=== PATIENT | female | born 1960 | race Caucasian/White ===

== ENCOUNTER → 2016-09-07 | Outpatient (CLI) | payer OTHER, MEDICAID ==
[~2016-09-07] MED LIST: /ADVA50050 IN; /CELE20CA OR; ALBU83IN NEB; ALEVE PO; BUME1TA PO; CETI10TA OR; DULERA INH; Dexilant PO; ECONAZOLE NITRATE TOP; FLEXERIL PO; FLUOROURACIL PV; MENEST PO; Metamucil PO; NASONEX; NEUR300C OR; OMEP20TA7 OR; PAXI40TA OR; PENI500T OR; POTA20PW PO; QVAR INH; SIMV40TA2 OR; SING10TA31 OR; VENTAER INH; VOLT1GEL2 TD
--- NOTE | 2016-09-08 05:45 | REP ---
Clinical: Pain with recent trauma (stepped on a desiree nail). Technique: AP, lateral, bilateral oblique views of the right foot. Findings: Age-related changes are appreciated. No acute fracture or dislocation. No subcutaneous emphysema or radiodense foreign body. Impression: Age-related changes without evidence for acute findings. Signed by Camacho Wilkinson MD 09/08/2016 05:37 A
== END ==
LOC: M ADAMS 13:17
PROVIDERS: ATTEND Physician Assistant
DX: M25.571 Pain in right ankle and joints of right foot (principal)

== ENCOUNTER → 2016-11-25 | Outpatient (REF) | payer OTHER, MEDICAID | LOC: M LAB REF 13:05 | PROVIDERS: ATTEND Internal Medicine Pulmonary Disease | DX: J45.50 Severe persistent asthma, uncomplicated (principal) ==

== ENCOUNTER 2016-12-02 10:32 | Emergency (ER) | payer MEDICAID, OTHER ==
[~2016-12-02] VITALS: Ht 172.7 cm; Wt 99.8 kg
[2016-12-02] MEDS ORDERED: SUMA100T2 PO (10:53)
[2016-12-02] MEDS ORDERED: LEVOTAB10 PO (10:53)
[2016-12-02] MEDS ORDERED: ROPI1TAB PO (10:53)
[2016-12-02] MEDS ORDERED: LASI40TA PO (10:53)
[2016-12-02] MEDS ORDERED: VENL37TA PO (10:53)
[2016-12-02] MEDS ORDERED: THEOPHYLLINE E400 MG PO (10:53)
[2016-12-02] MEDS ORDERED: OMEP40CA2 PO (10:53)
[2016-12-02] MEDS ORDERED: SPIR1AER IN (10:53)
[2016-12-02] MEDS ORDERED: DULE200A INH (12:18)
[2016-12-02 12:19] LABS: BASO % 0.3 % (0.0-1.0); EOS # 0.3 K/mm3 (0.0-0.50); LARGE UNSTAINED CELL # 0.2 K/mm3 (0.0-0.4); LYMPH # 1.4 K/mm3 (1.5-4.5); LYMPH % 19.2 % (24.0-44.0); MEAN CORPUSCULAR HEMOGLOBIN 30.3 pg (27.0-33.0); MEAN CORPUSCULAR HGB CONC 32.8 g/dl (32.0-36.5); MEAN CORPUSCULAR VOLUME 92.2 fl (80.0-96.0); MONO # 0.4 K/mm3 (0.0-0.8); MONO % 6.5 % (0.0-5.0); NEUTROPHILS # 4.2 K/mm3 (1.8-7.7); NEUTROPHILS % 65.9 % (36.0-66.0); PLATELET COUNT, AUTOMATED 290 k/mm3 (150-450); WHITE BLOOD COUNT 6.4 K/mm3 (4.0-10.0)
[2016-12-02] MEDS ORDERED: META48.54 PO (12:21)
[2016-12-02] MEDS ORDERED: ECON0.05 TOP (12:21)
[2016-12-02 12:24] LABS: ANION GAP 4 MEQ/L (8-16); BLOOD UREA NITROGEN 8 MG/DL (7-18); CALCIUM LEVEL 9.5 MG/DL (8.5-10.1); CARBON DIOXIDE LEVEL 30 MEQ/L (21-32); CHLORIDE LEVEL 107 MEQ/L (98-107); CREATININE FOR GFR 0.66 MG/DL (0.55-1.02); GLOMERULAR FILTRATION RATE > 60.0 (>51); GLUCOSE, FASTING 91 MG/DL (70-105); POTASSIUM SERUM 4.1 MEQ/L (3.5-5.1); SODIUM LEVEL 141 MEQ/L (136-145)
[2016-12-02] MEDS ORDERED: MECLIZINE 25 MG TABLET PO ONE (12:30)
[2016-12-02] MEDS ORDERED: ONDANSETRON 4MG/2ML VIAL (J2405) IV ONE (12:30)
[2016-12-02 12:31] LABS: THEOPHYLLINE LEVEL < 2.0 UG/ML (10.0-20.0)
--- NOTE | 2016-12-02 12:33 | REP ---
Chest one-view HISTORY: Chest pain Comparison: 11/18/2015 The lungs are clear. The heart is normal in size. The pulmonary vasculature is normal in appearance. Impression: No acute disease. Signed by Joe Hodgson MD 12/02/2016 12:24 P
--- NOTE | 2016-12-02 12:49 | REP ---
CT Head without contrast HISTORY: Dizziness COMPARISON: 08/29/2010 There is no intraparenchymal hemorrhage, acute infarct, mass or midline shift. The ventricular system is normal in appearance. There is no extra cerebral collection. There is no fracture. The visualized sinuses are clear. IMPRESSION: There is no intracranial lesion. Signed by Joe Hodgson MD 12/02/2016 12:40 P
[2016-12-02] MEDS ORDERED: ZOFR4TAB3 PO (15:36)
[2016-12-02] MEDS ORDERED: MECL-68 PO (15:36)
[2016-12-02 15:45] VITALS: BP 152/73
--- NOTE | 2016-12-03 09:14 | ECGEPIP ---
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
== END 2016-12-02 15:48 | disposition home or self-care (01) ==
LOC: M ED 13:31
DX: H83.02 Labyrinthitis, left ear (principal); J45.909 Unspecified asthma, uncomplicated; G43.909 Migraine, unspecified, not intractable, without status migrainosus; G47.33 Obstructive sleep apnea (adult) (pediatric); F32.9 Major depressive disorder, single episode, unspecified; K58.9 Irritable bowel syndrome, unspecified; Z91.040 Latex allergy status; Z79.899 Other long term (current) drug therapy; Z79.51 Long term (current) use of inhaled steroids
CPT/HCPCS: 70450; 71010; 80048; 80198; 82550; 82553; 84443; 85025; 93005; 93041; 94760; 96374; 99285; J2405

== ENCOUNTER → 2016-12-09 | Outpatient (REF) | payer OTHER, MEDICAID ==
[~2016-12-09] MED LIST changes: +DULE200A INH; +ECON0.05 TOP; +LASI40TA PO; +LEVOTAB10 PO; +MECL-68 PO; +META48.54 PO; +OMEP40CA2 PO; +ROPI1TAB PO; +SPIR1AER IN; +SUMA100T2 PO; +THEOPHYLLINE E400 MG PO; +VENL37TA PO; +ZOFR4TAB3 PO
== END ==
LOC: M SFHCPLAZ 10:31
PROVIDERS: ATTEND Family Medicine
DX: Z13.1 Encounter for screening for diabetes mellitus (principal); Z13.21 Encounter for screening for nutritional disorder

== ENCOUNTER → 2017-01-06 | Outpatient (CLI) | payer OTHER ==
--- NOTE | 2017-01-06 11:50 | REPMRS ---
Patient History The patient states she had a clinical breast exam in 05/24 Patient is postmenopausal. Family history of prostate cancer in father at age 50 or over and breast cancer in paternal aunt under age 50. Digital Woman Screen Mammo: January 06, 2017 - Exam #: [id number] Bilateral CC and MLO view(s) were taken. Technologist: Ritu Cramer, Technologist Prior study comparison: April 25, 2015, digital woman screen mammo performed at [facility]. March 08, 2014, digital woman screen mammo performed at [facility]. FINDINGS: The breast tissue is heterogeneously dense. This may lower the sensitivity of mammography. There has been no change in the appearance of the mammogram from the prior studies. There is a moderate amount of residual fibroglandular tissue which is fairly symmetric. There is no interval development of dominant mass, areas of architectural distortion, or clustered microcalcification typical of malignancy. ASSESSMENT: BI-RADS/ACR category 1 mammogram. Negative. Recommendation Routine screening mammogram in 1 year (for women over age 40). This mammogram was interpreted with the aid of an FDA-approved computer-aided dectection system. Electronically Signed By: Franklin Joe MD 01/06/17 [id number]
== END ==
LOC: M WHC 11:02
PROVIDERS: ATTEND Nurse Practitioner Adult Health
DX: Z12.31 Encounter for screening mammogram for malignant neoplasm of breast (principal)

== ENCOUNTER → 2017-01-14 | Outpatient (CLI) | payer OTHER ==
--- NOTE | 2017-01-14 14:45 | REP ---
Chest x-ray: Two views. History: Shortness of breath. Comparison study: November 18, 2015. Findings: The lungs are well inflated and free of infiltrate. The pleural angles are sharp. The heart size is normal. Pulmonary vasculature is not increased. No significant bony abnormality is seen. Impression: Negative chest x-ray. Signed by Helder Chavez MD 01/14/2017 02:36 P
== END ==
LOC: M ADAMS 11:28
PROVIDERS: ATTEND Physician Assistant
DX: J45.909 Unspecified asthma, uncomplicated (principal); R06.02 Shortness of breath

== ENCOUNTER → 2017-02-17 | Outpatient (CLI) | payer OTHER ==
[~2017-02-17] MED LIST changes: -ECON0.05 TOP; +ECON1CRE TOP; +THEO400T PO; -THEOPHYLLINE E400 MG PO
--- NOTE | 2017-02-18 02:15 | REP ---
Clinical: Pain. Technique: Neutral and frog lateral views of the left hip. Findings: Mild arthritic degenerative changes include joint space narrowing with increase sclerosis and subtle spurring along the acetabular roof. No periarticular calcifications. No acute fracture or dislocation. Impression: Mild age-related degenerative changes. Signed by Camacho Wilkinson MD 02/18/2017 02:06 A
== END ==
LOC: M RAD 11:25
PROVIDERS: ATTEND Family Medicine
DX: M16.12 Unilateral primary osteoarthritis, left hip (principal); M25.552 Pain in left hip

== ENCOUNTER → 2017-02-26 | Outpatient (REF) | payer OTHER, MEDICAID | LOC: M LAB REF 12:31 | PROVIDERS: ATTEND Internal Medicine Pulmonary Disease | DX: J45.50 Severe persistent asthma, uncomplicated (principal) ==

== ENCOUNTER → 2017-03-10 | Outpatient (REF) | payer OTHER | LOC: M LAB REF 13:40 | PROVIDERS: ATTEND Internal Medicine Pulmonary Disease | DX: J45.51 Severe persistent asthma with (acute) exacerbation (principal) ==

== ENCOUNTER → 2017-07-05 | Outpatient (CLI) | payer OTHER | LOC: M SMT 10:41 | PROVIDERS: ATTEND Physician Assistant | DX: J45.50 Severe persistent asthma, uncomplicated (principal) ==

== ENCOUNTER → 2017-09-03 | Outpatient (REF) | payer OTHER | LOC: M LAB REF 15:09 | DX: J45.41 Moderate persistent asthma with (acute) exacerbation (principal) ==

== ENCOUNTER 2017-10-15 09:04 | Emergency (ER) | payer OTHER ==
[2017-10-15] MEDS: predniSONE 20 MG TAB PO (09:57)
[2017-10-15] MEDS: IPRATROPIUM 0.5MG/ALBUTEROL 2.5MG INH SOL UD 3ML (DUONEB)(J7620) NEB ×3 (10:02→10:26)
== END 2017-10-15 13:23 | disposition home or self-care (01) ==
LOC: M ED 09:04
DX: J44.1 Chronic obstructive pulmonary disease with (acute) exacerbation (principal); J45.909 Unspecified asthma, uncomplicated; K58.9 Irritable bowel syndrome, unspecified; G47.33 Obstructive sleep apnea (adult) (pediatric); Z87.891 Personal history of nicotine dependence; Z91.040 Latex allergy status; Z79.899 Other long term (current) drug therapy; Z79.51 Long term (current) use of inhaled steroids
CPT/HCPCS: 71046

== ENCOUNTER → 2018-01-07 | Outpatient (CLI) | payer OTHER | LOC: M WHC 09:06 | DX: Z12.31 Encounter for screening mammogram for malignant neoplasm of breast (principal) | CPT/HCPCS: 77067 ==

== ENCOUNTER → 2018-03-13 | Outpatient (CLI) | payer OTHER | LOC: M ADAMS 08:20 | DX: M25.531 Pain in right wrist (principal) | CPT/HCPCS: 73110 ==

== ENCOUNTER → 2018-04-13 | Outpatient (CLI) | payer OTHER | LOC: M WHC 08:49 | DX: Z13.820 Encounter for screening for osteoporosis (principal); Z78.0 Asymptomatic menopausal state | CPT/HCPCS: 77080 ==

== ENCOUNTER 2018-05-02 12:43 | Day surgery (SDC) | payer OTHER ==
[~2018-05-02 12:43] MED LIST changes: -/ADVA50050 IN; -/CELE20CA OR; -ALBU83IN NEB; -ALEVE PO; -BUME1TA PO; -CETI10TA OR; -DULE200A INH; -DULERA INH; -Dexilant PO; -ECON1CRE TOP; -ECONAZOLE NITRATE TOP; -FLEXERIL PO; -FLUOROURACIL PV; -LASI40TA PO; -LEVOTAB10 PO; -MECL-68 PO; -MENEST PO; -META48.54 PO; -Metamucil PO; -NASONEX; -NEUR300C OR; +NS 1,000 ML IV; -OMEP20TA7 OR; -OMEP40CA2 PO; -PAXI40TA OR; -PENI500T OR; -POTA20PW PO; -QVAR INH; -ROPI1TAB PO; -SIMV40TA2 OR; -SING10TA31 OR; -SPIR1AER IN; -SUMA100T2 PO; -THEO400T PO; -VENL37TA PO; -VENTAER INH; -VOLT1GEL2 TD; -ZOFR4TAB3 PO
[2018-05-02] MEDS ORDERED: fentaNYL 100 MCG/2 ML INJECTION (J3010) As Ordered (12:59)
[2018-05-02] MEDS ORDERED: PROPOFOL 200 MG/20 ML VIAL As Ordered (12:59)
[2018-05-02] MEDS ORDERED: LIDOCAINE 2% INJ 100 MG/5 ML SDV (FOR ANES.) As Ordered (12:59)
== END 2018-05-02 15:38 | disposition home or self-care (01) ==
LOC: M OPP 12:43
DX: R19.4 Change in bowel habit (principal); D12.2 Benign neoplasm of ascending colon; D12.5 Benign neoplasm of sigmoid colon; K64.8 Other hemorrhoids; R12 Heartburn; I10 Essential (primary) hypertension; E78.5 Hyperlipidemia, unspecified; R60.0 Localized edema; K44.9 Diaphragmatic hernia without obstruction or gangrene; K59.00 Constipation, unspecified; K21.9 Gastro-esophageal reflux disease without esophagitis; D64.9 Anemia, unspecified; R06.02 Shortness of breath; M54.30 Sciatica, unspecified side; F32.9 Major depressive disorder, single episode, unspecified; G43.909 Migraine, unspecified, not intractable, without status migrainosus; J45.909 Unspecified asthma, uncomplicated; G47.30 Sleep apnea, unspecified; R06.83 Snoring; Z91.040 Latex allergy status; Z79.899 Other long term (current) drug therapy
CPT/HCPCS: 45385

== ENCOUNTER → 2018-05-17 | Outpatient (REF) | payer OTHER ==
[2018-05-17 16:19] LABS: GAMMA GLUTAMYLTRANSPEPTIDASE 61 U/L (5-55)
== END ==
LOC: M SFHCPLAZ 14:00
DX: R74.8 Abnormal levels of other serum enzymes (principal)

== ENCOUNTER → 2018-05-24 | Outpatient (REF) | payer OTHER ==
[2018-05-24 18:01] LABS: THEOPHYLLINE LEVEL 13.4 UG/ML (10.0-20.0)
== END ==
LOC: M LAB REF 17:09
DX: J45.50 Severe persistent asthma, uncomplicated (principal)
CPT/HCPCS: 80198

== ENCOUNTER → 2018-07-25 | Outpatient (CLI) | payer OTHER ==
[~2018-07-25] MED LIST changes: +/ADVA50050 IN; +/CELE20CA OR; +ALBU83IN NEB; +ALEVE PO; +ASMA1AER3; +ATOR40TA75 PO; +BREO1INH INH; +BUME1TA PO; +CETI10TA OR; +DULE200A INH; +DULERA INH; +Dexilant PO; +ECON1CRE TOP; +ECONAZOLE NITRATE TOP; +EFFE75CA2 PO; +FIBE625T PO; +FLEXERIL PO; +FLUO10CA8 PO; +FLUOROURACIL PV; +FLUTISP NARES; +GABA-1171 PO; +INCR1INH; +IPRA0.00 INH; +LACT10SO29 PO; +LASI40TA PO; +LEVOTAB10 PO; +MECL-68 PO; +MENEST PO; +META48.54 PO; +Metamucil PO; +NASONEX; +NEUR300C OR; -NS 1,000 ML IV; +OMEP20CA3 PO; +OMEP20TA7 OR; +OMEP40CA2 PO; +PAXI40TA OR; +PENI500T OR; +POTA20PW PO; +PRED10TA2 PO; +QVAR INH; +REQU1TAB16 PO; +ROPI1TAB PO; +SIMV40TA2 OR; +SING10TA31 OR; +SING10TA32 PO; +SPIR1AER IN; +SUMA100T2 PO; +THEO400T PO; +VENL37TA PO; +VENTAER INH; +VITA50005; +VOLT1GEL2 TD; +XOLA150S SC; +ZOFR4TAB14 PO
--- NOTE | 2018-07-27 08:17 | REP ---
Clinical: Elevated liver function tests. Technique: Real time estes scale ultrasound examination using curved array transducer. Findings: Liver demonstrates mild increased echotexture consistent with fatty infiltration. No focal hepatic lesion identified. The pancreas is incompletely evaluated due to interposed bowel gas. The gallbladder is normal and without gallstones, wall thickening, or pericholecystic fluid. No biliary ductal dilatation is appreciated and the common bile duct measures 2.7 mm diameter. The right kidney is normal in reniform shape without hydronephrosis and measures 10.3 x 5.8 x 5.1 cm. No ascites. Impression: Mild hepatic steatosis.
== END ==
LOC: M WHC 08:12
PROVIDERS: ATTEND Family Medicine
DX: K76.0 Fatty (change of) liver, not elsewhere classified (principal); R74.8 Abnormal levels of other serum enzymes

== ENCOUNTER → 2018-07-27 | Outpatient (CLI) | payer OTHER ==
--- NOTE | 2018-07-27 19:33 | REP ---
Clinical: Pain. Technique: AP, lateral, bilateral oblique views of the left foot. Findings: Subchondral sclerosis and joint space narrowing at the first tarsometatarsal joint is appreciated along with minimal increased sclerosis at the base of the first proximal phalanx and mild degenerative changes to the interphalangeal joints. No acute fracture or dislocation. Lateral view suggests pes planus. Impression: Mild degenerative changes. Electronically Signed by Camacho Wilkinson MD 07/27/2018 07:24 P
== END ==
LOC: M ADAMS 14:41
PROVIDERS: ATTEND Physician Assistant Medical
DX: M79.672 Pain in left foot (principal)

== ENCOUNTER → 2018-08-16 | Outpatient (REF) | payer OTHER ==
[~2018-08-16] MED LIST changes: -LASI40TA PO; +LASI40TA9 PO
== END ==
LOC: M SFHCPLAZ 16:41
PROVIDERS: ATTEND Family Medicine
DX: K76.0 Fatty (change of) liver, not elsewhere classified (principal)

== ENCOUNTER → 2018-08-22 | Outpatient (REF) | payer OTHER ==
[2018-08-24 08:35] LABS: HEPATITIS A IgG TOTAL Negative (Negative); HEPATITIS B CORE ANTIBODY IGG Negative (Negative)
[2018-08-24 11:04] LABS: HEPATITIS B SURFACE ANTIBODY NEGATIVE (POSITIVE); HEPATITIS B SURFACE ANTIGEN NEGATIVE (NEGATIVE); HEPATITIS C VIRUS ABY INDEX 0.1 INDEX (<0.8)
== END ==
LOC: M SFHCPLAZ 15:26
PROVIDERS: ATTEND Family Medicine
DX: K76.0 Fatty (change of) liver, not elsewhere classified (principal)

== ENCOUNTER → 2018-08-22 | Outpatient (CLI) | payer OTHER ==
--- NOTE | 2018-08-23 07:37 | REP ---
Clinical: Right knee pain. Technique: AP, lateral, bilateral oblique and sunrise views of the right knee. Findings: Mild arthritic changes include subchondral sclerosis to the tibial plateau and posterior patellar margin with medial compartment joint space narrowing as well as mild cortical irregularity and subtle spurring along the medial tibial plateau. No acute fracture or dislocation. No obvious effusion. Impression: Mild arthritic changes. Electronically Signed by Camacho Wilkinson MD 08/23/2018 07:28 A
== END ==
LOC: M ADAMS 14:31
PROVIDERS: ATTEND Family Medicine
DX: K76.0 Fatty (change of) liver, not elsewhere classified (principal); M25.561 Pain in right knee

== ENCOUNTER → 2018-09-19 | Outpatient (REF) | payer OTHER ==
[2018-09-19 20:14] LABS: PERCENT SATURATION 21.9 % (13.2-45.0)
[2018-09-22 00:09] LABS: ANTI-MITOCHONDRIAL ANTIBODY <20.0 Units (0.0-20.0); TRANSFERRIN 278 mg/dL (200-370)
== END ==
LOC: M LABDRWAD 19:04
PROVIDERS: ATTEND Student in an Organized Health Care Education/Training Program
DX: K76.0 Fatty (change of) liver, not elsewhere classified (principal)

== ENCOUNTER → 2018-11-03 | Outpatient (REF) | payer OTHER | LOC: M LABDRWAD 19:10 | PROVIDERS: ATTEND Physician Assistant | DX: J45.50 Severe persistent asthma, uncomplicated (principal) ==

== ENCOUNTER → 2018-11-03 | Outpatient (REF) | payer OTHER ==
[2018-11-04 09:31] LABS: PTH INTACT 97.4 PG/ML (18.5-88.0); TOTAL 25(OH) VITAMIN D 24.4 NG/ML (30.0-100.0)
[2018-11-05 16:40] LABS: ANTINUCLEAR ANTIBODIES DIRECT Negative (Negative)
== END ==
LOC: M SFHCPLAZ 15:01 → M SFHCADAM 15:02
PROVIDERS: ATTEND Family Medicine
DX: E78.89 Other lipoprotein metabolism disorders (principal)

== ENCOUNTER 2018-12-14 09:29 | Emergency (ER) | payer OTHER ==
[~2018-12-14] VITALS: Ht 160 cm; Wt 95.8 kg
[~2018-12-14 09:29] MED LIST changes: -/ADVA50050 IN; -/CELE20CA OR; +ADVA1AER2 IN; +CELE1CAP4 OR
[2018-12-14] MEDS ORDERED: ROPI1TAB PO (09:59)
[2018-12-14] MEDS ORDERED: methylPREDNISolone INJ 125 MG/2 ML VIAL (J2930) IV ONE (10:15)
[2018-12-14] MEDS ORDERED: ASPIRIN 81 MG CHEW TABLET PO ONE (10:15)
[2018-12-14 10:18] LABS: BASO # 0.1 10^3/uL (0.0-0.2); BASO % 0.6 % (0.0-1.0); EOS # 0.3 10^3/uL (0.0-0.50); EOS % 3.2 % (0.0-3.0); HEMATOCRIT 39.2 % (36.0-47.0); LYMPH # 1.3 10^3/uL (1.5-4.5); LYMPH % 13.3 % (24.0-44.0); MEAN CORPUSCULAR HEMOGLOBIN 30.2 pg (27.0-33.0); MEAN CORPUSCULAR HGB CONC 33.2 g/dl (32.0-36.5); MEAN CORPUSCULAR VOLUME 91.2 fl (80.0-96.0); MONO # 0.6 10^3/uL (0.0-0.8); MONO % 5.8 % (0.0-5.0); NEUTROPHILS # 7.6 10^3/uL (1.8-7.7); NEUTROPHILS % 76.8 % (36.0-66.0); PLATELET COUNT, AUTOMATED 282 10^3/uL (150-450); WHITE BLOOD COUNT 9.9 10^3/uL (4.0-10.0)
[2018-12-14 10:30] LABS: INR 0.92; PARTIAL THROMBOPLASTIN TIME 33.5 SECONDS (25.4-37.6); PROTHROMBIN TIME 12.5 SECONDS (12.1-14.4)
--- NOTE | 2018-12-14 10:30 | REP ---
Chest x-ray: Two views. History: Chest pain . Comparison study: October 15, 2017 . Findings: The lungs are well inflated and free of infiltrate. The pleural angles are sharp. The heart size is normal. Pulmonary vasculature is not increased. No significant bony abnormality is seen. EKG monitoring electrodes are seen. Impression: Negative chest x-ray. Electronically Signed by Helder Chavez MD 12/14/2018 10:22 A
[2018-12-14 10:33] LABS: D-DIMER QUANT 299.46 ng/ml (<500)
[2018-12-14] MEDS: IPRATROPIUM 0.5MG/ALBUTEROL 2.5MG INH SOL UD 3ML (DUONEB)(J7620) NEB PRN ×3 (10:40→12:03)
[2018-12-14 10:55] LABS: ALBUMIN 3.7 GM/DL (3.2-5.2); ALT/SGPT 17 U/L (12-78); BILIRUBIN,DIRECT < 0.1 MG/DL (0.0-0.2); BILIRUBIN,TOTAL 0.2 MG/DL (0.2-1.0); BLOOD UREA NITROGEN 8 MG/DL (7-18); CALCIUM LEVEL 8.9 MG/DL (8.5-10.1); CARBON DIOXIDE LEVEL 28 MEQ/L (21-32); CHLORIDE LEVEL 108 MEQ/L (98-107); CK-MB VALUE MASS < 1.0 NG/ML (<3.6); CPK CREATINE PHOSPHOKINASE 54 U/L (26-192); CREATININE FOR GFR 0.67 MG/DL (0.55-1.30); GLOMERULAR FILTRATION RATE > 60.0 (>51); GLUCOSE, FASTING 81 MG/DL (70-100); LIPASE 153 U/L (73-393); MB/CK RELATIVE INDEX 1.85 (< OR =4); POTASSIUM SERUM 3.3 MEQ/L (3.5-5.1); SODIUM LEVEL 142 MEQ/L (136-145); TOTAL PROTEIN 7.3 GM/DL (6.4-8.2); TROPONIN I < 0.02 NG/ML (< 0.10)
[2018-12-14] MEDS ORDERED: POTASSIUM CHLORIDE 10 MEQ SR TABLET PO ONE (11:00)
[2018-12-14 13:13] VITALS: O2SAT 97
[2018-12-14 14:21] LABS: CK-MB VALUE MASS < 1.0 NG/ML (<3.6); CPK CREATINE PHOSPHOKINASE 55 U/L (26-192); MB/CK RELATIVE INDEX 1.82 (< OR =4); TROPONIN I < 0.02 NG/ML (< 0.10)
[2018-12-14] MEDS ORDERED: PRED20TA PO (14:32)
[2018-12-14 14:56] VITALS: BP 126/78
--- NOTE | 2018-12-14 20:30 | ECGEPIP ---
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
--- NOTE | 2018-12-14 20:35 | ECGEPIP ---
Stationary ECG Study [facility] - ED Test Date: 2018-12-14 Pat Name: MARIA ESTHER KUHN Department: Room: - Gender: F Interpretive Program Coordinator: CARIN : 1960 Requested By: AMADO Trinidad Order Number: [id number] Reading MD: Shahrzad Murdock Measurements Intervals [place] Rate: 107 P: 51 DE: 166 QRS: -50 QRSD: 102 T: 31 QT: 352 QTc: 470 Interpretive Statements SINUS TACHYCARDIA PATTERN CONSISTENT WITH PULMONARY DISEASE INCOMPLETE RIGHT BUNDLE BRANCH BLOCK LEFT ANTERIOR FASCICULAR BLOCK MODERATE ST DEPRESSION Electronically Signed On 12-14-2018 20:35:31 EDT by Shahrzad Murdock
== END 2018-12-14 14:50 | disposition home or self-care (01) ==
LOC: M ED 09:29
DX: J45.901 Unspecified asthma with (acute) exacerbation (principal); J44.9 Chronic obstructive pulmonary disease, unspecified; E78.5 Hyperlipidemia, unspecified; F33.9 Major depressive disorder, recurrent, unspecified; G43.909 Migraine, unspecified, not intractable, without status migrainosus; G47.30 Sleep apnea, unspecified; K58.9 Irritable bowel syndrome, unspecified; R60.9 Edema, unspecified; Z79.899 Other long term (current) drug therapy; Z87.891 Personal history of nicotine dependence
CPT/HCPCS: 36415; 71046; 80048; 80076; 82550; 82553; 83690; 85025; 85379; 85610; 85730; 93005; 93041; 94640; 94760; 96374; 99285; J2930

== ENCOUNTER → 2018-12-19 | Outpatient (REF) | payer OTHER ==
[~2018-12-19] MED LIST changes: +PRED20TA PO
== END ==
LOC: M LAB REF 13:29
PROVIDERS: ATTEND Internal Medicine Pulmonary Disease
DX: J45.51 Severe persistent asthma with (acute) exacerbation (principal)

== ENCOUNTER → 2019-01-03 | Outpatient (CLI) | payer OTHER ==
--- NOTE | 2019-01-03 16:06 | REP ---
Clinical: Nontraumatic left shoulder pain. Technique: Internal rotation, external rotation, and Y view of the left shoulder. Findings: Generalized age-related changes are appreciated. Very subtle subchondral cystic changes to the humeral head cannot be excluded. No further overt arthritic findings identified. Acromioclavicular and glenohumeral joints are intact without acute fracture or dislocation. Subacromial space is normal. No periarticular calcifications or loose bodies identified. Impression: 1. Cannot exclude mild degenerative changes as noted above. Electronically Signed by Camacho Wilkinson MD 01/03/2019 03:58 P
== END ==
LOC: M ADAMS 15:02
PROVIDERS: ATTEND Physician Assistant Medical
DX: M25.512 Pain in left shoulder (principal)

== ENCOUNTER → 2019-02-08 | Outpatient (REF) | payer OTHER ==
[~2019-02-08] MED LIST changes: -OMEP20CA3 PO; +OMEP20CA4 PO
== END ==
LOC: M LABDRWAD 12:00
PROVIDERS: ATTEND Physician Assistant
DX: J45.50 Severe persistent asthma, uncomplicated (principal)

== ENCOUNTER → 2019-04-03 | Outpatient (CLI) | payer OTHER ==
[~2019-04-03] MED LIST changes: -ECON1CRE TOP; +ECON1CRE36 TOP
--- NOTE | 2019-04-03 12:38 | REPMRS ---
Patient History The patient states she had a clinical breast exam in 05/2018. Family history of breast cancer under age 50 in paternal aunt, prostate cancer at age 50 or over in father. Took estrogen for 2 years. 3D TOMOSYNTHESIS WAS PERFORMED. The Koki Lee lifetime risk for breast cancer is 9.0%. Digital Woman Screen Mammo: April 03, 2019 - Exam #: [id number] Bilateral CC and MLO view(s) were taken. Technologist: Ritu Cramer, Technologist Prior study comparison: January 07, 2018, digital woman screen mammo performed at [facility]. January 06, 2017, digital woman screen mammo performed at [facility]. FINDINGS: The breast tissue is heterogeneously dense. This may lower the sensitivity of mammography. There has been no change in the appearance of the mammogram from the prior studies. There is a moderate amount of residual fibroglandular tissue which is fairly symmetric. There is no interval development of dominant mass, areas of architectural distortion, or clustered microcalcification typical of malignancy. Assessment: BI-RADS/ACR category 1 mammogram. Negative Mammogram. Recommendation Routine screening mammogram in 1 year (for women over age 40). This mammogram was interpreted with the aid of an FDA-approved computer-aided dectection system. Electronically Signed By: Franklin Joe MD 04/03/19 [id number]
== END ==
LOC: M WHC 12:01
PROVIDERS: ATTEND Nurse Practitioner Adult Health
DX: Z12.31 Encounter for screening mammogram for malignant neoplasm of breast (principal); Z92.23 Personal history of estrogen therapy

== ENCOUNTER → 2019-04-28 | Outpatient (REF) | payer OTHER | LOC: M LAB REF 17:13 | PROVIDERS: ATTEND Physician Assistant | DX: J45.51 Severe persistent asthma with (acute) exacerbation (principal) ==

== ENCOUNTER 2019-07-14 15:33 | Emergency (ER) | payer OTHER ==
[~2019-07-14] VITALS: Ht 160 cm; Wt 95.1 kg
[~2019-07-14 15:33] MED LIST changes: +FLUO10CA15 PO; -FLUO10CA8 PO; +OMEP-172 PO; -OMEP20CA4 PO; -OMEP40CA2 PO; +OMEP40CA97 PO
[2019-07-14 16:23] LABS: VENOUS BASE EXCESS -2.4 (-2.0-2.0); VENOUS HCO3 22.8 MEQ/L (23.0-27.0); VENOUS O2 SATURATION 90.1 % (60.0-80.0); VENOUS PARTIAL PRESSURE CO2 40.6 mmHg (38.0-50.0); VENOUS PARTIAL PRESSURE O2 60.1 mmHg (30.0-50.0); VENOUS PH 7.367 UNITS (7.330-7.430); VENOUS STANDARD HCO3 22.3 MEQ/L
[2019-07-14 16:32] LABS: BASO % 0.7 % (0.0-1.0); EOS # 0.4 10^3/uL (0.0-0.5); EOS % 7.8 % (0.0-3.0); HEMATOCRIT 42.4 % (36.0-47.0); HEMOGLOBIN 13.5 g/dl (12.0-15.5); LYMPH # 1.6 10^3/uL (1.5-5.0); LYMPH % 27.9 % (24.0-44.0); MEAN CORPUSCULAR HEMOGLOBIN 29.7 pg (27.0-33.0); MEAN CORPUSCULAR HGB CONC 31.8 g/dl (32.0-36.5); MEAN CORPUSCULAR VOLUME 93.2 fl (80.0-96.0); MONO # 0.5 10^3/uL (0.0-0.8); MONO % 9.3 % (0.0-5.0); NEUTROPHILS # 3.1 10^3/uL (1.5-8.5); NEUTROPHILS % 54.1 % (36.0-66.0); PLATELET COUNT, AUTOMATED 293 10^3/uL (150-450); RED BLOOD COUNT 4.55 10^6/uL (4.00-5.40); WHITE BLOOD COUNT 5.7 10^3/uL (4.0-10.0)
[2019-07-14] MEDS ORDERED: FIBE62TA PO (16:36)
[2019-07-14] MEDS ORDERED: CVS125CA3 PO (16:36)
--- NOTE | 2019-07-14 16:39 | REP ---
Single view chest: 07/14/2019. Indication: Dyspnea. Comparison: 12/14/2018. Findings: The lungs are clear. There is no pleural effusion or pneumothorax. The cardiomediastinal silhouette is unremarkable. Impression: No acute cardiopulmonary process. Electronically Signed by Roman Herrera DO 07/14/2019 04:31 P
[2019-07-14 16:46] LABS: INR 1.02; PROTHROMBIN TIME 13.1 SECONDS (11.8-14.0)
[2019-07-14 16:57] LABS: ALBUMIN 3.9 GM/DL (3.2-5.2); ALT/SGPT 18 U/L (12-78); BILIRUBIN,DIRECT < 0.1 MG/DL (0.0-0.2); BILIRUBIN,TOTAL 0.4 MG/DL (0.2-1.0); BLOOD UREA NITROGEN 10 MG/DL (7-18); CALCIUM LEVEL 9.3 MG/DL (8.5-10.1); CARBON DIOXIDE LEVEL 24 MEQ/L (21-32); CHLORIDE LEVEL 107 MEQ/L (98-107); CK-MB VALUE MASS < 1.0 NG/ML (<3.6); CPK CREATINE PHOSPHOKINASE 70 U/L (26-192); CREATININE FOR GFR 0.73 MG/DL (0.55-1.30); GLOMERULAR FILTRATION RATE > 60.0 (>51); GLUCOSE, FASTING 83 MG/DL (70-100); MB/CK RELATIVE INDEX 1.43 (< OR =4); NT-PRO BNP 15 PG/ML (<125); POTASSIUM SERUM 3.9 MEQ/L (3.5-5.1); SODIUM LEVEL 141 MEQ/L (136-145); TOTAL PROTEIN 7.6 GM/DL (6.4-8.2); TROPONIN I < 0.02 NG/ML (< 0.10)
[2019-07-14] MEDS ORDERED: IPRATROPIUM 0.5MG/ALBUTEROL 2.5MG INH SOL UD 3ML (DUONEB)(J7620) NEB ONE (17:00)
[2019-07-14] MEDS ORDERED: ALBUTEROL SULFATE 2.5 MG/0.5 ML INH NEB SOLN INH ONE (17:00)
[2019-07-14] MEDS ORDERED: dexameTHASONE 20 MG/5 ML VIAL (J1100) IV ONE (17:30)
[2019-07-14] MEDS ORDERED: PRED10TA2 PO (18:24)
[2019-07-14 18:38] VITALS: BP 151/78
--- NOTE | 2019-07-14 20:08 | ECGEPIP ---
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
== END 2019-07-14 18:41 | disposition home or self-care (01) ==
LOC: M ED 15:33
DX: J45.901 Unspecified asthma with (acute) exacerbation (principal); J44.9 Chronic obstructive pulmonary disease, unspecified; E78.5 Hyperlipidemia, unspecified; G47.33 Obstructive sleep apnea (adult) (pediatric); Z79.899 Other long term (current) drug therapy; Z91.040 Latex allergy status; Z87.891 Personal history of nicotine dependence
CPT/HCPCS: 71045; 80047; 80048; 80076; 82550; 82553; 82803; 83605; 83735; 83880; 84443; 85025; 85610; 87040; 87077; 87186; 87486; 87581; 87633; 87798; 93005; 93041; 94640; 96374; 99285; J1100

== ENCOUNTER → 2019-08-17 | Outpatient (CLI) | payer OTHER ==
[~2019-08-17] MED LIST changes: +CVS125CA3 PO; +E-Z-GAS II EFFERVESCENT PACKET (SODIUM BICARB./CITRIC ACID/SIMETHICONE) As Ordered ONE; +E-Z-HD 98% w/w 340GM SUSP BTL As Ordered ONE; +E-Z-PAQUE 96% w/w SUSP 176GM BTL As Ordered ONE; +FIBE62TA PO
--- NOTE | 2019-08-17 18:36 | REP ---
Esophagram The procedure was performed under the direct supervision of Dr. Chavez. The images were reviewed with Dr. Chavez. A single view PA chest x-ray is submitted as a pilot instructor film. The superior mediastinal structures are midline. The heart size is within normal limits. The lungs are clear. Liquid barium and gas producing granules were given in the erect position as well as liquid barium in the prone oblique positions in order to perform a double contrast esophagram examination. The oral and pharyngeal stages of deglutition are unremarkable. 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 There are esophageal transport there are tertiary waves demonstrated. There is no esophagitis stricture mucosal ring or hiatal hernia. Gastroesophageal reflux is not demonstrated on this examination. Impression: 1. 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 2. Tertiary waves. 0.6 minutes of fluoro time was utilized for this procedure. Electronically Signed by TERRANCE Andersen 08/17/2019 05:42 P Electronically Signed by Helder Chavez MD 08/17/2019 06:25 P
== END ==
LOC: M RAD 08:15
PROVIDERS: ATTEND Student in an Organized Health Care Education/Training Program
DX: K44.9 Diaphragmatic hernia without obstruction or gangrene (principal)

== ENCOUNTER → 2019-08-23 | Outpatient (REF) | payer OTHER ==
[~2019-08-23] MED LIST changes: -E-Z-GAS II EFFERVESCENT PACKET (SODIUM BICARB./CITRIC ACID/SIMETHICONE) As Ordered ONE; -E-Z-HD 98% w/w 340GM SUSP BTL As Ordered ONE; -E-Z-PAQUE 96% w/w SUSP 176GM BTL As Ordered ONE; -ECON1CRE36 TOP; +ECON1CRE8 TOP; -MECL-68 PO; +MECL1TAB31 PO; -OMEP-172 PO; +OMEP1CAP73 PO
== END ==
LOC: M SFHCPLAZ 08:46
PROVIDERS: ATTEND Family Medicine
DX: Q39.4 Esophageal web (principal); Z13.220 Encounter for screening for lipoid disorders; Z13.1 Encounter for screening for diabetes mellitus; R63.5 Abnormal weight gain

== ENCOUNTER → 2019-08-30 | Outpatient (REF) | payer OTHER ==
[2019-08-30 13:53] LABS: HEMATOCRIT 42.2 % (36.0-47.0); HEMOGLOBIN 13.2 g/dl (12.0-15.5); MEAN CORPUSCULAR HEMOGLOBIN 29.5 pg (27.0-33.0); MEAN CORPUSCULAR HGB CONC 31.3 g/dl (32.0-36.5); MEAN CORPUSCULAR VOLUME 94.4 fl (80.0-96.0); PLATELET COUNT, AUTOMATED 316 10^3/uL (150-450); RED BLOOD COUNT 4.47 10^6/uL (4.00-5.40); WHITE BLOOD COUNT 5.9 10^3/uL (4.0-10.0)
[2019-08-30 14:34] LABS: ALBUMIN 3.8 GM/DL (3.2-5.2); ALT/SGPT 13 U/L (12-78); BILIRUBIN,TOTAL 0.1 MG/DL (0.2-1.0); BLOOD UREA NITROGEN 14 MG/DL (7-18); CALCIUM LEVEL 9.8 MG/DL (8.5-10.1); CARBON DIOXIDE LEVEL 25 MEQ/L (21-32); CHLORIDE LEVEL 110 MEQ/L (98-107); CHOLESTEROL LEVEL 241 MG/DL (<200); CHOLESTEROL RISK RATIO 4.918 (<5); CREATININE FOR GFR 0.88 MG/DL (0.55-1.30); FERRITIN 22 NG/ML (8-252); FOLATE 7.3 NG/ML; FREE T4 0.97 NG/DL (0.76-1.46); GLOMERULAR FILTRATION RATE > 60.0 (>51); GLUCOSE, FASTING 97 MG/DL (70-100); HDL CHOLESTEROL 49 MG/DL (>40); IRON (FE) 52 UG/DL (50-170); LDL CHOLESTEROL 150 MG/DL (<100); NON-HDL-C 192 MG/DL; PERCENT SATURATION 15.3 % (13.2-45.0); POTASSIUM SERUM 3.7 MEQ/L (3.5-5.1); SODIUM LEVEL 144 MEQ/L (136-145); TOTAL IRON BINDING CAPACITY 340 UG/DL (250-450); TOTAL PROTEIN 7.2 GM/DL (6.4-8.2); TRIGLYCERIDES LEVEL 208 MG/DL (<150); VITAMIN B12 LEVEL 629 PG/ML
[2019-08-30 15:17] LABS: HEMOGLOBIN A1c 5.9 %
== END ==
LOC: M SFHCPLAZ 08:24
PROVIDERS: ATTEND Family Medicine
DX: Q39.4 Esophageal web (principal); Z13.220 Encounter for screening for lipoid disorders; Z13.1 Encounter for screening for diabetes mellitus; R63.5 Abnormal weight gain

== ENCOUNTER 2019-09-02 09:55 | Emergency (ER) | payer OTHER ==
[~2019-09-02] VITALS: Ht 160 cm; Wt 96.6 kg
[~2019-09-02 09:55] MED LIST changes: -INCR1INH; +INCR1INH INH
[2019-09-02] MEDS ORDERED: ALBUTEROL SULFATE 2.5 MG/0.5 ML INH NEB SOLN INH ONE (10:15)
[2019-09-02] MEDS ORDERED: methylPREDNISolone INJ 125 MG/2 ML VIAL (J2930) IV ONE (10:15)
[2019-09-02] MEDS ORDERED: IPRATROPIUM 0.5MG/ALBUTEROL 2.5MG INH SOL UD 3ML (DUONEB)(J7620) NEB ONE (10:15)
--- NOTE | 2019-09-02 10:42 | REP ---
AP PORTABLE CHEST: 09/02/2019. COMPARISON: 07/14/2019, 07/11/2005. CLINICAL HISTORY: Dyspnea. FINDINGS: Lungs are well inflated and clear. The heart, mediastinal and hilar contours are normal. Aorta and airway intact. Bones show some degenerative changes in the spine and shoulders although mild. No free air under the diaphragm. IMPRESSION: 1. No acute cardiopulmonary change. Stable chest from 07/14/2019. Electronically Signed by Hernando Carrillo MD 09/02/2019 07:55 P
[2019-09-02 10:46] LABS: ABG BASE EXCESS 2.2 (-2.0-2.0); ABG HCO3 26.2 MEQ/L (22.0-26.0); ABG O2 SATURATION 96.4 % (95.0-99.0); ABG PARTIAL PRESSURE CO2 38.9 mmHg (35.0-45.0); ABG PARTIAL PRESSURE O2 82.6 mmHg (75.0-100.0); ABG STANDARD HCO3 26.4 MEQ/L (22.0-26.0); ABG TOTAL CO2 27.4 MEQ/L (22.0-29.0); ABG pH (ARTERIAL) 7.447 UNITS (7.350-7.450)
[2019-09-02 10:48] LABS: BASO # 0.1 10^3/uL (0.0-0.2); BASO % 1.2 % (0.0-1.0); EOS # 0.9 10^3/uL (0.0-0.5); EOS % 16.4 % (0.0-3.0); HEMATOCRIT 41.4 % (36.0-47.0); HEMOGLOBIN 13.3 g/dl (12.0-15.5); LYMPH % 19.7 % (24.0-44.0); MEAN CORPUSCULAR HEMOGLOBIN 29.4 pg (27.0-33.0); MEAN CORPUSCULAR HGB CONC 32.1 g/dl (32.0-36.5); MEAN CORPUSCULAR VOLUME 91.6 fl (80.0-96.0); MONO # 0.4 10^3/uL (0.0-0.8); MONO % 7.7 % (0.0-5.0); NEUTROPHILS # 2.8 10^3/uL (1.5-8.5); NEUTROPHILS % 54.6 % (36.0-66.0); PLATELET COUNT, AUTOMATED 274 10^3/uL (150-450); RED BLOOD COUNT 4.52 10^6/uL (4.00-5.40); WHITE BLOOD COUNT 5.2 10^3/uL (4.0-10.0)
[2019-09-02] MEDS ORDERED: MONT10TA2 PO (11:04)
[2019-09-02] MEDS ORDERED: ARNU1INH3 PO (11:04)
[2019-09-02] MEDS ORDERED: CONS10SO3 PO ×2 (11:04)
[2019-09-02] MEDS ORDERED: LEVOTAB10 PO (11:04)
[2019-09-02] MEDS ORDERED: FLUTISP NARES (11:04)
[2019-09-02] MEDS ORDERED: AIRD1INH PO (11:04)
[2019-09-02 11:14] LABS: INFLUENZA A AMPLIFICATION NEGATIVE (NEGATIVE); INFLUENZA B AMPLIFICATION NEGATIVE (NEGATIVE)
[2019-09-02 11:19] LABS: ALBUMIN 3.7 GM/DL (3.2-5.2); ALT/SGPT 12 U/L (12-78); BILIRUBIN,DIRECT < 0.1 MG/DL (0.0-0.2); BILIRUBIN,TOTAL 0.2 MG/DL (0.2-1.0); CK-MB VALUE MASS < 1.0 NG/ML (<3.6); CPK CREATINE PHOSPHOKINASE 63 U/L (26-192); MB/CK RELATIVE INDEX 1.59 (< OR =4); NT-PRO BNP 25 PG/ML (<125); THYROXINE (T4) 8.9 UG/DL (4.5-12.0); TOTAL PROTEIN 7.1 GM/DL (6.4-8.2); TROPONIN I < 0.02 NG/ML (< 0.10)
[2019-09-02] MEDS ORDERED: DOXY100C37 PO (11:41)
[2019-09-02] MEDS ORDERED: PRED10TA2 PO (11:41)
[2019-09-02] MEDS ORDERED: DOXYCYCLINE HYCLATE 100 MG TAB PO ONE (11:45)
[2019-09-02 11:46] VITALS: BP 153/78
--- NOTE | 2019-09-02 16:40 | ECGEPIP ---
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
== END 2019-09-02 12:00 | disposition home or self-care (01) ==
LOC: M ED 09:55
DX: J44.1 Chronic obstructive pulmonary disease with (acute) exacerbation (principal); J40 Bronchitis, not specified as acute or chronic; I10 Essential (primary) hypertension; K44.9 Diaphragmatic hernia without obstruction or gangrene; G47.30 Sleep apnea, unspecified; E78.9 Disorder of lipoprotein metabolism, unspecified; F32.9 Major depressive disorder, single episode, unspecified; Z87.891 Personal history of nicotine dependence; Z91.040 Latex allergy status; Z79.899 Other long term (current) drug therapy; Z79.51 Long term (current) use of inhaled steroids
CPT/HCPCS: 36600; 71045; 80047; 80076; 82550; 82553; 82803; 83605; 83880; 84436; 84443; 85025; 87040; 87502; 93005; 93041; 94640; 96374; 99285; J2930

== ENCOUNTER → 2019-09-15 | Outpatient (CLI) | payer OTHER ==
[~2019-09-15] MED LIST changes: +AIRD1INH PO; +ARNU1INH3 PO; +CONRAY-43 43% 50ML VIAL (Q9960) As Ordered ONE; +CONS10SO3 PO; +DOXY100C37 PO; +MONT10TA4 PO; +PROHANCE 279.3MG/ML 5ML VIAL (A9576) As Ordered ONE; -ROPI1TAB PO; +ROPI1TAB3 PO
--- NOTE | 2019-09-15 09:33 | REP ---
MR ARTHROGRAPHY LEFT SHOULDER: With pre- and post intra-articular gadolinium enhanced saline injected imaging: HISTORY: Impingement syndrome. Injury January 26, 2019. Rule out rotator cuff or labral tear. Comparison left shoulder radiographs are from January 03, 2019. TECHNIQUE: Injection procedure is performed and dictated separately. Pre- and post intra-articular gadolinium enhanced saline injected imaging is acquired. Imaging planes include axial, oblique coronal, oblique sagittal and ABER projection images. T1- and T2-weighted scans are included with and without fat saturation. MRI FINDINGS: Pre-injection imaging shows extensive subcortical cyst formation in the articular subcortical region of the humeral head with an area of flattening and severe overlying chondromalacia. There are also subcortical cyst posterolaterally in the humeral head. There is mild glenohumeral marginal osteophyte formation. There is glenoid chondromalacia as well. There is a small quantity of fluid and subcortical cyst formation at the posterior labral cartilage attachment consistent with degenerative change in the posterior labral cartilage. Superior labral cartilage appears intact. There is mild osteoarthritic hypertrophy at the AC joint with marrow edema. There is fairly advanced distal supraspinatus tendinosis/tendonitis change. There is some T2 hyperintensity at the distal tendon insertion but no focal full-thickness cuff tear is appreciated. There is some tendinosis in the subscapularis tendon. Infraspinatus tendon appears intact. Biceps tendon is in the bony bicipital groove and is unremarkable. Post-injection imaging shows good filling and enhancement. There is some contrast enhanced saline undermining the posterior labrum indicating posterior labral cartilage tear. There is no evidence of rotator cuff tear on post injection imaging. ABER images show no evidence of anterior labral tear. IMPRESSION: Glenohumeral osteoarthritis with subcortical cyst formation fairly extensively in the articular margin of the humeral head with area of flattening and severe chondromalacia. There is glenoid chondromalacia. There is evidence of a posterior glenoid labral cartilage tear nondisplaced. Advanced supraspinatus tendinosis and some subscapularis tendinosis changes. Mild AC joint osteoarthritic hypertrophy. Electronically Signed by Helder Chavez MD 09/15/2019 12:13 P
--- NOTE | 2019-09-15 12:25 | REP ---
Procedure: Left shoulder arthrogram The procedure was performed under the direct supervision of Dr. Chavez. History: Left shoulder pain The benefits and risks including but not limited to pain, infection, bleeding and anaphylaxis were explained to the patient and informed consent was obtained. Technique: The left glenohumeral joint space was localized using fluoroscopic guidance. The skin was prepped and draped in a sterile fashion. 1% lidocaine was used as a local anesthetic. Using fluoroscopic guidance a 22 gauge spinal needle was inserted and advanced into the joint. 0.5 ml of Conray 43 was injected to verify placement. 11 ml of a solution containing 20 ml of sterile saline and 0.15 ml of ProHance was injected into the joint. The needle was removed and the patient was taken to MRI for postprocedural imaging. The the patient tolerated the procedure well and there were no immediate complications. Less than 6 seconds of fluoro time was utilized for this procedure. Electronically Signed by TERRANCE Andersen 09/15/2019 12:06 P Electronically Signed by Helder Chavez MD 09/15/2019 12:16 P
== END ==
LOC: M RADPRO 06:33
PROVIDERS: ATTEND Physician Assistant
DX: M85.412 Solitary bone cyst, left shoulder (principal); M19.012 Primary osteoarthritis, left shoulder; M94.212 Chondromalacia, left shoulder
CPT/HCPCS: 23350; 73223; 77002; A9576; Q9960

== ENCOUNTER → 2019-10-20 | Outpatient (CLI) | payer OTHER ==
[~2019-10-20] MED LIST changes: -CONRAY-43 43% 50ML VIAL (Q9960) As Ordered ONE; -PROHANCE 279.3MG/ML 5ML VIAL (A9576) As Ordered ONE
--- NOTE | 2019-10-20 14:40 | REP ---
REASON: Persistent asthma. PRIORS: None. FINDINGS: The superior mediastinal structures are midline. The cardiac silhouette is unremarkable in size, shape, and position. The diaphragmatic surfaces of the lungs are regular, and the costophrenic angles are clear. The pulmonary mayberry are clear. The imaged osseous structures are intact. IMPRESSION: There is no acute cardiopulmonary disease. Electronically Signed by Pawan Merlos DO 10/20/2019 03:42 P
== END ==
LOC: M ADAMS 14:17
PROVIDERS: ATTEND Physician Assistant
DX: J45.51 Severe persistent asthma with (acute) exacerbation (principal)

== ENCOUNTER → 2019-10-25 | Outpatient (REF) | payer OTHER | LOC: M LAB REF 12:49 | PROVIDERS: ATTEND Internal Medicine Pulmonary Disease | DX: J45.50 Severe persistent asthma, uncomplicated (principal) ==

== ENCOUNTER → 2020-01-05 | Outpatient (CLI) | payer OTHER ==
--- NOTE | 2020-01-05 11:00 | REP ---
NUCLEAR GASTRIC EMPTYING SCAN: Following the oral administration of 1.3 millicuries technetium 99m sulfur colloid in two scrambled eggs and 6 ounces of water, multiple images of the upper abdomen are performed in the anterior and posterior projections for 90 minutes. Gastric activity is measured. At the end of 90 minutes, 19% of the ingested activity has emptied from the stomach. T1/2 is calculated to be 218 minutes. Normal t1/2 is 90 minutes. There is therefore delayed gastric emptying. IMPRESSION: Delayed gastric emptying as discussed above. Electronically Signed by Franklin Joe MD 01/05/2020 11:42 A
== END ==
LOC: M RAD 07:31
PROVIDERS: ATTEND Internal Medicine Gastroenterology
DX: K31.84 Gastroparesis (principal); K30 Functional dyspepsia
CPT/HCPCS: 78264; A9541

== ENCOUNTER 2020-03-08 08:07 | Day surgery (SDC) | payer OTHER ==
[~2020-03-08 08:07] MED LIST changes: -FLUO10CA15 PO; +FLUO10CA16 PO; -LACT10SO29 PO; +LACT20EL PO
[2020-03-08] MEDS ORDERED: LEVALBUTEROL 1.25 MG/0.5 ML CONCENTRATE NEB ONE (08:14)
[2020-03-08] MEDS ORDERED: LIDOCAINE 2% 100MG/5ML SDV (FOR ANES.) As Ordered ONE (08:16)
[2020-03-08] MEDS ORDERED: propofoL 200 MG/20 ML VIAL As Ordered ONE ×2 (08:16→09:21)
[2020-03-08] MEDS ORDERED: fentaNYL 100 MCG/2 ML INJECTION (J3010) As Ordered ONE (08:17)
--- NOTE | 2020-04-17 11:27 | ROOR ---
Patient Name: Martha Manzo Procedure Date: 03/08/2020 7:58 AM Date of : 1960 Age: 59 Room: [facility] Gender: Female Note Status: Finalized Procedure: Upper GI endoscopy Indications: Dysphagia, Heartburn, Abnormal cine-esophagram, Gastroparesis Providers: Carlos THORNTON MD Referring MD: DORINDA BOWIE [facility] Neto Requesting Provider: Medicines: Monitored Anesthesia Care Complications: No immediate complications. Procedure: Pre-Anesthesia Assessment: - The heart rate, respiratory rate, oxygen saturations, blood pressure, adequacy of pulmonary ventilation, and response to care were monitored throughout the procedure. The Endoscope was introduced through the mouth, and advanced to the second part of duodenum. The upper GI endoscopy was accomplished without difficulty. The patient tolerated the procedure well. Findings: A web was found in the proximal esophagus. The scope was withdrawn. Dilation was performed with a Morales dilator with mild resistance at 54 Fr. The dilation site was examined following endoscope reinsertion and showed complete resolution of luminal narrowing. A few small sessile fundic gland polyps were found in the gastric fundus and in the gastric body. The polyp was removed with a cold snare. Polyp resection was incomplete, and the resected tissue was partially retrieved. The examined duodenum was normal. 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 Dilated. - A few fundic gland polyps. Polyp resection was incomplete, and the resected tissue was partially retrieved. - Normal examined duodenum. Recommendation: - Gastroparesis diet: - Eat smaller, more frequent meals throughout the day. - Low fat diet. - Liquid/soft foods are tolerated better than solid foods. - Low fiber/well cooked vegetables are tolerated better than high fiber/fibrous foods/raw vegetables. - Avoid medications that inhibit gastric/intestinal motility such as narcotic medications. Carlos Thornton MD Carlos THORNTON MD 03/08/2020 9:27:29 AM Electronically signed by Carlos THORNTON MD Number of Addenda: 0 Note Initiated On: 03/08/2020 7:58 AM Estimated Blood Loss: Estimated blood loss: none.
== END 2020-03-08 10:00 | disposition home or self-care (01) ==
LOC: M OPP 08:07
PROVIDERS: ATTEND Internal Medicine Gastroenterology
DX: Q39.4 Esophageal web (principal); K31.7 Polyp of stomach and duodenum; K31.84 Gastroparesis; R93.3 Abnormal findings on diagnostic imaging of other parts of digestive tract; R12 Heartburn; K21.9 Gastro-esophageal reflux disease without esophagitis; R13.10 Dysphagia, unspecified; Z79.899 Other long term (current) drug therapy; Z91.040 Latex allergy status
CPT/HCPCS: 43251; 43450; 88305; J3010

== ENCOUNTER → 2020-04-02 | Outpatient (REF) | payer OTHER | LOC: M LABDRWAD 12:37 | PROVIDERS: ATTEND Internal Medicine Pulmonary Disease | DX: J45.50 Severe persistent asthma, uncomplicated (principal) ==

== ENCOUNTER → 2020-04-04 | Outpatient (CLI) | payer OTHER ==
--- NOTE | 2020-04-04 12:08 | REPMRS ---
Patient History The patient states she had a clinical breast exam in 2019. Family history of breast cancer under age 50 in paternal aunt, prostate cancer at age 50 or over in father. Took estrogen for 2 years. Digital Woman Screen Mammo: April 04, 2020 - Exam #: [id number] Bilateral CC and MLO view(s) were taken. Technologist: Christine Montilla, Technologist Prior study comparison: April 03, 2019, bilateral digital woman screen mammo performed at [facility]. January 07, 2018, digital woman screen mammo performed at [facility]. January 06, 2017, digital woman screen mammo performed at [facility]. FINDINGS: There are scattered fibroglandular densities. The Volpara volumetric breast density category is:B. There has been no change in the appearance of the mammogram from the prior studies. There is a mild amount of scattered fibroglandular density which is fairly symmetric. There is no interval development of dominant mass, architectural distortion, or grouped microcalcification suggestive of malignancy. 3-D tomosynthesis shows no additional findings. Assessment: BI-RADS/ACR category 1 mammogram. Negative Mammogram. Recommendation Routine screening mammogram of both breasts in 1 year (for women over age 40). This patient's Lifetime Breast Cancer Risk is estimated at 8.8 %. This mammogram was interpreted with the aid of an FDA-approved computer-aided dectection system. Electronically Signed By: Emil Chavez MD 04/04/20 [id number]
== END ==
LOC: M WHC 07:59
PROVIDERS: ATTEND Nurse Practitioner Adult Health
DX: Z12.31 Encounter for screening mammogram for malignant neoplasm of breast (principal)

== ENCOUNTER → 2020-05-20 | Outpatient (REF) | payer OTHER ==
[2020-05-20 12:47] LABS: HEMATOCRIT 42.3 % (36.0-47.0); HEMOGLOBIN 13.4 g/dl (12.0-15.5); MEAN CORPUSCULAR HGB CONC 31.7 g/dl (32.0-36.5); MEAN CORPUSCULAR VOLUME 91.6 fl (80.0-96.0); PLATELET COUNT, AUTOMATED 309 10^3/uL (150-450); RED BLOOD COUNT 4.62 10^6/uL (4.00-5.40); WHITE BLOOD COUNT 9.3 10^3/uL (4.0-10.0)
[2020-05-20 13:14] LABS: ALBUMIN 3.7 GM/DL (3.2-5.2); ALT/SGPT 15 U/L (12-78); BILIRUBIN,TOTAL 0.2 MG/DL (0.2-1.0); BLOOD UREA NITROGEN 10 MG/DL (7-18); CALCIUM LEVEL 9.4 MG/DL (8.5-10.1); CARBON DIOXIDE LEVEL 27 MEQ/L (21-32); CHLORIDE LEVEL 107 MEQ/L (98-107); CREATININE FOR GFR 0.74 MG/DL (0.55-1.30); GLOMERULAR FILTRATION RATE > 60.0 (>51); GLUCOSE, FASTING 69 MG/DL (70-100); POTASSIUM SERUM 3.3 MEQ/L (3.5-5.1); SODIUM LEVEL 142 MEQ/L (136-145); THYROID STIMULATING HORMONE 0.881 uIU/ML (0.358-3.740); TOTAL PROTEIN 7.4 GM/DL (6.4-8.2)
[2020-05-20 13:15] LABS: TOTAL 25(OH) VITAMIN D 27.6 NG/ML (30.0-100.0)
== END ==
LOC: M SFHCPLAZ 10:14 → M SFHCADAM 10:28
PROVIDERS: ATTEND Student in an Organized Health Care Education/Training Program
DX: R53.82 Chronic fatigue, unspecified (principal)

== ENCOUNTER → 2020-07-29 | Outpatient (CLI) | payer OTHER ==
[~2020-07-29] MED LIST changes: -MONT10TA4 PO; +MONT5TAB2 PO
== END ==
LOC: M LABSMTC 12:03
PROVIDERS: ATTEND Family Medicine
DX: Z20.828 Contact with and (suspected) exposure to other viral communicable diseases (principal)

== ENCOUNTER → 2020-11-06 | Outpatient (REF) | payer OTHER ==
[~2020-11-06] MED LIST changes: +MONT10TA10 PO; -MONT5TAB2 PO
== END ==
LOC: M LAB REF 16:54
PROVIDERS: ATTEND Internal Medicine Pulmonary Disease
DX: J45.50 Severe persistent asthma, uncomplicated (principal)

== ENCOUNTER → 2021-02-21 | Outpatient (REF) | payer OTHER ==
[~2021-02-21] MED LIST changes: -CVS125CA3 PO; -DOXY100C37 PO; +DOXY1CAP62 PO; +OMEP40CA4 PO; -OMEP40CA97 PO; +[UNRECOGNIZED DRUG - CODE] PO
== END ==
LOC: M LABDRWAD 11:42
PROVIDERS: ATTEND Internal Medicine Pulmonary Disease
DX: J45.50 Severe persistent asthma, uncomplicated (principal)

== ENCOUNTER → 2021-02-21 | Outpatient (REF) | payer OTHER ==
[2021-02-21 12:30] LABS: BLOOD UREA NITROGEN 9 MG/DL (7-18); CALCIUM LEVEL 9.4 MG/DL (8.5-10.1); CARBON DIOXIDE LEVEL 28 MEQ/L (21-32); CHLORIDE LEVEL 111 MEQ/L (98-107); CHOLESTEROL LEVEL 281 MG/DL (<200); CHOLESTEROL RISK RATIO 5.017 (<5); CREATININE FOR GFR 0.71 MG/DL (0.55-1.30); GLOMERULAR FILTRATION RATE > 60.0 (>51); GLUCOSE, FASTING 91 MG/DL (70-100); HDL CHOLESTEROL 56 MG/DL (>40); LDL CHOLESTEROL 196 MG/DL (<100); NON-HDL-C 225 MG/DL; POTASSIUM SERUM 3.4 MEQ/L (3.5-5.1); SODIUM LEVEL 147 MEQ/L (136-145); TRIGLYCERIDES LEVEL 144 MG/DL (<150)
[2021-02-21 13:07] LABS: HEMOGLOBIN A1c 5.5 %
[2021-02-21 13:18] LABS: HIV 1&2 SCREEN CENTAUR NEGATIVE (NEGATIVE)
== END ==
LOC: M SFHCPLAZ 08:28 → M SFHCADAM 08:29
DX: Z68.37 Body mass index [BMI] 37.0-37.9, adult (principal); E78.00 Pure hypercholesterolemia, unspecified; R60.0 Localized edema; Z00.00 Encounter for general adult medical examination without abnormal findings

== ENCOUNTER → 2021-02-27 | Outpatient (REF) | payer OTHER | LOC: M SFHCPLAZ 08:38 | PROVIDERS: ATTEND Family Medicine | DX: E87.0 Hyperosmolality and hypernatremia (principal) ==

== ENCOUNTER → 2021-02-27 | Outpatient (CLI) | payer OTHER ==
[2021-02-27 10:57] LABS: BLOOD UREA NITROGEN 9 MG/DL (7-18); CALCIUM LEVEL 9.7 MG/DL (8.5-10.1); CARBON DIOXIDE LEVEL 30 MEQ/L (21-32); CHLORIDE LEVEL 107 MEQ/L (98-107); CREATININE FOR GFR 0.67 MG/DL (0.55-1.30); GLOMERULAR FILTRATION RATE > 60.0 (>51); GLUCOSE, FASTING 92 MG/DL (70-100); POTASSIUM SERUM 3.4 MEQ/L (3.5-5.1); SODIUM LEVEL 144 MEQ/L (136-145)
== END ==
LOC: M PLALAB 09:18
PROVIDERS: ATTEND Student in an Organized Health Care Education/Training Program
DX: E87.0 Hyperosmolality and hypernatremia (principal)

== ENCOUNTER → 2021-03-04 | Outpatient (REF) | payer OTHER | LOC: M SFHCPLAZ 10:09 | PROVIDERS: ATTEND Family Medicine | DX: E87.6 Hypokalemia (principal) ==

== ENCOUNTER → 2021-03-04 | Outpatient (CLI) | payer OTHER | LOC: M PLALAB 10:14 | PROVIDERS: ATTEND Student in an Organized Health Care Education/Training Program | DX: E87.6 Hypokalemia (principal) ==

== ENCOUNTER 2021-03-26 07:19 | Emergency (ER) | payer OTHER ==
[~2021-03-26] VITALS: Ht 160 cm; Wt 93.5 kg
[2021-03-26] MEDS ORDERED: ASPI-226 (07:33)
[2021-03-26] MEDS ORDERED: ATOR80TA59 (07:33)
[2021-03-26] MEDS ORDERED: GABA-282 (07:33)
[2021-03-26] MEDS ORDERED: FURO20TA2 (07:33)
[2021-03-26] MEDS ORDERED: XOLA150I (07:33)
[2021-03-26 08:14] LABS: BASO % 0.6 % (0.0-1.0); EOS # 0.4 10^3/uL (0.0-0.5); EOS % 6.6 % (0.0-3.0); HEMOGLOBIN 13.5 g/dl (12.0-15.5); LYMPH # 1.2 10^3/uL (1.5-5.0); LYMPH % 17.3 % (24.0-44.0); MEAN CORPUSCULAR HEMOGLOBIN 29.7 pg (27.0-33.0); MEAN CORPUSCULAR HGB CONC 32.9 g/dl (32.0-36.5); MEAN CORPUSCULAR VOLUME 90.3 fl (80.0-96.0); MONO # 0.3 10^3/uL (0.0-0.8); MONO % 4.7 % (2.0-8.0); NEUTROPHILS # 4.7 10^3/uL (1.5-8.5); NEUTROPHILS % 70.3 % (36.0-66.0); PLATELET COUNT, AUTOMATED 300 10^3/uL (150-450); RED BLOOD COUNT 4.54 10^6/uL (4.00-5.40); WHITE BLOOD COUNT 6.6 10^3/uL (4.0-10.0)
--- NOTE | 2021-03-26 08:19 | REP ---
INDICATION: DYSPNEA/COUGH. COMPARISON: 05/20/2020. TECHNIQUE: Single portable AP view of the chest was performed. FINDINGS: There is no acute infiltrate or pulmonary edema. Lungs are clear. The heart is not significantly enlarged. The mediastinal silhouette is unremarkable. The visualized osseous structures are intact. IMPRESSION: No acute pulmonary disease. <Electronically signed by Franklin Joe > 03/26/21 [id number]
[2021-03-26 08:50] LABS: ALBUMIN 3.7 GM/DL (3.2-5.2); ALT/SGPT 19 U/L (12-78); BILIRUBIN,DIRECT < 0.1 MG/DL (0.0-0.2); BILIRUBIN,TOTAL 0.3 MG/DL (0.2-1.0); BLOOD UREA NITROGEN 6 MG/DL (7-18); CALCIUM LEVEL 9.3 MG/DL (8.5-10.1); CARBON DIOXIDE LEVEL 27 MEQ/L (21-32); CHLORIDE LEVEL 113 MEQ/L (98-107); CK-MB VALUE MASS 1.3 NG/ML (<3.6); CPK CREATINE PHOSPHOKINASE 134 U/L (26-192); GLOMERULAR FILTRATION RATE > 60.0 (>51); GLUCOSE, FASTING 93 MG/DL (70-100); LIPASE 107 U/L (73-393); MB/CK RELATIVE INDEX 0.97 (< OR =4); POTASSIUM SERUM 3.4 MEQ/L (3.5-5.1); SODIUM LEVEL 145 MEQ/L (136-145); TOTAL PROTEIN 6.8 GM/DL (6.4-8.2); TROPONIN I < 0.02 NG/ML (< 0.10)
--- NOTE | 2021-03-26 09:25 | REP ---
INDICATION: epigastric pain r/o cholelithiasis. COMPARISON: 07/25/2018. TECHNIQUE: Real-time sonographic evaluation of right upper quadrant performed. FINDINGS: The gallbladder demonstrates no evidence of intraluminal sludge or calculi, wall thickening or pericholecystic fluid. There is no intrahepatic or extrahepatic biliary dilatation, common bile duct measures 4 mm in maximum diameter. There is diffuse increased echotexture of the liver compatible with diffuse fibrofatty infiltration. No focal mass is seen. The pancreas is not optimally visualized due to overlying bowel gas, the visualized portions appear grossly unremarkable. The right kidney demonstrates no hydronephrosis, with a normal size of 10.1 cm in length. No free fluid is seen. IMPRESSION: Diffuse fibrofatty infiltration of the liver. No other significant findings. <Electronically signed by Franklin Joe > 03/26/21 [id number]
--- NOTE | 2021-03-26 10:11 | ECGEPIP ---
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
[2021-03-26] MEDS ORDERED: REGL5TAB2 PO (11:07)
[2021-03-26 11:19] VITALS: BP 154/97
== END 2021-03-26 11:57 | disposition home or self-care (01) ==
LOC: M ED 07:19
DX: K31.84 Gastroparesis (principal); J44.9 Chronic obstructive pulmonary disease, unspecified; K76.0 Fatty (change of) liver, not elsewhere classified; E78.5 Hyperlipidemia, unspecified; Z91.040 Latex allergy status

== ENCOUNTER → 2021-04-02 | Outpatient (REF) | payer OTHER ==
[~2021-04-02] MED LIST changes: +ASPI-226; +ATOR80TA59; +FURO20TA2; +GABA-282; +REGL5TAB2 PO; +XOLA150I
== END ==
LOC: M LABDRWAD 12:29
PROVIDERS: ATTEND Internal Medicine Pulmonary Disease
DX: J45.50 Severe persistent asthma, uncomplicated (principal)

== ENCOUNTER → 2021-04-22 | Outpatient (CLI) | payer OTHER ==
[~2021-04-22] MED LIST changes: +GLUCAGON INJ 1MG VIAL As Ordered ONE; +ISOVUE-370 76% 100ML VIAL As Ordered ONE; +NEULUMEX 0.1% SUSPENSION 450ML BOTTLE (FORMERLY VOLUMEN) As Ordered ONE
--- NOTE | 2021-04-28 07:09 | REP ---
INDICATION: HX BANUELOS SYNDROME COMPARISON: None. TECHNIQUE: Axial contrast-enhanced images from the lung bases to the pubic symphysis with images obtained in arterial and portal venous phases of enhancement. Low-dose oral contrast material was administered prior to imaging. Coronal and sagittal reformations were obtained. This CT examination was performed using the following dose reduction techniques: Automated exposure control, adjustment of mA and/or kv according to the patient's size, and use of iterative reconstruction technique. FINDINGS: The enteric system including gastroesophageal junction, stomach, small bowel and large bowel is normal in appearance. Normal terminal ileum and cecum are identified in the right lower quadrant. There are no areas of bowel obstruction, obvious stenosis/stricture or adjacent fat stranding. No free air or free fluid to suggest perforation. No significant diverticulosis. Liver, spleen, pancreas, gallbladder, bilateral adrenal glands and kidneys are essentially normal. Left kidney includes few subcentimeter hypodensities compatible with cysts. Pelvis demonstrates normal bladder and evidence for prior hysterectomy. No ascites. No free air. No adenopathy. Abdominal aorta and vasculature appears normal. Surrounding musculoskeletal structures are intact and without acute osseous abnormality. Lung bases are clear. IMPRESSION: 1. Normal appearance to the enteric system. 2. No acute abdominopelvic pathology appreciated. <Electronically signed by Camacho Wilkinson > 04/28/21 [id number]
== END ==
LOC: M RAD 08:30
PROVIDERS: ATTEND Physician Assistant Medical
DX: Z15.09 Genetic susceptibility to other malignant neoplasm (principal)

== ENCOUNTER → 2021-05-02 | Outpatient (CLI) | payer OTHER ==
[~2021-05-02] MED LIST changes: -GLUCAGON INJ 1MG VIAL As Ordered ONE; -ISOVUE-370 76% 100ML VIAL As Ordered ONE; -NEULUMEX 0.1% SUSPENSION 450ML BOTTLE (FORMERLY VOLUMEN) As Ordered ONE
--- NOTE | 2021-05-14 16:00 | REPMRS ---
Patient History The patient states she had a clinical breast exam in September 2020. Family history of breast cancer under age 50 in paternal aunt, prostate cancer at age 50 or over in father. Took estrogen for 2 years. Moderna vaccine 09/19/20 right arm. 10/17/20 right arm. 10 lb intentional weight loss. Patient states no breast complaints today. Patient has signed MRS History Sheet. Digital Woman Screen Mammo: May 02, 2021 - Exam #: [id number] Bilateral CC and MLO view(s) were taken. Technologist: RT Abbie Prior study comparison: April 04, 2020, bilateral digital woman screen mammo performed at [facility]. April 03, 2019, bilateral digital woman screen mammo performed at [facility]. FINDINGS: The breast tissue is heterogeneously dense. This may lower the sensitivity of mammography. Screening. Digital screening (2D) mammography was performed bilaterally in the CC and MLO projections. Additionally, breast tomosynthesis (3D mammography) was performed bilaterally in the CC and MLO projections. Todays exam was compared to the prior exam/exams. By history, the patient has no complaints of a palpable breast abnormality or other significant breast complaints. The Volpara volumetric breast density category is C, the breasts are heterogenously dense which may obscure small masses. The breasts are unchanged in size and shape. There are no ric-soft tissue densities or spiculated masses. There is no internal architectural distortion. There are no suspicious ric-calcific clusters. Skin thickening or nipple retraction is not present. IMPRESSION: BI-RADS Category 2- Benign Findings. There is no evidence of malignant alteration of the breasts. Followup examination recommended in one year. This mammogram was read with the assistance of [employer],an FDA approved computer aided detection system for mammography. The lifetime Tyrer-Cuzick score is 8.5% Negative x-ray reports should not delay surgical consultation if a dominant or clinically suspicious mass is present. Not all breast cancers can be identified by mammography. Therefore, we recommend that you continue to perform regular breast self-examination and physical examination and then promptly contact your physician of any concerns or changes. Due to the density of the breasts, MRI/whole breast screening ultrasound is warranted. Adenosis and dense breasts may obscure an underlying neoplasm. No significant changes when compared with prior studies. Assessment: BI-RADS/ACR category 2 mammogram. Benign Findings. Recommendation Routine screening mammogram of both breasts in 1 year. Electronically Signed By: Gagan Paz MD 05/14/21 1584
== END ==
LOC: M WHC 14:52
PROVIDERS: ATTEND Nurse Practitioner Adult Health
DX: Z12.31 Encounter for screening mammogram for malignant neoplasm of breast (principal)

== ENCOUNTER → 2021-06-23 | Outpatient (CLI) | payer OTHER ==
[~2021-06-23] MED LIST changes: -ATOR80TA59; +ATOR80TA59 PO; +DOXY-443 PO; -DOXY1CAP62 PO
== END ==
LOC: M LABSMTC 09:38
PROVIDERS: ATTEND Anesthesiology
DX: Z01.812 Encounter for preprocedural laboratory examination (principal); Z20.822 Contact with and (suspected) exposure to COVID-19

== ENCOUNTER 2021-06-27 08:11 | Day surgery (SDC) | payer OTHER ==
[~2021-06-27] VITALS: Ht 160 cm; Wt 90.6 kg
[~2021-06-27 08:11] MED LIST changes: +NS 1,000 ML IV ONE
--- OUTSIDE RECORDS SUMMARY | 2021-06-27 08:16 | CCD | Continuity of Care Document ---
Author Author Pulmonary Jose Saab Organization Unknown Address [address] [place] [address] Phone [phone] Care Team Providers [employer] Talent Name Role Phone Warren Nagy M.D. AUTM AUTM Unavailable Migue Boogie D.O. AUTM [phone] Problems Active Problems Provider Date Cough Ivan Mancilla D.O. Onset: 05/05/2016 Acute severe exacerbation of severe persistent asthma Ivan martinez D.O. Onset: 05/05/2016 Uncomplicated severe persistent asthma Adrián Hanks nset: 11/25/2016 Obstructive sleep apnea syndrome Ivan Mancilla D.O. Onset: 11/25/2016 Allergic rhinitis Jarrell Travis MD Onset: 12/04/2016 Chronic maxillary sinusitis Jarrell Travis MD Onset: 12/04 Melena Carlos Thornton MD Onset: 12/04/2016 Acute laryngitis Carlos Thornton MD Onset: 12/04/2016 Digestive symptom Carlos Thornton MD Onset: 12/04/2016 Diaphragmatic hernia Carlos Thornton MD Onset: 12/04/2016 Internal hemorrhoids without complication Carlos Thornton MD Onset: 12/04/2016 Heartburn Carlos Thornton MD Onset: 12/04/2016 Screening for malignant neoplasm of colon Carlos Thornton MD Onset: 12/04/2016 Deviated nasal septum Jarrell Travis MD Onset: 12/04/2016 Chronic rhinitis Jarrell Travis MD Onset: 12/04/2016 Gastroesophageal reflux disease Carlos Thornton MD Onset: 0 12/04/2016 Chronic laryngitis Carlos Thornton MD Onset: 12/04/2016 Constipation Carlos Thornton MD Onset: 12/04/2016 Sensory function status: taste and smell Jarrell Travis MD Onset: 12/04/2016 Chronic ethmoidal sinusitis Jarrell Travis MD Onset: 12/04 Chronic frontal sinusitis Jarrell Travis MD Onset: 017 Polyp of nasal sinus Jarrell Travis MD Onset: 12/04/2016 Exacerbation of severe persistent asthma Ivan Seadanielle, D.O. Onset: 03/10/2017 Chest pain Ivan Seadanielle, D.O. Onset: 06/07/2017 Extrinsic asthma with asthma attack Ivan Seadanielle, D.O. Onse t: 01/23/2015 Wheezing Ivan Sears, D.O. Onset: 03/14/2014 Body mass index 30+ - obesity Ivan Seadanielle, D.O. Onset: 12/2012 Edema Ivan Sears, D.O. Onset: 01/25/2013 Acute upper respiratory infection Ivan Seadanielle, D.O. Onset: 01/25/2013 Obesity Ivan Sears, D.O. Onset: 06/03/2012 Streptococcus vaccination Ivan Sears, D.O. Onset: 012 Oropharyngeal dysphagia Ivan Sears, D.O. Onset: 2 Sleep apnea Ivan Sears, D.O. Onset: 04/20/2012 Disturbance of consciousness Ivan Sears, D.O. Onset: 04/09 Difficulty breathing Ivan Sears, D.O. Onset: 04/20/2012 Asthma without status asthmaticus Ivan Seadanielle, D.O. Onset: 04/20/2012 Ex-smoker Ivan Seadanielle, D.O. Onset: 04/20/2012 Social History Type Date Description Comments Sex Unknown Tobacco Use Start: Unknown End: Unknown Quit ETOH Use Denies alcohol use Recreational Drug Use Denies Drug Use Tobacco Use Start: 08/09/75 End: 08/09/87 Patient is a forme r smoker hx: 1/2ppd x 4 yrs, quit 26 yrs ago Smoking Status Reviewed: 02/13/21 Patient is a former smoker hx : 1/2ppd x 4 yrs, quit 26 yrs ago Allergies and adverse reactions Active Allergies Criticality Reaction | Severity Comments Date Latex Unable to assess criticality 12/04/2016 Medications Active Medications SIG Qnty Indications Ordering Provide r Date Magnesium Citrate 1.745GM/30ML Esther ution take one 10 ounce bottle prior to procedure for additional bowel prep per instructions. 296ml Z15.09 Carlos Thornton MD 03/19/2021 Miralax 17GM/Scoop Powder use as instructed by doctor for bowel prep 510gm Z15.09 Carlos Thornton MD 03/19/[address] Take One Capsule By Mouth Daily 60caps Carlos Thornton MD 12/20/19 20 Xolair 75mg/0.5ML Soln Prefill Syr vicente inject 225mg subcutaneously every 2 weeks (one 150mg and one 75mg pfs) (given at md office) 1ml Amos HanksO. 03/21/2019 Xolair 150mg/ml Soln Prefill Syrin ge inject 225mg subcutaneously every 2 weeks (one 150mg and one 75mg pfs) (given at md office) 2units Amos HanksO. 03/21/2019 Theophylline ER 400mg Tablets ER 2 4HR Take One Tablet By Mouth Two Times A Day 60tabs Fabricio Hanks.O. 12/28/2018 Arnuity Ellipta 200mcg/Act Aerosol 1 puff every day 30units J45.50 Beata Mullen 11/01/2018 Incruse Ellipta 62.5mcg/Inh Aeroso l Inhale One puff By Mouth Every Day 30units Fabricio Hanks.O. Constulose 10GM/15ML Solution 15 ml daily prn Unknown Atorvastatin Calcium 80mg Tablets 1 by mouth every day Unknown Aspirin Ec Low Dose 81mg Tablets DR Daily Unknown Sumatriptan Succinate 100mg Tablet s as needed Unknown Simethicone Extra Strength 125mg C apsules as needed 90caps Unknown Airduo Respiclick 232/14 232-14mcg/Act Aerosol 1 puff twice a day Unknown 0 Gas Relief Extra Strength 125mg Ca psules as needed Unknown Gabapentin 300mg Capsules 1 tab by mouth at bedtime 60caps Unknown Fibercon 625mg Tablets 1 by mouth twice a day prn Unknown Requip 1mg Tablets every night at bedtime as needed Unknown Fluticasone Propionate 50mcg/Act Suspension 2 sprays to each nostril daily Unknown CPAP 8CM marras Unknown Effexor XR 150mg Caps ER 24HR 1 by mouth every day Unknown Levocetirizine Dihydrochloride 5mg Tablets 1 tab every night Unknown Ipratropium [place]/Albuterol Sulfate 0.5-2.5(3)mg/3ML Solution 1 vial via neb four times a day Unknown Furosemide 20mg Tablets 1 tab by mouth every day Unknown Singulair 10mg Tablets 1 by mouth every night at bedtime 30tabs Unknown Ventolin HFA 108(90Base) mcg/Act A erosol 2 puffs qid/prn 1units Unknown Epipen 2-Emmanuel 0.3mg/0 .3ML Solution Auto-Inject as directed 1units Ivan Mancilla D.O. Medications Administered in Office Medication SIG Qnty Indications Ordering Provider Date Covid-19 vaccine, Unspecified Inj ection Unknown 10/17/2020 Covid-19 vaccine, Unspecified Inj ection Unknown 10/17/2020 Immunizations CPT Code Status Date Vaccine Lot # [id number] Given 05/17/2019 Flublock, Quadrivalent 44129 Given 06/03/2016 Influenza Virus Split 3 Yrs And Above For Intramuscular Use 15767 Given 07/11/2015 Influenza Virus Split 3 Yrs And Above For Intramuscular Use 56475 Given 05/16/2014 Influenza Virus Split 3 Yrs And Above For Intramuscular Use 22715 Given 04/20/2012 Pneumococcal PPSV23 Q2036 Given Unknown Influenza Vaccine 3 Years Of Age Or Older (Flulaval) 26860 Given Unknown Pneumococcal PPSV23 Vital Signs Date Vital Result Comment 06/11/2021 3:07pm BP Systolic 122 mmHg BP Diastolic 84 mmHg Heart Rate 93 /min O2 % BldC Oximetry 97 % 05/26/2021 2:56pm BP Systolic 124 mmHg BP Diastolic 80 mmHg Heart Rate 106 /min O2 % BldC Oximetry 97 % Weight 201.00 lb Weight 91.174 kg Results Test Acquired Date Facility Test Result H/L Range Note Laboratory test finding 04/02/2021 [facility] [address] [place] [address] [phone] Theophylline Level 19.2 UG/ML Normal 10.0-20.0 Laboratory test finding 02/21/2021 [facility] [address] [place], [place] [id number] [phone] Theophylline Level < 2.0 UG/ML Low 10.0-20.0 FVL/B[place]ast 02/13/2021 [facility] PD[facility] SEE IMAGE FVC-Pred 3.21 L FVC-Pre 2.26 L FVC-%Pred-Pre 70 L FVC-LLN 2.54 L Fev1-Pred 2.49 L Fev1-Pre 1.44 L Fev1-%Pred-Pre 57 L Fev1-LLN 1.92 L Fev6-Pred 3.10 L Fev6-Pre 2.26 L Fev6-%Pred-Pre 72 L Fev6-LLN 2.44 L Iau2btz-Qhuq 78 % Iot9uds-Itw 64 % Leg3oti-%Pred-Pre 81 % Wva0xei-IPA 68 % Kll1fcn-Bwjn 97 % Myf0unt-Jel 100 % Twq0bsi-%Pred-Pre 103 % FEFMax-Pred 6.19 L/E/sec FEFMax-Pre 4.24 L/E/sec FEFMax-%Pred-Pre 68 L/E/sec FEFMax-LLN 4.53 L/E/sec Eee8913-Axnx 2.34 L/E/sec Nwg9596-Dzp 0.87 L/E/sec Xjz1572-%Pred-Pre 37 L/E/sec Wwt5930-HRN 1.13 L/E/sec ExpTime-Pre 6.33 sec Ttr2fgu8-Elzj 81 % Rqk7xau5-Msg 64 % Gqj3vbb0-%Pred-Pre 78 % Die0qsm8-RPX 72 % Procedures Date Code Description Status 03/19/2021 39474 Office/Outpatient New Moderate M DM 45-59 Minutes Completed 02/26/2021 96833 Injection Fee Completed 02/26/2021 51553 Injection Fee Completed 02/26/2021 81196 Injection Fee Completed 02/13/2021 57841 Office/Outpatient Established Mo d MDM 30-39 Min Completed 02/13/2021 05703 Injection Fee Completed 02/13/2021 87550 Injection Fee Completed 02/13/2021 42564 Injection Fee Completed 02/13/2021 97691 Spirometry Completed 01/29/2021 10542 Injection Fee Completed 01/29/2021 37366 Injection Fee Completed 01/15/2021 84741 Injection Fee Completed 01/15/2021 45447 Injection Fee Completed 12/25/2020 56197 Injection Fee Completed 12/25/2020 49545 Injection Fee Completed Medical Devices Description No Information Available Encounters Type Date Location Provider Dx Diagnosis Office Visit 03/19/2021 3:00p [facility] ctice Mya Buitrago ROHINI De Leon 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 02/13/2021 J45.50 Severe persistent asthma, uncomp licated Ivan Sears, D.O. 02/13/2021 G47.33 Obstructive sleep apnea (adult) (pediatric) Ivan Sears, D.O. 01/29/2021 J45.50 Severe persistent asthma, uncomp licated Ivan Sears, D.O. 01/15/2021 J45.50 Severe persistent asthma, uncomp licated Ivan Sears, D.O. 12/25/2020 J45.50 Severe persistent asthma, uncomp licated Ivan Sears, D.O. Plan of Treatment Future Appointment(s):* 06/25/2021 2:30 pm - [facility] at [facility] * 06/27/2021 9:15 am - Carlos Thornton MD at [facility] * 06/30/2021 3:30 pm - Ivan Mancilla D.O. at [facility] 03/19/2021 - Mya De Leon, 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 Reviewed risks and benefits of the procedures, as well as other options, with the patient. Prep for this procedure was discussed with patient, including risks and side effects associated with the prep. She will complete the Miralax 2.0 bowel prep. Patient verbalized understanding of all of the above and is in agreement to proceed. Patient will seek medical attention for any acute changes. Will monitor. * Follow up:* As scheduled for procedures. Will also need a 1 year recall. Functional Status Description No Information Available Mental Status Description No Information Available Referrals Refer to Reason for Referral Status Appt Date Carlos Thornton M.D. Z12.11-colo screening Scheduled 04/15 [facility], Gastroenterology [address], [address] [place] [id number] [phone] Ivan Mancilla D.O. CASA Scheduled 06/30/2021 [facility] [address] [place], [place] [address] [phone] Ivan Mancilla D.O. ASTHMA Scheduled 06/30/2021 [facility] [address] [place], [place] [address] [phone]"
--- OUTSIDE RECORDS SUMMARY | 2021-06-27 08:16 | CCD ---
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 Name Role Phone Tigist Guadarrama Unavailable PROBLEMS Type Condition ICD9-CM Code VZE44-BO Code Onset Dates Condition S tatus W/U Status Risk SNOMED Code Notes Problem Severe persistent asthma, uncomplicated J45.50 Active confirmed 153358775 Problem Insomnia secondary to restless leg syndrome G25.81 Active confirmed 27066618 Problem Benign neoplasm of skin of trunk, except scrotum D 23.5 Active confirmed 779740880 Problem Left foot pain M79.672 Active confirmed 4793 3007 Problem 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 5.81 Active confirmed 65555461 Problem Restless leg syndrome, controlled G25.81 Active confirmed 61638273 Problem Other chronic pain G89.29 Active confirmed 8 8271812 Problem Mixed hyperlipidemia E78.2 Active confirmed 869199227 Problem Depression F32.9 Active confirmed 53210423 Problem Seasonal allergies J30.2 Active confirmed 3 28162897 Problem Left knee pain M25.562 Active confirmed 3098 9003 Problem Allergic asthma, severe persistent, with acute exacerbatio n J45.51 Active confirmed 466348587 Problem Gastroesophageal reflux disease without esophagitis K21.9 Active confirmed 168138592 Problem Bilateral edema of lower extremity R60.0 Activ e confirmed 730348316 Problem Bronchitis J40 Active confirmed 78210442 Problem Bilateral carpal tunnel syndrome G56.01 Active conf irmed 93767931 Problem Midline low back pain with right-sided sciatica M5 4.41 Active confirmed 283448838 Problem Non morbid obesity, unspecified obesity type E66.9 Active confirmed 342283958 Problem Essential (primary) hypertension I10 Active conf irmed 29810743 Problem Osteoarthritis of left hip, unspecified osteoarthritis typ e M16.12 Active confirmed 507626946220309 Problem Vitamin D deficiency E55.9 Active confirmed 81651679 Problem Depression, unspecified depression type F32.9 Active confirmed 45115051 Problem COPD exacerbation J44.1 Active confirmed 19 1262079 Problem Gastroesophageal reflux disease, esophagitis pre sence not specified K21.9 Active confirmed 693422240 Problem Adjustment disorder with depressed mood F43.21 Active confirmed 77627365 Problem History of systemic steroid therapy Z92.241 Acti ve confirmed 934151802 Problem Hemiplegic migraine without status migrainosus, not intractable G43.409 Active confirmed 72410916 Problem BMI 40.0-44.9, adult Z68.41 Active confirmed 656292914 Problem Prediabetes R73.09 Active confirmed 54531554 2 Problem CASA (obstructive sleep apnea) G47.33 Active confirm ed 15696135 Problem Hepatic steatosis K76.0 Active confirmed 19 4038729 Problem Severe persistent asthma without complication J45. 50 Active confirmed 565479966 Problem BMI 37.0-37.9, adult Z68.37 Active confirmed 436440146 Problem Sciatica of right side M54.31 Active confirmed 67161899 Problem Severe persistent asthma with acute exacerbation J 45.51 Active confirmed 048728395 Problem Dyslipidemia E78.5 Active confirmed 9642037 07 Problem Esophageal web Q39.4 Active confirmed 99114 006 Problem Gastroparesis K31.84 Active confirmed 525860 006 Problem Chronic fatigue R53.82 Active confirmed 8422 9001 Problem Severe persistent asthma with exacerbation J45.51 Active confirmed 197434366 Problem Hypernatremia E87.0 Active confirmed 451733 008 Problem Hyperlipidemia, unspecified hyperlipidemia type E7 8.5 Active confirmed 28932731 Problem Hypokalemia E87.6 Active confirmed 12143146 Problem Constipation, unspecified constipation type K59.00 Active confirmed 03435890 Problem Acute right-sided low back pain with right-sided sciatica M54.41 Active confirmed 992642894 Problem Moderate episode of recurrent major depressive disorder F33.1 Active confirmed 944794010 Problem Migraine without aura and without status migrain osus, not intractable G43.009 Active confirmed 945836424 Problem Gastroesophageal reflux dise ase, unspecified whether esophagitis present K21.9 Active confirmed 970777292 Problem Hypercholesterolemia E78.00 Active confirmed 27835804 ALLERGIES Allergen (clinical drug ingredient) Drug/Non Drug Allergy do cumented on EMR Reaction Allergy Type Onset Date Status Latex Latex rash Drug Allergy Active ENCOUNTERS from 1961 to 2021-06-03 Encounter Location Date Provider Diagnosis [facility] Resident [address] [phone] [place] [address] Feb, Tigist Chiara Hyperlipidemia, unsp ecified hyperlipidemia type E78.5 ; Hypernatremia E87.0 and Hypokalemia E87.6 IMMUNIZATIONS Vaccine Route Administration Date Status COVID-19 dose #1 given elsewhere Unspecified Unknown Sep 19, 2020 Administered Influenza 18 yrs & older Flublok IM Intramuscular May 14, 2020 Administered Influenza 18 yrs & older Flublok IM Intramuscular May 19, 2019 Administered Influenza 18 yrs & older Flublok IM Intramuscular May 19, 2019 Administered Influenza 18 yrs & older Flublok IM Intramuscular May 17, 2018 Administered Depo-Medrol 80mg Methylprednisolone Acetate IM Intramuscular Sep 23, 2015 Administered COVID-19 dose #2 given elsewhere Unspecified Unknown Oct Administered Influenza 6mo & up Fluzone Unknown Sep 13, 2017 Admin istered Influenza 6mo & up Fluzone IM Intramuscular May 05, 2016 Admi nistered Influenza 6mo & up Fluzone Unknown Apr 27, 2014 Admin istered SOCIAL HISTORY Tobacco Use: Social History Observation Description Date Details (start date - stop date) Former Smoker Sex Assigned At : Social History Observation Description Sex Assigned At Unknown Education: Question Answer Notes Level of Education: Not finished High School Audit Question Answer Notes Total Score: 0 Interpretation: Alcohol Education Language: Question Answer Notes Languages spoken: Botswanan Yarsanism: Question Answer Notes Yarsanism 14 Religious Sexual Hx: Question Answer Notes Had sex in the last 12 months (vaginal, oral, or anal)? No Have you ever had an STD? No Drug and Alcohol Question Answer Notes Total Score: 0 Interpretation: No problems reported Alcohol Screening: Question Answer Notes Did you have a drink containing alcohol in the past year? No Points 0 Interpretation Negative BMI Care Goal Follow-Up Question Answer Notes Above Normal BMI Follow-Up Lifestyle education regarding t Tobacco Use: Question Answer Notes Are you a: former smoker How long has it been since you last smoked? > 10 years REASON FOR REFERRAL No Information VITAL SIGNS Weight 210.4 lbs Feb, Height 63 in Feb, BMI 37.27 kg/m2 Feb, Heart Rate 91 /min Feb, Respiratory Rate 18 /min Feb, Temperature 97.5 degrees Fahrenheit Feb, Oximetry 99 Feb, Blood pressure systolic 128 mm Hg Feb, Blood pressure diastolic 80 mm Hg Feb, MEDICATIONS Medication SIG (Take, Route, Frequency, Duration) Notes Start Da te End Date Status Ipratropium-Albuterol 0.5-2.5 (3) MG/3ML 3 ml Inhalati on Four times a day for 30 days Active Constulose 10 GM/15ML 15 ml Orally Once a day for 30 day(s) Mar, Not-Taking Aspirin Low Dose 81 MG TAKE ONE TABLET BY MOUTH EVERY DAY for 30 Active Fiber 625 MG 1 tablet Orally once a day as needed for 30 days Mar, Not-Taking Theophylline 400 MG as directed Orally BID for 30 days Active Venlafaxine HCl ER 150 MG TAKE ONE CAPSULE BY MOUTH EVERY Y WITH FOOD for 30 Active Incruse Ellipta 62.5 MCG/INH 1 puff Inhalation Once a day for 30 days Active Metoclopramide HCl 5 MG 1 tablet before meals Orally Twice a day for 30 day(s) Mar, Active Xolair 150 MG 1 dose Subcutaneous every other week Active Omeprazole 20 MG 1 capsule 30 minutes before morning meal Orally On a day Active rOPINIRole HCl 1 MG TAKE ONE TABLET BY MOUTH 1 TO 3 HR BEFORE BEDTIME Orally Once a day Active Nebulizer - 1 ICD: J45.50 every 4 hours as needed Active Levocetirizine Dihydrochloride 5 MG TAKE ONE TABLET BY MOUTH EVERY EVENING Oral for 30 days Active AirDuo RespiClick 55/14 55-14 MCG/ACT 1 puff Inhalation Tw e a day for 30 days Active EpiPen 2-Emmanuel 0.3 MG/0.3ML Injection Active Singulair 10 MG 1 tablet in the evening Orally Once a day for 30 days Active Theophylline ER 400 MG ONE BY MOUTH TWICE A DAY for 30 Not-Taking Arnuity Ellipta 200 MCG/ACT INHALE ONE PUFF BY MOUTH E DAY Inhalation Once a day for 30 days Active Atorvastatin Calcium 80 MG 1 tablet Orally Once a day for 30 day(s) Active predniSONE 20 MG 2 tablets Orally Once a day for 5 days Oct, Not-Taking Ventolin HFA 108 (90 Base) MCG/ACT 2 puffs as needed I nhalation Every 4 hours for 30 days Active Constulose 10 GM/15ML 15 ml Orally Once a day for 30 day(s) Active SUMAtriptan Succinate 100 mg 1 tablet as needed one ti me Orally on the onset of migraine daily for 30 day(s) Act lalita Furosemide 20 MG 1 tablet Orally Once a day for 30 day(s) Feb, Active FiberCon 625 MG TAKE ONE TABLET BY MOUTH Orally once daily Active Gabapentin 300 MG 1 tablet Orally before bedtime for 90 days Active Flonase Active CPAP Machine 8 as directed Active Nebulizer - cup and tubing ICD: J45.50 every 4 hours as need ed for 30 day(s) Aug, Active Nebulizer/Tubing/Mouthpiece - Dx ICD J45.50 orally every four ho urs as needed Jan, Active PROCEDURES No Information RESULTS Component Value Reference Range Basic Metabolic Profile (BMP) Reviewed date:02/27/2021 11:08:11 Interpretation: Performing Lab:Formerly [facility], [facility], [facility] [id number] , ,[place] [address] GLUCOSE, FASTING 92 70-100 BLOOD UREA NITROGEN 9 7-18 CREATININE FOR GFR 0.67 0.55-1.30 GLOMERULAR FILTRATION RATE > 60.0 >51 SODIUM LEVEL 144 136-145 POTASSIUM SERUM 3.4 3.5-5.1 CHLORIDE LEVEL 107 98-107 CARBON DIOXIDE LEVEL 30 21-32 CALCIUM LEVEL 9.7 8.5-10.1 REASON FOR VISIT Hypernatremia, Please print lab results from 02/21/21 MEDICAL (GENERAL) HISTORY Type Description Date Medical History asthma, severe persistent (maisha winkler/ Dr. Mancilla of pulmonology as outpt) Medical History COPD, stage 2, class B Medical History Hypercholesterolemia ASCVD 10- 4.8%, 202 0 Medical History Sleep Apnea, on CPAP with pressure setti ng of 8 Medical History Migraine without aura and wi thout status migrainosus, not intractable Medical History Recurrent major depressive disorder Medical History Irritable Bowel Syndrome, constipation p redominant type Medical History Peripheral Edema Medical History arthritis Medical History MSH6-related Carrizales syndrome, hereditary nonpolyposis colorectal cancer (HNPCC), confirmed via [facility] testing results obtained in winter Medical History Restless leg syndrome Medical History GERD Medical History Former smoker, quit greater than 10 year s ago as of 2020 Medical History Mild hepatic steatosis, via ultrasound al fregoso in 2019 Medical History Seasonal allergies, currentl y takes Xyzal, levocetirizine, and Singulair Surgical History x 3 1978,82,86 Surgical History Hysterectomy - DUB 2007 Surgical History Polypectomy from vocal cord 1985 Surgical History Polypectomy from nasal passages 2010 Surgical History Polypectomy from nasal passages with sin al meatus enlargement 2011 Surgical History R Knee - meniscal debridement/cyst remov al 2013 Surgical History C-scope. Polypectomy x5- repeat in 2020 (3 years) 04/2018 Hospitalization History GERD 2005 Goals Section No Information Health Concerns No Information MEDICAL EQUIPMENT No Information MENTAL STATUS No Information FUNCTIONAL STATUS No Information ASSESSMENTS Encounter Date Diagnosis Assessment Notes Treatment Notes Treatm ent Clinical Notes Feb, Hyperlipidemia, unspecified hyperlipidemia type (ICD-10 - E78.5) Life time ASCVD risk is 50%. Per ACC guideline, patient's LDL is greater than 190 thus should be on highest dose tolerated statin. Adverse effects of statin such as muscle cramps were discussed. Also recommended the patient to take daily asipirin 81 mg, patient agreed. Discussed with her that she has any GI bleeding, please contact the provider; also contract provider if she has any adverse reaction to the medications Feb, Hypernatremia (ICD-10 - E87.0) Hypernatremia likely due to diuretics use. Recheck BMP. Decrease Lasix 40 mg to 20 mg daily. Feb, Hypokalemia (ICD-10 - E87.6) Borderline hypokalemia. Likely due to Lasix use. Recheck BMP. Feb, Other All of the abov e findings, assessments, and plans were discussed with precepting attending 02/27/2021 morning during office hour PLAN OF TREATMENT Medication Medication Name Sig Start Date Stop Date Atorvastatin Calcium 80 MG 1 tablet Orally Once a day for 30 day (s) Levocetirizine Dihydrochloride 5 MG TAKE ONE TABLET BY MOUTH EVERY EVENING Oral for 30 days Furosemide 20 MG 1 tablet Orally Once a day for 30 day(s) Feb Singulair 10 MG 1 tablet in the evening Orally Once a day for 30 days Metoclopramide HCl 5 MG 1 tablet before meals Orally Twice a day for 30 day(s) Mar, Aspirin Low Dose 81 MG TAKE ONE TABLET BY MOUTH EVERY DAY for 30 rOPINIRole HCl 1 MG TAKE ONE TABLET BY MOUTH YASHIRA RY DAY 1 TO 3 HR BEFORE BEDTIME Orally Once a day Venlafaxine HCl ER 150 MG TAKE ONE CAPSULE BY MOUTH EVERY DA Y WITH FOOD for 30 Treatment Notes Assessment Notes Clinical Notes Hyperlipidemia, unspecified hyperlipidemia type Life time ASCVD risk is 50%. Per ACC guideline, patient's LDL is greater than 190 thus should be on highest dose tolerated statin. Adverse effects of statin such as muscle cramps were discussed. Also recommended the patient to take daily asipirin 81 mg, patient agreed. Discussed with her that she has any GI bleeding, please contact the provider; also contract provider if she has any adverse reaction to the medications Hypernatremia Hypernatremia likely due to diuretics use. Recheck BMP. Decrease Lasix 40 mg to 20 mg daily. Hypokalemia Borderline hypokalem ia. Likely due to Lasix use. Recheck BMP. Next Appt Details 1 Week Reason: Insurance Providers Payer Name Payer Address Payer Phone Insured Name Patient Relati onship to Insured Coverage Start Date Coverage End Date ON LICENSE OF [facility] [place] [address] [facility] [id number] MARIA ESTHER KUHN
--- OUTSIDE RECORDS SUMMARY | 2021-06-27 08:16 | CCD ---
Author Author [facility] Organization [facility] Address Unknown Phone Unavailable Care Team Providers Care Spacer Type Bar And Segment Name Role Phone Candice Machado Unavailable PROBLEMS Type Condition ICD9-CM Code VAJ15-SD Code Onset Dates Condition S tatus W/U Status Risk SNOMED Code Notes Problem Severe persistent asthma, uncomplicated J45.50 Active confirmed 367798956 Problem Insomnia secondary to restless leg syndrome G25.81 Active confirmed 20625979 Problem Benign neoplasm of skin of trunk, except scrotum D 23.5 Active confirmed 196624479 Problem Left foot pain M79.672 Active confirmed 4793 3007 Problem 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 5.81 Active confirmed 47060454 Problem Restless leg syndrome, controlled G25.81 Active confirmed 24442732 Problem Other chronic pain G89.29 Active confirmed 8 6908312 Problem Mixed hyperlipidemia E78.2 Active confirmed 822321271 Problem Depression F32.9 Active confirmed 38290031 Problem Seasonal allergies J30.2 Active confirmed 3 16924302 Problem Left knee pain M25.562 Active confirmed 3098 9003 Problem Allergic asthma, severe persistent, with acute exacerbatio n J45.51 Active confirmed 353853858 Problem Gastroesophageal reflux disease without esophagitis K21.9 Active confirmed 430649043 Problem Bilateral edema of lower extremity R60.0 Activ e confirmed 325304294 Problem Bronchitis J40 Active confirmed 41002747 Problem Bilateral carpal tunnel syndrome G56.01 Active conf irmed 81735560 Problem Midline low back pain with right-sided sciatica M5 4.41 Active confirmed 874809224 Problem Non morbid obesity, unspecified obesity type E66.9 Active confirmed 711085024 Problem Essential (primary) hypertension I10 Active conf irmed 42883828 Problem Osteoarthritis of left hip, unspecified osteoarthritis typ e M16.12 Active confirmed 232432553022044 Problem Vitamin D deficiency E55.9 Active confirmed 49914245 Problem Depression, unspecified depression type F32.9 Active confirmed 58436374 Problem COPD exacerbation J44.1 Active confirmed 19 5876530 Problem Gastroesophageal reflux disease, esophagitis pre sence not specified K21.9 Active confirmed 784149008 Problem Adjustment disorder with depressed mood F43.21 Active confirmed 65064349 Problem History of systemic steroid therapy Z92.241 Acti ve confirmed 273499718 Problem Hemiplegic migraine without status migrainosus, not intractable G43.409 Active confirmed 97624572 Problem BMI 40.0-44.9, adult Z68.41 Active confirmed 379573080 Problem Prediabetes R73.09 Active confirmed 76508367 2 Problem CASA (obstructive sleep apnea) G47.33 Active confirm ed 96660455 Problem Hepatic steatosis K76.0 Active confirmed 19 4264698 Problem Severe persistent asthma without complication J45. 50 Active confirmed 484705583 Problem BMI 37.0-37.9, adult Z68.37 Active confirmed 994253892 Problem Sciatica of right side M54.31 Active confirmed 51302762 Problem Severe persistent asthma with acute exacerbation J 45.51 Active confirmed 016877218 Problem Dyslipidemia E78.5 Active confirmed 8833136 07 Problem Esophageal web Q39.4 Active confirmed 35186 006 Problem Gastroparesis K31.84 Active confirmed 847851 006 Problem Chronic fatigue R53.82 Active confirmed 8422 9001 Problem Severe persistent asthma with exacerbation J45.51 Active confirmed 781077995 Problem Hypernatremia E87.0 Active confirmed 810670 008 Problem Hyperlipidemia, unspecified hyperlipidemia type E7 8.5 Active confirmed 91459465 Problem Hypokalemia E87.6 Active confirmed 21786605 Problem Constipation, unspecified constipation type K59.00 Active confirmed 00363968 Problem Acute right-sided low back pain with right-sided sciatica M54.41 Active confirmed 874937028 Problem Moderate episode of recurrent major depressive disorder F33.1 Active confirmed 451138916 Problem Migraine without aura and without status migrain osus, not intractable G43.009 Active confirmed 567234934 Problem Gastroesophageal reflux dise ase, unspecified whether esophagitis present K21.9 Active confirmed 574135055 Problem Hypercholesterolemia E78.00 Active confirmed 56524013 ALLERGIES Allergen (clinical drug ingredient) Drug/Non Drug Allergy do cumented on EMR Reaction Allergy Type Onset Date Status Latex (for allergy use only) rash Drug Allergy Active ENCOUNTERS from 1960 to 2021-05-05 Encounter Location Date Provider [place] [facility] [place] [address] [phone] [place] [address] Apr, Candice Machado Hypernatremia E87.0 IMMUNIZATIONS Vaccine Route Administration Date Status COVID-19 [...] Education Language: Question Answer Notes Languages spoken: Senegalese Anabaptist: Question Answer Notes Anabaptist 14 Amish Sexual Hx: Question Answer Notes Had sex [...] REASON FOR REFERRAL No Information VITAL SIGNS No information MEDICATIONS Medication SIG (Take, Route, Frequency, Duration) Notes Start Da te End Date Status Incruse Ellipta 62.5 MCG/INH 1 puff Inhalation Once a day for 30 days Active Metoclopramide HCl 5 MG 1 tablet before meals Orally Twice a day for 30 day(s) Mar, Active Ipratropium-Albuterol 0.5-2.5 (3) MG/3ML 3 ml Inhalati on Four times a day for 30 days Active Constulose 10 GM/15ML 15 ml Orally Once a day for 30 day(s) Mar, Not-Taking Omeprazole 20 MG 1 capsule 30 minutes before morning meal Orally On ce a day Active rOPINIRole HCl 1 MG TAKE ONE TABLET BY MOUTH YASHIRA DAY 1 TO 3 HR BEFORE BEDTIME Orally Once a day Active Theophylline 400 MG as directed Orally BID for 30 days Active Venlafaxine HCl ER 150 MG TAKE ONE CAPSULE BY MOUTH EVERY DA Y WITH FOOD for 30 Active Xolair 150 MG 1 dose Subcutaneous every other week Active predniSONE 20 MG 2 tablets Orally Once a day for 5 days Oct, Not-Taking Aspirin Low Dose 81 MG TAKE ONE TABLET BY MOUTH EVERY DAY for 30 Active Nebulizer - 1 ICD: J45.50 every 4 hours as needed Active Levocetirizine Dihydrochloride 5 MG TAKE ONE TABLET BY MOUTH EVERY EVENING Oral for 30 days Active AirDuo RespiClick 55/14 55-14 MCG/ACT 1 puff Inhalation Twic e a day for 30 days Active EpiPen 2-Emmanuel 0.3 MG/0.3ML Injection Active Singulair 10 MG 1 tablet in the evening Orally Once a day for 30 days Active Ventolin HFA 108 (90 Base) MCG/ACT 2 puffs as needed I nhalation Every 4 hours for 30 days Active Arnuity Ellipta 200 MCG/ACT INHALE ONE PUFF BY MOUTH E VERY DAY Inhalation Once a day for 30 days Active Atorvastatin Calcium 80 MG 1 tablet Orally Once a day for 30 day(s) Active Theophylline ER 400 MG ONE BY MOUTH TWICE A DAY for 30 Not-Taking Fiber 625 MG 1 tablet Orally once a day as needed for 30 days Mar, Not-Taking Constulose 10 GM/15ML 15 ml Orally Once [...] needed Jan, Active PROCEDURES No Information RESULTS No Results REASON FOR VISIT Furosemide MEDICAL (GENERAL) HISTORY Type Description Date Medical History asthma, severe persistent (maisha ramon w/ Dr. Mancilla of pulmonology as outpt) Medical [...] confirmed via [facility] testing results obtained in Winter 2019- Medical History Restless leg syndrome Medical History GERD Medical History Former smoker, quit greater than 10 year s ago as of 2020 Medical History Mild hepatic steatosis, via ultrasound s tudy in 2018 Medical History Seasonal allergies, currentl y takes Xyzal, levocetirizine, and Singulair Surgical History x 3 1979,82,86 Surgical History Hysterectomy - DUB 2006 Surgical History Polypectomy from vocal cord 1985 Surgical History Polypectomy from nasal passages 2010 Surgical History Polypectomy from nasal passages with sin al meatus enlargement 2012 Surgical History R Knee - meniscal debridement/cyst remov al 2014 Surgical History C-scope. Polypectomy x5- repeat in 2020 (3 years) 04/2018 Hospitalization History GERD 2005 Goals Section No Information Health Concerns No Information MEDICAL EQUIPMENT No Information MENTAL STATUS No Information FUNCTIONAL STATUS No Information ASSESSMENTS Encounter Date Diagnosis Assessment Notes Treatment Notes Treatm ent Clinical Notes Apr, Hypernatremia (ICD-10 - E87.0) PLAN OF TREATMENT Medication Medication Name Sig [...] Orally Once a day for 30 days Venlafaxine HCl ER 150 MG TAKE ONE CAPSULE BY MOUTH EVERY DA Y WITH FOOD for 30 Metoclopramide HCl 5 MG 1 tablet before meals Orally Twice a day for 30 day(s) Mar, Aspirin Low Dose 81 MG TAKE ONE TABLET BY MOUTH EVERY DAY for 30 rOPINIRole HCl 1 MG TAKE ONE TABLET BY MOUTH YASHIRA DAY 1 TO 3 HR BEFORE BEDTIME Orally Once a day Insurance Providers Payer Name Payer Address Payer Phone Insured Name Patient Relati onship to Insured Coverage Start Date Coverage End Date [facility] [address] [facility] [phone] [phone] MARIA ESTHER KUHN
--- OUTSIDE RECORDS SUMMARY | 2021-06-27 08:16 | CCD | Continuity of Care Document ---
Author Author Martha HAAS PA Organization Unknown Address [address] [place] [address], [address] [place] [address] Phone [phone] Care Team Providers Care Quill Reamer Name Role Phone Freddy Rouse AUTM [phone] Italo Rosales MD AUTM [phone] Vikram Haas I Pac AUTM [phone] Problems Active Problems Provider Date Closed trimalleolar fracture Jairo Mcintosh MD Onset: 04/2005 Social History Type Date Description Comments Sex Unknown ETOH Use Denies alcohol use Tobacco Use Start: Unknown End: Unknown Patient is a former smoker 1/2 pack a day Allergies and adverse reactions Active Allergies Criticality Reaction | Severity Comments Date Latex Unable to assess criticality 01/04/2019 Medications Active Medications SIG Qnty Indications Ordering Provide r Date Mobic 7.5mg Tablets 1 by mouth after meals twice a day 60tabs M19.012 Jabier Olivas MD 9 Ropinirole HCL 1mg Tablets Unknown Fluoxetine HCL 10mg Capsules Unknown Magnesium Citrate 1.745GM/30ML Esther ution Take One 10 Ounce Bottle 3 Days Before Procedure For Additional Prep as Directed Unknown Vitamin D (Ergocalciferol) 05304Ugsw Capsules Unknown Atorvastatin Calcium 40mg Tablets Take One Tablet By Mouth Every Day Unknown Epinephrine 0.3mg/0. 3ML Solution Auto-Inject Unknown Breo Ellipta 200-25mcg/Inh Aerosol Unknown Breo Ellipta 100-25mcg/Inh Aerosol Inhale One puff By Mouth Every Day Unknown Naproxen 500mg Tablets Unknown Amoxicillin/Clavulanate Potassium 875-125mg Tablets Unknown Constulose 10GM/15ML Solution Unknown Xolair 150mg Solution Rec Unknown Sumatriptan Succinate 100mg Tablets Unknown Montelukast Sodium 10mg Tablets Unknown Incruse Ellipta 62.5mcg/Inh Aerosol Unknown Prednisone 20mg Tablets Take Two Tablets By Mouth Every Day For 4 Days Unknown Albuterol Sulfate HFA 108(90Base) mcg/Act Aerosol Unknown Arnuity Ellipta 200mcg/Act Aerosol Unknown Fluticasone Propionate 50mcg/Act Suspension Unknown Gabapentin 300mg/6ML Solution Unknown Levocetirizine Dihydrochloride 5mg Tablets Unknown Omeprazole 20mg Capsules DR Unknown Furosemide 40mg Tablets Unknown Prednisone 10mg Tablets Unknown Levofloxacin 500mg Tablets Unknown Fiber-Lax 625mg Tablets Unknown Theophylline ER 400mg Tablets ER 24HR Unknown Immunizations Description No Information Available Vital Signs Date Vital Result Comment 08/12/2020 3:28pm Body Temperature 96.5 F 01/25/2020 3:24pm Body Temperature 96.8 F Height 64.5 inches 5'4.50" Weight 214.00 lb BMI (Body Mass Index) 36.2 kg/m2 Results Description No Information Available Procedures Date Code Description Status 03/18/2021 72757 Office/Outpatient Established Lo w MDM 20-29 Min Completed Medical Devices Description No Information Available Encounters Type Date Location Provider Dx Diagnosis Office Visit 03/18/2021 2:20p [place] [facility] Michael M24.112 Other articular cartilage disorders, left shoulder M19.012 Primary osteoarthritis, left shoulder G56.02 Carpal tunnel syndrome, left upper limb Assessments Date Code Description Provider 03/18/2021 M24.112 Other articular cartilage disord ers, left shoulder DECLAN Michael 03/18/2021 M19.012 Primary osteoarthritis, left lance ulder DECLAN Michael 03/18/2021 G56.02 Carpal tunnel syndrome, left upp er limb DECLAN Michael Plan of Treatment No Information Available Functional Status Description No Information Available Mental Status Description No Information Available Referrals Refer to Reason for Referral Status Appt Date Vikram Haas Pac M19.012 PRIMARY OSTEOARTHRIT IS, LEFT SHOULDER G56.02 CARPAL TUNNEL SYNDROME, LEFT UPPER LIMB Created [address] [facility] [address] [place] [address] [phone]
--- OUTSIDE RECORDS SUMMARY | 2021-06-27 08:16 | CCD ---
Author Author [facility] Organization [facility] Address Unknown Phone Unavailable Care Team Providers Care Microfilm Operator Name Role Phone Candice Machado Unavailable PROBLEMS Type Condition ICD9-CM Code [id number] Code Onset Dates Condition S tatus W/U Status Risk SNOMED Code Notes Problem Severe persistent asthma, uncomplicated J45.50 Active confirmed 951371721 Problem Insomnia secondary to restless leg syndrome G25.81 Active confirmed 27287714 Problem Benign neoplasm of skin of trunk, except scrotum D 23.5 Active confirmed 645518619 Problem Left foot pain M79.672 Active confirmed 4793 3007 Problem 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 5.81 Active confirmed 77817722 Problem Restless leg syndrome, controlled G25.81 Active confirmed 42965045 Problem Other chronic pain G89.29 Active confirmed 8 1362076 Problem Mixed hyperlipidemia E78.2 Active confirmed 317259427 Problem Depression F32.9 Active confirmed 88910758 Problem Seasonal allergies J30.2 Active confirmed 3 65352310 Problem Left knee pain M25.562 Active confirmed 3098 9003 Problem Allergic asthma, severe persistent, with acute exacerbatio n J45.51 Active confirmed 775718784 Problem Gastroesophageal reflux disease without esophagitis K21.9 Active confirmed 801699865 Problem Bilateral edema of lower extremity R60.0 Activ e confirmed 663335284 Problem Bronchitis J40 Active confirmed 16879842 Problem Bilateral carpal tunnel syndrome G56.01 Active conf irmed 72220065 Problem Midline low back pain with right-sided sciatica M5 4.41 Active confirmed 949309999 Problem Non morbid obesity, unspecified obesity type E66.9 Active confirmed 551144264 Problem Essential (primary) hypertension I10 Active conf irmed 31957948 Problem Osteoarthritis of left hip, unspecified osteoarthritis typ e M16.12 Active confirmed 679193246936333 Problem Vitamin D deficiency E55.9 Active confirmed 14412580 Problem Depression, unspecified depression type F32.9 Active confirmed 81491974 Problem COPD exacerbation J44.1 Active confirmed 19 6384376 Problem Gastroesophageal reflux disease, esophagitis pre sence not specified K21.9 Active confirmed 968413995 Problem Adjustment disorder with depressed mood F43.21 Active confirmed 46808621 Problem History of systemic steroid therapy Z92.241 Acti ve confirmed 574982147 Problem Hemiplegic migraine without status migrainosus, not intractable G43.409 Active confirmed 63410578 Problem BMI 40.0-44.9, adult Z68.41 Active confirmed 461142932 Problem Prediabetes R73.09 Active confirmed 27537107 2 Problem CASA (obstructive sleep apnea) G47.33 Active confirm ed 37377691 Problem Hepatic steatosis K76.0 Active confirmed 19 7086209 Problem Severe persistent asthma without complication J45. 50 Active confirmed 762715041 Problem BMI 37.0-37.9, adult Z68.37 Active confirmed 926953009 Problem Sciatica of right side M54.31 Active confirmed 36571208 Problem Severe persistent asthma with acute exacerbation J 45.51 Active confirmed 675793870 Problem Dyslipidemia E78.5 Active confirmed 3861814 07 Problem Esophageal web Q39.4 Active confirmed 09918 006 Problem Gastroparesis K31.84 Active confirmed 420922 006 Problem Chronic fatigue R53.82 Active confirmed 8422 9001 Problem Severe persistent asthma with exacerbation J45.51 Active confirmed 371813733 Problem Hypernatremia E87.0 Active confirmed 282663 008 Problem Hyperlipidemia, unspecified hyperlipidemia type E7 8.5 Active confirmed 78805093 Problem Hypokalemia E87.6 Active confirmed 51866621 Problem Constipation, unspecified constipation type K59.00 Active confirmed 75335052 Problem Acute right-sided low back pain with right-sided sciatica M54.41 Active confirmed 559534304 Problem Moderate episode of recurrent major depressive disorder F33.1 Active confirmed 420756305 Problem Migraine without aura and without status migrain osus, not intractable G43.009 Active confirmed 543956672 Problem Gastroesophageal reflux dise ase, unspecified whether esophagitis present K21.9 Active confirmed 685766058 Problem Hypercholesterolemia E78.00 Active confirmed 07701868 ALLERGIES Allergen (clinical drug ingredient) Drug/Non Drug Allergy do cumented on EMR Reaction Allergy Type Onset Date Status Latex Latex rash Drug Allergy Active ENCOUNTERS from 1960 to 2021-06-20 Encounter Location Date Provider Diagnosis [facility] GME Resident [phone] [place] [address] Jun, Candice Machado IMMUNIZATIONS Vaccine Route Administration Date Status COVID-19 dose #2 given elsewhere Unspecified Unknown Oct Administered COVID-19 dose #1 given elsewhere Unspecified Unknown Sep 19, 2020 Administered Influenza 18 yrs & older Flublok IM Intramuscular May 14, 2020 Administered Influenza 18 yrs & older Flublok IM Intramuscular May 19, 2019 Administered Influenza 18 yrs & older Flublok IM Intramuscular May 19, 2019 Administered Influenza 18 yrs & older Flublok IM Intramuscular May 17, 2018 Administered Influenza 6mo & up Fluzone Unknown [...] Education Language: Question Answer Notes Languages spoken: Mohawk Baptism: Question Answer Notes Baptism 14 [employer] Sexual Hx: Question Answer Notes Had sex [...] smoked? > 10 years REASON FOR REFERRAL from 1960 to 2021-06-20 Reason please eval Diagnosis 1 Left knee pain (M25.562) Referral Organization [facility] GME Resident Referring Provider First Name Candice Referring Provider Last Name Carter Referring Provider [facility]ty [facility] Referral Priority Routine VITAL SIGNS No information MEDICATIONS Medication SIG [...] DA Y WITH FOOD for 30 Active Incruse [...] Information RESULTS No Results REASON FOR VISIT ortho referral MEDICAL (GENERAL) HISTORY Type Description Date Medical [...] History Mild hepatic steatosis, via ultrasound s ildefonso in 2018 Medical History Seasonal allergies, currentl [...] No Information FUNCTIONAL STATUS No Information ASSESSMENTS No Information PLAN OF TREATMENT Medication Medication Name Sig [...] EVERY DA Y WITH FOOD for 30 Referrals Referral Date Details please eval, Orthopedics [facility] Next Appt Details Provider Name:Candice Machado, 2021-07-25 03: 00:00 PM, [address] [facility], , [place], [address], Insurance Providers Payer Name Payer Address Payer Phone Insured Name Patient Relati onship to Insured Coverage Start Date Coverage End Date [facility] [employer] [facility] [address] [facility] [address] [phone] MARIA ESTHER KUHN self
--- OUTSIDE RECORDS SUMMARY | 2021-06-27 08:16 | CCD ---
Author Author [facility] Organization [facility] Address Unknown Phone Unavailable Care Team Providers Care 1St [employer] On [employer] Press Name Role Phone Candice Machado Unavailable PROBLEMS ALLERGIES ENCOUNTERS from 1960 to 2021-06-25 IMMUNIZATIONS SOCIAL HISTORY REASON FOR REFERRAL No Information VITAL SIGNS MEDICATIONS PROCEDURES No Information RESULTS No Results REASON FOR VISIT MEDICAL (GENERAL) HISTORY Goals Section Health Concerns MEDICAL EQUIPMENT No Information MENTAL STATUS FUNCTIONAL STATUS ASSESSMENTS No Information PLAN OF TREATMENT Insurance Providers
--- OUTSIDE RECORDS SUMMARY | 2021-06-27 08:16 | CCD | Continuity of Care Document ---
Author Author Pulmonary Jose Saab Organization Unknown Address [address] [place] [address] Phone [phone] Care Team Providers Care Layer Up Name Role Phone Warren Nagy M.D. AUTM [phone] AUTM Unavailable Migue Boogie D.O. AUTM [phone] Problems Active Problems Provider Date Cough Ivan [...] Travis MD Onset: 12/04/2016 Chronic ethmoidal sinusitis Jrarell Travis MD Onset: 12/04 Chronic frontal sinusitis [...] Tablets 1 tab every night Unknown Ipratropium [place]/Albuterol Sulfate 0.5-2.5(3)mg/3ML Solution 1 vial via neb [...] CPT Code Status Date Vaccine Lot # 57040 Given 05/17/2019 Flublock, Quadrivalent 77549 Given 06/03/2016 Influenza Virus Split 3 Yrs And Above For Intramuscular Use 61619 Given 07/11/2015 Influenza Virus Split 3 Yrs And Above For Intramuscular Use 81801 Given 05/16/2014 Influenza Virus Split 3 Yrs And Above For Intramuscular Use 61500 Given 04/20/2012 Pneumococcal PPSV23 Q2036 Given Unknown Influenza Vaccine 3 Years Of Age Or Older (Flulaval) 45216 Given Unknown Pneumococcal PPSV23 Vital Signs Date Vital Result Comment 06/25/2021 2:49pm BP Systolic 118 mmHg BP Diastolic 78 mmHg Heart Rate 88 /min O2 % BldC Oximetry 96 % Height 63 inches 5'3" Weight 206.00 lb BMI (Body Mass Index) 36.5 kg/m2 [place] Body Weight 115 lb Weight 93.442 kg BSA (Body Surface Area) 1.96 m2 06/11/2021 3:07pm BP Systolic 122 mmHg BP Diastolic 84 mmHg Heart Rate 93 /min O2 % BldC Oximetry 97 % Results Test Acquired Date Facility Test Result H/L Range Note Laboratory test finding 04/02/2021 [facility] Main Lab [address] [place], [place] [address] [phone] Theophylline Level 19.2 UG/ML Normal 10.0-20.0 Laboratory test finding 02/21/2021 [facility] Main Lab [address] [place], [place] [address] [phone] Theophylline Level < 2.0 UG/ML Low 10.0-20.0 FVL/Julio César 02/13/2021 [employer] PDFReport SEE IMAGE FVC-Pred 3.21 L FVC-Pre 2.26 L FVC-%Pred-Pre 70 L FVC-LLN 2.54 L Fev1-Pred 2.49 L Fev1-Pre 1.44 L Fev1-%Pred-Pre 57 L Fev1-LLN 1.92 L Fev6-Pred 3.10 L Fev6-Pre 2.26 L Fev6-%Pred-Pre 72 L Fev6-LLN 2.44 L Ujs7vcn-Vjir 78 % Kby9jfv-Ldk 64 % Jig6nqw-%Pred-Pre 81 % Sxz5drq-SSM 68 % Blr2ghw-Iqzg 97 % Gke1ozo-Rpo 100 % Grj7avs-%Pred-Pre 103 % FEFMax-Pred 6.19 L/E/sec FEFMax-Pre 4.24 L/E/sec FEFMax-%Pred-Pre 68 L/E/sec FEFMax-LLN 4.53 L/E/sec Ckn4787-Hlzs 2.34 L/E/sec Cco3131-Qpr 0.87 L/E/sec Dop7857-%Pred-Pre 37 L/E/sec Vfy1316-PSR 1.13 L/E/sec ExpTime-Pre 6.33 sec Bcz0gcq6-Tkou 81 % Iqr8dhr7-Eqg 64 % Pfr5ate1-%Pred-Pre 78 % Qou5ror9-IHZ 72 % Procedures Date Code Description Status 03/19/2021 12684 Office/Outpatient New Moderate M DM 45-59 Minutes Completed 02/26/2021 12022 Injection Fee Completed 02/26/2021 14877 Injection Fee Completed 02/26/2021 29698 Injection Fee Completed 02/13/2021 70832 Office/Outpatient Established Mo d MDM 30-39 Min Completed 02/13/2021 12512 Injection Fee Completed 02/13/2021 07093 Injection Fee Completed 02/13/2021 56919 Injection Fee Completed 02/13/2021 45162 Spirometry Completed 01/29/2021 70939 Injection Fee Completed 01/29/2021 54379 Injection Fee Completed 01/15/2021 32590 Injection Fee Completed 01/15/2021 52548 Injection Fee Completed 12/25/2020 77910 Injection Fee Completed 12/25/2020 73574 Injection Fee Completed Medical Devices Description No Information Available Encounters Type Date Location Provider Dx Diagnosis Office Visit 03/19/2021 3:00p [facility] Gastroenterology Pra ctice Mya ROHINI Martínez 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 J45.50 Severe [...] Sears, D.O. Plan of Treatment Future Appointment(s):* 07/09/2021 2:45 pm - Pulmonary Biologics at [facility] Pulmonary/Thoracic * 06/27/2021 10:00 am - Carlos Thornton MD at [facility] Gastroenterology Practice * 06/30/2021 3:30 pm - Ivan Mancilla D.O. at [facility] Pulmonary/Thoracic 03/19/2021 - Myastanford De Leon, RPA-C* Z15.09 Genetic susceptibility to other malignant neoplasm [...] Carlos Thornton M.D. Z12.11-colo screening Scheduled 04/15 [facility], Gastroenterology [address], [address] [place] [address] [phone] Ivan Mancilla D.O. CASA Scheduled 06/30/2021 [facility]-Pulmonary [address] [place], [place] [address] [phone] Ivan Mancilla D.O. ASTHMA Scheduled 06/30/2021 [facility]-Pulmonary [address] [place], [place] [address] [phone]
--- OUTSIDE RECORDS SUMMARY | 2021-06-27 08:16 | CCD | Continuity of Care Document ---
Author Author Pulmonary Jose Saab Organization Unknown Address [address] [place] [address] Phone [phone] Care Team Providers Care Technician Biological Health Name Role Phone Warren Nagy M.D. AUTM AUTM Unavailable Migue Boogie D.O. AUTM [phone] Problems Active Problems Provider Date Cough Ivan Mancilla D.O. Onset: 05/05/2016 Acute severe exacerbation of severe persistent asthma Ivan martinez D.O. Onset: 05/05/2016 Uncomplicated severe persistent asthma Adrián Hanks nset: 11/25/2016 Obstructive sleep apnea syndrome Ivan Mancilla D.O. Onset: 11/25/2016 Allergic rhinitis Jarrell Travis MD Onset: 12/04/2016 Chronic maxillary sinusitis Jrarell Travis MD Onset: 12/04 Melena Carlos Thornton [...] Tablets 1 tab every night Unknown Ipratropium [place]/Albuterol Sulfate 0.5-2.5(3)mg/3ML Solution 1 vial via neb [...] CPT Code Status Date Vaccine Lot # 95844 Given 05/17/2019 Flublock, Quadrivalent 50424 Given 06/03/2016 Influenza Virus Split 3 Yrs And Above For Intramuscular Use 72862 Given 07/11/2015 Influenza Virus Split 3 Yrs And Above For Intramuscular Use 44427 Given 05/16/2014 Influenza Virus Split 3 Yrs And Above For Intramuscular Use 60307 Given 04/20/2012 Pneumococcal PPSV23 Q2036 Given Unknown Influenza Vaccine 3 Years Of Age Or Older (Flulaval) 25917 Given Unknown Pneumococcal PPSV23 Vital Signs Date Vital Result Comment 05/26/2021 2:56pm BP Systolic 124 mmHg BP Diastolic 80 mmHg Heart Rate 106 /min O2 % BldC Oximetry 97 % Weight 201.00 lb Weight 91.174 kg 04/17/2021 3:36pm BP Systolic 122 mmHg BP Diastolic 82 mmHg Heart Rate 81 /min O2 % BldC Oximetry 97 % Results Test Acquired Date Facility Test Result H/L Range Note Laboratory test finding 04/02/2021 [facility] Main Lab [address] [place] [address] [phone] Theophylline Level 19.2 UG/ML Normal 10.0-20.0 Laboratory test finding 02/21/2021 [facility] Main Lab [address] [place] [address] [phone] Theophylline Level < 2.0 UG/ML Low 10.0-20.0 FVL/Mcgraw 02/13/2021 [employer] PDFReport SEE IMAGE FVC-Pred 3.21 L FVC-Pre 2.26 L FVC-%Pred-Pre 70 L FVC-LLN 2.54 L Fev1-Pred 2.49 L Fev1-Pre 1.44 L Fev1-%Pred-Pre 57 L Fev1-LLN 1.92 L Fev6-Pred 3.10 L Fev6-Pre 2.26 L Fev6-%Pred-Pre 72 L Fev6-LLN 2.44 L Gnt1bzd-Xlyb 78 % Fne0ycw-Ube 64 % Abk7dyc-%Pred-Pre 81 % Ups3xaq-WDR 68 % Sgg5wgm-Lyou 97 % Llb2vmd-Ufw 100 % Qtx5rky-%Pred-Pre 103 % FEFMax-Pred 6.19 L/E/sec FEFMax-Pre 4.24 L/E/sec FEFMax-%Pred-Pre 68 L/E/sec FEFMax-LLN 4.53 L/E/sec Gjq1903-Edpu 2.34 L/E/sec Bqo6019-Crv 0.87 L/E/sec Jhb3954-%Pred-Pre 37 L/E/sec Iup2849-VDI 1.13 L/E/sec ExpTime-Pre 6.33 sec Ryl5icy5-Sczi 81 % Rcn6mel6-Zfa 64 % Mmw3nfd4-%Pred-Pre 78 % Dkf1rfh1-QMO 72 % Procedures Date Code Description Status 03/19/2021 92958 Office/Outpatient New Moderate M DM 45-59 Minutes Completed 02/26/2021 26384 Injection Fee Completed 02/26/2021 94402 Injection Fee Completed 02/26/2021 86872 Injection Fee Completed 02/13/2021 18803 Spirometry Completed 02/13/2021 60222 Injection Fee Completed 02/13/2021 49974 Injection Fee Completed 02/13/2021 19309 Injection Fee Completed 02/13/2021 96975 Office/Outpatient Established Mo d MDM 30-39 Min Completed 01/29/2021 48233 Injection Fee Completed 01/29/2021 29364 Injection Fee Completed 01/15/2021 72133 Injection Fee Completed 01/15/2021 23394 Injection Fee Completed 12/25/2020 30114 Injection Fee Completed 12/25/2020 23051 Injection Fee Completed 11/27/2020 44091 Injection Fee Completed 11/27/2020 14811 Injection Fee Completed Medical Devices Description No Information Available Encounters Type Date Location Provider Dx Diagnosis Office Visit 03/19/2021 3:00p [facility] ctice ROHINI Ruiz 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 J45.50 Severe [...] persistent asthma, uncomp licated Ivan Sears, D.O. 11/27/2020 J45.50 Severe persistent asthma, uncomp licated Ivan Sears, D.O. Plan of Treatment Future Appointment(s):* 06/09/2021 3:00 pm - [facility] * 06/27/2021 9:15 am - Carlos Thornton MD at [facility] * 06/30/2021 3:30 pm - Ivan Mancilla D.O. at [facility]Th[facility] 03/19/2021 - Mya Iftikhar De Leon, RPA-C* Z15.09 Genetic susceptibility to [...] Description No Information Available Referrals Refer to Dr Reason for Referral Status Appt Date Carlos Thornton M.D. Z12.11-colo screening Scheduled 04/15 [facility], Gastroenterology [address], [address] [place] [address] [phone] Ivan Mancilla D.O. CASA Scheduled 06/30/2021 [facility]-Pulmonary [address] [place], [place] [id number] [phone] Ivan Mancilla D.O. ASTHMA Scheduled 06/30/2021 [facility]-Pulmonary [address] [place], [place] [address] [phone]"
--- OUTSIDE RECORDS SUMMARY | 2021-06-27 08:16 | CCD | Continuity of Care Document ---
Author Author Pulmonary Jose Saab Organization Unknown Address [address] [place] [address] Phone [phone] Care Team Providers Care Dog Behaviorist Name Role Phone Warren Nagy M.D. AUTM [phone] AUTM Unavailable Migue Boogie D.O. AUTM [phone] Problems Active Problems Provider Date Cough Ivan [...] Tablets 1 tab every night Unknown Ipratropium Chauvin/Albuterol Sulfate 0.5-2.5(3)mg/3ML Solution 1 vial via neb [...] CPT Code Status Date Vaccine Lot # 42703 Given 05/17/2019 Flublock, Quadrivalent 56344 Given 06/03/2016 Influenza Virus Split 3 Yrs And Above For Intramuscular Use 04975 Given 07/11/2015 Influenza Virus Split 3 Yrs And Above For Intramuscular Use 45230 Given 05/16/2014 Influenza Virus Split 3 Yrs And Above For Intramuscular Use 58664 Given 04/20/2012 Pneumococcal PPSV23 Q2036 Given Unknown Influenza Vaccine 3 Years Of Age Or Older (Flulaval) 25379 Given Unknown Pneumococcal PPSV23 Vital Signs Date Vital Result Comment 06/25/2021 2:49pm BP Systolic 118 mmHg BP Diastolic 78 mmHg Heart Rate 88 /min O2 % BldC Oximetry 96 % Height 63 inches 5'3" Weight 206.00 lb BMI (Body Mass Index) 36.5 kg/m2 [place] Body Weight 115 lb Weight 93.442 kg BSA (Body Surface Area) 1.96 m2 06/11/2021 3:07pm BP Systolic 122 mmHg BP Diastolic 84 mmHg Heart Rate 93 /min O2 % BldC Oximetry 97 % Results Test Acquired Date Facility Test Result H/L Range Note Laboratory test finding 04/02/2021 [facility] [address] [place], [place] [id number] [phone] Theophylline Level 19.2 UG/ML Normal 10.0-20.0 Laboratory test finding 02/21/2021 [facility] [address] [place] [address], [place] [id number] [phone] Theophylline Level < 2.0 UG/ML Low 10.0-20.0 FVL/Julio César 02/13/2021 [employer] PDFReport SEE IMAGE FVC-Pred 3.21 L FVC-Pre 2.26 L FVC-%Pred-Pre 70 L FVC-LLN 2.54 L Fev1-Pred 2.49 L Fev1-Pre 1.44 L Fev1-%Pred-Pre 57 L Fev1-LLN 1.92 L Fev6-Pred 3.10 L Fev6-Pre 2.26 L Fev6-%Pred-Pre 72 L Fev6-LLN 2.44 L Tkp4qxw-Bwti 78 % Zxs6kga-Zms 64 % Wtt3cir-%Pred-Pre 81 % Iou2jeq-AMQ 68 % Kpo6tdo-Wjlv 97 % Mxm7uhx-Dau 100 % Ene5kaa-%Pred-Pre 103 % FEFMax-Pred 6.19 L/E/sec FEFMax-Pre 4.24 L/E/sec FEFMax-%Pred-Pre 68 L/E/sec FEFMax-LLN 4.53 L/E/sec Hgq7441-Qffs 2.34 L/E/sec Bto7698-Ztx 0.87 L/E/sec Tpq5619-%Pred-Pre 37 L/E/sec Mtc8950-HLT 1.13 L/E/sec ExpTime-Pre 6.33 sec Ghe2ber2-Rnwr 81 % Gxq2ani8-Htx 64 % Rhv7txg7-%Pred-Pre 78 % Dax5stk4-KTO 72 % Procedures Date Code Description Status 03/19/2021 90237 Office/Outpatient New Moderate M DM 45-59 Minutes Completed 02/26/2021 53475 Injection Fee Completed 02/26/2021 11258 Injection Fee Completed 02/26/2021 13071 Injection Fee Completed 02/13/2021 53176 Office/Outpatient Established Mo d MDM 30-39 Min Completed 02/13/2021 91459 Injection Fee Completed 02/13/2021 98001 Injection Fee Completed 02/13/2021 82267 Injection Fee Completed 02/13/2021 22065 Spirometry Completed 01/29/2021 91474 Injection Fee Completed 01/29/2021 04907 Injection Fee Completed 01/15/2021 63317 Injection Fee Completed 01/15/2021 91364 Injection Fee Completed 12/25/2020 80357 Injection Fee Completed 12/25/2020 38706 Injection Fee Completed Medical Devices Description No Information Available Encounters Type Date Location Provider Dx Diagnosis Office Visit 03/19/2021 3:00p [facility] Gastroenterology Pra ctice Mya ROHINI Martínez 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 [...] 07/09/2021 2:45 pm - [facility] at [facility] Pulmonary/Thoracic * 06/27/2021 10:00 am - Carlos Thornton MD at [facility] Gastroenterology Practice * 06/30/2021 3:30 pm - Ivan Mancilla D.O. at [facility] Pulmonary/Thoracic 03/19/2021 - [facility] [...] Carlos Thornton M.D. Z12.11-colo screening Scheduled 04/15 [facility], Gastroenterology [address], [address] [place] [id number] [phone] Ivan Mancilla D.O. CASA Scheduled 06/30/2021 [facility] [address] [place], [place] [id number] [phone] Ivan Mancilla D.O. ASTHMA Scheduled 06/30/2021 [facility] [address] [place], [place] [address] [phone]
--- OUTSIDE RECORDS SUMMARY | 2021-06-27 08:16 | CCD ---
Author Author [facility] Organization [facility] Address Unknown Phone Unavailable Care Team Providers Care Special Assets Officer Name Role Phone Candice Machado Unavailable PROBLEMS Type Condition ICD9-CM Code LUP76-TS Code Onset Dates Condition S tatus W/U Status Risk SNOMED Code Notes Problem Severe persistent asthma, uncomplicated J45.50 Active confirmed 263045190 Problem Insomnia secondary to restless leg syndrome G25.81 Active confirmed 85339258 Problem Benign neoplasm of skin of trunk, except scrotum D 23.5 Active confirmed 557691895 Problem Left foot pain M79.672 Active confirmed 4793 3007 Problem 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 5.81 Active confirmed 37601717 Problem Restless leg syndrome, controlled G25.81 Active confirmed 21631598 Problem Other chronic pain G89.29 Active confirmed 8 5559754 Problem Mixed hyperlipidemia E78.2 Active confirmed 485564571 Problem Depression F32.9 Active confirmed 60469138 Problem Seasonal allergies J30.2 Active confirmed 3 09140603 Problem Left knee pain M25.562 Active confirmed 3098 9003 Problem Allergic asthma, severe persistent, with acute exacerbatio n J45.51 Active confirmed 368113621 Problem Gastroesophageal reflux disease without esophagitis K21.9 Active confirmed 939853467 Problem Bilateral edema of lower extremity R60.0 Activ e confirmed 259945918 Problem Bronchitis J40 Active confirmed 68963766 Problem Bilateral carpal tunnel syndrome G56.01 Active conf irmed 84960658 Problem Midline low back pain with right-sided sciatica M5 4.41 Active confirmed 745132832 Problem Non morbid obesity, unspecified obesity type E66.9 Active confirmed 837340877 Problem Essential (primary) hypertension I10 Active conf irmed 78031086 Problem Osteoarthritis of left hip, unspecified osteoarthritis typ e M16.12 Active confirmed 624046962394813 Problem Vitamin D deficiency E55.9 Active confirmed 18655759 Problem Depression, unspecified depression type F32.9 Active confirmed 60647242 Problem COPD exacerbation J44.1 Active confirmed 19 8571106 Problem Gastroesophageal reflux disease, esophagitis pre sence not specified K21.9 Active confirmed 319043089 Problem Adjustment disorder with depressed mood F43.21 Active confirmed 00969308 Problem History of systemic steroid therapy Z92.241 Acti ve confirmed 633233218 Problem Hemiplegic migraine without status migrainosus, not intractable G43.409 Active confirmed 83483995 Problem BMI 40.0-44.9, adult Z68.41 Active confirmed 699157669 Problem Prediabetes R73.09 Active confirmed 25336345 2 Problem CASA (obstructive sleep apnea) G47.33 Active confirm ed 06170049 Problem Hepatic steatosis K76.0 Active confirmed 19 1337368 Problem Severe persistent asthma without complication J45. 50 Active confirmed 208105105 Problem BMI 37.0-37.9, adult Z68.37 Active confirmed 734864903 Problem Sciatica of right side M54.31 Active confirmed 71702717 Problem Severe persistent asthma with acute exacerbation J 45.51 Active confirmed 499788922 Problem Dyslipidemia E78.5 Active confirmed 1049016 07 Problem Esophageal web Q39.4 Active confirmed 58039 006 Problem Gastroparesis K31.84 Active confirmed 243518 006 Problem Chronic fatigue R53.82 Active confirmed 8422 9001 Problem Severe persistent asthma with exacerbation J45.51 Active confirmed 708365709 Problem Hypernatremia E87.0 Active confirmed 138482 008 Problem Hyperlipidemia, unspecified hyperlipidemia type E7 8.5 Active confirmed 80125574 Problem Hypokalemia E87.6 Active confirmed 14402122 Problem Constipation, unspecified constipation type K59.00 Active confirmed 84046521 Problem Acute right-sided low back pain with right-sided sciatica M54.41 Active confirmed 113719103 Problem Moderate episode of recurrent major depressive disorder F33.1 Active confirmed 011078943 Problem Migraine without aura and without status migrain osus, not intractable G43.009 Active confirmed 578185778 Problem Gastroesophageal reflux dise ase, unspecified whether esophagitis present K21.9 Active confirmed 071338013 Problem Hypercholesterolemia E78.00 Active confirmed 42295864 ALLERGIES Allergen (clinical drug ingredient) Drug/Non Drug Allergy do cumented on EMR Reaction Allergy Type Onset Date Status Latex (for allergy use only) rash Drug Allergy Active ENCOUNTERS from 1961 to 2021-05-14 Encounter Location Date Provider Diagnosis [facility] Resident [phone] [place] [address] 13 Apr, 2021 Candice Machado Gastroparesis K31.84 ; Hypokalemia due to excessive renal loss of potassium E87.6 and Left ear pain H92.02 IMMUNIZATIONS Vaccine Route Administration Date Status COVID-19 [...] Education Language: Question Answer Notes Languages spoken: Irish Faith: Question Answer Notes Faith 14 Adventism Sexual Hx: Question Answer Notes Had sex [...] FOR REFERRAL No Information VITAL SIGNS Weight 202.4 lbs Apr, Weight-kg 91.81 kg Apr, Height 63 in Apr, BMI 35.85 kg/m2 Apr, Heart Rate 97 /min Apr, Respiratory Rate 18 /min Apr, Temperature 97.5 degrees Fahrenheit Apr, Oximetry 98 Apr, Blood pressure systolic 130 mm Hg Apr, Blood pressure diastolic 86 mm Hg Apr, MEDICATIONS Medication SIG (Take, Route, Frequency, Duration) [...] Information RESULTS No Results REASON FOR VISIT follow up on hypokalemia MEDICAL (GENERAL) HISTORY Type Description Date Medical [...] 3 1978,82,86 Surgical History Hysterectomy - DUB 2006 Surgical History Polypectomy from vocal cord 1984 Surgical History Polypectomy from nasal passages 2010 [...] Treatment Notes Treatm ent Clinical Notes Apr, Gastroparesis (ICD-10 - K31.84) Currently taking metoclopramide and follows up with Dr. Thornton regarding her GI issues. She will continue to f/u with him regarding her gastroparesis. She is also following a gastroparesis diet, eating small meals etc. Apr, Hypokalemia due to excessive renal loss of potassium (ICD-10 - E87.6) Hypokalemia likely secondary to Lasix use. Patient's lasix dose was adjusted from 40mg to 20mg. Her repeat potassium at the 20mg dose on 03/04 showed 3.7 which was normal. Apr, Left ear pain (ICD-10 - H92.02) Patient is currently having left ear pain which could be due to her allergies. She is instructed on taking her flonase everyday instead of every other day. Patient will follow up to see if there is any improvement. If there is no improvement, she was instructed on calling the clinic. PLAN OF TREATMENT Medication Medication Name Sig [...] HR BEFORE BEDTIME Orally Once a day Treatment Notes Assessment Notes Clinical Notes Gastroparesis Currently taking met oclopramide and follows up with Dr. Thornton regarding her GI issues. She will continue to f/u with him regarding her gastroparesis. She is also following a gastroparesis diet, eating small meals etc. Hypokalemia due to excessive renal loss of potassium Hypokalemia likely secondary to Lasix use. Patient's lasix dose was adjusted from 40mg to 20mg. Her repeat potassium at the 20mg dose on 03/04 showed 3.7 which was normal. Left ear pain Patient is currently having left ear pain which could be due to her allergies. She is instructed on taking her flonase everyday instead of every other day. Patient will follow up to see if there is any improvement. If there is no improvement, she was instructed on calling the clinic. Next Appt Details 2 months f/u Reason: Insurance Providers Payer Name Payer Address Payer Phone Insured Name Patient Relati onship to Insured Coverage Start Date Coverage End Date [facility] [employer] [address] [facility] [phone] MARIA ESTHER KUHN self
--- OUTSIDE RECORDS SUMMARY | 2021-06-27 08:17 | CCD ---
Author Author [facility] Organization [facility] Address Unknown Phone Unavailable Care Team Providers Care Professor Of Mechanical Engineering Name Role Phone Candice Machado Unavailable PROBLEMS Type Condition ICD9-CM Code JHR01-OZ Code Onset Dates Condition S tatus W/U Status Risk SNOMED Code Notes Problem Severe persistent asthma, uncomplicated J45.50 Active confirmed 829434316 Problem Insomnia secondary to restless leg syndrome G25.81 Active confirmed 76234660 Problem Benign neoplasm of skin of trunk, except scrotum D 23.5 Active confirmed 743558120 Problem Left foot pain M79.672 Active confirmed 4793 3007 Problem 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 5.81 Active confirmed 72257565 Problem Restless leg syndrome, controlled G25.81 Active confirmed 69980462 Problem Other chronic pain G89.29 Active confirmed 8 6222542 Problem Mixed hyperlipidemia E78.2 Active confirmed 509456955 Problem Depression F32.9 Active confirmed 26677855 Problem Seasonal allergies J30.2 Active confirmed 3 38896376 Problem Left knee pain M25.562 Active confirmed 3098 9003 Problem Allergic asthma, severe persistent, with acute exacerbatio n J45.51 Active confirmed 169349082 Problem Gastroesophageal reflux disease without esophagitis K21.9 Active confirmed 457271530 Problem Bilateral edema of lower extremity R60.0 Activ e confirmed 568673884 Problem Bronchitis J40 Active confirmed 39638423 Problem Bilateral carpal tunnel syndrome G56.01 Active conf irmed 84501934 Problem Midline low back pain with right-sided sciatica M5 4.41 Active confirmed 677753637 Problem Non morbid obesity, unspecified obesity type E66.9 Active confirmed 411255551 Problem Essential (primary) hypertension I10 Active conf irmed 68166542 Problem Osteoarthritis of left hip, unspecified osteoarthritis typ e M16.12 Active confirmed 948576216420030 Problem Vitamin D deficiency E55.9 Active confirmed 26895403 Problem Depression, unspecified depression type F32.9 Active confirmed 45893386 Problem COPD exacerbation J44.1 Active confirmed 19 1872724 Problem Gastroesophageal reflux disease, esophagitis pre sence not specified K21.9 Active confirmed 212958313 Problem Adjustment disorder with depressed mood F43.21 Active confirmed 92606694 Problem History of systemic steroid therapy Z92.241 Acti ve confirmed 030990241 Problem Hemiplegic migraine without status migrainosus, not intractable G43.409 Active confirmed 37777661 Problem BMI 40.0-44.9, adult Z68.41 Active confirmed 044207668 Problem Prediabetes R73.09 Active confirmed 60050623 2 Problem CASA (obstructive sleep apnea) G47.33 Active confirm ed 58652484 Problem Hepatic steatosis K76.0 Active confirmed 19 4437416 Problem Severe persistent asthma without complication J45. 50 Active confirmed 425981376 Problem BMI 37.0-37.9, adult Z68.37 Active confirmed 277031594 Problem Sciatica of right side M54.31 Active confirmed 44448756 Problem Severe persistent asthma with acute exacerbation J 45.51 Active confirmed 573750337 Problem Dyslipidemia E78.5 Active confirmed 5219162 07 Problem Esophageal web Q39.4 Active confirmed 71013 006 Problem Gastroparesis K31.84 Active confirmed 171601 006 Problem Chronic fatigue R53.82 Active confirmed 8422 9001 Problem Severe persistent asthma with exacerbation J45.51 Active confirmed 288066046 Problem Hypernatremia E87.0 Active confirmed 737537 008 Problem Hyperlipidemia, unspecified hyperlipidemia type E7 8.5 Active confirmed 99076964 Problem Hypokalemia E87.6 Active confirmed 39771776 Problem Constipation, unspecified constipation type K59.00 Active confirmed 79597724 Problem Acute right-sided low back pain with right-sided sciatica M54.41 Active confirmed 351991620 Problem Moderate episode of recurrent major depressive disorder F33.1 Active confirmed 349052521 Problem Migraine without aura and without status migrain osus, not intractable G43.009 Active confirmed 880467935 Problem Gastroesophageal reflux dise ase, unspecified whether esophagitis present K21.9 Active confirmed 924370585 Problem Hypercholesterolemia E78.00 Active confirmed 94361519 ALLERGIES Allergen (clinical drug ingredient) Drug/Non Drug Allergy do cumented on EMR Reaction Allergy Type Onset Date Status Latex (for allergy use only) rash Drug Allergy Active ENCOUNTERS from 1960 to 2021-04-02 Encounter Location Date Provider Diagnosis [facility] [place] [address] [phone] [place] [address] Mar, Candice Machado IMMUNIZATIONS Vaccine Route Administration Date [...] Education Language: Question Answer Notes Languages spoken: Luxembourger Latter-Day: Question Answer Notes Latter-Day 14 Taoism Sexual Hx: Question Answer Notes Had sex [...] Notes Start Da te End Date Status Constulose 10 GM/15ML 15 ml Orally Once a day for 30 day(s) Mar, Active EpiPen 2-Emmanuel 0.3 MG/0.3ML Injection Active Theophylline 400 MG as directed Orally BID for 30 days Active Nebulizer - cup and tubing ICD: J45.50 every 4 hours as need ed for 30 day(s) Aug, Active Fiber 625 MG 1 tablet Orally once a day as needed for 30 days Mar, Active Furosemide 20 MG 1 tablet Orally Once a day for 30 day(s) Feb, Active rOPINIRole HCl 1 MG TAKE ONE TABLET BY MOUTH YASHIRA DAY 1 TO 3 HR BEFORE BEDTIME Orally Once a day Active Nebulizer/Tubing/Mouthpiece - Dx ICD J45.50 orally every four ho urs as needed Jan, Active AirDuo RespiClick 55/14 55-14 MCG/ACT 1 puff Inhalation Twic e a day for 30 days Active Constulose 10 GM/15ML 15 ml Orally Once a day for 30 day(s) Active CPAP Machine 8 as directed Active Levocetirizine Dihydrochloride 5 MG TAKE ONE TABLET BY MOUTH EVERY EVENING Oral for 30 days Active Ventolin HFA 108 (90 Base) MCG/ACT 2 puffs as needed I nhalation Every 4 hours for 30 days Active Effexor XR 150 MG 1 capsule with food Orally Once a day for 30 days Active Singulair 10 MG 1 tablet in the evening Orally Once a day for 30 days Active Incruse Ellipta 62.5 MCG/INH 1 puff Inhalation Once a day for 30 days Active SUMAtriptan Succinate 100 mg 1 tablet as needed one ti me Orally on the onset of migraine daily for 30 day(s) Act lalita Metoclopramide HCl 5 MG 1 tablet before meals Orally Twice a day for 30 day(s) Mar, Active FiberCon 625 MG TAKE ONE TABLET BY MOUTH TWICE A DAY NEEDED for 30 days Active SM Aspirin Adult Low Strength 81 MG TAKE ONE TABLET BY MOUTH YASHIRA DAY for 30 Active Xolair 150 MG 1 dose Subcutaneous every other week Active Ipratropium-Albuterol 0.5-2.5 (3) MG/3ML 3 ml Inhalati on Four times a day for 30 days Active Arnuity Ellipta 200 MCG/ACT INHALE ONE PUFF BY MOUTH E VERY DAY Inhalation Once a day for 30 days Active Omeprazole 20 MG 2 caps Orally Once a day for 30 days Active Gabapentin 300 MG 1 tablet Orally before bedtime for 90 days Active Theophylline ER 400 MG ONE BY MOUTH TWICE A DAY for 30 Not-Taking Nebulizer - 1 ICD: J45.50 every 4 hours as needed Active predniSONE 20 MG 2 tablets Orally Once a day for 5 days Oct, Not-Taking Atorvastatin Calcium 80 MG TAKE ONE TABLET BY MOUTH EVERY DAY for 30 Active PROCEDURES No Information RESULTS No Results REASON FOR VISIT Hospital visit MEDICAL (GENERAL) HISTORY Type Description Date Medical [...] 3 1979,82,86 Surgical History Hysterectomy - DUB 2007 Surgical [...] Medication Name Sig Start Date Stop Date Gabapentin 300 MG 1 tablet Orally before bedtime for 90 days Atorvastatin Calcium 80 MG TAKE ONE TABLET BY MOUTH EVERY DAY fo r 30 Ipratropium-Albuterol 0.5-2.5 (3) MG/3ML 3 ml Inhalati on Four times a day for 30 days Singulair 10 MG 1 tablet in the evening Orally Once a day for 30 days Incruse Ellipta 62.5 MCG/INH 1 puff Inhalation Once a day for 30 days Furosemide 20 MG 1 tablet Orally Once a day for 30 day(s) Feb FiberCon 625 MG TAKE ONE TABLET BY MOUTH TWICE A DAY NEEDED f or 30 days SM Aspirin Adult Low Strength 81 MG TAKE ONE TABLET BY MOUTH YASHIRA RY DAY for 30 Levocetirizine Dihydrochloride 5 MG TAKE ONE TABLET BY MOUTH EVERY EVENING Oral for 30 days AirDuo RespiClick 55/14 55-14 MCG/ACT 1 puff Inhalation Twic e a day for 30 days Omeprazole 20 MG 2 caps Orally Once a day for 30 days Metoclopramide HCl 5 MG 1 tablet before meals Orally Twice a day for 30 day(s) Mar, Ventolin HFA 108 (90 Base) MCG/ACT 2 puffs as needed I nhalation Every 4 hours for 30 days Effexor XR 150 MG 1 capsule with food Orally Once a day for 30 d ays Arnuity Ellipta 200 MCG/ACT INHALE ONE PUFF BY MOUTH E VERY DAY Inhalation Once a day for 30 days Constulose 10 GM/15ML 15 ml Orally Once a day for 30 day(s) 2020 Theophylline 400 MG as directed Orally BID for 30 days Fiber 625 MG 1 tablet Orally once a day as needed for 30 days Mar, rOPINIRole HCl 1 MG TAKE ONE TABLET BY MOUTH 1 TO 3 HR BEFORE BEDTIME Orally Once a day Next Appt Details Provider Name:Candice Machado, 2021-04-21 03: 30:00 PM, [address] , [place], [address], Insurance Providers Payer Name Payer Address Payer Phone Insured Name Patient Relati onship to Insured Coverage Start Date Coverage End Date [facility] [address] [facility] [phone] MARIA ESTHER KUHN
--- OUTSIDE RECORDS SUMMARY | 2021-06-27 08:17 | CCD ---
Author Author [facility] Organization [facility] Address Unknown Phone Unavailable Care Team Providers Care Wet Wash Assembler Name Role Phone Candice Machado Unavailable PROBLEMS Type Condition ICD9-CM Code UWJ63-LS Code Onset Dates Condition S tatus W/U Status Risk SNOMED Code Notes Problem Severe persistent asthma, uncomplicated J45.50 Active confirmed 445101073 Problem Insomnia secondary to restless leg syndrome G25.81 Active confirmed 06294833 Problem Benign neoplasm of skin of trunk, except scrotum D 23.5 Active confirmed 276179483 Problem Left foot pain M79.672 Active confirmed 4793 3007 Problem 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 5.81 Active confirmed 13620396 Problem Restless leg syndrome, controlled G25.81 Active confirmed 97663555 Problem Other chronic pain G89.29 Active confirmed 8 9025894 Problem Mixed hyperlipidemia E78.2 Active confirmed 363460983 Problem Depression F32.9 Active confirmed 95940013 Problem Seasonal allergies J30.2 Active confirmed 3 70961906 Problem Left knee pain M25.562 Active confirmed 3098 9003 Problem Allergic asthma, severe persistent, with acute exacerbatio n J45.51 Active confirmed 582549694 Problem Gastroesophageal reflux disease without esophagitis K21.9 Active confirmed 606150140 Problem Bilateral edema of lower extremity R60.0 Activ e confirmed 080546450 Problem Bronchitis J40 Active confirmed 52513910 Problem Bilateral carpal tunnel syndrome G56.01 Active conf irmed 40375729 Problem Midline low back pain with right-sided sciatica M5 4.41 Active confirmed 083184441 Problem Non morbid obesity, unspecified obesity type E66.9 Active confirmed 299824964 Problem Essential (primary) hypertension I10 Active conf irmed 69575879 Problem Osteoarthritis of left hip, unspecified osteoarthritis typ e M16.12 Active confirmed 901146318021019 Problem Vitamin D deficiency E55.9 Active confirmed 19937645 Problem Depression, unspecified depression type F32.9 Active confirmed 52079942 Problem COPD exacerbation J44.1 Active confirmed 19 9055949 Problem Gastroesophageal reflux disease, esophagitis pre sence not specified K21.9 Active confirmed 529707455 Problem Adjustment disorder with depressed mood F43.21 Active confirmed 97631370 Problem History of systemic steroid therapy Z92.241 Acti ve confirmed 919839917 Problem Hemiplegic migraine without status migrainosus, not intractable G43.409 Active confirmed 02248660 Problem BMI 40.0-44.9, adult Z68.41 Active confirmed 022305123 Problem Prediabetes R73.09 Active confirmed 74806206 2 Problem CASA (obstructive sleep apnea) G47.33 Active confirm ed 79994753 Problem Hepatic steatosis K76.0 Active confirmed 19 6541093 Problem Severe persistent asthma without complication J45. 50 Active confirmed 106573348 Problem BMI 37.0-37.9, adult Z68.37 Active confirmed 890864539 Problem Sciatica of right side M54.31 Active confirmed 62737836 Problem Severe persistent asthma with acute exacerbation J 45.51 Active confirmed 147843334 Problem Dyslipidemia E78.5 Active confirmed 5618578 07 Problem Esophageal web Q39.4 Active confirmed 96105 006 Problem Gastroparesis K31.84 Active confirmed 235234 006 Problem Chronic fatigue R53.82 Active confirmed 8422 9001 Problem Severe persistent asthma with exacerbation J45.51 Active confirmed 756639040 Problem Hypernatremia E87.0 Active confirmed 276773 008 Problem Hyperlipidemia, unspecified hyperlipidemia type E7 8.5 Active confirmed 27906419 Problem Hypokalemia E87.6 Active confirmed 70525634 Problem Constipation, unspecified constipation type K59.00 Active confirmed 99272207 Problem Acute right-sided low back pain with right-sided sciatica M54.41 Active confirmed 222960338 Problem Moderate episode of recurrent major depressive disorder F33.1 Active confirmed 082296450 Problem Migraine without aura and without status migrain osus, not intractable G43.009 Active confirmed 180422328 Problem Gastroesophageal reflux dise ase, unspecified whether esophagitis present K21.9 Active confirmed 431205718 Problem Hypercholesterolemia E78.00 Active confirmed 44972618 ALLERGIES Allergen (clinical drug ingredient) Drug/Non Drug Allergy do cumented on EMR Reaction Allergy Type Onset Date Status Latex (for allergy use only) rash Drug Allergy Active ENCOUNTERS from 1960 to 2021-04-29 Encounter Location Date Provider Diagnosis [facility] [place] [address] [facility] [phone] [place] [address] Apr, Candice Machado IMMUNIZATIONS Vaccine Route Administration Date Status Influenza 18 yrs & older Flublok IM Intramuscular May 19, 2019 Administered COVID-19 dose #2 given elsewhere Unspecified Unknown Oct Administered COVID-19 dose #1 given elsewhere Unspecified Unknown Sep 19, 2020 Administered Influenza 18 yrs & older Flublok IM Intramuscular May 19, 2019 Administered Influenza 18 yrs & older Flublok IM Intramuscular May 17, 2018 Administered Depo-Medrol 80mg Methylprednisolone Acetate IM Intramuscular Sep 23, 2015 Administered Influenza 18 yrs & older Flublok IM Intramuscular May 14, 2020 Administered Influenza 6mo & up Fluzone Unknown [...] Education Language: Question Answer Notes Languages spoken: Albanian Mosque: Question Answer Notes Mosque 14 Yazidi Sexual Hx: Question Answer Notes Had sex [...] J45.50 every 4 hours as needed Active Furosemide 20 MG 1 tablet Orally Once a day for 30 day(s) Feb, Active AirDuo RespiClick 55/14 55-14 MCG/ACT 1 puff Inhalation Twic e a day for 30 days Active EpiPen 2-Emmanuel 0.3 MG/0.3ML Injection Active Atorvastatin Calcium 80 MG 1 tablet Orally Once a day for 30 day(s) Active Ventolin HFA 108 (90 Base) MCG/ACT 2 puffs as needed I nhalation Every 4 hours for 30 days Active Arnuity Ellipta 200 MCG/ACT INHALE ONE PUFF BY MOUTH E VERY DAY Inhalation Once a day for 30 days Active Levocetirizine Dihydrochloride 5 MG TAKE ONE TABLET BY MOUTH EVERY EVENING Oral for 30 days Active Theophylline ER 400 [...] migraine daily for 30 day(s) Act lalita Singulair 10 MG 1 tablet in the evening Orally Once a day for 30 days Active FiberCon 625 MG TAKE ONE TABLET [...] Information RESULTS No Results REASON FOR VISIT refill MEDICAL (GENERAL) HISTORY Type Description Date Medical [...] MOUTH EVERY EVENING Oral for 30 days Metoclopramide HCl 5 MG 1 tablet before meals Orally Twice a day for 30 day(s) Mar, Singulair 10 MG 1 tablet in the evening Orally Once a day for 30 days rOPINIRole HCl 1 MG TAKE ONE TABLET BY MOUTH YASHIRA RY DAY 1 TO 3 HR BEFORE BEDTIME Orally Once a day Venlafaxine HCl ER 150 MG TAKE ONE CAPSULE BY MOUTH EVERY DA Y WITH FOOD for 30 Aspirin Low Dose 81 MG TAKE ONE TABLET BY MOUTH EVERY DAY for 30 Insurance Providers Payer Name Payer Address Payer Phone Insured Name Patient Relati onship to Insured Coverage Start Date Coverage End Date FORMERLY [facility] COMMUNITY PLAN [facility] [address] [facility] [address] MARIA ESTHER KUHN self
--- OUTSIDE RECORDS SUMMARY | 2021-06-27 08:17 | CCD ---
Author Author [facility] Organization [facility] Address Unknown Phone Unavailable Care Team Providers Care Barn Hand Name Role Phone Candice Machado Unavailable PROBLEMS Type Condition ICD9-CM Code GTO22-VV Code Onset Dates Condition S tatus W/U Status Risk SNOMED Code Notes Problem Severe persistent asthma, uncomplicated J45.50 Active confirmed 408468578 Problem Insomnia secondary to restless leg syndrome G25.81 Active confirmed 19907683 Problem Benign neoplasm of skin of trunk, except scrotum D 23.5 Active confirmed 354532577 Problem Left foot pain M79.672 Active confirmed 4793 3007 Problem 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 5.81 Active confirmed 03742677 Problem Restless leg syndrome, controlled G25.81 Active confirmed 70776734 Problem Other chronic pain G89.29 Active confirmed 8 2515936 Problem Mixed hyperlipidemia E78.2 Active confirmed 427437875 Problem Depression F32.9 Active confirmed 59839724 Problem Seasonal allergies J30.2 Active confirmed 3 90351435 Problem Left knee pain M25.562 Active confirmed 3098 9003 Problem Allergic asthma, severe persistent, with acute exacerbatio n J45.51 Active confirmed 126747977 Problem Gastroesophageal reflux disease without esophagitis K21.9 Active confirmed 560339032 Problem Bilateral edema of lower extremity R60.0 Activ e confirmed 455538220 Problem Bronchitis J40 Active confirmed 28530066 Problem Bilateral carpal tunnel syndrome G56.01 Active conf irmed 26337138 Problem Midline low back pain with right-sided sciatica M5 4.41 Active confirmed 451577570 Problem Non morbid obesity, unspecified obesity type E66.9 Active confirmed 572537802 Problem Essential (primary) hypertension I10 Active conf irmed 77507651 Problem Osteoarthritis of left hip, unspecified osteoarthritis typ e M16.12 Active confirmed 487479813415932 Problem Vitamin D deficiency E55.9 Active confirmed 50386428 Problem Depression, unspecified depression type F32.9 Active confirmed 07947343 Problem COPD exacerbation J44.1 Active confirmed 19 3790498 Problem Gastroesophageal reflux disease, esophagitis pre sence not specified K21.9 Active confirmed 215586082 Problem Adjustment disorder with depressed mood F43.21 Active confirmed 33389361 Problem History of systemic steroid therapy Z92.241 Acti ve confirmed 524344728 Problem Hemiplegic migraine without status migrainosus, not intractable G43.409 Active confirmed 97209929 Problem BMI 40.0-44.9, adult Z68.41 Active confirmed 818576961 Problem Prediabetes R73.09 Active confirmed 02109194 2 Problem CASA (obstructive sleep apnea) G47.33 Active confirm ed 04987287 Problem Hepatic steatosis K76.0 Active confirmed 19 7268933 Problem Severe persistent asthma without complication J45. 50 Active confirmed 241033803 Problem BMI 37.0-37.9, adult Z68.37 Active confirmed 050314593 Problem Sciatica of right side M54.31 Active confirmed 03437732 Problem Severe persistent asthma with acute exacerbation J 45.51 Active confirmed 601181103 Problem Dyslipidemia E78.5 Active confirmed 2558494 07 Problem Esophageal web Q39.4 Active confirmed 72775 006 Problem Gastroparesis K31.84 Active confirmed 726427 006 Problem Chronic fatigue R53.82 Active confirmed 8422 9001 Problem Severe persistent asthma with exacerbation J45.51 Active confirmed 831145584 Problem Hypernatremia E87.0 Active confirmed 590279 008 Problem Hyperlipidemia, unspecified hyperlipidemia type E7 8.5 Active confirmed 06281815 Problem Hypokalemia E87.6 Active confirmed 16097468 Problem Constipation, unspecified constipation type K59.00 Active confirmed 60866605 Problem Acute right-sided low back pain with right-sided sciatica M54.41 Active confirmed 882741592 Problem Moderate episode of recurrent major depressive disorder F33.1 Active confirmed 395182090 Problem Migraine without aura and without status migrain osus, not intractable G43.009 Active confirmed 848489151 Problem Gastroesophageal reflux dise ase, unspecified whether esophagitis present K21.9 Active confirmed 629027738 Problem Hypercholesterolemia E78.00 Active confirmed 01076449 ALLERGIES Allergen (clinical drug ingredient) Drug/Non Drug Allergy do cumented on EMR Reaction Allergy Type Onset Date Status Latex (for allergy use only) rash Drug Allergy Active ENCOUNTERS from 1960 to 2021-03-31 Encounter Location Date Provider Diagnosis [facility] Resident [address] [facility] [phone] [place] [address] Mar, Candice Machado IMMUNIZATIONS Vaccine Route Administration [...] Education Language: Question Answer Notes Languages spoken: Guamanian Pentecostal: Question Answer Notes Pentecostal 14 Spiritism Sexual Hx: Question Answer Notes Had sex [...] Notes Start Da te End Date Status Xolair 150 MG 1 dose Subcutaneous every other week Active AirDuo RespiClick 55/14 55-14 MCG/ACT 1 puff Inhalation Twic e a day for 30 days Active SUMAtriptan Succinate 100 mg 1 tablet as needed one ti me Orally on the onset of migraine daily for 30 day(s) Act lalita FiberCon 625 MG TAKE ONE TABLET BY MOUTH TWICE A DAY NEEDED for 30 days Active EpiPen 2-Emmanuel 0.3 MG/0.3ML Injection Active Levocetirizine Dihydrochloride 5 MG TAKE ONE TABLET BY MOUTH EVERY EVENING Oral for 30 days Active Nebulizer - cup and tubing ICD: J45.50 every 4 hours as need ed for 30 day(s) Aug, Active Arnuity Ellipta 200 MCG/ACT INHALE ONE PUFF BY MOUTH E VERY DAY Inhalation Once a day for 30 days Active Nebulizer/Tubing/Mouthpiece - Dx ICD J45.50 orally every four ho urs as needed Jan, Active Theophylline 400 MG as directed Orally BID for 30 days Active Incruse Ellipta 62.5 MCG/INH 1 puff Inhalation Once a day for 30 days Active Singulair 10 MG 1 tablet in the evening Orally Once a day for 30 days Active Constulose 10 GM/15ML 15 ml Orally Once a day for 30 day(s) Active CPAP Machine 8 as directed Active Omeprazole 20 MG 2 caps Orally Once a day for 30 days Active rOPINIRole HCl 1 MG TAKE ONE TABLET BY MOUTH 1 TO 3 HR BEFORE BEDTIME Orally Once a day Active Furosemide 20 MG 1 tablet Orally Once a day for 30 day(s) Feb, Active Effexor XR 150 MG 1 capsule with food Orally Once a day for 30 days Active Ipratropium-Albuterol 0.5-2.5 (3) MG/3ML 3 ml Inhalati on Four times a day for 30 days Active SM Aspirin Adult Low Strength 81 MG TAKE ONE TABLET BY MOUTH YASHIRA DAY for 30 Active Ventolin HFA 108 (90 Base) MCG/ACT 2 puffs as needed I nhalation Every 4 hours for 30 days Active Gabapentin 300 MG [...] Information RESULTS No Results REASON FOR VISIT New Refill Request MEDICAL (GENERAL) HISTORY Type Description Date Medical History asthma, severe persistent (f yneny w/ Dr. Mancilla of pulmonology as outpt) [...] hereditary nonpolyposis colorectal cancer (HNPCC), confirmed via [employer] testing results obtained in Winter 2019- Medical [...] Orally Once a day for 30 days SM Aspirin Adult Low Strength 81 MG TAKE ONE TABLET BY MOUTH YASHIRA DAY for 30 rOPINIRole HCl 1 MG TAKE ONE TABLET BY MOUTH DAY 1 TO 3 HR BEFORE BEDTIME Orally Once a day Levocetirizine Dihydrochloride 5 MG TAKE ONE TABLET BY MOUTH EVERY EVENING Oral for 30 days Ventolin HFA 108 (90 Base) MCG/ACT 2 puffs as needed I nhalation Every 4 hours for 30 days Omeprazole 20 MG 2 caps Orally Once a day for 30 days Theophylline 400 MG as directed Orally BID for 30 days Incruse Ellipta 62.5 MCG/INH 1 puff Inhalation Once a day for 30 days Furosemide 20 MG 1 tablet Orally Once a day for 30 day(s) Feb FiberCon 625 MG TAKE ONE TABLET BY MOUTH TWICE A DAY NEEDED f or 30 days Effexor XR 150 MG 1 capsule with food Orally Once a day for 30 d ays Arnuity Ellipta 200 MCG/ACT INHALE ONE PUFF BY MOUTH E VERY DAY Inhalation Once a day for 30 days AirDuo RespiClick 55/14 55-14 MCG/ACT 1 puff Inhalation Twic e a day for 30 days Next Appt Details Provider Name:Candice Machado, 2021-04-21 03: 30:00 PM, [address] [facility], , [place], [address], Insurance Providers Payer Name Payer Address Payer Phone Insured Name Patient Relati onship to Insured Coverage Start Date Coverage End Date [facility] [address] [facility] [address] MARIA ESTHER KUHN
--- OUTSIDE RECORDS SUMMARY | 2021-06-27 08:17 | CCD | Continuity of Care Document ---
Author Author [facility] [place] [address] Phone [phone] Care Team Providers Care Records Custodian Name Role Phone Warren Nagy M.D. AUTM [phone] AUTM Unavailable Migue Boogie D.O. AUTM [phone] Problems Active Problems Provider Date Cough Ivan Ding D.O. Onset: 05/05/2016 Acute severe exacerbation of severe persistent asthma Ivan martinez D.O. Onset: 05/05/2016 Uncomplicated severe persistent asthma Adrián Hanks nset: 11/25/2016 Obstructive sleep apnea syndrome Ivan Ding D.O. Onset: 11/25/2016 Allergic rhinitis Jarrell Travis [...] Body mass index 30+ - obesity Ivan Sears, D.O. Onset: 12/2012 Edema Ivan Sears, D.O. Onset: 01/25/2013 Acute upper respiratory infection Ivan Seadanielle, D.O. Onset: 01/25/2013 Obesity Ivan Seadanielle, D.O. Onset: 06/03/2012 Streptococcus vaccination Ivan Sears, [...] x 4 yrs, quit 26 yrs ago Allergies, Adverse Reactions, Alerts Active Allergies Criticality Reaction | Severity Comments [...] 20 Xolair 75mg/0.5ML Soln Prefill Syr vicente Inject 225MG Subcutaneously Every 2 Weeks (One 150MG And One 75MG PFS) (Given AT MD Office) 1units Amos HanksOSierra 03/21/2019 Xolair 150mg/ml Soln Prefill Syrin ge Inject 225MG Subcutaneously Every 2 Weeks (One 150MG And One 75MG PFS) (Given AT MD Office) 2units Ivan Ding D.O. 03/21/2019 Theophylline ER 400mg Tablets ER 2 4HR Take One Tablet By Mouth Two Times A Day 60tabs Amos HanksOSierra 12/28/2018 Arnuity Ellipta 200mcg/Act Aerosol 1 puff every day 30units J45.50 DECLAN Mullen 11/01/2018 Incruse Ellipta 62.5mcg/Inh Aeroso l Inhale One puff By Mouth Every Day 30units Amos HanksO. Constulose 10GM/15ML Solution 15 ml daily prn [...] Tablets 1 tab every night Unknown Ipratropium Adair/Albuterol Sulfate 0.5-2.5(3)mg/3ML Solution 1 vial via neb four times a day Unknown Furosemide 20mg Tablets 1 tab by mouth every day Unknown Singulair 10mg Tablets 1 by mouth every night at bedtime 30tabs Unknown Ventolin HFA 108(90Base) mcg/Act A erosol 2 puffs qid/prn 1units Unknown Epipen 2-Emmanuel 0.3mg/0 .3ML Solution Auto-Inject as directed 1units Ivan Ding D.O. Medications Administered in Office Medication SIG Qnty Indications Ordering Provider Date Covid-19 vaccine, Unspecified Inj ection Unknown 10/17/2020 Covid-19 vaccine, Unspecified Inj ection Unknown 10/17/2020 Immunizations CPT Code Status Date Vaccine Lot # [id number] Given 05/17/2019 Afluria, Quadrivalent, 0.5ml , [facility]# [id number] 70129 Given 06/03/2016 Influenza Virus Split 3 Yrs And Above For Intramuscular Use 85913 Given 07/11/2015 Influenza Virus Split 3 Yrs And Above For Intramuscular Use 60309 Given 05/16/2014 Influenza Virus Split 3 Yrs And Above For Intramuscular Use 42033 Given 04/20/2012 Pneumococcal PPSV23 Q2036 Given Unknown Influenza Vaccine 3 Years Of Age Or Older (Flulaval) 52457 Given Unknown Pneumococcal PPSV23 Vital Signs Date Vital Result Comment 04/03/2021 10:02am BP Systolic 132 mmHg BP Diastolic 78 mmHg Heart Rate 83 /min O2 % BldC Oximetry 97 % 03/19/2021 3:05pm BP Systolic 128 mmHg BP Diastolic 86 mmHg Height 63 inches 5'3" Weight 211.00 lb BMI (Body Mass Index) 37.4 kg/m2 [place] Body Weight 115 lb Weight 95.710 kg BSA (Body Surface Area) 1.98 m2 Results Test Acquired Date Facility Test Result H/L Range Note Laboratory test finding 04/02/2021 [facility] Main Lab [address] [place] [address] [phone] Theophylline Level 19.2 UG/ML Normal 10.0-20.0 Laboratory test finding 02/21/2021 [facility] Main Lab [address] [place] [address] [phone] Theophylline Level < 2.0 UG/ML Low 10.0-20.0 FVL/Julio César 02/13/2021 [employer] PDFReport SEE IMAGE FVC-Pred 3.21 L FVC-Pre 2.26 L FVC-%Pred-Pre 70 L FVC-LLN 2.54 L Fev1-Pred 2.49 L Fev1-Pre 1.44 L Fev1-%Pred-Pre 57 L Fev1-LLN 1.92 L Fev6-Pred 3.10 L Fev6-Pre 2.26 L Fev6-%Pred-Pre 72 L Fev6-LLN 2.44 L Ahy4gbk-Xqhs 78 % Rpx8xpi-Buo 64 % Rif8qpz-%Pred-Pre 81 % Lto8rwh-FJH 68 % Det1tkw-Tmoc 97 % Bgw8vyl-Foz 100 % Nlg3opm-%Pred-Pre 103 % FEFMax-Pred 6.19 L/E/sec FEFMax-Pre 4.24 L/E/sec FEFMax-%Pred-Pre 68 L/E/sec FEFMax-LLN 4.53 L/E/sec Apt0920-Mugi 2.34 L/E/sec Fuw9983-Idw 0.87 L/E/sec Iqq9119-%Pred-Pre 37 L/E/sec Xta9877-TQK 1.13 L/E/sec ExpTime-Pre 6.33 sec Ato9ypu6-Xtig 81 % Eyw6gnp6-Npa 64 % Pwv9axv8-%Pred-Pre 78 % Qxp8eba4-WPA 72 % Laboratory test finding 11/06/2020 [facility] Main Lab [address] [place] [address] [phone] Theophylline Level 16.4 UG/ML Normal 10.0-20.0 FVL/Julio César 11/06/2020 [employer] PDFReport SEE IMAGE FVC-Pred 3.21 L FVC-Pre 2.39 L FVC-%Pred-Pre 74 L FVC-LLN 2.54 L Fev1-Pred 2.49 L Fev1-Pre 1.49 L Fev1-%Pred-Pre 60 L Fev1-LLN 1.92 L Fev6-Pred 3.10 L Fev6-Pre 2.39 L Fev6-%Pred-Pre 76 L Fev6-LLN 2.44 L Yie2egn-Rjsz 78 % Itr2cro-Yvp 63 % Hkt7sqj-%Pred-Pre 79 % Rjg1zkz-ZJO 68 % Gla9dwo-Pvuv 97 % Whb9zny-Grj 100 % Vjk1dux-%Pred-Pre 103 % FEFMax-Pred 6.19 L/E/sec FEFMax-Pre 4.47 L/E/sec FEFMax-%Pred-Pre 72 L/E/sec FEFMax-LLN 4.53 L/E/sec Cul8379-Syiw 2.34 L/E/sec Zgo4239-Elu 0.87 L/E/sec Jpl7188-%Pred-Pre 37 L/E/sec Czj5438-XDS 1.13 L/E/sec ExpTime-Pre 5.86 sec Ddx1agd3-Tztq 81 % Ldm7lsl1-Mbx 63 % Jpj0fpk0-%Pred-Pre 77 % Bpp6qan6-FAT 72 % Procedures Date Code Description Status 02/26/2021 58457 Injection Fee Completed 02/26/2021 65512 Injection Fee Completed 02/26/2021 78839 Injection Fee Completed 02/13/2021 29889 Office/Outpatient Established Mo d MDM 30-39 Min Completed 02/13/2021 50950 Injection Fee Completed 02/13/2021 56457 Injection Fee Completed 02/13/2021 60609 Injection Fee Completed 02/13/2021 92467 Spirometry Completed 01/29/2021 48593 Injection Fee Completed 01/29/2021 93183 Injection Fee Completed 01/15/2021 38942 Injection Fee Completed 01/15/2021 23038 Injection Fee Completed 12/25/2020 65440 Injection Fee Completed 12/25/2020 94288 Injection Fee Completed 11/27/2020 31271 Injection Fee Completed 11/27/2020 76723 Injection Fee Completed 11/06/2020 62499 Office/Outpatient Established Mo d MDM 30-39 Min Completed 11/06/2020 20356 Injection Fee Completed 11/06/2020 35312 Injection Fee Completed 11/06/2020 65370 Spirometry Completed 10/23/2020 25300 Injection Fee Completed 10/23/2020 51816 Injection Fee Completed Medical Devices Description No Information Available Encounters Type Date Location Provider Dx Diagnosis Office Visit 02/13/2021 3:00p [facility] Ivan Se ars, D.O. J45.50 Severe persistent asthma, uncomplicated G47.33 Obstructive sleep apnea (kvng lt) (pediatric) Office Visit 11/06/2020 3:00p [facility] Ivan Se ars, D.O. 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 11/20/2020 J45.50 Severe persistent asthma, uncomp licated Ivan Sears, D.O. 11/20/2020 G47.33 Obstructive sleep apnea (adult) (pediatric) Ivan Sears, D.O. 11/06/2020 J45.50 Severe persistent asthma, uncomp licated Ivan Sears, D.O. 11/06/2020 G47.33 Obstructive sleep apnea (adult) (pediatric) Ivan Felizrs, D.O. 10/23/2020 J45.50 Severe persistent asthma, uncomp licated Ivan Ding, D.O. Plan of Treatment Future Appointment(s):* 06/27/2021 2:00 am - Carlos Thornton MD at [facility] * 06/30/2021 3:30 pm - Ivan Ding D.O. 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 Patient verbalized understanding of all of [...] Carlos Thornton M.D. Z12.11-colo screening Scheduled 04/15 [facility] Gastroenterology [address], [address] [place] [address] [phone] Ivan Ding D.O. CASA Scheduled 06/30/2021 [facility] [address] [place], [place] [address] [phone] Ivan Ding D.O. ASTHMA Scheduled 06/30/2021 [facility] [address] [place], [place] [address] [phone] Ivan Ding D.O. ASTHMA/SLEEP Scheduled 02/13/2021 [facility] [address] [place], [place] [address] [phone]
--- OUTSIDE RECORDS SUMMARY | 2021-06-27 08:17 | CCD ---
Author Author [facility] Organization 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 5.81 Active confirmed 26316031 Problem Restless leg syndrome, controlled G25.81 Active confirmed 73069447 Problem Other chronic pain G89.29 Active confirmed 8 9063071 Problem Mixed hyperlipidemia E78.2 Active confirmed 128607716 Problem Depression F32.9 Active confirmed 61022402 Problem Seasonal allergies J30.2 Active confirmed 3 65142641 Problem Left knee pain M25.562 Active confirmed 3098 9003 Problem Allergic asthma, severe persistent, with acute exacerbatio n J45.51 Active confirmed 661258445 Problem Gastroesophageal reflux disease without esophagitis K21.9 Active confirmed 470264387 Problem Bilateral edema of lower extremity R60.0 Activ e confirmed 809885091 Problem Bronchitis J40 Active confirmed 27338195 Problem Bilateral carpal tunnel syndrome G56.01 Active conf irmed 99954524 Problem Midline low back pain with right-sided sciatica M5 4.41 Active confirmed 685321426 Problem Non morbid obesity, unspecified obesity type E66.9 Active confirmed 097055246 Problem Essential (primary) hypertension I10 Active conf irmed 26168078 Problem Osteoarthritis of left hip, unspecified osteoarthritis typ e M16.12 Active confirmed 427835630221732 Problem Vitamin D deficiency E55.9 Active confirmed 40595857 Problem Depression, unspecified depression type F32.9 Active confirmed 61347653 Problem COPD exacerbation J44.1 Active confirmed 19 5745515 Problem Gastroesophageal reflux disease, esophagitis pre sence not specified K21.9 Active confirmed 181893348 Problem Adjustment disorder with depressed mood F43.21 Active confirmed 09128707 Problem History of systemic steroid therapy Z92.241 Acti ve confirmed 711985260 Problem Hemiplegic migraine without status migrainosus, not intractable G43.409 Active confirmed 05472776 Problem BMI 40.0-44.9, adult Z68.41 Active confirmed 922136408 Problem Prediabetes R73.09 Active confirmed 66587420 2 Problem CASA (obstructive sleep apnea) G47.33 Active confirm ed 43416322 Problem Hepatic steatosis K76.0 Active confirmed 19 4806980 Problem Severe persistent asthma without complication J45. 50 Active confirmed 095282613 Problem BMI 37.0-37.9, adult Z68.37 Active confirmed 003931226 Problem Sciatica of right side M54.31 Active confirmed 80249943 Problem Severe persistent asthma with acute exacerbation J 45.51 Active confirmed 891372443 Problem Dyslipidemia E78.5 Active confirmed 5843094 07 Problem Esophageal web Q39.4 Active confirmed 37039 006 Problem Gastroparesis K31.84 Active confirmed 343950 006 Problem Chronic fatigue R53.82 Active confirmed 8422 9001 Problem Severe persistent asthma with exacerbation J45.51 Active confirmed 652420636 Problem Hypernatremia E87.0 Active confirmed 554836 008 Problem Hyperlipidemia, unspecified hyperlipidemia type E7 8.5 Active confirmed 80760525 Problem Hypokalemia E87.6 Active confirmed 27814885 Problem Constipation, unspecified constipation type K59.00 Active confirmed 17619612 Problem Acute right-sided low back pain with right-sided sciatica M54.41 Active confirmed 113395980 Problem Moderate episode of recurrent major depressive disorder F33.1 Active confirmed 741169046 Problem Migraine without aura and without status migrain osus, not intractable G43.009 Active confirmed 504739384 Problem Gastroesophageal reflux dise ase, unspecified whether esophagitis present K21.9 Active confirmed 946136944 Problem Hypercholesterolemia E78.00 Active confirmed 82538817 ALLERGIES Allergen (clinical drug ingredient) Drug/Non Drug Allergy do cumented on EMR Reaction Allergy Type Onset Date Status Latex (for allergy use only) rash Drug Allergy Active ENCOUNTERS from 1960 to 2021-04-02 Encounter Location Date Provider Diagnosis [facility] [address] [facility] [phone] [place] [address] Mar, Candice Machado IMMUNIZATIONS Vaccine Route Administration [...] Education Language: Question Answer Notes Languages spoken: Romanian Holiness: Question Answer Notes Holiness 14 Latter-Day Sexual Hx: Question Answer Notes Had sex [...] Information RESULTS No Results REASON FOR VISIT refill-completely out MEDICAL (GENERAL) HISTORY Type Description Date Medical [...] a day Next Appt Details Provider Name:Candice Carter, 2021-04-21 03: 30:00 PM, [address] [facility], , [place], [address], Insurance Providers Payer Name Payer Address Payer Phone Insured Name Patient Relati onship to Insured Coverage Start Date Coverage End Date [facility] COMM[facility] PLAN [facility] [address] [facility] [place] [address] MARIA ESTHER KUHN
--- OUTSIDE RECORDS SUMMARY | 2021-06-27 08:17 | CCD | Continuity of Care Document ---
Author Author Martha HAAS PA Organization Unknown Address [address] [place] [address], [facility] [address] [place] [address] Phone [phone] Care Team Providers Care Mail Service Coordinator Name Role Phone Freddy Rouse AUTM [phone] Italo Rosales MD AUTM [phone] Problems Active Problems Provider Date Closed trimalleolar fracture Jairo Mcintosh MD Onset: 04/2005 Social History Type Date Description Comments Sex Unknown ETOH Use Denies alcohol use Tobacco Use Start: Unknown End: Unknown Patient is a former smoker 1/2 pack a day Allergies, Adverse Reactions, Alerts Active Allergies Criticality [...] Prep as Directed Unknown Vitamin D (Ergocalciferol) 64269Ndfk Capsules Unknown Atorvastatin Calcium 40mg Tablets Take [...] Available Procedures Date Code Description Status 03/18/2021 39018 Office/Outpatient Established Lo w MDM 20-29 Min Completed 11/29/2020 36190 Office/Outpatient Established Lo w MDM 20-29 Min Completed Medical Devices Description No Information Available Encounters Type Date Location Provider Dx Diagnosis Office Visit 03/18/2021 2:20p DECLAN Brody M24.112 Other articular cartilage disorders, left shoulder M19.012 Primary osteoarthritis, left shoulder G56.02 Carpal tunnel syndrome, left upper limb Office Visit 11/29/2020 11:20a DECLAN Brody M24.112 Other articular cartilage disorders, left shoulder M19.012 Primary osteoarthritis, left shoulder G56.02 Carpal tunnel syndrome, left upper limb Assessments Date Code Description Provider 03/18/2021 M24.112 Other articular cartilage disord ers, left shoulder DECLAN Michael 03/18/2021 M19.012 Primary osteoarthritis, left lance DECLAN Lopez 03/18/2021 G56.02 Carpal tunnel syndrome, left upp er limb DECLAN Michael 11/29/2020 M24.112 Other articular cartilage disord ers, left shoulder DECLAN Michael 11/29/2020 M19.012 Primary osteoarthritis, left lance DECLAN Lopez 11/29/2020 G56.02 Carpal tunnel syndrome, left upp er limb DECLAN Michael Plan of Treatment No Information Available Functional Status Description No Information Available Mental Status Description No Information Available Referrals Refer to Dr Reason for Referral Status Appt Date Vikram Haas Pac O/V FOR M25.562 Created [facility] [address] [place] [address] [phone]
--- OUTSIDE RECORDS SUMMARY | 2021-06-27 08:17 | CCD ---
Author Author [facility] Organization [facility] Address Unknown Phone Unavailable Care Team Providers Care Pig Machine Supervisor Name Role Phone Candice Machado Unavailable PROBLEMS Type Condition ICD9-CM Code STL33-JE Code Onset Dates Condition S tatus W/U Status Risk SNOMED Code Notes Problem Severe persistent asthma, uncomplicated J45.50 Active confirmed 718320633 Problem Insomnia secondary to restless leg syndrome G25.81 Active confirmed 40096340 Problem Benign neoplasm of skin of trunk, except scrotum D 23.5 Active confirmed 299450481 Problem Left foot pain M79.672 Active confirmed 4793 3007 Problem 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 5.81 Active confirmed 13337046 Problem Restless leg syndrome, controlled G25.81 Active confirmed 93248782 Problem Other chronic pain G89.29 Active confirmed 8 9632446 Problem Mixed hyperlipidemia E78.2 Active confirmed 332577068 Problem Depression F32.9 Active confirmed 64111375 Problem Seasonal allergies J30.2 Active confirmed 3 67748617 Problem Left knee pain M25.562 Active confirmed 3098 9003 Problem Allergic asthma, severe persistent, with acute exacerbatio n J45.51 Active confirmed 337603983 Problem Gastroesophageal reflux disease without esophagitis K21.9 Active confirmed 139076720 Problem Bilateral edema of lower extremity R60.0 Activ e confirmed 570520010 Problem Bronchitis J40 Active confirmed 61789830 Problem Bilateral carpal tunnel syndrome G56.01 Active conf irmed 71226986 Problem Midline low back pain with right-sided sciatica M5 4.41 Active confirmed 976920454 Problem Non morbid obesity, unspecified obesity type E66.9 Active confirmed 169523672 Problem Essential (primary) hypertension I10 Active conf irmed 34243270 Problem Osteoarthritis of left hip, unspecified osteoarthritis typ e M16.12 Active confirmed 690437142844186 Problem Vitamin D deficiency E55.9 Active confirmed 24882578 Problem Depression, unspecified depression type F32.9 Active confirmed 94724767 Problem COPD exacerbation J44.1 Active confirmed 19 7098922 Problem Gastroesophageal reflux disease, esophagitis pre sence not specified K21.9 Active confirmed 635864195 Problem Adjustment disorder with depressed mood F43.21 Active confirmed 16659234 Problem History of systemic steroid therapy Z92.241 Acti ve confirmed 428138949 Problem Hemiplegic migraine without status migrainosus, not intractable G43.409 Active confirmed 98496310 Problem BMI 40.0-44.9, adult Z68.41 Active confirmed 367534927 Problem Prediabetes R73.09 Active confirmed 09253837 2 Problem CASA (obstructive sleep apnea) G47.33 Active confirm ed 34650226 Problem Hepatic steatosis K76.0 Active confirmed 19 1979090 Problem Severe persistent asthma without complication J45. 50 Active confirmed 662618695 Problem BMI 37.0-37.9, adult Z68.37 Active confirmed 770562886 Problem Sciatica of right side M54.31 Active confirmed 15494331 Problem Severe persistent asthma with acute exacerbation J 45.51 Active confirmed 950688578 Problem Dyslipidemia E78.5 Active confirmed 5551578 07 Problem Esophageal web Q39.4 Active confirmed 80740 006 Problem Gastroparesis K31.84 Active confirmed 988603 006 Problem Chronic fatigue R53.82 Active confirmed 8422 9001 Problem Severe persistent asthma with exacerbation J45.51 Active confirmed 452072442 Problem Hypernatremia E87.0 Active confirmed 078714 008 Problem Hyperlipidemia, unspecified hyperlipidemia type E7 8.5 Active confirmed 47031458 Problem Hypokalemia E87.6 Active confirmed 81967321 Problem Constipation, unspecified constipation type K59.00 Active confirmed 43356846 Problem Acute right-sided low back pain with right-sided sciatica M54.41 Active confirmed 091230417 Problem Moderate episode of recurrent major depressive disorder F33.1 Active confirmed 589797980 Problem Migraine without aura and without status migrain osus, not intractable G43.009 Active confirmed 550498714 Problem Gastroesophageal reflux dise ase, unspecified whether esophagitis present K21.9 Active confirmed 914613715 Problem Hypercholesterolemia E78.00 Active confirmed 75569610 ALLERGIES Allergen (clinical drug ingredient) Drug/Non Drug Allergy do cumented on EMR Reaction Allergy Type Onset Date Status Latex (for allergy use only) rash Drug Allergy Active ENCOUNTERS from 1960 to 2021-03-31 Encounter Location Date Provider Diagnosis [facility] Resident [address] [facility] [phone] [place] [address] Mar, Candice Machado IMMUNIZATIONS Vaccine Route Administration [...] Education Language: Question Answer Notes Languages spoken: Belarusian Mormonism: Question Answer Notes Mormonism 14 Taoist Sexual Hx: Question Answer Notes Had sex [...] Date Medical History asthma, severe persistent (f yenny w/ Dr. Mancilla of pulmonology as outpt) [...] hereditary nonpolyposis colorectal cancer (HNPCC), confirmed via Fromography testing results obtained in Winter 2019- Medical [...] Machado, 2021-04-21 03: 30:00 PM, [address] [facility], , [place], [address], Insurance Providers Payer Name Payer Address Payer Phone Insured Name Patient Relati onship to Insured Coverage Start Date Coverage End Date [facility] [address] [facility] [address] MARIA ESTHER KUHN
--- OUTSIDE RECORDS SUMMARY | 2021-06-27 08:17 | CCD | Continuity of Care Document ---
Author Author Pulmonary Jose Saab Organization Unknown Address [address] [place] [address] Phone [phone] Care Team Providers Care Mixer Diamond Powder Name Role Phone Warren Nagy M.D. AUTM AUTM Unavailable Migue Boogie D.O. AUTM [phone] Problems Active Problems Provider Date Cough Ivan [...] 03/14/2014 Body mass index 30+ - obesity Ivna Sears, D.O. Onset: 12/2012 Edema Ivan Sears, [...] PFS) (Given AT MD Office) 2units Ivan Mancilla D.O. 03/21/2019 Theophylline ER 400mg Tablets ER [...] Tablets 1 tab every night Unknown Ipratropium [place]/Albuterol Sulfate 0.5-2.5(3)mg/3ML Solution 1 vial via neb [...] CPT Code Status Date Vaccine Lot # 17515 Given 05/17/2019 Afluria, Quadrivalent, 0.5ml , [facility]# [id number] 79101 Given 06/03/2016 Influenza Virus Split 3 Yrs And Above For Intramuscular Use 57932 Given 07/11/2015 Influenza Virus Split 3 Yrs And Above For Intramuscular Use 77997 Given 05/16/2014 Influenza Virus Split 3 Yrs And Above For Intramuscular Use 53679 Given 04/20/2012 Pneumococcal PPSV23 Q2036 Given Unknown Influenza Vaccine 3 Years Of Age Or Older (Flulaval) 23568 Given Unknown Pneumococcal PPSV23 Vital Signs Date Vital Result Comment 04/03/2021 10:02am BP Systolic 132 mmHg BP Diastolic 78 mmHg Heart Rate 83 /min O2 % BldC Oximetry 97 % 03/19/2021 3:05pm BP Systolic 128 mmHg BP Diastolic 86 mmHg Height 63 inches 5'3" Weight 211.00 lb BMI (Body Mass Index) 37.4 kg/m2 [place] Body Weight 115 lb Weight 95.710 kg BSA (Body Surface Area) 1.98 m2 Results Test Acquired Date Facility Test Result H/L Range Note Laboratory test finding 04/02/2021 [facility] Lab [address] [place] [address] [phone] Theophylline Level 19.2 UG/ML Normal 10.0-20.0 Laboratory test finding 02/21/2021 [facility] [address] [place] [address] [phone] Theophylline Level < 2.0 UG/ML Low 10.0-20.0 FVL/[place] 02/13/2021 [employer] [facility] SEE IMAGE FVC-Pred 3.21 L FVC-Pre 2.26 L FVC-%Pred-Pre 70 L FVC-LLN 2.54 L Fev1-Pred 2.49 L Fev1-Pre 1.44 L Fev1-%Pred-Pre 57 L Fev1-LLN 1.92 L Fev6-Pred 3.10 L Fev6-Pre 2.26 L Fev6-%Pred-Pre 72 L Fev6-LLN 2.44 L Axa3yqz-Ylbt 78 % Qjl9azi-Yhe 64 % Akx5fmr-%Pred-Pre 81 % Kpc6deo-KMV 68 % Lrr2omz-Jvdo 97 % Sub4lhi-Fwg 100 % Vim2jlb-%Pred-Pre 103 % FEFMax-Pred 6.19 L/E/sec FEFMax-Pre 4.24 L/E/sec FEFMax-%Pred-Pre 68 L/E/sec FEFMax-LLN 4.53 L/E/sec Vtf6624-Ofwh 2.34 L/E/sec Lrd8352-Lhg 0.87 L/E/sec Ygy3329-%Pred-Pre 37 L/E/sec Sxg1505-ZGT 1.13 L/E/sec ExpTime-Pre 6.33 sec Qnb3llg1-Zuog 81 % Vqf1isk3-Alw 64 % Bhi3pnq7-%Pred-Pre 78 % Idz9zso5-BFD 72 % Laboratory test finding 11/06/2020 [facility] Lab [address] [place] [address] [phone] Theophylline Level 16.4 UG/ML Normal 10.0-20.0 FVL/Julio César 11/06/2020 [employer] PD[facility]eport SEE IMAGE FVC-Pred 3.21 L FVC-Pre 2.39 L FVC-%Pred-Pre 74 L FVC-LLN 2.54 L Fev1-Pred 2.49 L Fev1-Pre 1.49 L Fev1-%Pred-Pre 60 L Fev1-LLN 1.92 L Fev6-Pred 3.10 L Fev6-Pre 2.39 L Fev6-%Pred-Pre 76 L Fev6-LLN 2.44 L Fpu0lag-Ygep 78 % Wkg3ozf-Qdf 63 % Nlq5ent-%Pred-Pre 79 % Pwb9nwf-MYJ 68 % Dhb3uwo-Geix 97 % Gzn4bcw-Zet 100 % Nya2kxn-%Pred-Pre 103 % FEFMax-Pred 6.19 L/E/sec FEFMax-Pre 4.47 L/E/sec FEFMax-%Pred-Pre 72 L/E/sec FEFMax-LLN 4.53 L/E/sec Ytf5984-Cdvp 2.34 L/E/sec Yei5005-Loc 0.87 L/E/sec Esp6253-%Pred-Pre 37 L/E/sec Frv1435-OVI 1.13 L/E/sec ExpTime-Pre 5.86 sec Xno3oos7-Zadx 81 % Lgd8ohv6-Lwp 63 % Fag2iph2-%Pred-Pre 77 % Rhq1fzy3-SKQ 72 % Procedures Date Code Description Status 02/26/2021 38353 Injection Fee Completed 02/26/2021 53545 Injection Fee Completed 02/26/2021 14821 Injection Fee Completed 02/13/2021 66115 Office/Outpatient Established Mo d MDM 30-39 Min Completed 02/13/2021 47810 Injection Fee Completed 02/13/2021 61257 Injection Fee Completed 02/13/2021 47732 Injection Fee Completed 02/13/2021 15399 Spirometry Completed 01/29/2021 43157 Injection Fee Completed 01/29/2021 39421 Injection Fee Completed 01/15/2021 45986 Injection Fee Completed 01/15/2021 93233 Injection Fee Completed 12/25/2020 28306 Injection Fee Completed 12/25/2020 83279 Injection Fee Completed 11/27/2020 10241 Injection Fee Completed 11/27/2020 36428 Injection Fee Completed 11/06/2020 02678 Office/Outpatient Established Mo d MDM 30-39 Min Completed 11/06/2020 77800 Injection Fee Completed 11/06/2020 89701 Injection Fee Completed 11/06/2020 29181 Spirometry Completed 10/23/2020 30378 Injection Fee Completed 10/23/2020 55207 Injection Fee Completed Medical Devices Description No Information Available Encounters Type Date Location Provider Dx Diagnosis Office Visit 02/13/2021 3:00p [facility] Ivan Se ars, D.O. J45.50 Severe persistent asthma, uncomplicated G47.33 Obstructive sleep apnea (kvng lt) (pediatric) Office Visit 11/06/2020 3:00p [facility] Ivan Se ars, D.O. J45.50 Severe [...] sleep apnea (adult) (pediatric) Ivan Felizrs, D.O. 11/06/2020 J45.50 Severe persistent asthma, uncomp licated Ivan Sears, D.O. 11/06/2020 G47.33 Obstructive sleep apnea (adult) (pediatric) Ivan Felizrs, D.O. 10/23/2020 J45.50 Severe persistent asthma, uncomp licated Ivan Mancilla, D.O. Plan of Treatment Future Appointment(s):* 04/17/2021 2:30 pm - [facility] * 06/27/2021 2:00 am - Carlos Thornton MD at [facility] * 06/30/2021 3:30 pm - Fabricio Hanks.O. at [facility] 03/19/2021 - Mya De Leon RPA-C* Z15.09 Genetic susceptibility to other malignant [...] Carlos Thornton M.D. Z12.11-colo screening Scheduled 04/15 [facility], Gastroenterology [address], [address] [place] [address] [phone] Ivan Mancilla D.O. CASA Scheduled 06/30/2021 [facility] [address] [place], [place] [address] [phone] Ivan Mancilla D.O. ASTHMA Scheduled 06/30/2021 [facility] [address] [place] [address] [phone] Ivan Mancilla D.O. ASTHMA/SLEEP Scheduled 02/13/2021 [facility] [address] [place], [place] [address] [phone]
--- OUTSIDE RECORDS SUMMARY | 2021-06-27 08:17 | CCD ---
Author Author [facility] Organization [facility] Address Unknown Phone Unavailable Care Team Providers Care Heating Repair Technician Name Role Phone Gagan Springer Unavailable PROBLEMS Type Condition ICD9-CM Code [id number] Code Onset Dates Condition S tatus W/U Status Risk SNOMED Code Notes Problem Severe persistent asthma, uncomplicated J45.50 Active confirmed 283372160 Problem Insomnia secondary to restless leg syndrome G25.81 Active confirmed 23360004 Problem Benign neoplasm of skin of trunk, except scrotum D 23.5 Active confirmed 002010091 Problem Left foot pain M79.672 Active confirmed 4793 3007 Problem 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 5.81 Active confirmed 38902192 Problem Restless leg syndrome, controlled G25.81 Active confirmed 59631858 Problem Other chronic pain G89.29 Active confirmed 8 7627663 Problem Mixed hyperlipidemia E78.2 Active confirmed 259893888 Problem Depression F32.9 Active confirmed 78077872 Problem Seasonal allergies J30.2 Active confirmed 3 60149019 Problem Left knee pain M25.562 Active confirmed 3098 9003 Problem Allergic asthma, severe persistent, with acute exacerbatio n J45.51 Active confirmed 009165045 Problem Gastroesophageal reflux disease without esophagitis K21.9 Active confirmed 559185819 Problem Bilateral edema of lower extremity R60.0 Activ e confirmed 405488491 Problem Bronchitis J40 Active confirmed 92059669 Problem Bilateral carpal tunnel syndrome G56.01 Active conf irmed 08002322 Problem Midline low back pain with right-sided sciatica M5 4.41 Active confirmed 471269800 Problem Non morbid obesity, unspecified obesity type E66.9 Active confirmed 806331004 Problem Essential (primary) hypertension I10 Active conf irmed 69324453 Problem Osteoarthritis of left hip, unspecified osteoarthritis typ e M16.12 Active confirmed 232360844245857 Problem Vitamin D deficiency E55.9 Active confirmed 84354188 Problem Depression, unspecified depression type F32.9 Active confirmed 70967315 Problem COPD exacerbation J44.1 Active confirmed 19 8115473 Problem Gastroesophageal reflux disease, esophagitis pre sence not specified K21.9 Active confirmed 975532611 Problem Adjustment disorder with depressed mood F43.21 Active confirmed 99810734 Problem History of systemic steroid therapy Z92.241 Acti ve confirmed 886400016 Problem Hemiplegic migraine without status migrainosus, not intractable G43.409 Active confirmed 55847072 Problem BMI 40.0-44.9, adult Z68.41 Active confirmed 110473833 Problem Prediabetes R73.09 Active confirmed 29996135 2 Problem CASA (obstructive sleep apnea) G47.33 Active confirm ed 22563084 Problem Hepatic steatosis K76.0 Active confirmed 19 5654983 Problem Severe persistent asthma without complication J45. 50 Active confirmed 777638185 Problem BMI 37.0-37.9, adult Z68.37 Active confirmed 795040806 Problem Sciatica of right side M54.31 Active confirmed 51318410 Problem Severe persistent asthma with acute exacerbation J 45.51 Active confirmed 182335165 Problem Dyslipidemia E78.5 Active confirmed 8173699 07 Problem Esophageal web Q39.4 Active confirmed 76630 006 Problem Gastroparesis K31.84 Active confirmed 244523 006 Problem Chronic fatigue R53.82 Active confirmed 8422 9001 Problem Severe persistent asthma with exacerbation J45.51 Active confirmed 093699607 Problem Hypernatremia E87.0 Active confirmed 268572 008 Problem Hyperlipidemia, unspecified hyperlipidemia type E7 8.5 Active confirmed 33870024 Problem Hypokalemia E87.6 Active confirmed 22826842 Problem Constipation, unspecified constipation type K59.00 Active confirmed 62095918 Problem Acute right-sided low back pain with right-sided sciatica M54.41 Active confirmed 543325370 Problem Moderate episode of recurrent major depressive disorder F33.1 Active confirmed 777403100 Problem Migraine without aura and without status migrain osus, not intractable G43.009 Active confirmed 607892969 Problem Gastroesophageal reflux dise ase, unspecified whether esophagitis present K21.9 Active confirmed 388751345 Problem Hypercholesterolemia E78.00 Active confirmed 09172866 ALLERGIES Allergen (clinical drug ingredient) Drug/Non Drug Allergy do cumented on EMR Reaction Allergy Type Onset Date Status Latex (for allergy use only) rash Drug Allergy Active ENCOUNTERS from 1960 to 2021-03-28 Encounter Location Date Provider Diagnosis [facility] [place] [phone] [place] [address] Feb, Gagan Springer Severe persistent as thma, uncomplicated J45.50 ; Migraine without aura and without status migrainosus, not intractable G43.009 ; BMI 37.0-37.9, adult Z68.37 ; Preventative health care Z00.00 ; 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 ; Hypercholesterolemia E78.00 ; Gastroesophageal reflux disease, unspecified whether esophagitis present K21.9 ; Leg edema R60.0 ; Elevated pulse rate R00.0 ; Screen for colon cancer Z12.11 ; Hepatic steatosis K76.0 and Medicare annual wellness visit, subsequent Z00.00 IMMUNIZATIONS Vaccine Route Administration Date Status COVID-19 [...] Education Language: Question Answer Notes Languages spoken: Georgian Sabianist: Question Answer Notes Sabianist 14 Orthodoxy Sexual Hx: Question Answer Notes Had sex [...] years REASON FOR REFERRAL from 1960 to 2021-03-28 Reason 60yo female w/ h/o Carrizales syn drome and prior tubular adenoma polyps being referred for screening colonoscopy. Diagnosis 1 Screen for colon cancer (Z12 .11) Referral Organization [facility] Resident Referring Provider First Name Gagan Referring Provider Last Name Racheal Referring Provider Specialty Internal Medicine Referred Provider Carlos Thornton Referred Provider Specialty Gastroenterology Referral Priority Routine Referral Appointment Date 2021-03-20 General Notes Gagan Springer 02/15/2021 9 :12:16 PM > Ms April. Hope you are doing well.Thank you so much for your help in processing and sending off this referral to gastroenterology for patient to get screening colonoscopy scheduled. Please let me know if there are any issues. Thanks in all the best.Gagan Springer 02/15/2021 9:12:28 PM > *Thanks and all the best.April Riojas 02/17/2021 9:04:58 AM > Faxed.April Riojas 02/27/2021 8:15:17 AM > FaxMillicent Hyde 03/04/2021 11:29:42 AM > [facility] referral to Dr. 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 VITAL SIGNS Weight 210 lbs Feb, Height 63 in Feb, BMI 37.20 kg/m2 Feb, Heart Rate 102 (repeat 76 bpm) /min Feb, Respiratory Rate 18 /min Feb, Temperature 98.3 degrees Fahrenheit Feb, Oximetry 97 Feb, Blood pressure systolic 118 mm Hg Feb, Blood pressure diastolic 78 mm Hg Feb, MEDICATIONS Medication SIG (Take, Route, Frequency, Duration) Notes Start Da te End Date Status SM Aspirin Adult Low Strength 81 MG TAKE ONE TABLET BY MOUTH YASHIRA DAY for 30 Active Effexor XR 150 MG 1 capsule with food Orally Once a day for 30 days Active Constulose 10 GM/15ML 15 ml Orally Once a day for 30 day(s) Active CPAP Machine 8 as directed Active Xolair 150 MG 1 dose Subcutaneous every other week Active Levocetirizine Dihydrochloride 5 MG TAKE ONE TABLET BY MOUTH EVERY EVENING Oral for 30 days Active SUMAtriptan Succinate 100 mg 1 tablet as needed one ti me Orally on the onset of migraine daily for 30 day(s) Act lalita AirDuo RespiClick 55/14 55-14 MCG/ACT 1 puff Inhalation Twic e a day for 30 days Active Nebulizer - cup and tubing ICD: J45.50 every 4 hours as need ed for 30 day(s) Aug, Active Ventolin HFA 108 (90 Base) MCG/ACT 2 puffs as needed I nhalation Every 4 hours for 30 days Active Omeprazole 20 MG 2 caps Orally Once a day for 30 days Active Singulair 10 MG 1 tablet in the evening Orally Once a day for 30 days Active Theophylline 400 MG as directed Orally BID for 30 days Active Nebulizer/Tubing/Mouthpiece - Dx ICD J45.50 orally every four ho urs as needed Jan, Active Arnuity Ellipta 200 MCG/ACT INHALE ONE PUFF BY MOUTH E VERY DAY Inhalation Once a day for 30 days Active Incruse Ellipta 62.5 MCG/INH 1 puff Inhalation Once a day for 30 days Active EpiPen 2-Emmanuel 0.3 MG/0.3ML Injection Active Furosemide 20 MG 1 tablet Orally Once a day for 30 day(s) Feb, Active FiberCon 625 MG TAKE ONE TABLET BY MOUTH TWICE A DAY NEEDED for 30 days Active rOPINIRole HCl 1 MG TAKE ONE TABLET BY MOUTH YASHIRA RY DAY 1 TO 3 HR BEFORE BEDTIME Orally Once a day Active Ipratropium-Albuterol 0.5-2.5 (3) MG/3ML 3 ml Inhalati on Four times a day for 30 days Active Gabapentin [...] Information RESULTS No Results REASON FOR VISIT awe MEDICAL (GENERAL) HISTORY Type Description Date Medical [...] hepatic steatosis, via ultrasound s tudy in 2019 Medical History Seasonal allergies, currentl [...] Treatment Notes Treatm ent Clinical Notes Feb, Severe persistent asthma, uncomplicated (ICD-10 - J45.50) Follows with pulmonology every 3 months as outpatient and is on an extensive amount of medications as detailed in HPI. Not currently on oral steroids, but per review of E-prescription logs, taken 5-day doses of oral prednisone in May 2020 and October 2020. Received yearly influenza vaccination for this past season. Has previously received Pneumovax 23 vaccination. Again, for further details, please refer to HPI. Feb, Migraine without aura and wi thout status migrainosus, not intractable (ICD-10 - G43.009) Currently well controlled. Is on abortive treatment from PCP in the form of sumatriptan. Feb, BMI 37.0-37.9, adult (ICD-10 - Z68.37) Patient has actually decreased BMI from 40s now to 37. Due to moderate obesity on BMI calculation today, and the fact patient has not had a check for diabetes screen via A1c since August 2019, hemoglobin A1c ordered today. Feb, Preventative health care (ICD-10 - Z00.00) -Hepatitis C antibody index was unremarkable in August 2018 -HIV screen ordered today and patient gives consent for this to be obtained -Please see Carrizales syndrome assessment section for further details on colorectal cancer screening/colonoscopy status -Please see HPI for most recent EGD from 03/08/2020 -Patient's last screening mammogram was on April 04, 2020 and was read as negative mammogram with BI-RADS/ACR category 1 result. Patient reports she will schedule a mammogram beginning in April 2021 once it is been a year since the last screen. -Patient is a former smoker, but only has a 2.5-year pack year history (1 pack a day for 5 years) and she quit 33 years ago; therefore does not meet requirements for low-dose lung CT screening. -Patient is status post total hysterectomy; last well woman examination was in October 2020 -Patient had a DEXA scan for bone mineral density on 04/13/2018. This was done when patient was 57 years old. Results ruled out any osteopenia/osteoporosis (left hip T score was 0.7, right hip T score was 0.5 and both the densities of the left and right hip had increased from prior study in 2016). FRAX score showed risk of hip fracture in the next 10 years to be only 0.3%. -Patient has taken oral steroids for 5-day intervals in October 2020 in May 2020 over the past year. She is a former smoker but this is a very limited history and many years ago. She is currently on a PPI and has been so for what appears to be some time and this puts her at more risk for decreased density. She is status post total hysterectomy and is postmenopausal. -As patient is between 50 to 69 years old DEXA scan is only warranted for risk factors of serious bone loss. At this point, she has received 5-day doses of oral steroid at 2 times in the past year. I am not quite sure beyond that how extensive her steroid administration history has been. I gather that since she has been having screens dating back to at least 55 years old, that there is a risk. I will leave this up to her new oncoming PCP to assess further if a repeat DEXA is warranted. -In addition, I would advise her new PCP to re-check her Vit D and PTH levels since they were previously elevated. Feb, MSH6-related Carrizales syndrome (HNPCC5) (ICD-10 - Z 15.09) Patient was diagnosed via [facility] testing done in the winter 2019-2021 per documentation from August [address] Rosa (patient's prior PCP). Her most recent colonoscopy per review of records was performed on 05/02/[address] Thornton. At that time 2, 4-5 mm polyps in the ascending colon removed with a cold snare. 3/8 mm polyps in the sigmoid colon removed with a cold snare. She had small internal hemorrhoids. Review of pathology from that last colonoscopy showed that the sigmoid colon polyps were fragments of tubular adenoma in the ascending colon polyps were fragments of tubular adenoma and sessile serrated adenoma. The fact that greater than 2 tubular adenoma polyps removed, would warrant repeat screening in 3 years. Plus, with a known Carrizales syndrome, this further warrants referral for colonoscopy as it has been nearly 3 years. Per documentation from August [address] Rosa patient was apparently in the process of scheduling the colonoscopy. On speaking with her today she reports having no discussion about scheduling. A referral for colonoscopy will be sent. Is also relates a Carrizales syndrome, risk of endometrial cancer was reviewed but thankfully patient is status post total hysterectomy. Also apparently via documentation with Dr. Rosa in August 2020, patient was made aware that her children have a 50-50 percent risk of having the same mutation and that they should discuss genetic counseling with her primary care physicians. Feb, Hypercholesterolemia (ICD-10 - E78.00) Per review of records, patient has a previously documented history of dyslipidemia but is on no current statin medication. Her last lipid panel was 18 months ago on 08/30/2019: Triglycerides 208, total cholesterol 241, LDL 150 - -ASCVD calculated to be 3% based off of those results. Repeat lipid panel ordered today. Feb, Gastroesophageal reflux dise ase, unspecified whether esophagitis present (ICD-10 - K21.9) Patiently is currently on 20 mg daily of omeprazole. EGD results are discussed in HPI. It is warranted that patient's PCP discussed with her possibly weaning down on her PPI and potentially transitioning to famotidine due to the associated deleterious chronic kidney and bone mineral density effects of PPIs. Feb, Leg edema (ICD-10 - R60.0) Patiently currently takes 40 mg daily furosemide. She had 1-2+ pitting edema bilateral lower extremities on exam today, left greater than right. She has not had metabolic panel ordered per records since May 2020, hence BMP ordered today. Feb, Elevated pulse rate (ICD-10 - R00.0) Patient's initial pulse was 102 upon presentation. On recheck it was 76. At no point did patient report any current or recent palpitations, shortness of breath, chest pain. Feb, Screen for colon cancer (ICD-10 - Z12.11) Please see Carrizales syndrome assessment section for further details as well as HPI. Outgoing referral to Dr. Carlos Thornton of gastroenterology for screening colonoscopy as Dr. Thornton performed patient's most recent colonoscopy in April 2018. Feb, Hepatic steatosis (ICD-10 - K76.0) Per prior documentation, patient has history of mild to moderate hepatic steatosis via ultrasound in August 2018. This will be something patient's PCP will need to follow-up on and monitor. Feb, Medicare annual wellness visit, subsequent (ICD- 10 - Z00.00) This is patient's annual wellness examination. As stated in HPI, thorough review today of patient's current medications as well as her past medical history, past surgical history, family history, and social history. We discussed screening schedule, need for any referrals, and assessed for cognitive impairments (of which there were none appreciated on exam today). [email or web address] some [facility] for outpatient primary care. Most recently she was a patient of Dr. Rosa and will be switching to Dr. Machado. PLAN OF TREATMENT Medication Medication Name Sig Start Date Stop Date Gabapentin 300 MG 1 tablet Orally before bedtime for 90 days Atorvastatin Calcium 80 MG TAKE ONE TABLET BY MOUTH EVERY DAY fo r 30 FiberCon 625 MG TAKE ONE TABLET BY MOUTH TWICE A DAY NEEDED f or 30 days Singulair 10 MG 1 tablet in the evening Orally Once a day for 30 days Theophylline 400 MG as directed Orally BID for 30 days Incruse Ellipta 62.5 MCG/INH 1 puff Inhalation Once a day for 30 days Levocetirizine Dihydrochloride 5 MG TAKE ONE TABLET BY MOUTH EVERY EVENING Oral for 30 days Ipratropium-Albuterol 0.5-2.5 (3) MG/3ML 3 ml Inhalati on Four times a day for 30 days Arnuity Ellipta 200 MCG/ACT INHALE ONE PUFF BY MOUTH E VERY DAY Inhalation Once a day for 30 days Ventolin HFA 108 (90 Base) MCG/ACT 2 puffs as needed I nhalation Every 4 hours for 30 days Omeprazole 20 MG 2 caps Orally Once a day for 30 days rOPINIRole HCl 1 MG TAKE ONE TABLET BY MOUTH YASHIRA RY DAY 1 TO 3 HR BEFORE BEDTIME Orally Once a day Furosemide 20 MG 1 tablet Orally Once a day for 30 day(s) Feb SM Aspirin Adult Low Strength 81 MG TAKE ONE TABLET BY MOUTH YASHIRA RY DAY for 30 AirDuo RespiClick 55/14 55-14 MCG/ACT 1 puff Inhalation Twic e a day for 30 days Effexor XR 150 MG 1 capsule with food Orally Once a day for 30 d ays Treatment Notes Assessment Notes Clinical Notes Severe persistent asthma, uncomplicated Follows with pulmonology every 3 months as outpatient and is on an extensive amount of medications as detailed in HPI. Not currently on oral steroids, but per review of E-prescription logs, taken 5-day doses of oral prednisone in May 2020 and October 2020. Received yearly influenza vaccination for this past season. Has previously received Pneumovax 23 vaccination. Again, for further details, please refer to HPI. Migraine without aura and without status migrainosus, not in tractable Currently well controlled. Is on abortive treatment from PCP in the form of sumatriptan. BMI 37.0-37.9, adult Patient has actuall y decreased BMI from 40s now to 37. Due to moderate obesity on BMI calculation today, and the fact patient has not had a check for diabetes screen via A1c since August 2019, hemoglobin A1c ordered today. Preventative health care -Hepatitis C an tibody index was unremarkable in August 2018-HIV screen ordered today and patient gives consent for this to be obtained-Please see Carrizales syndrome assessment section for further details on colorectal cancer screening/colonoscopy status-Please see HPI for most recent EGD from 03/08/2020-Patient's last screening mammogram was on April 04, 2020 and was read as negative mammogram with BI-RADS/ACR category 1 result. Patient reports she will schedule a mammogram beginning in April 2021 once it is been a year since the last screen.-Patient is a former smoker, but only has a 2.5-year pack year history (1 pack a day for 5 years) and she quit 33 years ago; therefore does not meet requirements for low-dose lung CT screening.-Patient is status post total hysterectomy; last well woman examination was in October 2020- Patient had a DEXA scan for bone mineral density on 04/13/2018. This was done when patient was 57 years old. Results ruled out any osteopenia/osteoporosis (left hip T score was 0.7, right hip T score was 0.5 and both the densities of the left and right hip had increased from prior study in 2016). FRAX score showed risk of hip fracture in the next 10 years to be only 0.3%.-Patient has taken oral steroids for 5-day intervals in October 2020 in May 2020 over the past year. She is a former smoker but this is a very limited history and many years ago. She is currently on a PPI and has been so for what appears to be some time and this puts her at more risk for decreased density. She is status post total hysterectomy and is postmenopausal.-As patient is between 50 to 70 y ears old DEXA scan is only warranted for risk factors of serious bone loss. At this point, she has received 5-day doses of oral steroid at 2 times in the past year. I am not quite sure beyond that how extensive her steroid administration history has been. I gather that since she has been having screens dating back to at least 55 years old, that there is a risk. I will leave this up to her new oncoming PCP to assess further if a repeat DEXA is warranted.-In addition, I would advise her new PCP to re-check her Vit D and PTH levels since they were previously elevated. MSH6-related Carrizales syndrome (HNPCC5) Armida falcon was diagnosed via [facility] testing done in the winter 2019-2021 per documentation from August [address] Rosa (patient's prior PCP). Her most recent colonoscopy per review of elvis rds was performed on 05/02/[address] Thornton. At that time 2, 4-5 mm polyps in the ascending colon removed with a cold snare. 3/8 mm polyps in the sigmoid colon removed with a cold snare. She had small internal hemorrhoids. Review of pathology from that last colonoscopy showed that the sigmoid colon polyps were fragments of tubular adenoma in the ascending colon polyps were fragments of tubular adenoma and sessile serrated adenoma. The fact that greater than 2 tubular adenoma polyps removed, would warrant repeat screening in 3 years. Plus, with a known Carrizales syndrome, this further warrants referral for colonoscopy as it has been nearly 3 years. Per documentation from August [address] Rosa patient was apparently in the process of scheduling the colonoscopy. On speaking with her today she reports having no discussion about scheduling. A referral for colonoscopy will be sent.Is also relates a Carrizales syndrome, risk of endometrial cancer was reviewed but thankfully patient is stat us post total hysterectomy.Also apparently via documentation with Dr. Rosa in August 2020, patient was made aware that her children have a 50-50 percent risk of having the same mutation and that they should discuss genetic counseling with her primary care physicians. Hypercholesterolemia Per review of recor ds, patient has a previously documented history of dyslipidemia but is on no current statin medication. Her last lipid panel was 18 months ago on 08/30/2019: Triglycerides 208, total cholesterol 241, LDL 150 - -ASCVD calculated to be 3% based off of those results.Repeat lipid panel ordered today. Gastroesophageal reflux disease, unspecified whether esophag itis present Patiently is currently on 20 mg daily of omeprazole. EGD results are discussed in HPI. It is warranted that patient's PCP discussed with her possibly weaning down on her PPI and potentially transitioning to famotidine due to the associated deleterious chronic kidney and bone mineral density effects of PPIs. Leg edema Patiently currently takes 40 mg daily furosemide. She had 1-2+ pitting edema bilateral lower extremities on exam today, left greater than right. She has not had metabolic panel ordered per records since May 2020, hence BMP ordered today. Elevated pulse rate Patient's initial pu lse was 102 upon presentation. On recheck it was 76. At no point did patient report any current or recent palpitations, shortness of breath, chest pain. Screen for colon cancer Please see Carrizales syndrome assessment section for further details as well as HPI.Outgoing referral to Dr. Carlos Thornton of gastroenterology for screening colonoscopy as Dr. Thornton performed patient's m ost recent colonoscopy in April 2018. Medicare annual wellness visit, subsequent This is patient's annual wellness examination. As stated in HPI, thorough review today of patient's current medications as well as her past medical history, past surgical history, family history, and social history. We discussed screening schedule, need for any referrals, and assessed for cognitive impairments (of which there were none appreciated on exam today).Patient has followed with [facility] for some time for outpatient primary care. Most recently she was a patient of Dr. Rosa and will be switching to Dr. Machado. Hepatic steatosis Per prior documentat ion, patient has history of mild to moderate hepatic steatosis via ultrasound in August 2018. This will be something patient's PCP will need to follow-up on and monitor. 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 Machado Reason:general f /u and go over AWE labs Provider Name:Candice Machado, 2021-04-21 03: 30:00 PM, [address] , , [place], [address], Follow Up:2-[address] Machadogeneral f/u and go over AWE labs Insurance Providers Payer Name Payer Address Payer Phone Insured Name Patient Relati onship to Insured Coverage Start Date Coverage End Date [facility] PL[facility] [address] [facility] [address] MARIA ESTHER KUHN self
--- OUTSIDE RECORDS SUMMARY | 2021-06-27 08:17 | CCD | Continuity of Care Document ---
Author Author Martha LOZA [facility] Organization Unknown Address [address], [address] [place] [address] Phone [phone] Care Team Providers Care Backfiller Name Role Phone Warren Nagy M.D. AUTM AUTM Unavailable Migue Boogie D.O. AUTM [phone] Problems Active Problems Provider Date Cough Ivan Mancilla D.O. Onset: 05/05/2016 Acute severe exacerbation of severe persistent asthma Ivan martinez D.O. Onset: 05/05/2016 Uncomplicated severe persistent asthma Ivan Mancilla D.O. O nset: 11/25/2016 Obstructive sleep apnea syndrome Ivan [...] Ivan Seadanielle, D.O. Onset: 03/10/2017 Chest pain Ivanjustyna Mancilla, D.O. Onset: 06/07/2017 Extrinsic asthma with asthma attack Ivanjustyna Mancilla, D.O. Onse t: 01/23/2015 Wheezing Ivan Seadanielle, D.O. Onset: 03/14/2014 Body mass index 30+ - obesity Ivan Seadanielle, D.O. Onset: 12/2012 Edema Ivan Seadanielle, D.O. Onset: 01/25/2013 Acute upper respiratory infection Ivan Mancilla, D.O. Onset: 01/25/2013 Obesity Ivan Sears, D.O. Onset: 06/03/2012 Streptococcus vaccination Ivan Sears, D.O. Onset: 012 Oropharyngeal dysphagia Ivan Sears, D.O. Onset: 2 Sleep apnea Ivan Sears, D.O. Onset: 04/20/2012 Disturbance of consciousness Ivan Sears, D.O. Onset: 04/09 Difficulty breathing Ivan Sears, D.O. Onset: 04/20/2012 Asthma without status asthmaticus Ivanjustyna Mancilla, D.O. Onset: 04/20/2012 Ex-smoker Ivan Seadanielle, D.O. [...] Mouth Two Times A Day 60tabs Amos HanksO. 12/28/2018 Arnuity Ellipta 200mcg/Act Aerosol 1 puff [...] Tablets 1 tab every night Unknown Ipratropium Ringling/Albuterol Sulfate 0.5-2.5(3)mg/3ML Solution 1 vial via neb [...] CPT Code Status Date Vaccine Lot # 69563 Given 05/17/2019 Afluria, Quadrivalent, 0.5ml , [facility]# 75483-987-21 31081 Given 06/03/2016 Influenza Virus Split 3 Yrs And Above For Intramuscular Use 55503 Given 07/11/2015 Influenza Virus Split 3 Yrs And Above For Intramuscular Use 15711 Given 05/16/2014 Influenza Virus Split 3 Yrs And Above For Intramuscular Use 78719 Given 04/20/2012 Pneumococcal PPSV23 Q2036 Given Unknown Influenza Vaccine 3 Years Of Age Or Older (Flulaval) 70615 Given Unknown Pneumococcal PPSV23 Vital Signs Date Vital Result Comment 04/03/2021 10:02am BP Systolic 132 mmHg BP Diastolic 78 mmHg Heart Rate 83 /min O2 % BldC Oximetry 97 % 03/19/2021 3:05pm BP Systolic 128 mmHg BP Diastolic 86 mmHg Height 63 inches 5'3" Weight 211.00 lb BMI (Body Mass Index) 37.4 kg/m2 [place] Body Weight 115 lb Weight 95.710 kg BSA (Body Surface Area) 1.98 m2 Results Test Acquired Date Facility Test Result H/L Range Note Laboratory test finding 04/02/2021 [facility] [address] [place] [address] [phone] Theophylline Level 19.2 UG/ML Normal 10.0-20.0 Laboratory test finding 02/21/2021 [facility] [address] [place], [place] [id number] [phone] Theophylline Level < 2.0 UG/ML Low 10.0-20.0 FVL/Union 02/13/2021 [facility] PDFReport SEE IMAGE FVC-Pred 3.21 L FVC-Pre 2.26 L FVC-%Pred-Pre 70 L FVC-LLN 2.54 L Fev1-Pred 2.49 L Fev1-Pre 1.44 L Fev1-%Pred-Pre 57 L Fev1-LLN 1.92 L Fev6-Pred 3.10 L Fev6-Pre 2.26 L Fev6-%Pred-Pre 72 L Fev6-LLN 2.44 L Qig0mew-Glfa 78 % Lpr6poo-Rzh 64 % Abp6jhm-%Pred-Pre 81 % Mqv9fmk-UAF 68 % Edn3pat-Kuie 97 % Ydf0tdo-Cbp 100 % Oze6chq-%Pred-Pre 103 % FEFMax-Pred 6.19 L/E/sec FEFMax-Pre 4.24 L/E/sec FEFMax-%Pred-Pre 68 L/E/sec FEFMax-LLN 4.53 L/E/sec Lep2904-Hnxq 2.34 L/E/sec Ias5009-Tml 0.87 L/E/sec Sig0187-%Pred-Pre 37 L/E/sec Mql7476-TQN 1.13 L/E/sec ExpTime-Pre 6.33 sec Xva3tst9-Asww 81 % Xoh4rrs0-Mtt 64 % Vip0ufs1-%Pred-Pre 78 % Mov0ipz3-IZI 72 % Laboratory test finding 11/06/2020 [facility] [address] [place] [address] [phone] Theophylline Level 16.4 UG/ML Normal 10.0-20.0 FVL/Julio César 11/06/2020 [employer] PDFReport SEE IMAGE FVC-Pred 3.21 L FVC-Pre 2.39 L FVC-%Pred-Pre 74 L FVC-LLN 2.54 L Fev1-Pred 2.49 L Fev1-Pre 1.49 L Fev1-%Pred-Pre 60 L Fev1-LLN 1.92 L Fev6-Pred 3.10 L Fev6-Pre 2.39 L Fev6-%Pred-Pre 76 L Fev6-LLN 2.44 L Aet2zzv-Zitp 78 % Qet1qoe-Yer 63 % Mxh6zmd-%Pred-Pre 79 % Aoc0gwp-JKL 68 % Uzh0bnm-Nxaw 97 % Nki3axn-Ket 100 % Jak3yec-%Pred-Pre 103 % FEFMax-Pred 6.19 L/E/sec FEFMax-Pre 4.47 L/E/sec FEFMax-%Pred-Pre 72 L/E/sec FEFMax-LLN 4.53 L/E/sec Tff3785-Iwir 2.34 L/E/sec Uzy5801-Qvk 0.87 L/E/sec Luq3545-%Pred-Pre 37 L/E/sec Foq7963-BYM 1.13 L/E/sec ExpTime-Pre 5.86 sec Koc4deq4-Loyf 81 % Wdn9ufa6-Hxy 63 % Gfl9wch6-%Pred-Pre 77 % Ugp9ima7-LUE 72 % Procedures Date Code Description Status 03/19/2021 07741 Office/Outpatient New Moderate M DM 45-59 Minutes Completed 02/26/2021 34212 Injection Fee Completed 02/26/2021 79465 Injection Fee Completed 02/26/2021 06247 Injection Fee Completed 02/13/2021 94552 Office/Outpatient Established Mo d MDM 30-39 Min Completed 02/13/2021 62287 Injection Fee Completed 02/13/2021 32854 Injection Fee Completed 02/13/2021 00351 Injection Fee Completed 02/13/2021 64082 Spirometry Completed 01/29/2021 65136 Injection Fee Completed 01/29/2021 70496 Injection Fee Completed 01/15/2021 07747 Injection Fee Completed 01/15/2021 06104 Injection Fee Completed 12/25/2020 08611 Injection Fee Completed 12/25/2020 33754 Injection Fee Completed 11/27/2020 28808 Injection Fee Completed 11/27/2020 09103 Injection Fee Completed 11/06/2020 44135 Office/Outpatient Established Mo d MDM 30-39 Min Completed 11/06/2020 79387 Injection Fee Completed 11/06/2020 56132 Injection Fee Completed 11/06/2020 56465 Spirometry Completed 10/23/2020 42112 Injection Fee Completed 10/23/2020 74431 Injection Fee Completed Medical Devices Description No Information Available Encounters Type Date Location Provider Dx Diagnosis Office Visit 03/19/2021 3:00p [facility] ROHINI Ruiz Z15.09 Genetic susceptibility to ot her malignant neoplasm Office Visit 02/13/2021 3:00p [facility] Ivan Se ars, D.O. J45.50 Severe persistent asthma, uncomplicated G47.33 Obstructive sleep apnea (kvng lt) (pediatric) Office Visit 11/06/2020 3:00p [facility] Ivan Se ars, D.O. 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 10/23/2020 J45.50 Severe persistent asthma, uncomp licated Ivan Sears, D.O. Plan of Treatment Future Appointment(s):* 06/27/2021 2:00 am - Carlos Thornton MD at [facility] * 06/30/2021 3:30 pm - Ivan Mancilla D.O. at [facility] 03/19/2021 - Mya Loza RPA-Janie* Z15.09 Genetic susceptibility to other malignant neoplasm [...] Carlos Thornton M.D. Z12.11-colo screening Scheduled 04/15 [facility] Gastroenterology [address] [facility] [address], [address] [place] [address] [phone] Ivan Mancilla D.O. CASA [facility] [address] [place], [place] [id number] [phone] Ivan Mancilla D.O. ASTHMA Scheduled [facility]20[facility] [address] [place], [place] [address] [phone] Ivan Mancilla D.O. ASTHMA/SLEEP Scheduled 02/13/2021 [facility] [address] [facility] [address] [place], [place] [address] [phone]
--- OUTSIDE RECORDS SUMMARY | 2021-06-27 08:17 | CCD ---
Author Author [facility] Organization [facility] Address Unknown Phone Unavailable Care Team Providers Care Scoring Machine Operator Name Role Phone Candice Machado Unavailable PROBLEMS Type Condition ICD9-CM Code DAK37-YB Code Onset Dates Condition S tatus W/U Status Risk SNOMED Code Notes Problem Severe persistent asthma, uncomplicated J45.50 Active confirmed 931495060 Problem Insomnia secondary to restless leg syndrome G25.81 Active confirmed 17453379 Problem Benign neoplasm of skin of trunk, except scrotum D 23.5 Active confirmed 822984702 Problem Left foot pain M79.672 Active confirmed 4793 3007 Problem 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 5.81 Active confirmed 87328826 Problem Restless leg syndrome, controlled G25.81 Active confirmed 92047542 Problem Other chronic pain G89.29 Active confirmed 8 4894521 Problem Mixed hyperlipidemia E78.2 Active confirmed 789565126 Problem Depression F32.9 Active confirmed 75318909 Problem Seasonal allergies J30.2 Active confirmed 3 68229242 Problem Left knee pain M25.562 Active confirmed 3098 9003 Problem Allergic asthma, severe persistent, with acute exacerbatio n J45.51 Active confirmed 415676893 Problem Gastroesophageal reflux disease without esophagitis K21.9 Active confirmed 749819606 Problem Bilateral edema of lower extremity R60.0 Activ e confirmed 283178726 Problem Bronchitis J40 Active confirmed 59013678 Problem Bilateral carpal tunnel syndrome G56.01 Active conf irmed 97189857 Problem Midline low back pain with right-sided sciatica M5 4.41 Active confirmed 402107985 Problem Non morbid obesity, unspecified obesity type E66.9 Active confirmed 820816069 Problem Essential (primary) hypertension I10 Active conf irmed 60442690 Problem Osteoarthritis of left hip, unspecified osteoarthritis typ e M16.12 Active confirmed 745996277933055 Problem Vitamin D deficiency E55.9 Active confirmed 03682525 Problem Depression, unspecified depression type F32.9 Active confirmed 02671157 Problem COPD exacerbation J44.1 Active confirmed 19 8884257 Problem Gastroesophageal reflux disease, esophagitis pre sence not specified K21.9 Active confirmed 738686044 Problem Adjustment disorder with depressed mood F43.21 Active confirmed 58792412 Problem History of systemic steroid therapy Z92.241 Acti ve confirmed 540521679 Problem Hemiplegic migraine without status migrainosus, not intractable G43.409 Active confirmed 15278551 Problem BMI 40.0-44.9, adult Z68.41 Active confirmed 386744035 Problem Prediabetes R73.09 Active confirmed 93875169 2 Problem CASA (obstructive sleep apnea) G47.33 Active confirm ed 46947148 Problem Hepatic steatosis K76.0 Active confirmed 19 3950685 Problem Severe persistent asthma without complication J45. 50 Active confirmed 704080024 Problem BMI 37.0-37.9, adult Z68.37 Active confirmed 858483143 Problem Sciatica of right side M54.31 Active confirmed 51839171 Problem Severe persistent asthma with acute exacerbation J 45.51 Active confirmed 380773068 Problem Dyslipidemia E78.5 Active confirmed 3026903 07 Problem Esophageal web Q39.4 Active confirmed 33560 006 Problem Gastroparesis K31.84 Active confirmed 404056 006 Problem Chronic fatigue R53.82 Active confirmed 8422 9001 Problem Severe persistent asthma with exacerbation J45.51 Active confirmed 742407438 Problem Hypernatremia E87.0 Active confirmed 741018 008 Problem Hyperlipidemia, unspecified hyperlipidemia type E7 8.5 Active confirmed 20119854 Problem Hypokalemia E87.6 Active confirmed 41526234 Problem Constipation, unspecified constipation type K59.00 Active confirmed 45089487 Problem Acute right-sided low back pain with right-sided sciatica M54.41 Active confirmed 391482366 Problem Moderate episode of recurrent major depressive disorder F33.1 Active confirmed 024070550 Problem Migraine without aura and without status migrain osus, not intractable G43.009 Active confirmed 478979804 Problem Gastroesophageal reflux dise ase, unspecified whether esophagitis present K21.9 Active confirmed 304109796 Problem Hypercholesterolemia E78.00 Active confirmed 18823533 ALLERGIES Allergen (clinical drug ingredient) Drug/Non Drug Allergy do cumented on EMR Reaction Allergy Type Onset Date Status Latex (for allergy use only) rash Drug Allergy Active ENCOUNTERS from 1961 to 2021-03-31 Encounter Location Date Provider Diagnosis [facility] [address] [phone] [place] [address] Mar, Candice Machado IMMUNIZATIONS Vaccine Route Administration [...] Education Language: Question Answer Notes Languages spoken: South Korean Bahai: Question Answer Notes Bahai 14 Zoroastrianism Sexual Hx: Question Answer Notes Had sex [...] hereditary nonpolyposis colorectal cancer (HNPCC), confirmed via [facility] testing results obtained in Winter 2019- Medical [...] Name:Candice Machado, 2021-04-21 03: 30:00 PM, [address], , [place], [address], Insurance Providers Payer Name Payer Address Payer Phone Insured Name Patient Relati onship to Insured Coverage Start Date Coverage End Date [facility] [employer] PLAN [facility] [address] [facility] [phone] MARIA ESTHER KUHN
--- OUTSIDE RECORDS SUMMARY | 2021-06-27 08:19 | CCD ---
Author Author [facility] Organization [facility] Address Unknown Phone Unavailable Care Team Providers [employer] Director Name Role Phone Charlebois, A Mya RPA C Unavailable Unavailable Charlebois, A Mya RPA C Unavailable Unavailable Charlebois, A Mya RPA C Unavailable Unavailable Charlebois, A Mya RPA C Unavailable Unavailable Charlebois, A Mya RPA C Unavailable Unavailable Charlebois, A Mya RPA C Unavailable Unavailable Charlebois, A Mya RPA C Unavailable Unavailable Charlebois, A Mya RPA C Unavailable Unavailable Charlebois, A Mya RPA C Unavailable Unavailable Charlebois, A Mya RPA C Unavailable Unavailable Charlebois, A Mya RPA C Unavailable Unavailable Charlebois, A Mya RPA C Unavailable Unavailable Charlebois, A Mya RPA C Unavailable Unavailable Charlebois, A Mya RPA C Unavailable Unavailable Charlebois, A Mya RPA C Unavailable Unavailable Charlebois, A Mya RPA C Unavailable Unavailable Charlebois, A Mya RPA C Unavailable Unavailable Charlebois, A Mya RPA C Unavailable Unavailable Charlebois, A Mya RPA C Unavailable Unavailable Charlebois, A Mya RPA C Unavailable Unavailable Charlebois, A Mya RPA C Unavailable Unavailable Charlebois, A Yma RPA C Unavailable Unavailable Charlebois, A Mya RPA C Unavailable Unavailable Charlebois, A Mya RPA C Unavailable Unavailable Charlebois, A Mya RPA C Unavailable Unavailable Charlebois, A Mya RPA C Unavailable Unavailable Charlebois, A Mya RPA C Unavailable Unavailable Charlebois, A Mya RPA C Unavailable Unavailable Charlebois, A Mya RPA C Unavailable Unavailable Charlebois, A Mya RPA C Unavailable Unavailable Charlebois, A Mya RPA C Unavailable Unavailable Charlebois, A Mya RPA C Unavailable Unavailable Charlebois, A Mya RPA C Unavailable Unavailable LETTIERE, A IZABELA PA Unavailable Unavailable LETTIERE, A IZABELA PA Unavailable Unavailable LETTIERE, A IZABELA PA Unavailable Unavailable LETTIERE, A IZABELA PA Unavailable Unavailable LETTIERE, A IZABELA PA Unavailable Unavailable LETTIERE, A IZABELA PA Unavailable Unavailable LETTIERE, A IZABELA PA Unavailable Unavailable LETTIERE, A IZABELA PA Unavailable Unavailable LETTIERE, A IZABELA PA Unavailable Unavailable LETTIERE, A IZABELA PA Unavailable Unavailable LETTIERE, A IZABELA PA Unavailable Unavailable LETTIERE, A IZABELA PA Unavailable Unavailable LETTIERE, A IZABELA PA Unavailable Unavailable LETTIERE, A IZABELA PA Unavailable Unavailable LETTIERE, A IZABELA PA Unavailable Unavailable LETTIERE, A IZABELA PA Unavailable Unavailable LETTIERE, A IZABELA PA Unavailable Unavailable LETTIERE, A IZABELA PA Unavailable Unavailable LETTIERE, A IZABELA PA Unavailable Unavailable LETTIERE, A IZABELA PA Unavailable Unavailable LETTIERE, A IZABELA PA Unavailable Unavailable LETTIERE, A IZABELA PA Unavailable Unavailable LETTIERE, A IZABELA PA Unavailable Unavailable LETTIERE, A IZABELA PA Unavailable Unavailable LETTIERE, A IZABELA PA Unavailable Unavailable LETTIERE, A IZABELA PA Unavailable Unavailable LETTIERE, A IZABELA PA Unavailable Unavailable LETTIERE, A IZABELA PA Unavailable Unavailable LETTIERE, A IZABELA PA Unavailable Unavailable LETTIERE, A IZABELA PA Unavailable Unavailable LETTIERE, A IZABELA PA Unavailable Unavailable DRAZEK, I LIZZY PA Unavailable Unavailable DRAZEK, I LIZZY PA Unavailable Unavailable DRAZEK, I LIZZY PA Unavailable Unavailable DRAZEK, I LIZZY PA Unavailable Unavailable DRAZEK, I LIZZY PA Unavailable Unavailable DRAZEK, I LIZZY PA Unavailable Unavailable DRAZEK, I LIZZY PA Unavailable Unavailable DRAZEK, I LIZZY PA Unavailable Unavailable DRAZEK, I LIZZY PA Unavailable Unavailable DRAZEK, I LIZZY PA Unavailable Unavailable DRAZEK, I LIZZY PA Unavailable Unavailable DRAZEK, I LIZZY PA Unavailable Unavailable DRAZEK, I LIZZY PA Unavailable Unavailable DRAZEK, I LIZZY PA Unavailable Unavailable DRAZEK, I LIZZY PA Unavailable Unavailable DRAZEK, I LIZZY PA Unavailable Unavailable DRAZEK, I LIZZY PA Unavailable Unavailable DRAZEK, I LIZZY PA Unavailable Unavailable DRAZEK, I LIZZY PA Unavailable Unavailable DRAZEK, I LIZZY PA Unavailable Unavailable DRAZEK, I LIZZY PA Unavailable Unavailable DRAZEK, I LIZZY PA Unavailable Unavailable DRAZEK, I LIZZY PA Unavailable Unavailable DRAZEK, I LIZZY PA Unavailable Unavailable DRAZEK, I LIZZY PA Unavailable Unavailable DRAZEK, I LIZZY PA Unavailable Unavailable DRAZEK, I LIZZY PA Unavailable Unavailable DRAZEK, I LIZZY PA Unavailable Unavailable DRAZEK, I LIZZY PA Unavailable Unavailable DRAZEK, I LIZZY PA Unavailable Unavailable SEARS, A FANY DO Unavailable Unavailable SEARS, A FANY DO Unavailable Unavailable SEARS, A FANY DO Unavailable Unavailable SEARS, A FANY DO Unavailable Unavailable SEARS, A FANY DO Unavailable Unavailable SEARS, A FANY DO Unavailable Unavailable SEARS, A FANY DO Unavailable Unavailable SEARS, A FANY DO Unavailable Unavailable SEARS, A FANY DO Unavailable Unavailable SEARS, A FAYN DO Unavailable Unavailable SEARS, A FANY DO Unavailable Unavailable SEARS, A FANY DO Unavailable Unavailable SEARS, A FANY DO Unavailable Unavailable SEARS, A FANY DO Unavailable Unavailable SEARS, A FANY DO Unavailable Unavailable SEARS, A FANY DO Unavailable Unavailable SEARS, A FANY DO Unavailable Unavailable SEARS, A FANY DO Unavailable Unavailable SEARS, A FANY DO Unavailable Unavailable SEARS, A FANY DO Unavailable Unavailable SEARS, A FANY DO Unavailable Unavailable SEARS, A FANY DO Unavailable Unavailable SEARS, A FANY DO Unavailable Unavailable SEARS, A FANY DO Unavailable Unavailable SEARS, A FANY DO Unavailable Unavailable SEARS, A FANY DO Unavailable Unavailable SEARS, A FANY DO Unavailable Unavailable SEARS, A FANY DO Unavailable Unavailable SEARS, A FANY DO Unavailable Unavailable SEARS, A FANY DO Unavailable Unavailable SEARS, A FANY DO Unavailable Unavailable SEARS, A FANY DO Unavailable Unavailable SEARS, A FANY DO Unavailable Unavailable SEARS, A FANY DO Unavailable Unavailable SEARS, A FANY DO Unavailable Unavailable SEARS, A FANY DO Unavailable Unavailable SEARS, A FANY DO Unavailable Unavailable SEARS, A FANY DO Unavailable Unavailable SEARS, A FANY DO Unavailable Unavailable SEARS, A FANY DO Unavailable Unavailable SEARS, A FANY DO Unavailable Unavailable SEARS, A FANY DO Unavailable Unavailable SEARS, A FANY DO Unavailable Unavailable SEARS, A FANY DO Unavailable Unavailable SEARS, A FANY DO Unavailable Unavailable SEARS, A FANY DO Unavailable Unavailable SEARS, A FANY DO Unavailable Unavailable SEARS, A FANY DO Unavailable Unavailable BERGMAN, ODILON JENNIFER MANUFACTURING MILLWRIGHT Unavailable Unavailable BERGMAN, ODILON JENNIFER MANUFACTURING MILLWRIGHT Unavailable Unavailable BERGMAN, ODILON JENNIFER MANUFACTURING MILLWRIGHT Unavailable Unavailable BERGMAN, ODILON JENNIFER MANUFACTURING MILLWRIGHT Unavailable Unavailable BERGMAN, ODILON JENNIFER MANUFACTURING MILLWRIGHT Unavailable Unavailable BERGMAN, ODILON JENNIFER MANUFACTURING MILLWRIGHT Unavailable Unavailable BERGMAN, ODILON JENNIFER MANUFACTURING MILLWRIGHT Unavailable Unavailable BERGMAN, ODILON JENNIFER MANUFACTURING MILLWRIGHT Unavailable Unavailable BERGMAN, ODILON JENNIFER MANUFACTURING MILLWRIGHT Unavailable Unavailable BERGMAN, ODILON JENNIFER MANUFACTURING MILLWRIGHT Unavailable Unavailable BERGMAN, ODILON JENNIFER MANUFACTURING MILLWRIGHT Unavailable Unavailable BERGMAN, ODILON JENNIFER MANUFACTURING MILLWRIGHT Unavailable Unavailable BERGMAN, ODILON JENNIFER MANUFACTURING MILLWRIGHT Unavailable Unavailable BERGMAN, ODILON JENNIFER MANUFACTURING MILLWRIGHT Unavailable Unavailable BERGMAN, ODILON JENNIFER MANUFACTURING MILLWRIGHT Unavailable Unavailable BERGMAN, ODILON JENNIFER MANUFACTURING MILLWRIGHT Unavailable Unavailable BERGMAN, ODILON JENNIFER MANUFACTURING MILLWRIGHT Unavailable Unavailable BERGMAN, ODILON JENNIFER MANUFACTURING MILLWRIGHT Unavailable Unavailable BERGMAN, ODILON JENNIFER MANUFACTURING MILLWRIGHT Unavailable Unavailable BERGMAN, ODILON JENNIFER MANUFACTURING MILLWRIGHT Unavailable Unavailable BERGMAN, ODILON JENNIFER MANUFACTURING MILLWRIGHT Unavailable Unavailable BERGMAN, ODILON JENNIFER MANUFACTURING MILLWRIGHT Unavailable Unavailable BERGMAN, ODILON JENNIFER MANUFACTURING MILLWRIGHT Unavailable Unavailable YING I LIZZY PA Unavailable Unavailable Mo HE LIZZY PA Unavailable Unavailable DRAZEK I LIZZY PA Unavailable Unavailable DRAZEK, I LIZZY PA Unavailable Unavailable DRAZEK, I LIZZY PA Unavailable Unavailable DRAZEK, I LIZZY PA Unavailable Unavailable DRAZEK, I LIZZY PA Unavailable Unavailable DRAZEK, I LIZZY PA Unavailable Unavailable DRAZEK, I LIZZY PA Unavailable Unavailable DRAZEK, I LIZZY PA Unavailable Unavailable DRAZEK, I LIZZY PA Unavailable Unavailable DRAZEK, I LIZZY PA Unavailable Unavailable DRAZEK, I LIZZY PA Unavailable Unavailable DRAZEK, I LIZZY PA Unavailable Unavailable DRAZEK, I LIZZY PA Unavailable Unavailable DRAZEK, I LIZZY PA Unavailable Unavailable DRAZEK, I LIZZY PA Unavailable Unavailable DRAZEK, I LIZZY PA Unavailable Unavailable DRAZEK, I LIZZY PA Unavailable Unavailable DRAZEK, I LIZZY PA Unavailable Unavailable DRAZEK, I LIZZY PA Unavailable Unavailable DRAZEK, I LIZZY PA Unavailable Unavailable DRAZEK, I LIZZY PA Unavailable Unavailable DRAZEK, I LIZZY PA Unavailable Unavailable DRAZEK, I LIZZY PA Unavailable Unavailable DRAZEK, I LIZZY PA Unavailable Unavailable DRAZEK, I LIZZY PA Unavailable Unavailable DRAZEK, I LIZZY PA Unavailable Unavailable DRAZEK, I LIZZY PA Unavailable Unavailable DRAZEK, I LIZZY PA Unavailable Unavailable RING, K ROLAND PA Unavailable Unavailable RING, K ROLAND PA Unavailable Unavailable RING, K ROLAND PA Unavailable Unavailable RING, K ROLAND PA Unavailable Unavailable RING, K ROLAND PA Unavailable Unavailable RING, K ROLAND PA Unavailable Unavailable RING, K ROLAND PA Unavailable Unavailable RING, K ROLAND PA Unavailable Unavailable RING, K ROLAND PA Unavailable Unavailable RING, K ROLAND PA Unavailable Unavailable RING, K ROLAND PA Unavailable Unavailable RING, K ROLAND PA Unavailable Unavailable RING, K ROLAND PA Unavailable Unavailable RING, K ROLAND PA Unavailable Unavailable RING, K ROLAND PA Unavailable Unavailable RING, K ROLAND PA Unavailable Unavailable RING, K ROLAND PA Unavailable Unavailable RING, K ROLAND PA Unavailable Unavailable RING, K ROLAND PA Unavailable Unavailable RING, K ROLAND PA Unavailable Unavailable RING, K ROLAND PA Unavailable Unavailable Merry, Nicole MANUFACTURING MILLWRIGHT. Unavailable Unavailable Merry, Nicole MANUFACTURING MILLWRIGHT. Unavailable Unavailable Merry, Nicole MANUFACTURING MILLWRIGHT. Unavailable Unavailable Merry, Nicole MANUFACTURING MILLWRIGHT. Unavailable Unavailable Merry, Nicole MANUFACTURING MILLWRIGHT. Unavailable Unavailable Merry, Nicole MANUFACTURING MILLWRIGHT. Unavailable Unavailable Merry, Nicole MANUFACTURING MILLWRIGHT. Unavailable Unavailable Merry, Nicole MANUFACTURING MILLWRIGHT. Unavailable Unavailable Merry, Nicole MANUFACTURING MILLWRIGHT. Unavailable Unavailable Merry, Nicole MANUFACTURING MILLWRIGHT. Unavailable Unavailable Merry, Nicole MANUFACTURING MILLWRIGHT. Unavailable Unavailable Merry, Nicole MANUFACTURING MILLWRIGHT. Unavailable Unavailable Merry, Nicole MANUFACTURING MILLWRIGHT. Unavailable Unavailable Merry, Nicole MANUFACTURING MILLWRIGHT. Unavailable Unavailable Merry, Nicole MANUFACTURING MILLWRIGHT. Unavailable Unavailable Merry, Nicole MANUFACTURING MILLWRIGHT. Unavailable Unavailable Merry, Nicole MANUFACTURING MILLWRIGHT. Unavailable Unavailable Merry, Nicole MANUFACTURING MILLWRIGHT. Unavailable Unavailable Merry, Nicole MANUFACTURING MILLWRIGHT. Unavailable Unavailable Re-disclosure Warning The records that you are about to access may contain information from federally-assisted alcohol or drug abuse programs. If such information is present, then the following federally mandated warning applies: This information has been disclosed to you from records protected by federal confidentiality rules (42 CFR part 2). The federal rules prohibit you from making any further disclosure of this information unless further disclosure is expressly permitted by the written consent of the person to whom it pertains or as otherwise permitted by 42 CFR part 2. A general authorization for the release of medical or other information is NOT sufficient for this purpose. The Federal rules restrict any use of the information to criminally investigate or prosecute any alcohol or drug abuse patient.The records that you are about to access may contain highly sensitive health information, the redisclosure of which is protected by Article 27-F of the [facility] Public Health law. If you continue you may have access to information: Regarding HIV / AIDS; Provided by facilities licensed or operated by the [facility] Office of Mental Health; or Provided by the [facility] Office for People With Developmental Disabilities. If such information is present, then the following [facility] mandated warning applies: This information has been disclosed to you from confidential records which are protected by state law. State law prohibits you from making any further disclosure of this information without the specific written consent of the person to whom it pertains, or as otherwise permitted by law. Any unauthorized further disclosure in violation of state law may result in a fine or chcf sentence or both. A general authorization for the release of medical or other information is NOT sufficient authorization for further disc losure. Allergies and Adverse Reactions Type Description Substance Reaction Status Data Source(s ) No Known Drug Allergies No Known Drug Allergies [facility] No Known Food Allergies No Known Food Allergies [facility] Propensity to adverse reactions LATEX LATEX RASH [facility] Family History Family Member Name Family Member Gender Family Member Status Date o f Status Description Data Source(s) Unknown Male Problem MEDENT ([facility]) Encounters Encounter Providers Location Date Indications Data Source(s ) [place] [address] [facility] [address] 06/23/2021 12:00:00 AM EST eCW1 ([facility]) [place] [address] [facility] [address] 06/17/2021 12:00:00 AM EST eCW1 ([facility]) [place] [address] [facility] [address] 05/02/2021 12:00:00 AM EDT eCW1 ([facility]) [place] [address] [facility] [address] 04/28/2021 12:00:00 AM EDT eCW1 ([facility]) Out[place] [address] [facility] [address] 04/21/2021 12:00:00 AM EDT eCW1 ([facility]) [place] [address] [facility] [place] [address] 03/31/2021 12:00:00 AM EDT eCW1 ([facility]) [place] [address] [facility] [place] [address] 03/31/2021 12:00:00 AM EDT eCW1 ([facility]) [place] [address] [facility] [address] 03/28/2021 12:00:00 AM EDT eCW1 ([facility]) [place] [address] [facility] [place] [address] 03/28/2021 12:00:00 AM EDT eCW1 ([facility]) [place] [address] [facility] [place] [address] 03/28/2021 12:00:00 AM EDT eCW1 ([facility]) [place] [address] [facility] [address] 03/23/2021 12:00:00 AM EDT [facility] [place] [address] [facility] [address] 03/23/2021 12:00:00 AM EDT [facility] Outpatient Attender: Mya Travis/Cinthia/Iftikhar cortez/Hillary 03/19/2021 03:00:00 PM EDT MEDENT ([facility]ard, ) OFFICE OUTPATIENT VISIT 15 MINUTES Attender: LIZZY MANRIQUEZ Phys ical Therapy 03/18/2021 02:20:00 PM EDT MED[facility] ([facility]) [place] [address] [facility] [address] 03/04/2021 12:00:00 AM EDT [facility]CW1 [facility] [place] [address] [facility] [address] 03/04/2021 12:00:00 AM EDT [facility]1 [facility] [place] [address] [facility] [address] 03/03/2021 12:00:00 AM EDT eCW1 ([facility]) [place] [address] [facility] [address] 02/27/2021 12:00:00 AM EDT [facility]CW1 [facility] [place] [address] [facility] [address] 02/21/2021 12:00:00 AM EDT eCW1 ([facility]) [place] [address] [facility] [address] 02/18/2021 12:00:00 AM EDT [facility]CW1 [facility] [place] [address] [facility] [address] 02/18/2021 12:00:00 AM EDT [facility]CW1 [facility] [place] [address] [facility] [address] 02/18/2021 12:00:00 AM EDT [facility]CW1 [facility]) [place] [address] [facility] [place] [address] 02/18/2021 12:00:00 AM EDT [facility]) Outpatient Attender: FANY Del Castillo/Cinthia/Luis/Reindl 02/13/2021 03:00:00 PM EDT MED[facility] ([facility]) [place] [address] [facility] [address] 02/06/2021 12:00:00 AM EDT [facility]) Outpatient Attender: IZABELA mota 12/20/2020 09:05:00 AM EDT [facility] ([facility]) [place] [address] [facility] [address] 12/20/2020 12:00:00 AM EDT [facility]CW1 [facility] Unknown [address] [facility] [place] [address] 12/19/2020 12:00:00 AM EDT eCW1 ([facility]) Unknown [address] [facility] [place] [address] 12/03/2020 12:00:00 AM EDT [facility]CW1 ([facility]) [place] [address] [facility] [address] 12/03/2020 12:00:00 AM EDT [facility]CW1 ([facility] [place] [address] [facility] [address] 12/03/2020 12:00:00 AM EDT [facility]CW1 [facility]) OFFICE OUTPATIENT VISIT 15 MINUTES Attender: LIZZY MANRIQUEZ Phys ical Therapy 11/29/2020 11:20:00 AM EDT [facility] ([facility]) [place] [address] [facility] [address] 11/25/2020 12:00:00 AM EDT eCW1 ([facility]) [place] [address] [facility] [address] 11/21/2020 12:00:00 AM EDT eCW1 [facility]) Outpatient Attender: JENNIFER BERGMAN NPConsultant: Nicole Ghotra MANUFACTURING MILLWRIGHT. 11/11/2020 09:05:00 AM EDT - 11/11/2020 09:05:00 AM EDT [facility] Outpatient Attender: FANY Del Castillo/Cinthia/Luis/Reindl 11/06/2020 03:00:00 PM EDT MED[facility] ([facility]) [place] [address] [facility] [address] 10/31/2020 12:00:00 AM EDT [facility]CW1 [facility] [place] [address] [facility] [address] 10/31/2020 12:00:00 AM EDT eCW1 ([facility]) [place] [address] [facility] [address] 10/28/2020 12:00:00 AM EDT eCW1 ([facility] [place] [address] [facility] [address] 09/14/2020 12:00:00 AM EST [facility]CW1 ([facility] [place] [address] [facility] [address] 09/14/2020 12:00:00 AM EST [facility]CW1 [facility] [place] [address] [facility] [address] 09/14/2020 12:00:00 AM EST [facility]CW1 [facility] Outpatient Attender: LIZZY HE PAConsultant: Nicole Ghotra MANUFACTURING MILLWRIGHT. 09/05/2020 11:50:00 AM EST - 09/05/2020 12:50:00 PM EST [facility] Patient discharged. [place] [address] [facility] [address] 08/28/2020 12:00:00 AM EST [facility]CW1 [facility] Outpatient [address] [facility] [place] [address] 08/28/2020 12:00:00 AM EST [facility]) OFFICE OUTPATIENT VISIT 15 MINUTES Attender: LIZZY MANRIQUEZ Phys ical Therapy 08/12/2020 02:30:00 PM EST MED[facility] ([facility]) Unknown [address] [facility] [address] 08/08/2020 12:00:00 AM EST [facility]) Unknown [address] [facility] [place] [address] 07/27/2020 12:00:00 AM EST [facility]1 [facility]) Outpatient Attender: FANY Del Castillo/Cinthia/Luis/Hillary 07/17/2020 08:00:00 AM EST [facility] ([facility] Outpatient [address] [facility] [place] [address] 06/10/2020 12:00:00 AM EST [facility]) Outpatient [address] [facility] [place] [address] 06/03/2020 12:00:00 AM EDT eCW1 [facility] Outpatient Attender: ROLAND Reyes 05/19/2020 08:00:00 AM EDT MED[facility] ([facility]) Unknown [address] [facility] [address] 05/14/2020 12:00:00 AM EDT [facility]CW1 [facility] Unknown [address] [facility] [place] [address] 05/14/2020 12:00:00 AM EDT [facility]CW1 [facility] Unknown [address] [facility] [place] [address] 05/14/2020 12:00:00 AM EDT [facility]CW1 [facility] [place] [address] [facility] [address] 05/14/2020 12:00:00 AM EDT eCW1 ([facility]) [place] [address] [facility] [address] 05/14/2020 12:00:00 AM EDT eCW1 ([facility]) Unknown [address] [facility] [address] 04/30/2020 12:00:00 AM EDT eCW1 ([facility]) Immunizations Vaccine Date Status Description Data Source(s) COVID-19 dose #2 given elsewhere Unspecified 10/17/2020 02:1 4:00 PM EST completed eCW1 ([facility]) COVID-19 dose #2 given elsewhere Unspecified 10/17/2020 02:1 4:00 PM EST completed eCW1 ([facility]) COVID-19 dose #2 given elsewhere Unspecified 10/17/2020 02:1 4:00 PM EST completed eCW1 ([facility]) COVID-19 dose #2 given elsewhere Unspecified 10/17/2020 02:1 4:00 PM EST completed eCW1 ([facility]) COVID-19 dose #2 given elsewhere Unspecified 10/17/2020 02:1 4:00 PM EST completed eCW1 ([facility]) COVID-19 dose #2 given elsewhere Unspecified 10/17/2020 02:1 4:00 PM EST completed eCW1 ([facility]) COVID-19 dose #2 given elsewhere Unspecified 10/17/2020 02:1 4:00 PM EST completed eCW1 ([facility]) COVID-19 dose #2 given elsewhere Unspecified 10/17/2020 02:1 4:00 PM EST completed eCW1 ([facility]) COVID-19 dose #2 given elsewhere Unspecified 10/17/2020 02:1 4:00 PM EST completed eCW1 ([facility]) COVID-19 dose #2 given elsewhere Unspecified 10/17/2020 02:1 4:00 PM EST completed eCW1 ([facility]) COVID-19 dose #2 given elsewhere Unspecified 10/17/2020 02:1 4:00 PM EST completed eCW1 ([facility]) COVID-19 dose #2 given elsewhere Unspecified 10/17/2020 02:1 4:00 PM EST completed eCW1 ([facility]) COVID-19 dose #2 given elsewhere Unspecified 10/17/2020 02:1 4:00 PM EST completed eCW1 ([facility]) COVID-19 dose #2 given elsewhere Unspecified 10/17/2020 02:1 4:00 PM EST completed eCW1 ([facility]) COVID-19 dose #2 given elsewhere Unspecified 10/17/2020 02:1 4:00 PM EST completed eCW1 ([facility]) COVID-19 dose #2 given elsewhere Unspecified 10/17/2020 02:1 4:00 PM EST completed eCW1 ([facility]) COVID-19 dose #2 given elsewhere Unspecified 10/17/2020 02:1 4:00 PM EST completed eCW1 ([facility]) COVID-19 dose #2 given elsewhere Unspecified 10/17/2020 02:1 4:00 PM EST completed eCW1 ([facility]) COVID-19 dose #2 given elsewhere Unspecified 10/17/2020 02:1 4:00 PM EST completed eCW1 ([facility]) COVID-19 dose #2 given elsewhere Unspecified 10/17/2020 02:1 4:00 PM EST completed eCW1 ([facility]) COVID-19 dose #2 given elsewhere Unspecified 10/17/2020 02:1 4:00 PM EST completed eCW1 ([facility]) COVID-19 dose #2 given elsewhere Unspecified 10/17/2020 02:1 4:00 PM EST completed eCW1 ([facility]) COVID-19 dose #2 given elsewhere Unspecified 10/17/2020 02:1 4:00 PM EST completed eCW1 ([facility]) COVID-19 dose #2 given elsewhere Unspecified 10/17/2020 02:1 4:00 PM EST completed eCW1 ([facility]) COVID-19 dose #2 given elsewhere Unspecified 10/17/2020 02:1 4:00 PM EST completed eCW1 ([facility]) COVID-19 dose #2 given elsewhere Unspecified 10/17/2020 02:1 4:00 PM EST completed eCW1 ([facility]) COVID-19 dose #2 given elsewhere Unspecified 10/17/2020 02:1 4:00 PM EST completed eCW1 ([facility]) COVID-19 dose #2 given elsewhere Unspecified 10/17/2020 02:1 4:00 PM EST completed eCW1 ([facility]) COVID-19 dose #2 given elsewhere Unspecified 10/17/2020 02:1 4:00 PM EST completed eCW1 ([facility]) COVID-19 dose #2 given elsewhere Unspecified 10/17/2020 02:1 4:00 PM EST completed eCW1 ([facility]) COVID-19 dose #2 given elsewhere Unspecified 10/17/2020 02:1 4:00 PM EST completed eCW1 ([facility]) COVID-19 dose #2 given elsewhere Unspecified 10/17/2020 02:1 4:00 PM EST completed eCW1 ([facility]) COVID-19 VACCINE Moderna 10/17/2020 12:00:00 AM EST completed [employer] Vaccine Series Complete: YESThis Data wa s Submitted to [facility] Via [employer]. COVID-19 dose #1 given elsewhere Unspecified 09/19/2020 02:1 3:00 PM EST completed eCW1 ([facility]) COVID-19 dose #1 given elsewhere Unspecified 09/19/2020 02:1 3:00 PM EST completed eCW1 ([facility]) COVID-19 dose #1 given elsewhere Unspecified 09/19/2020 02:1 3:00 PM EST completed eCW1 ([facility]) COVID-19 dose #1 given elsewhere Unspecified 09/19/2020 02:1 3:00 PM EST completed eCW1 ([facility]) COVID-19 dose #1 given elsewhere Unspecified 09/19/2020 02:1 3:00 PM EST completed eCW1 ([facility]) COVID-19 dose #1 given elsewhere Unspecified 09/19/2020 02:1 3:00 PM EST completed eCW1 ([facility]) COVID-19 dose #1 given elsewhere Unspecified 09/19/2020 02:1 3:00 PM EST completed eCW1 ([facility]) COVID-19 dose #1 given elsewhere Unspecified 09/19/2020 02:1 3:00 PM EST completed eCW1 ([facility]) COVID-19 dose #1 given elsewhere Unspecified 09/19/2020 02:1 3:00 PM EST completed eCW1 ([facility]) COVID-19 dose #1 given elsewhere Unspecified 09/19/2020 02:1 3:00 PM EST completed eCW1 ([facility]) COVID-19 dose #1 given elsewhere Unspecified 09/19/2020 02:1 3:00 PM EST completed eCW1 ([facility]) COVID-19 dose #1 given elsewhere Unspecified 09/19/2020 02:1 3:00 PM EST completed eCW1 ([facility]) COVID-19 dose #1 given elsewhere Unspecified 09/19/2020 02:1 3:00 PM EST completed eCW1 ([facility]) COVID-19 dose #1 given elsewhere Unspecified 09/19/2020 02:1 3:00 PM EST completed eCW1 ([facility]) COVID-19 dose #1 given elsewhere Unspecified 09/19/2020 02:1 3:00 PM EST completed eCW1 ([facility]) COVID-19 dose #1 given elsewhere Unspecified 09/19/2020 02:1 3:00 PM EST completed eCW1 ([facility]) COVID-19 dose #1 given elsewhere Unspecified 09/19/2020 02:1 3:00 PM EST completed eCW1 ([facility]) COVID-19 dose #1 given elsewhere Unspecified 09/19/2020 02:1 3:00 PM EST completed eCW1 ([facility]) COVID-19 dose #1 given elsewhere Unspecified 09/19/2020 02:1 3:00 PM EST completed eCW1 ([facility]) COVID-19 dose #1 given elsewhere Unspecified 09/19/2020 02:1 3:00 PM EST completed eCW1 ([facility]) COVID-19 dose #1 given elsewhere Unspecified 09/19/2020 02:1 3:00 PM EST completed eCW1 ([facility]) COVID-19 dose #1 given elsewhere Unspecified 09/19/2020 02:1 3:00 PM EST completed eCW1 ([facility]) COVID-19 dose #1 given elsewhere Unspecified 09/19/2020 02:1 3:00 PM EST completed eCW1 ([facility]) COVID-19 dose #1 given elsewhere Unspecified 09/19/2020 02:1 3:00 PM EST completed eCW1 ([facility]) COVID-19 dose #1 given elsewhere Unspecified 09/19/2020 02:1 3:00 PM EST completed eCW1 ([facility]) COVID-19 dose #1 given elsewhere Unspecified 09/19/2020 02:1 3:00 PM EST completed eCW1 ([facility]) COVID-19 dose #1 given elsewhere Unspecified 09/19/2020 02:1 3:00 PM EST completed eCW1 ([facility]) COVID-19 dose #1 given elsewhere Unspecified 09/19/2020 02:1 3:00 PM EST completed eCW1 ([facility]) COVID-19 dose #1 given elsewhere Unspecified 09/19/2020 02:1 3:00 PM EST completed eCW1 ([facility]) COVID-19 dose #1 given elsewhere Unspecified 09/19/2020 02:1 3:00 PM EST completed eCW1 ([facility]) COVID-19 dose #1 given elsewhere Unspecified 09/19/2020 02:1 3:00 PM EST completed eCW1 ([facility]) COVID-19 dose #1 given elsewhere Unspecified 09/19/2020 02:1 3:00 PM EST completed eCW1 ([facility]) COVID-19 VACCINE Moderna 09/19/2020 12:00:00 AM EST completed [employer] Vaccine Series Complete: NOThis Data was Submitted to [facility] Via [employer]. influenza, recombinant, quadrIvalent,injectable, prese rvative free 05/14/2020 08:50:00 AM EDT completed eCW1 ([facility]) influenza, recombinant, quadrIvalent,injectable, prese rvative free 05/14/2020 08:50:00 AM EDT completed eCW1 ([facility]) influenza, recombinant, quadrIvalent,injectable, prese rvative free 05/14/2020 08:50:00 AM EDT completed eCW1 ([facility]) influenza, recombinant, quadrIvalent,injectable, prese rvative free 05/14/2020 08:50:00 AM EDT completed eCW1 ([facility]) influenza, recombinant, quadrIvalent,injectable, prese rvative free 05/14/2020 08:50:00 AM EDT completed eCW1 ([facility]) influenza, recombinant, quadrIvalent,injectable, prese rvative free 05/14/2020 08:50:00 AM EDT completed eCW1 ([facility]) influenza, recombinant, quadrIvalent,injectable, prese rvative free 05/14/2020 08:50:00 AM EDT completed eCW1 ([facility]) influenza, recombinant, quadrIvalent,injectable, prese rvative free 05/14/2020 08:50:00 AM EDT completed eCW1 ([facility]) influenza, recombinant, quadrIvalent,injectable, prese rvative free 05/14/2020 08:50:00 AM EDT completed eCW1 ([facility]) influenza, recombinant, quadrIvalent,injectable, prese rvative free 05/14/2020 08:50:00 AM EDT completed eCW1 ([facility]) influenza, recombinant, quadrIvalent,injectable, prese rvative free 05/14/2020 08:50:00 AM EDT completed eCW1 ([facility]) influenza, recombinant, quadrIvalent,injectable, prese rvative free 05/14/2020 08:50:00 AM EDT completed eCW1 ([facility]) influenza, recombinant, quadrIvalent,injectable, prese rvative free 05/14/2020 08:50:00 AM EDT completed eCW1 ([facility]) influenza, recombinant, quadrIvalent,injectable, prese rvative free 05/14/2020 08:50:00 AM EDT completed eCW1 ([facility]) influenza, recombinant, quadrIvalent,injectable, prese rvative free 05/14/2020 08:50:00 AM EDT completed eCW1 ([facility]) influenza, recombinant, quadrIvalent,injectable, prese rvative free 05/14/2020 08:50:00 AM EDT completed eCW1 ([facility]) influenza, recombinant, quadrIvalent,injectable, prese rvative free 05/14/2020 08:50:00 AM EDT completed eCW1 ([facility]) influenza, recombinant, quadrIvalent,injectable, prese rvative free 05/14/2020 08:50:00 AM EDT completed eCW1 ([facility]) influenza, recombinant, quadrIvalent,injectable, prese rvative free 05/14/2020 08:50:00 AM EDT completed eCW1 ([facility]) influenza, recombinant, quadrIvalent,injectable, prese rvative free 05/14/2020 08:50:00 AM EDT completed eCW1 ([facility]) influenza, recombinant, quadrIvalent,injectable, prese rvative free 05/14/2020 08:50:00 AM EDT completed eCW1 ([facility]) influenza, recombinant, quadrIvalent,injectable, prese rvative free 05/14/2020 08:50:00 AM EDT completed eCW1 ([facility]) influenza, recombinant, quadrIvalent,injectable, prese rvative free 05/14/2020 08:50:00 AM EDT completed eCW1 ([facility]) influenza, recombinant, quadrIvalent,injectable, prese rvative free 05/14/2020 08:50:00 AM EDT completed eCW1 ([facility]) influenza, recombinant, quadrIvalent,injectable, prese rvative free 05/14/2020 08:50:00 AM EDT completed eCW1 ([facility]) influenza, recombinant, quadrIvalent,injectable, prese rvative free 05/14/2020 08:50:00 AM EDT completed eCW1 ([facility]) influenza, recombinant, quadrIvalent,injectable, prese rvative free 05/14/2020 08:50:00 AM EDT completed eCW1 ([facility]) influenza, recombinant, quadrIvalent,injectable, prese rvative free 05/14/2020 08:50:00 AM EDT completed eCW1 ([facility]) influenza, recombinant, quadrIvalent,injectable, prese rvative free 05/14/2020 08:50:00 AM EDT completed eCW1 ([facility]) influenza, recombinant, quadrIvalent,injectable, prese rvative free 05/14/2020 08:50:00 AM EDT completed eCW1 ([facility]) influenza, recombinant, quadrIvalent,injectable, prese rvative free 05/14/2020 08:50:00 AM EDT completed eCW1 ([facility]) influenza, recombinant, quadrIvalent,injectable, prese rvative free 05/14/2020 08:50:00 AM EDT completed eCW1 ([facility]) influenza, recombinant, quadrIvalent,injectable, prese rvative free 05/14/2020 08:50:00 AM EDT completed eCW1 ([facility]) influenza, recombinant, quadrIvalent,injectable, prese rvative free 05/14/2020 08:50:00 AM EDT completed eCW1 ([facility]) influenza, recombinant, quadrIvalent,injectable, prese rvative free 05/14/2020 08:50:00 AM EDT completed eCW1 ([facility]) influenza, recombinant, quadrIvalent,injectable, prese rvative free 05/14/2020 08:50:00 AM EDT completed eCW1 ([facility]) influenza, recombinant, quadrIvalent,injectable, prese rvative free 05/14/2020 08:50:00 AM EDT completed eCW1 ([facility]) influenza, recombinant, quadrIvalent,injectable, prese rvative free 05/14/2020 08:50:00 AM EDT completed eCW1 ([facility]) influenza, recombinant, quadrIvalent,injectable, prese rvative free 05/14/2020 08:50:00 AM EDT completed eCW1 ([facility]) influenza, recombinant, quadrIvalent,injectable, prese rvative free 05/14/2020 08:50:00 AM EDT completed eCW1 ([facility]) influenza, recombinant, quadrIvalent,injectable, prese rvative free 05/14/2020 08:50:00 AM EDT completed eCW1 ([facility]) influenza, recombinant, quadrIvalent,injectable, prese rvative free 05/14/2020 08:50:00 AM EDT completed eCW1 ([facility]) influenza, recombinant, quadrIvalent,injectable, prese rvative free 05/14/2020 08:50:00 AM EDT completed eCW1 ([facility]) influenza, recombinant, quadrIvalent,injectable, prese rvative free 05/14/2020 08:50:00 AM EDT completed eCW1 ([facility]) influenza, recombinant, quadrIvalent,injectable, prese rvative free 05/14/2020 08:50:00 AM EDT completed eCW1 ([facility]) influenza, recombinant, quadrIvalent,injectable, prese rvative free 05/14/2020 08:50:00 AM EDT completed eCW1 ([facility]) Medications Medication Brand Name Start Date Product Form Dose Route Admi nistrative Instructions Pharmacy Instructions Status Indications Reaction Description Data Source(s) 5 mg 06/04/2021 12:00:00 AM EDT tablet 30 TAKE ONE TABLET BY MOUTH TWICE A DAY BEFORE MEALS TAKE ONE TABLET BY MOUTH TWICE A DAY BEFORE MEALS SOLD : 06/12/2021 [facility] 81 mg 05/29/2021 12:00:00 AM EDT tablet,delayed release (DR/EC) 30 TAKE ONE TABLET BY MOUTH ONCE DAILY TAKE ONE TABLET BY MOUTH ONCE DAILY SOLD: 06/02/2021 [facility] 400 mg 05/29/2021 12:00:00 AM EDT tablet extended release 24 hr 60 TAKE ONE TABLET BY MOUTH TWO TIMES A DAY TAKE ONE TABLET BY MOUTH TWO TIMES A DAY SOLD: 06/02/2021 [facility] 20 mg 05/06/2021 12:00:00 AM EDT tablet 30 TAKE ONE TABLET BY MOUTH EVERY DAY TAKE ONE TABLET BY MOUTH EVERY DAY SOLD: 06/02/2021 [facility] 20 mg 05/06/2021 12:00:00 AM EDT tablet 30 TAKE ONE TABLET BY MOUTH EVERY DAY TAKE ONE TABLET BY MOUTH EVERY DAY SOLD: 05/14/2021 [facility] 1 mg 04/30/2021 12:00:00 AM EDT tablet 30 TAKE ONE TABLET BY MOUTH EVERY DAY FOR 1 TO 3 HOURS BEFORE BEDTIME TAKE ONE TABLET BY MOUTH EVERY DAY FOR 1 TO 3 HOURS BEFORE BEDTIME SOLD: 05/01/2021 [facility] 5 mg 04/30/2021 12:00:00 AM EDT tablet 30 TAKE ONE TABLET BY MOUTH EVERY EVENING TAKE ONE TABLET BY MOUTH EVERY EVENING SOLD: 06/02/2021 [facility] 5 mg 04/30/2021 12:00:00 AM EDT tablet 30 TAKE ONE TABLET BY MOUTH EVERY EVENING TAKE ONE TABLET BY MOUTH EVERY EVENING SOLD: 05/01/2021 [facility] 1 mg 04/30/2021 12:00:00 AM EDT tablet 30 TAKE ONE TABLET BY MOUTH EVERY DAY FOR 1 TO 3 HOURS BEFORE BEDTIME TAKE ONE TABLET BY MOUTH EVERY DAY FOR 1 TO 3 HOURS BEFORE BEDTIME SOLD: 06/02/2021 [facility] 150 mg 04/28/2021 12:00:00 AM EDT capsule,extended releas e 24hr 30 TAKE ONE CAPSULE BY MOUTH EVERY DAY WITH FOOD TAKE ONE CAPSULE BY MOUTH EVERY DAY WITH FOOD SOLD: 06/02/2021 [facility] 150 mg 04/28/2021 12:00:00 AM EDT capsule,extended releas e 24hr 30 TAKE ONE CAPSULE BY MOUTH EVERY DAY WITH FOOD TAKE ONE CAPSULE BY MOUTH EVERY DAY WITH FOOD SOLD: 05/01/2021 [facility] montelukast 10 MG Oral Tablet MONTELUKAST SODIUM 04/25/2021 12:0 0:00 AM EDT tablet 30 TAKE ONE TABLET BY MOUTH EVERY E VENING TAKE ONE TABLET BY MOUTH EVERY EVENING SOLD: 05/01/2021 [facility] montelukast 10 MG Oral Tablet MONTELUKAST SODIUM 04/25/2021 12:0 0:00 AM EDT tablet 30 TAKE ONE TABLET BY MOUTH EVERY E VENING TAKE ONE TABLET BY MOUTH EVERY EVENING SOLD: 06/02/2021 [facility] 81 mg 04/23/2021 12:00:00 AM EDT tablet,delayed release (DR/EC) 30 TAKE ONE TABLET BY MOUTH EVERY DAY TAKE ONE TABLET BY MOUTH EVERY DAY SOLD: 05/01/2021 [facility] 80 mg 04/23/2021 12:00:00 AM EDT tablet 30 TAKE ONE TABLET BY MOUTH EVERY DAY TAKE ONE TABLET BY MOUTH EVERY DAY SOLD: 06/02/2021 [facility] 80 mg 04/23/2021 12:00:00 AM EDT tablet 30 TAKE ONE TABLET BY MOUTH EVERY DAY TAKE ONE TABLET BY MOUTH EVERY DAY SOLD: 05/01/2021 [facility] 5 mg 04/21/2021 12:00:00 AM EDT tablet 30 TAKE ONE TABLET BY MOUTH TWICE A DAY BEFORE MEAL TAKE ONE TABLET BY MOUTH TWICE A DAY BEFORE MEAL SOLD: 05/01/2021 [facility] 625 mg 04/02/2021 12:00:00 AM EDT tablet 60 TAKE ONE TABLET BY MOUTH TWICE A DAY NEEDED TAKE ONE TABLET BY MOUTH TWICE A DAY NEEDED SOLD: 06/02/2021 [facility] Metoclopramide 5 MG Oral Tablet Metoclopramide HCl 5 MG [facility] clopramide HCl 5 MG 04/02/2021 12:00:00 AM EDT 1.0 {tablet_before_meals} active Metoclopramide HCl 5 MG eCW1 ([facility]) 200 mcg/actuation 04/02/2021 12:00:00 AM EDT blister with de vice 60 INHALE ONE PUFF BY MOUTH EVERY DAY INHALE ONE PUFF BY MOUTH EVERY DAY SOLD: 04/03/2021 [facility] Lactulose 667 MG/ML Oral Solution [Constulose] Constul ose 10 GM/15ML Constulose 10 GM/15ML 04/02/2021 12:00:00 AM EDT 15.0 {ml} acti ve Constulose 10 GM/15ML eCW1 ([facility]) calcium polycarbophil 625 MG Oral Tablet [Fiber Tab] Fiber 6 25 MG Fiber 625 MG 04/02/2021 12:00:00 AM EDT 1.0 {tablet} suspended Fiber 625 MG eCW1 ([facility]) calcium polycarbophil 625 MG Oral Tablet [Fiber Tab] Fiber 6 25 MG Fiber 625 MG 04/02/2021 12:00:00 AM EDT 1.0 {tablet} suspended Fiber 625 MG eCW1 ([facility]) calcium polycarbophil 625 MG Oral Tablet [Fiber Tab] Fiber 6 25 MG Fiber 625 MG 04/02/2021 12:00:00 AM EDT 1.0 {tablet} suspended Fiber 625 MG eCW1 ([facility]) calcium polycarbophil 625 MG Oral Tablet [Fiber Tab] Fiber 6 25 MG Fiber 625 MG 04/02/2021 12:00:00 AM EDT 1.0 {tablet} active Fiber 625 MG eCW1 ([facility]) 625 mg 04/02/2021 12:00:00 AM EDT tablet 60 TAKE ONE TABLET BY MOUTH TWICE A DAY NEEDED TAKE ONE TABLET BY MOUTH TWICE A DAY NEEDED SOLD: 04/03/2021 [facility] Metoclopramide 5 MG Oral Tablet Metoclopramide HCl 5 MG [facility] clopramide HCl 5 MG 04/02/2021 12:00:00 AM EDT 1.0 {tablet_before_meals} active Metoclopramide HCl 5 MG eCW1 ([facility]) 625 mg 04/02/2021 12:00:00 AM EDT tablet 60 TAKE ONE TABLET BY MOUTH TWICE A DAY NEEDED TAKE ONE TABLET BY MOUTH TWICE A DAY NEEDED SOLD: 05/14/2021 [facility] calcium polycarbophil 625 MG Oral Tablet [Fiber Tab] Fiber 6 25 MG Fiber 625 MG 04/02/2021 12:00:00 AM EDT 1.0 {tablet} suspended Fiber 625 MG eCW1 ([facility]) Metoclopramide 5 MG Oral Tablet Metoclopramide HCl 5 MG [facility] clopramide HCl 5 MG 04/02/2021 12:00:00 AM EDT 1.0 {tablet_before_meals} active Metoclopramide HCl 5 MG eCW1 ([facility]) Lactulose 667 MG/ML Oral Solution [Constulose] Constul ose 10 GM/15ML Constulose 10 GM/15ML 04/02/2021 12:00:00 AM EDT 15.0 {ml} susp ended Constulose 10 GM/15ML eCW1 ([facility]) Metoclopramide 5 MG Oral Tablet Metoclopramide HCl 5 MG [facility] clopramide HCl 5 MG 04/02/2021 12:00:00 AM EDT 1.0 {tablet_before_meals} active eCW1 ([facility]) calcium polycarbophil 625 MG Oral Tablet [Fiber Tab] Fiber 6 25 MG Fiber 625 MG 04/02/2021 12:00:00 AM EDT 1.0 {tablet} suspended eCW1 ([facility]) 10 gram/15 mL 04/02/2021 12:00:00 AM EDT solution 450 TAKE 15MLS BY MOUTH ONCE DAILY TAKE 15MLS BY MOUTH ONCE DAILY SOLD: 04/03/2021 [facility] Metoclopramide 5 MG Oral Tablet Metoclopramide HCl 5 MG [facility] clopramide HCl 5 MG 04/02/2021 12:00:00 AM EDT 1.0 {tablet_before_meals} active Metoclopramide HCl 5 MG eCW1 ([facility]) calcium polycarbophil 625 MG Oral Tablet [Fiber Tab] Fiber 6 25 MG Fiber 625 MG 04/02/2021 12:00:00 AM EDT 1.0 {tablet} active Fiber 625 MG eCW1 ([facility]) Metoclopramide 5 MG Oral Tablet Metoclopramide HCl 5 MG [facility] clopramide HCl 5 MG 04/02/2021 12:00:00 AM EDT 1.0 {tablet_before_meals} active Metoclopramide HCl 5 MG eCW1 ([facility]) Lactulose 667 MG/ML Oral Solution [Constulose] Constul ose 10 GM/15ML Constulose 10 GM/15ML 04/02/2021 12:00:00 AM EDT 15.0 {ml} susp ended Constulose 10 GM/15ML eCW1 ([facility]) Metoclopramide 5 MG Oral Tablet Metoclopramide HCl 5 MG [facility] clopramide HCl 5 MG 04/02/2021 12:00:00 AM EDT 1.0 {tablet_before_meals} active Metoclopramide HCl 5 MG eCW1 ([facility]) calcium polycarbophil 625 MG Oral Tablet [Fiber Tab] Fiber 6 25 MG Fiber 625 MG 04/02/2021 12:00:00 AM EDT 1.0 {tablet} suspended Fiber 625 MG eCW1 ([facility]) Lactulose 667 MG/ML Oral Solution [Constulose] Constul ose 10 GM/15ML Constulose 10 GM/15ML 04/02/2021 12:00:00 AM EDT 15.0 {ml} suspende d eCW1 ([facility]) Metoclopramide 5 MG Oral Tablet Metoclopramide HCl 5 MG [facility] clopramide HCl 5 MG 04/02/2021 12:00:00 AM EDT 1.0 {tablet_before_meals} active Metoclopramide HCl 5 MG eCW1 ([facility]) Lactulose 667 MG/ML Oral Solution [Constulose] Constul ose 10 GM/15ML Constulose 10 GM/15ML 04/02/2021 12:00:00 AM EDT 15.0 {ml} susp ended Constulose 10 GM/15ML eCW1 ([facility]) Lactulose 667 MG/ML Oral Solution [Constulose] Constul ose 10 GM/15ML Constulose 10 GM/15ML 04/02/2021 12:00:00 AM EDT 15.0 {ml} acti ve Constulose 10 GM/15ML eCW1 ([facility]) Lactulose 667 MG/ML Oral Solution [Constulose] Constul ose 10 GM/15ML Constulose 10 GM/15ML 04/02/2021 12:00:00 AM EDT 15.0 {ml} susp ended Constulose 10 GM/15ML eCW1 ([facility]) 5 mg 04/02/2021 12:00:00 AM EDT tablet 30 TAKE ONE TABLET BY MOUTH TWICE A DAY BEFORE MEALS TAKE ONE TABLET BY MOUTH TWICE A DAY BEFORE MEALS SOLD : 04/03/2021 [facility] Lactulose 667 MG/ML Oral Solution [Constulose] Constul ose 10 GM/15ML Constulose 10 GM/15ML 04/02/2021 12:00:00 AM EDT 15.0 {ml} susp ended Constulose 10 GM/15ML eCW1 ([facility]) 150 mg 04/02/2021 12:00:00 AM EDT capsule,extended releas e 24hr 30 TAKE ONE CAPSULE BY MOUTH EVERY DAY WITH FOOD TAKE ONE CAPSULE BY MOUTH EVERY DAY WITH FOOD SOLD: 04/03/2021 [facility] 5 mg 03/27/2021 12:00:00 AM EDT tablet 20 TAKE 1 TABLET BY MOUTH BEFORE MEALS AND AT BEDTIME TAKE 1 TABLET BY MOUTH BEFORE MEALS AND AT BEDTIME MEET [facility] 80 mg 03/25/2021 12:00:00 AM EDT tablet 30 TAKE ONE TABLET BY MOUTH EVERY DAY TAKE ONE TABLET BY MOUTH EVERY DAY SOLD: 03/28/2021 [facility] 81 mg 03/25/2021 12:00:00 AM EDT tablet,delayed release (DR/EC) 30 TAKE ONE TABLET BY MOUTH EVERY DAY TAKE ONE TABLET BY MOUTH EVERY DAY SOLD: 03/28/2021 [facility] 17 gram/dose 03/20/2021 12:00:00 AM EDT powder 510 USE DIRECTED BY DOCTOR FOR BOWEL PREP USE DIRECTED BY DOCTOR FOR BOWEL PREP SOLD: 03/26/2021 [facility] MAGNESIUM CITRATE 03/20/2021 12:00:00 AM EDT solution 296 DRINK 1 OUNCE BOTTLE PRIOR TO PROCEDURE FOR ADDITIONAL BOWEL PREP PER INSTRUCTIONS DRINK 1 OUNCE BOTTLE PRIOR TO PROCEDURE FOR ADDITIONAL BOWEL PREP PER INSTRUCTIONS SOLD: 03/26/2021 [facility] magnesium citrate 58.2 MG/ML Oral Solution Magnesium Citrate 03/19/2021 12:00:00 AM EDT active MEDENT ([facility], ) POLYETHYLENE GLYCOL 3350 142 MG/ML Oral Solution [Miralax] M iralax 03/19/2021 12:00:00 AM EDT active M EDENT ([facility], ) 80 mg 02/28/2021 12:00:00 AM EDT tablet 30 TAKE ONE TABLET BY MOUTH EVERY DAY TAKE ONE TABLET BY MOUTH EVERY DAY SOLD: 03/02/2021 [facility] 81 mg 02/28/2021 12:00:00 AM EDT tablet,delayed release (DR/EC) 30 TAKE ONE TABLET BY MOUTH EVERY DAY TAKE ONE TABLET BY MOUTH EVERY DAY SOLD: 03/02/2021 [facility] 20 mg 02/28/2021 12:00:00 AM EDT tablet 30 TAKE ONE TABLET BY MOUTH EVERY DAY TAKE ONE TABLET BY MOUTH EVERY DAY SOLD: 03/02/2021 [facility] 20 mg 02/28/2021 12:00:00 AM EDT tablet 30 TAKE ONE TABLET BY MOUTH EVERY DAY TAKE ONE TABLET BY MOUTH EVERY DAY SOLD: 03/28/2021 [facility] atorvastatin 80 MG Oral Tablet Atorvastatin Calcium 80 MG Atorvastatin Calcium 80 MG 02/27/2021 12:00:00 AM EDT 1.0 {tablet} activ e Atorvastatin Calcium 80 MG eCW1 ([facility]) Furosemide 20 MG Oral Tablet Furosemide 20 MG 02/27/2021 12:00:00 A M EDT 1.0 {tablet} active Furosemide 20 MG eCW1 ( [facility]) Furosemide 20 MG Oral Tablet Furosemide 20 MG 02/27/2021 12:00:00 A M EDT 1.0 {tablet} active Furosemide 20 MG eCW1 ( [facility]) Furosemide 20 MG Oral Tablet Furosemide 20 MG 02/27/2021 12:00:00 A M EDT 1.0 {tablet} active Furosemide 20 MG eCW1 ( [facility]) Furosemide 20 MG Oral Tablet Furosemide 20 MG 02/27/2021 12:00:00 A M EDT 1.0 {tablet} active Furosemide 20 MG eCW1 ( [facility]) Furosemide 20 MG Oral Tablet Furosemide 20 MG 02/27/2021 12:00:00 A M EDT 1.0 {tablet} active Furosemide 20 MG eCW1 ( [facility]) Furosemide 20 MG Oral Tablet Furosemide 20 MG 02/27/2021 12:00:00 A M EDT 1.0 {tablet} active Furosemide 20 MG eCW1 ( [facility]) Furosemide 20 MG Oral Tablet Furosemide 20 MG 02/27/2021 12:00:00 A M EDT 1.0 {tablet} active Furosemide 20 MG eCW1 ( [facility]) Furosemide 20 MG Oral Tablet Furosemide 20 MG 02/27/2021 12:00:00 A M EDT 1.0 {tablet} active Furosemide 20 MG eCW1 ( [facility]) Furosemide 20 MG Oral Tablet Furosemide 20 MG 02/27/2021 12:00:00 A M EDT 1.0 {tablet} active Furosemide 20 MG eCW1 ( [facility]) Furosemide 20 MG Oral Tablet Furosemide 20 MG 02/27/2021 12:00:00 A M EDT 1.0 {tablet} active Furosemide 20 MG eCW1 ( [facility]) Furosemide 20 MG Oral Tablet Furosemide 20 MG 02/27/2021 12:00:00 A M EDT 1.0 {tablet} active eCW1 ([facility]) Furosemide 20 MG Oral Tablet Furosemide 20 MG 02/27/2021 12:00:00 A M EDT 1.0 {tablet} active Furosemide 20 MG eCW1 ( [facility]) Furosemide 20 MG Oral Tablet Furosemide 20 MG 02/27/2021 12:00:00 A M EDT 1.0 {tablet} active Furosemide 20 MG eCW1 ( [facility]) Furosemide 20 MG Oral Tablet Furosemide 20 MG 02/27/2021 12:00:00 A M EDT 1.0 {tablet} active Furosemide 20 MG eCW1 ( [facility]) Furosemide 20 MG Oral Tablet Furosemide 20 MG 02/27/2021 12:00:00 A M EDT 1.0 {tablet} active Furosemide 20 MG eCW1 ( [facility]) Furosemide 20 MG Oral Tablet Furosemide 20 MG 02/27/2021 12:00:00 A M EDT 1.0 {tablet} active Furosemide 20 MG eCW1 ( [facility]) atorvastatin 80 MG Oral Tablet Atorvastatin Calcium 80 MG Atorvastatin Calcium 80 MG 02/27/2021 12:00:00 AM EDT 1.0 {tablet} activ e Atorvastatin Calcium 80 MG eCW1 ([facility]) Aspirin 81 MG Delayed Release Oral Tablet Aspirin 81 MG 02/27/2021 12:00:00 AM EDT 1.0 {tablet} active Aspirin 81 MG eCW1 ([facility]) Aspirin 81 MG Delayed Release Oral Tablet Aspirin 81 MG 02/27/2021 12:00:00 AM EDT 1.0 {tablet} active Aspirin 81 MG eCW1 ([facility]) Furosemide 20 MG Oral Tablet Furosemide 20 MG 02/27/2021 12:00:00 A M EDT 1.0 {tablet} active Furosemide 20 MG eCW1 ( [facility]) Aspirin 81 MG Delayed Release Oral Tablet Aspirin 81 MG 02/27/2021 12:00:00 AM EDT 1.0 {tablet} active Aspirin 81 MG eCW1 ([facility]) atorvastatin 80 MG Oral Tablet Atorvastatin Calcium 80 MG Atorvastatin Calcium 80 MG 02/27/2021 12:00:00 AM EDT 1.0 {tablet} activ e Atorvastatin Calcium 80 MG eCW1 ([facility]) 60 ACTUAT Fluticasone propionate 0.055 M G/ACTUAT / Salmeterol xinafoate 0.014 MG/ACTUAT Dry Powder Inhaler 55-14 mcg/actuation FLUTICASONE PROPION/SALMETEROL 02/22/2021 12:00:00 AM EDT aerosol powdr breath activated 1 INHALE ONE PUFF BY MOUTH TWICE A DAY INHALE ONE PUFF BY MOUTH TWICE A DAY SOLD: 03/02/2021 [facility] 60 ACTUAT Fluticasone propionate 0.055 M G/ACTUAT / Salmeterol xinafoate 0.014 MG/ACTUAT Dry Powder Inhaler 55-14 mcg/actuation FLUTICASONE PROPION/SALMETEROL 02/22/2021 12:00:00 AM EDT aerosol powdr breath activated 1 INHALE ONE PUFF BY MOUTH TWICE A DAY INHALE ONE PUFF BY MOUTH TWICE A DAY SOLD: 04/01/2021 [facility] 10 gram/15 mL 02/18/2021 12:00:00 AM EDT solution 473 TAKE 15 MLS BY MOUTH ONCE A DAY TAKE 15 MLS BY MOUTH ONCE A DAY SOLD: 02/21/2021 [facility] 150 mg 02/17/2021 12:00:00 AM EDT capsule,extended releas e 24hr 30 TAKE ONE CAPSULE BY MOUTH EVERY DAY WITH FOOD TAKE ONE CAPSULE BY MOUTH EVERY DAY WITH FOOD SOLD: 02/21/2021 [facility] 400 mg 02/15/2021 12:00:00 AM EDT tablet extended release 24 hr 60 TAKE ONE TABLET BY MOUTH TWO TIMES A DAY TAKE ONE TABLET BY MOUTH TWO TIMES A DAY SOLD: 05/01/2021 [facility] 400 mg 02/15/2021 12:00:00 AM EDT tablet extended release 24 hr 60 TAKE ONE TABLET BY MOUTH TWO TIMES A DAY TAKE ONE TABLET BY MOUTH TWO TIMES A DAY SOLD: 02/21/2021 [facility] 400 mg 02/15/2021 12:00:00 AM EDT tablet extended release 24 hr 60 TAKE ONE TABLET BY MOUTH TWO TIMES A DAY TAKE ONE TABLET BY MOUTH TWO TIMES A DAY SOLD: 03/28/2021 [facility] 20 mg 01/15/2021 12:00:00 AM EDT capsule,delayed release (DR/EC) 60 TAKE ONE CAPSULE BY MOUTH TWICE A DAY TAKE ONE CAPSULE BY MOUTH TWICE A DAY SOLD: 01/20/2021 [facility] 625 mg 01/15/2021 12:00:00 AM EDT tablet 60 TAKE ONE TABLET BY MOUTH TWICE A DAY NEEDED TAKE ONE TABLET BY MOUTH TWICE A DAY NEEDED SOLD: 021 [facility] 200 mcg/actuation 01/15/2021 12:00:00 AM EDT blister with de vice 30 INHALE ONE PUFF BY MOUTH EVERY DAY INHALE ONE PUFF BY MOUTH EVERY DAY SOLD: 01/20/2021 [facility] 625 mg 01/15/2021 12:00:00 AM EDT tablet 60 TAKE ONE TABLET BY MOUTH TWICE A DAY NEEDED TAKE ONE TABLET BY MOUTH TWICE A DAY NEEDED SOLD: [facility] 200 mcg/actuation 01/15/2021 12:00:00 AM EDT blister with de vice 30 INHALE ONE PUFF BY MOUTH EVERY DAY INHALE ONE PUFF BY MOUTH EVERY DAY SOLD: 02/21/2021 [facility] 20 mg 01/15/2021 12:00:00 AM EDT capsule,delayed release (DR/EC) 60 TAKE ONE CAPSULE BY MOUTH TWICE A DAY TAKE ONE CAPSULE BY MOUTH TWICE A DAY SOLD: 05/01/2021 [facility] 20 mg 01/15/2021 12:00:00 AM EDT capsule,delayed release (DR/EC) 60 TAKE ONE CAPSULE BY MOUTH TWICE A DAY TAKE ONE CAPSULE BY MOUTH TWICE A DAY SOLD: 03/28/2021 [facility] 20 mg 01/15/2021 12:00:00 AM EDT capsule,delayed release (DR/EC) 60 TAKE ONE CAPSULE BY MOUTH TWICE A DAY TAKE ONE CAPSULE BY MOUTH TWICE A DAY SOLD: 06/02/2021 [facility] 20 mg 01/15/2021 12:00:00 AM EDT capsule,delayed release (DR/EC) 60 TAKE ONE CAPSULE BY MOUTH TWICE A DAY TAKE ONE CAPSULE BY MOUTH TWICE A DAY SOLD: 02/21/2021 [facility] 40 mg 01/13/2021 12:00:00 AM EDT tablet 30 TAKE ONE TABLET BY MOUTH EVERY DAY TAKE ONE TABLET BY MOUTH EVERY DAY SOLD: 01/20/2021 [facility] 40 mg 01/13/2021 12:00:00 AM EDT tablet 30 TAKE ONE TABLET BY MOUTH EVERY DAY TAKE ONE TABLET BY MOUTH EVERY DAY SOLD: 02/21/2021 [facility] 300 mg 01/12/2021 12:00:00 AM EDT capsule 30 TAKE ONE CAPSULE BY MOUTH AT BEDTIME TAKE ONE CAPSULE BY MOUTH AT BEDTIME SOLD: 01/20/2021 [facility] 300 mg 01/12/2021 12:00:00 AM EDT capsule 30 TAKE ONE CAPSULE BY MOUTH AT BEDTIME TAKE ONE CAPSULE BY MOUTH AT BEDTIME SOLD: 06/02/2021 [facility] 300 mg 01/12/2021 12:00:00 AM EDT capsule 30 TAKE ONE CAPSULE BY MOUTH AT BEDTIME TAKE ONE CAPSULE BY MOUTH AT BEDTIME SOLD: 02/21/2021 [facility] 300 mg 01/12/2021 12:00:00 AM EDT capsule 30 TAKE ONE CAPSULE BY MOUTH AT BEDTIME TAKE ONE CAPSULE BY MOUTH AT BEDTIME SOLD: 05/01/2021 [facility] 300 mg 01/12/2021 12:00:00 AM EDT capsule 30 TAKE ONE CAPSULE BY MOUTH AT BEDTIME TAKE ONE CAPSULE BY MOUTH AT BEDTIME SOLD: 03/28/2021 [facility] 150 mg 01/12/2021 12:00:00 AM EDT capsule,extended releas e 24hr 30 TAKE ONE CAPSULE BY MOUTH EVERY DAY WITH FOOD TAKE ONE CAPSULE BY MOUTH EVERY DAY WITH FOOD SOLD: 01/20/2021 [facility] Ondansetron 4 MG Disintegrating Oral Tablet ONDANSETRON 12/20/2020 12:00:00 AM EDT tablet,disintegrating 14 PLACE ONE TABLET BY MOUTH EVERY 8 HOURS NEEDED FOR NAUSEA PLACE ONE TABLET BY MOUTH EVERY 8 HOURS NEEDED FOR NAUSEA SOLD: 12/20/2020 [facility] Ondansetron 4 MG Disintegrating Oral Tablet Ondansetron 12/20/2020 12:00:00 AM EDT active MEDENT ([facility]) 300 mg 12/19/2020 12:00:00 AM EDT capsule 30 TAKE ONE CAPSULE BY MOUTH EVERY DAY AT BEDTIME TAKE ONE CAPSULE BY MOUTH EVERY DAY AT BEDTIME SOLD: [facility] 150 mg 12/17/2020 12:00:00 AM EDT capsule,extended releas e 24hr 30 TAKE ONE CAPSULE BY MOUTH EVERY DAY WITH FOOD TAKE ONE CAPSULE BY MOUTH EVERY DAY WITH FOOD SOLD: 12/20/2020 [facility] 5 mg 12/12/2020 12:00:00 AM EDT tablet 30 TAKE ONE TABLET BY MOUTH EVERY EVENING TAKE ONE TABLET BY MOUTH EVERY EVENING SOLD: 03/28/2021 [facility] 5 mg 12/12/2020 12:00:00 AM EDT tablet 30 TAKE ONE TABLET BY MOUTH EVERY EVENING TAKE ONE TABLET BY MOUTH EVERY EVENING SOLD: 02/21/2021 [facility] 5 mg 12/12/2020 12:00:00 AM EDT tablet 30 TAKE ONE TABLET BY MOUTH EVERY EVENING TAKE ONE TABLET BY MOUTH EVERY EVENING SOLD: 01/20/2021 [facility] 5 mg 12/12/2020 12:00:00 AM EDT tablet 30 TAKE ONE TABLET BY MOUTH EVERY EVENING TAKE ONE TABLET BY MOUTH EVERY EVENING SOLD: 12/18/2020 [facility] 150 mg 11/11/2020 12:00:00 AM EDT capsule,extended releas e 24hr 30 TAKE ONE CAPSULE BY MOUTH EVERY DAY WITH FOOD TAKE ONE CAPSULE BY MOUTH EVERY DAY WITH FOOD SOLD: 11/15/2020 [facility] montelukast 10 MG Oral Tablet MONTELUKAST SODIUM 11/08/2020 12:0 0:00 AM EDT tablet 30 TAKE ONE TABLET BY MOUTH EVERY E VENING TAKE ONE TABLET BY MOUTH EVERY EVENING SOLD: 12/18/2020 [facility] montelukast 10 MG Oral Tablet MONTELUKAST SODIUM 11/08/2020 12:0 0:00 AM EDT tablet 30 TAKE ONE TABLET BY MOUTH EVERY E VENING TAKE ONE TABLET BY MOUTH EVERY EVENING SOLD: 11/15/2020 [facility] 400 mg 11/08/2020 12:00:00 AM EDT tablet extended release 24 hr 60 TAKE ONE TABLET BY MOUTH TWO TIMES A DAY TAKE ONE TABLET BY MOUTH TWO TIMES A DAY SOLD: 01/20/2021 [facility] montelukast 10 MG Oral Tablet MONTELUKAST SODIUM 11/08/2020 12:0 0:00 AM EDT tablet 30 TAKE ONE TABLET BY MOUTH EVERY E VENING TAKE ONE TABLET BY MOUTH EVERY EVENING SOLD: 03/28/2021 [facility] montelukast 10 MG Oral Tablet MONTELUKAST SODIUM 11/08/2020 12:0 0:00 AM EDT tablet 30 TAKE ONE TABLET BY MOUTH EVERY E VENING TAKE ONE TABLET BY MOUTH EVERY EVENING SOLD: 02/21/2021 [facility] 400 mg 11/08/2020 12:00:00 AM EDT tablet extended release 24 hr 60 TAKE ONE TABLET BY MOUTH TWO TIMES A DAY TAKE ONE TABLET BY MOUTH TWO TIMES A DAY SOLD: 12/18/2020 [facility] 400 mg 11/08/2020 12:00:00 AM EDT tablet extended release 24 hr 60 TAKE ONE TABLET BY MOUTH TWO TIMES A DAY TAKE ONE TABLET BY MOUTH TWO TIMES A DAY SOLD: 11/15/2020 [facility] montelukast 10 MG Oral Tablet MONTELUKAST SODIUM 11/08/2020 12:0 0:00 AM EDT tablet 30 TAKE ONE TABLET BY MOUTH EVERY E VENING TAKE ONE TABLET BY MOUTH EVERY EVENING SOLD: 01/20/2021 [facility] Prednisone 20 MG Oral Tablet PredniSONE 20 MG PredniSONE 20 MG 10/31/2020 12:00:00 AM EDT 2.0 {tablets} active P redniSONE 20 MG eCW1 ([facility]) Prednisone 20 MG Oral Tablet predniSONE 20 MG predniSONE 20 MG 10/31/2020 12:00:00 AM EDT 2.0 {tablets} suspended predniSONE 20 MG eCW1 ([facility]) Prednisone 20 MG Oral Tablet PredniSONE 20 MG PredniSONE 20 MG 10/31/2020 12:00:00 AM EDT 2.0 {tablets} active P redniSONE 20 MG eCW1 ([facility]) Prednisone 20 MG Oral Tablet PredniSONE 20 MG PredniSONE 20 MG 10/31/2020 12:00:00 AM EDT 2.0 {tablets} active P redniSONE 20 MG eCW1 ([facility]) Prednisone 20 MG Oral Tablet predniSONE 20 MG predniSONE 20 MG 10/31/2020 12:00:00 AM EDT 2.0 {tablets} suspended predniSONE 20 MG eCW1 ([facility]) Prednisone 20 MG Oral Tablet predniSONE 20 MG predniSONE 20 MG 10/31/2020 12:00:00 AM EDT 2.0 {tablets} suspended predniSONE 20 MG eCW1 ([facility]) Prednisone 20 MG Oral Tablet predniSONE 20 MG predniSONE 20 MG 10/31/2020 12:00:00 AM EDT 2.0 {tablets} suspended predniSONE 20 MG eCW1 ([facility]) Prednisone 20 MG Oral Tablet predniSONE 20 MG predniSONE 20 MG 10/31/2020 12:00:00 AM EDT 2.0 {tablets} suspended predniSONE 20 MG eCW1 ([facility]) Prednisone 20 MG Oral Tablet PredniSONE 20 MG PredniSONE 20 MG 10/31/2020 12:00:00 AM EDT 2.0 {tablets} active P redniSONE 20 MG eCW1 ([facility]) Prednisone 20 MG Oral Tablet predniSONE 20 MG predniSONE 20 MG 10/31/2020 12:00:00 AM EDT 2.0 {tablets} suspended predniSONE 20 MG eCW1 ([facility]) Prednisone 20 MG Oral Tablet PredniSONE 20 MG PredniSONE 20 MG 10/31/2020 12:00:00 AM EDT 2.0 {tablets} active P redniSONE 20 MG eCW1 ([facility]) Prednisone 20 MG Oral Tablet PredniSONE 20 MG PredniSONE 20 MG 10/31/2020 12:00:00 AM EDT 2.0 {tablets} active P redniSONE 20 MG eCW1 ([facility]) Prednisone 20 MG Oral Tablet predniSONE 20 MG predniSONE 20 MG 10/31/2020 12:00:00 AM EDT 2.0 {tablets} suspended predniSONE 20 MG eCW1 ([facility]) Prednisone 20 MG Oral Tablet predniSONE 20 MG predniSONE 20 MG 10/31/2020 12:00:00 AM EDT 2.0 {tablets} suspended predniSONE 20 MG eCW1 ([facility]) Prednisone 20 MG Oral Tablet predniSONE 20 MG predniSONE 20 MG 10/31/2020 12:00:00 AM EDT 2.0 {tablets} suspended predniSONE 20 MG eCW1 ([facility]) Prednisone 20 MG Oral Tablet predniSONE 20 MG predniSONE 20 MG 10/31/2020 12:00:00 AM EDT 2.0 {tablets} suspended eCW1 ([facility]) Prednisone 20 MG Oral Tablet PredniSONE 20 MG PredniSONE 20 MG 10/31/2020 12:00:00 AM EDT 2.0 {tablets} active P redniSONE 20 MG eCW1 ([facility]) Prednisone 20 MG Oral Tablet predniSONE 20 MG predniSONE 20 MG 10/31/2020 12:00:00 AM EDT 2.0 {tablets} suspended predniSONE 20 MG eCW1 ([facility]) Prednisone 20 MG Oral Tablet PredniSONE 20 MG PredniSONE 20 MG 10/31/2020 12:00:00 AM EDT 2.0 {tablets} active P redniSONE 20 MG eCW1 ([facility]) Prednisone 20 MG Oral Tablet predniSONE 20 MG predniSONE 20 MG 10/31/2020 12:00:00 AM EDT 2.0 {tablets} suspended predniSONE 20 MG eCW1 ([facility]) Prednisone 20 MG Oral Tablet predniSONE 20 MG predniSONE 20 MG 10/31/2020 12:00:00 AM EDT 2.0 {tablets} suspended predniSONE 20 MG eCW1 ([facility]) Prednisone 20 MG Oral Tablet PredniSONE 20 MG PredniSONE 20 MG 10/31/2020 12:00:00 AM EDT 2.0 {tablets} active P redniSONE 20 MG eCW1 ([facility]) Prednisone 20 MG Oral Tablet predniSONE 20 MG predniSONE 20 MG 10/31/2020 12:00:00 AM EDT 2.0 {tablets} suspended predniSONE 20 MG eCW1 ([facility]) Prednisone 20 MG Oral Tablet predniSONE 20 MG predniSONE 20 MG 10/31/2020 12:00:00 AM EDT 2.0 {tablets} suspended predniSONE 20 MG eCW1 ([facility]) 20 mg 10/31/2020 12:00:00 AM EDT tablet 10 TAKE TWO TABLETS BY MOUTH EVERY DAY FOR 5 DAYS TAKE TWO TABLETS BY MOUTH EVERY DAY FOR 5 DAYS SOLD: 021 [facility] Prednisone 20 MG Oral Tablet PredniSONE 20 MG PredniSONE 20 MG 10/31/2020 12:00:00 AM EDT 2.0 {tablets} active P redniSONE 20 MG eCW1 ([facility]) Prednisone 20 MG Oral Tablet predniSONE 20 MG predniSONE 20 MG 10/31/2020 12:00:00 AM EDT 2.0 {tablets} suspended predniSONE 20 MG eCW1 ([facility]) Prednisone 20 MG Oral Tablet predniSONE 20 MG predniSONE 20 MG 10/31/2020 12:00:00 AM EDT 2.0 {tablets} suspended predniSONE 20 MG eCW1 ([facility]) Prednisone 20 MG Oral Tablet predniSONE 20 MG predniSONE 20 MG 10/31/2020 12:00:00 AM EDT 2.0 {tablets} suspended predniSONE 20 MG eCW1 ([facility]) Prednisone 20 MG Oral Tablet predniSONE 20 MG predniSONE 20 MG 10/31/2020 12:00:00 AM EDT 2.0 {tablets} suspended predniSONE 20 MG eCW1 ([facility]) Prednisone 20 MG Oral Tablet predniSONE 20 MG predniSONE 20 MG 10/31/2020 12:00:00 AM EDT 2.0 {tablets} suspended predniSONE 20 MG eCW1 ([facility]) Prednisone 20 MG Oral Tablet predniSONE 20 MG predniSONE 20 MG 10/31/2020 12:00:00 AM EDT 2.0 {tablets} suspended predniSONE 20 MG eCW1 ([facility]) Prednisone 20 MG Oral Tablet predniSONE 20 MG predniSONE 20 MG 10/31/2020 12:00:00 AM EDT 2.0 {tablets} suspended predniSONE 20 MG eCW1 ([facility]) Covid-19 vaccine, Unspecified 10/17/2020 12:00:00 AM EST completed MEDENT ([facility]) Medication administered onsite Covid-19 vaccine, Unspecified 10/17/2020 12:00:00 AM EST completed MEDENT ([facility] ) Medication administered onsite 625 mg 10/08/2020 12:00:00 AM EST tablet 60 TAKE ONE TABLET BY MOUTH TWICE A DAY NEEDED TAKE ONE TABLET BY MOUTH TWICE A DAY NEEDED SOLD: [facility] 200 mcg/actuation 10/08/2020 12:00:00 AM EST blister with de vice 30 INHALE ONE PUFF BY MOUTH EVERY DAY INHALE ONE PUFF BY MOUTH EVERY DAY SOLD: 10/14/2020 [facility] 40 mg 10/08/2020 12:00:00 AM EST tablet 30 TAKE ONE TABLET BY MOUTH EVERY DAY TAKE ONE TABLET BY MOUTH EVERY DAY SOLD: 11/15/2020 [facility] 40 mg 10/08/2020 12:00:00 AM EST tablet 30 TAKE ONE TABLET BY MOUTH EVERY DAY TAKE ONE TABLET BY MOUTH EVERY DAY SOLD: 12/18/2020 [facility] 200 mcg/actuation 10/08/2020 12:00:00 AM EST blister with de vice 30 INHALE ONE PUFF BY MOUTH EVERY DAY INHALE ONE PUFF BY MOUTH EVERY DAY SOLD: 12/18/2020 [facility] 200 mcg/actuation 10/08/2020 12:00:00 AM EST blister with de vice 30 INHALE ONE PUFF BY MOUTH EVERY DAY INHALE ONE PUFF BY MOUTH EVERY DAY SOLD: 11/15/2020 [facility] 40 mg 10/08/2020 12:00:00 AM EST tablet 30 TAKE ONE TABLET BY MOUTH EVERY DAY TAKE ONE TABLET BY MOUTH EVERY DAY SOLD: 10/14/2020 [facility] 625 mg 10/08/2020 12:00:00 AM EST tablet 60 TAKE ONE TABLET BY MOUTH TWICE A DAY NEEDED TAKE ONE TABLET BY MOUTH TWICE A DAY NEEDED SOLD: [facility] 625 mg 10/08/2020 12:00:00 AM EST tablet 60 TAKE ONE TABLET BY MOUTH TWICE A DAY NEEDED TAKE ONE TABLET BY MOUTH TWICE A DAY NEEDED SOLD: [facility] 150 mg 09/20/2020 12:00:00 AM EST capsule,extended releas e 24hr 30 TAKE ONE CAPSULE BY MOUTH EVERY DAY WITH FOOD TAKE ONE CAPSULE BY MOUTH EVERY DAY WITH FOOD SOLD: 10/14/2020 [facility] 150 mg 09/20/2020 12:00:00 AM EST capsule,extended releas e 24hr 24 TAKE ONE CAPSULE BY MOUTH EVERY DAY WITH FOOD TAKE ONE CAPSULE BY MOUTH EVERY DAY WITH FOOD SOLD: 09/20/2020 [facility] 100 mg 09/17/2020 12:00:00 AM EST tablet 9 TAKE ONE TABLET BY MOUTH ONCE NEEDED AT MIGRAINE ONSET TAKE ONE TABLET BY MOUTH ONCE NEEDED AT MIGRAINE ONSET SOLD: 03/28/2021 [facility] 100 mg 09/17/2020 12:00:00 AM EST tablet 9 TAKE ONE TABLET BY MOUTH ONCE NEEDED AT MIGRAINE ONSET TAKE ONE TABLET BY MOUTH ONCE NEEDED AT MIGRAINE ONSET SOLD: 09/20/2020 [facility] 10 gram/15 mL 08/30/2020 12:00:00 AM EST solution 450 TAKE 15 ML BY MOUTH ONCE DAILY TAKE 15 ML BY MOUTH ONCE DAILY SOLD: 09/06/2020 [facility] 400 mg 08/09/2020 12:00:00 AM EST tablet extended release 24 hr 60 ONE BY MOUTH TWICE A DAY ONE BY MOUTH TWICE A DAY SOLD: 09/13/2020 [facility] 400 mg 08/09/2020 12:00:00 AM EST tablet extended release 24 hr 60 ONE BY MOUTH TWICE A DAY ONE BY MOUTH TWICE A DAY SOLD: 10/14/2020 [facility] 400 mg 08/09/2020 12:00:00 AM EST tablet extended release 24 hr 60 ONE BY MOUTH TWICE A DAY ONE BY MOUTH TWICE A DAY SOLD: 08/13/2020 [facility] 150 mg 08/06/2020 12:00:00 AM EST capsule,extended releas e 24hr 30 TAKE ONE CAPSULE BY MOUTH EVERY DAY WITH FOOD TAKE ONE CAPSULE BY MOUTH EVERY DAY WITH FOOD SOLD: 08/13/2020 [facility] 1 mg 07/09/2020 12:00:00 AM EST tablet 30 TAKE ONE TABLET BY MOUTH EVERY DAY 1 TO 3 HOURS BEFORE BEDTIME TAKE ONE TABLET BY MOUTH EVERY DAY 1 TO 3 HOURS BEFORE BEDTIME SOLD: 08/13/2020 [facility] 150 mg 07/09/2020 12:00:00 AM EST capsule,extended releas e 24hr 30 TAKE ONE CAPSULE BY MOUTH EVERY DAY WITH FOOD TAKE ONE CAPSULE BY MOUTH EVERY DAY WITH FOOD SOLD: 07/12/2020 [facility] 1 mg 07/09/2020 12:00:00 AM EST tablet 30 TAKE ONE TABLET BY MOUTH EVERY DAY 1 TO 3 HOURS BEFORE BEDTIME TAKE ONE TABLET BY MOUTH EVERY DAY 1 TO 3 HOURS BEFORE BEDTIME SOLD: 12/18/2020 [facility] 1 mg 07/09/2020 12:00:00 AM EST tablet 30 TAKE ONE TABLET BY MOUTH EVERY DAY 1 TO 3 HOURS BEFORE BEDTIME TAKE ONE TABLET BY MOUTH EVERY DAY 1 TO 3 HOURS BEFORE BEDTIME SOLD: 07/12/2020 [facility] 1 mg 07/09/2020 12:00:00 AM EST tablet 30 TAKE ONE TABLET BY MOUTH EVERY DAY 1 TO 3 HOURS BEFORE BEDTIME TAKE ONE TABLET BY MOUTH EVERY DAY 1 TO 3 HOURS BEFORE BEDTIME SOLD: 11/15/2020 [facility] 20 mg 07/09/2020 12:00:00 AM EST capsule,delayed release (DR/EC) 60 TAKE ONE CAPSULE BY MOUTH TWICE A DAY TAKE ONE CAPSULE BY MOUTH TWICE A DAY SOLD: 10/14/2020 [facility] 62.5 mcg/actuation 07/09/2020 12:00:00 AM EST blister with d evice 30 INHALE 1 PUFF BY MOUTH ONCE DAILY INHALE 1 PUFF BY MOUTH ONCE DAILY SOLD: 07/12/2020 [facility] 20 mg 07/09/2020 12:00:00 AM EST capsule,delayed release (DR/EC) 60 TAKE ONE CAPSULE BY MOUTH TWICE A DAY TAKE ONE CAPSULE BY MOUTH TWICE A DAY SOLD: 07/12/2020 [facility] 1 mg 07/09/2020 12:00:00 AM EST tablet 30 TAKE ONE TABLET BY MOUTH EVERY DAY 1 TO 3 HOURS BEFORE BEDTIME TAKE ONE TABLET BY MOUTH EVERY DAY 1 TO 3 HOURS BEFORE BEDTIME SOLD: 03/28/2021 [facility] 1 mg 07/09/2020 12:00:00 AM EST tablet 30 TAKE ONE TABLET BY MOUTH EVERY DAY 1 TO 3 HOURS BEFORE BEDTIME TAKE ONE TABLET BY MOUTH EVERY DAY 1 TO 3 HOURS BEFORE BEDTIME SOLD: 02/21/2021 [facility] 20 mg 07/09/2020 12:00:00 AM EST capsule,delayed release (DR/EC) 60 TAKE ONE CAPSULE BY MOUTH TWICE A DAY TAKE ONE CAPSULE BY MOUTH TWICE A DAY SOLD: 11/15/2020 [facility] 20 mg 07/09/2020 12:00:00 AM EST capsule,delayed release (DR/EC) 60 TAKE ONE CAPSULE BY MOUTH TWICE A DAY TAKE ONE CAPSULE BY MOUTH TWICE A DAY SOLD: 12/18/2020 [facility] 1 mg 07/09/2020 12:00:00 AM EST tablet 30 TAKE ONE TABLET BY MOUTH EVERY DAY 1 TO 3 HOURS BEFORE BEDTIME TAKE ONE TABLET BY MOUTH EVERY DAY 1 TO 3 HOURS BEFORE BEDTIME SOLD: 01/20/2021 [facility] 20 mg 07/09/2020 12:00:00 AM EST capsule,delayed release (DR/EC) 60 TAKE ONE CAPSULE BY MOUTH TWICE A DAY TAKE ONE CAPSULE BY MOUTH TWICE A DAY SOLD: 08/13/2020 [facility] 62.5 mcg/actuation 07/09/2020 12:00:00 AM EST blister with d evice 30 INHALE 1 PUFF BY MOUTH ONCE DAILY INHALE 1 PUFF BY MOUTH ONCE DAILY SOLD: 08/13/2020 [facility] 1 mg 07/09/2020 12:00:00 AM EST tablet 30 TAKE ONE TABLET BY MOUTH EVERY DAY 1 TO 3 HOURS BEFORE BEDTIME TAKE ONE TABLET BY MOUTH EVERY DAY 1 TO 3 HOURS BEFORE BEDTIME SOLD: 09/13/2020 [facility] 20 mg 07/09/2020 12:00:00 AM EST capsule,delayed release (DR/EC) 60 TAKE ONE CAPSULE BY MOUTH TWICE A DAY TAKE ONE CAPSULE BY MOUTH TWICE A DAY SOLD: 09/13/2020 [facility] 1 mg 07/09/2020 12:00:00 AM EST tablet 30 TAKE ONE TABLET BY MOUTH EVERY DAY 1 TO 3 HOURS BEFORE BEDTIME TAKE ONE TABLET BY MOUTH EVERY DAY 1 TO 3 HOURS BEFORE BEDTIME SOLD: 10/14/2020 [facility] 625 mg 06/10/2020 12:00:00 AM EST tablet 60 TAKE ONE TABLET BY MOUTH TWICE A DAY NEEDED TAKE ONE TABLET BY MOUTH TWICE A DAY NEEDED SOLD: 020 [facility] montelukast 10 MG Oral Tablet MONTELUKAST SODIUM 06/10/2020 12:0 0:00 AM EST tablet 30 TAKE ONE TABLET BY MOUTH EVERY E VENING TAKE ONE TABLET BY MOUTH EVERY EVENING SOLD: 08/13/2020 [facility] 625 mg 06/10/2020 12:00:00 AM EST tablet 60 TAKE ONE TABLET BY MOUTH TWICE A DAY NEEDED TAKE ONE TABLET BY MOUTH TWICE A DAY NEEDED SOLD: [facility] 40 mg 06/10/2020 12:00:00 AM EST tablet 30 TAKE ONE TABLET BY MOUTH EVERY DAY TAKE ONE TABLET BY MOUTH EVERY DAY SOLD: 09/13/2020 [facility] montelukast 10 MG Oral Tablet MONTELUKAST SODIUM 06/10/2020 12:0 0:00 AM EST tablet 30 TAKE ONE TABLET BY MOUTH EVERY E VENING TAKE ONE TABLET BY MOUTH EVERY EVENING SOLD: 07/12/2020 [facility] 200 mcg/actuation 06/10/2020 12:00:00 AM EST blister with de vice 30 INHALE 1 PUFF BY MOUTH ONCE DAILY INHALE 1 PUFF BY MOUTH ONCE DAILY SOLD: 07/12/2020 [facility] montelukast 10 MG Oral Tablet MONTELUKAST SODIUM 06/10/2020 12:0 0:00 AM EST tablet 30 TAKE ONE TABLET BY MOUTH EVERY E VENING TAKE ONE TABLET BY MOUTH EVERY EVENING SOLD: 09/13/2020 [facility] 200 mcg/actuation 06/10/2020 12:00:00 AM EST blister with de vice 30 INHALE 1 PUFF BY MOUTH ONCE DAILY INHALE 1 PUFF BY MOUTH ONCE DAILY SOLD: 08/13/2020 [facility] 40 mg 06/10/2020 12:00:00 AM EST tablet 30 TAKE ONE TABLET BY MOUTH EVERY DAY TAKE ONE TABLET BY MOUTH EVERY DAY SOLD: 07/12/2020 [facility] 200 mcg/actuation 06/10/2020 12:00:00 AM EST blister with de vice 30 INHALE 1 PUFF BY MOUTH ONCE DAILY INHALE 1 PUFF BY MOUTH ONCE DAILY SOLD: 09/13/2020 [facility] montelukast 10 MG Oral Tablet MONTELUKAST SODIUM 06/10/2020 12:0 0:00 AM EST tablet 30 TAKE ONE TABLET BY MOUTH EVERY E VENING TAKE ONE TABLET BY MOUTH EVERY EVENING SOLD: 10/14/2020 [facility] 625 mg 06/10/2020 12:00:00 AM EST tablet 60 TAKE ONE TABLET BY MOUTH TWICE A DAY NEEDED TAKE ONE TABLET BY MOUTH TWICE A DAY NEEDED SOLD: [facility] 40 mg 06/10/2020 12:00:00 AM EST tablet 30 TAKE ONE TABLET BY MOUTH EVERY DAY TAKE ONE TABLET BY MOUTH EVERY DAY SOLD: 08/13/2020 [facility] 90 mcg/actuation 06/03/2020 12:00:00 AM EDT HFA aerosol inha ler 18 INHALE 2 PUFFS BY MOUTH EVERY 4 HOURS NEEDED INHALE 2 PUFFS BY MOUTH EVERY 4 HOURS NEEDED SOLD: 06/03/2020 [facility] 90 mcg/actuation 06/03/2020 12:00:00 AM EDT HFA aerosol inha ler 18 INHALE 2 PUFFS BY MOUTH EVERY 4 HOURS NEEDED INHALE 2 PUFFS BY MOUTH EVERY 4 HOURS NEEDED SOLD: 07/12/2020 [facility] Prednisone 20 MG Oral Tablet PredniSONE 20 MG PredniSONE 20 MG 06/03/2020 12:00:00 AM EDT 3.0 {tablet} active Pr edniSONE 20 MG eCW1 ([facility]) 150 mg 06/03/2020 12:00:00 AM EDT capsule,extended releas e 24hr 11 TAKE ONE CAPSULE BY MOUTH EVERY DAY WITH FOOD TAKE ONE CAPSULE BY MOUTH EVERY DAY WITH FOOD SOLD: 06/03/2020 [facility] 20 mg 06/03/2020 12:00:00 AM EDT tablet 15 TAKE THREE TABLETS BY MOUTH EVERY DAY FOR 5 DAYS TAKE THREE TABLETS BY MOUTH EVERY DAY FOR 5 DAYS SOLD: 06/03/2020 [facility] Prednisone 20 MG Oral Tablet PredniSONE 20 MG PredniSONE 20 MG 06/03/2020 12:00:00 AM EDT 3.0 {tablet} active Pr edniSONE 20 MG eCW1 ([facility]) 150 mg 06/03/2020 12:00:00 AM EDT capsule,extended releas e 24hr 30 TAKE ONE CAPSULE BY MOUTH EVERY DAY WITH FOOD TAKE ONE CAPSULE BY MOUTH EVERY DAY WITH FOOD SOLD: 06/13/2020 [facility] 90 mcg/actuation 06/03/2020 12:00:00 AM EDT HFA aerosol inha ler 18 INHALE 2 PUFFS BY MOUTH EVERY 4 HOURS NEEDED INHALE 2 PUFFS BY MOUTH EVERY 4 HOURS NEEDED SOLD: 03/28/2021 [facility] Prednisone 20 MG Oral Tablet PredniSONE 20 MG PredniSONE 20 MG 06/03/2020 12:00:00 AM EDT 3.0 {tablet} active Pr edniSONE 20 MG eCW1 ([facility]) Prednisone 20 MG Oral Tablet PredniSONE 20 MG PredniSONE 20 MG 06/03/2020 12:00:00 AM EDT 3.0 {tablet} active Pr edniSONE 20 MG eCW1 ([facility]) Doxycycline Monohydrate 100 MG Oral Tablet Doxycycline Monoh ydrate 05/19/2020 12:00:00 AM EDT ORAL active M EDENT ([facility]) Prednisone 20 MG Oral Tablet Prednisone 05/19/2020 12:00:00 AM EDT ORAL active MEDENT ([facility], [facility]) Methylprednisolone Sodium Succinate To 125 MG 05/19/2020 1 2:00:00 AM EDT completed MEDENT ([facility], [facility]) Medication administered onsite 20 mg 05/19/2020 12:00:00 AM EDT tablet 10 TAKE ONE TABLET BY MOUTH TWO TIMES A DAY FOR 5 DAYS * START 05/20/20* TAKE ONE TABLET BY MOUTH TWO TIMES A DAY FOR 5 DAYS * START 05/20/20* SOLD: 05/20/2020 [facility] 100 mg 05/19/2020 12:00:00 AM EDT capsule 20 TAKE ONE CAPSULE BY MOUTH TWICE A DAY FOR 10 DAYS TAKE ONE CAPSULE BY MOUTH TWICE A DAY FOR 10 DAYS SOLD : 05/20/2020 [facility] 90 mcg/actuation 05/15/2020 12:00:00 AM EDT HFA aerosol inha ler 18 INHALE TWO PUFFS BY MOUTH EVERY 4 HOURS NEEDED INHALE TWO PUFFS BY MOUTH EVERY 4 HOURS NEEDED SOLD: 05/16/2020 [facility] 75 mg 05/15/2020 12:00:00 AM EDT capsule,extended releas e 24hr 30 TAKE ONE CAPSULE BY MOUTH EVERY DAY WITH FOOD TAKE ONE CAPSULE BY MOUTH EVERY DAY WITH FOOD SOLD: 05/16/2020 [facility] 55-14 mcg/actuation 04/29/2020 12:00:00 AM EDT aerosol powdr breath activated 1 INHALE ONE PUFF BY MOUTH TWICE A DAY INHALE ONE PUFF BY MOUTH TWICE A DAY SOLD: 05/08/2020 [facility] 60 ACTUAT Fluticasone propionate 0.055 M G/ACTUAT / Salmeterol xinafoate 0.014 MG/ACTUAT Dry Powder Inhaler 55-14 mcg/actuation FLUTICASONE PROPION/SALMETEROL 04/29/2020 12:00:00 AM EDT aerosol powdr breath activated 1 INHALE ONE PUFF BY MOUTH TWICE A DAY INHALE ONE PUFF BY MOUTH TWICE A DAY SOLD: 01/20/2021 [facility] 55-14 mcg/actuation 04/29/2020 12:00:00 AM EDT aerosol powdr breath activated 1 INHALE ONE PUFF BY MOUTH TWICE A DAY INHALE ONE PUFF BY MOUTH TWICE A DAY SOLD: 11/15/2020 [facility] 62.5 mcg/actuation 04/19/2020 12:00:00 AM EDT blister with d evice 30 INHALE ONE PUFF BY MOUTH EVERY DAY INHALE ONE PUFF BY MOUTH EVERY DAY SOLD: 05/16/2020 [facility] 5 mg 03/15/2020 12:00:00 AM EDT tablet 30 TAKE ONE TABLET BY MOUTH EVERY DAY TAKE ONE TABLET BY MOUTH EVERY DAY SOLD: 09/13/2020 [facility] 5 mg 03/15/2020 12:00:00 AM EDT tablet 30 TAKE ONE TABLET BY MOUTH EVERY DAY TAKE ONE TABLET BY MOUTH EVERY DAY SOLD: 11/15/2020 [facility] 5 mg 03/15/2020 12:00:00 AM EDT tablet 30 TAKE ONE TABLET BY MOUTH EVERY DAY TAKE ONE TABLET BY MOUTH EVERY DAY SOLD: 07/12/2020 [facility] 5 mg 03/15/2020 12:00:00 AM EDT tablet 30 TAKE ONE TABLET BY MOUTH EVERY DAY TAKE ONE TABLET BY MOUTH EVERY DAY SOLD: 05/16/2020 [facility] 5 mg 03/15/2020 12:00:00 AM EDT tablet 30 TAKE ONE TABLET BY MOUTH EVERY DAY TAKE ONE TABLET BY MOUTH EVERY DAY SOLD: 08/13/2020 [facility] 5 mg 03/15/2020 12:00:00 AM EDT tablet 30 TAKE ONE TABLET BY MOUTH EVERY DAY TAKE ONE TABLET BY MOUTH EVERY DAY SOLD: 10/14/2020 [facility] 400 mg 03/13/2020 12:00:00 AM EDT tablet extended release 24 hr 60 TAKE ONE TABLET BY MOUTH TWICE A DAY TAKE ONE TABLET BY MOUTH TWICE A DAY SOLD: 07/12/2020 [facility] 400 mg 03/13/2020 12:00:00 AM EDT tablet extended release 24 hr 60 TAKE ONE TABLET BY MOUTH TWICE A DAY TAKE ONE TABLET BY MOUTH TWICE A DAY SOLD: 05/16/2020 [facility] 125 mg 02/13/2020 12:00:00 AM EDT capsule 120 TAKE ONE CAPSULE BY MOUTH FOUR TIMES A DAY, AFTER MEALS AND AT BEDTIME NEEDED TAKE ONE CAPSULE BY MOUTH FOUR TIMES A DAY, AFTER MEALS AND AT BEDTIME NEEDED SOLD: 05/16/2020 [facility] 200 mcg/actuation 02/09/2020 12:00:00 AM EDT blister with de vice 30 INHALE ONE PUFF BY MOUTH EVERY DAY INHALE ONE PUFF BY MOUTH EVERY DAY SOLD: 05/16/2020 [facility] 40 mg 02/09/2020 12:00:00 AM EDT tablet 30 TAKE ONE TABLET BY MOUTH EVERY DAY TAKE ONE TABLET BY MOUTH EVERY DAY SOLD: 05/16/2020 [facility] 625 mg 02/09/2020 12:00:00 AM EDT tablet 60 TAKE ONE TABLET BY MOUTH TWICE A DAY NEEDED TAKE ONE TABLET BY MOUTH TWICE A DAY NEEDED SOLD: 020 [facility] 20 mg 12/25/2019 12:00:00 AM EDT capsule,delayed release (DR/EC) 60 TAKE ONE CAPSULE BY MOUTH TWICE A DAY TAKE ONE CAPSULE BY MOUTH TWICE A DAY SOLD: 05/16/2020 [facility] 300 mg 12/22/2019 12:00:00 AM EDT capsule 30 TAKE ONE TABLET BY MOUTH BEFORE BEDTIME TAKE ONE TABLET BY MOUTH BEFORE BEDTIME SOLD: 05/16/2020 [facility] 300 mg 12/22/2019 12:00:00 AM EDT capsule 30 TAKE ONE TABLET BY MOUTH BEFORE BEDTIME TAKE ONE TABLET BY MOUTH BEFORE BEDTIME SOLD: 11/15/2020 [facility] 300 mg 12/22/2019 12:00:00 AM EDT capsule 30 TAKE ONE TABLET BY MOUTH BEFORE BEDTIME TAKE ONE TABLET BY MOUTH BEFORE BEDTIME SOLD: 07/12/2020 [facility] 300 mg 12/22/2019 12:00:00 AM EDT capsule 30 TAKE ONE TABLET BY MOUTH BEFORE BEDTIME TAKE ONE TABLET BY MOUTH BEFORE BEDTIME SOLD: 10/14/2020 [facility] 300 mg 12/22/2019 12:00:00 AM EDT capsule 30 TAKE ONE TABLET BY MOUTH BEFORE BEDTIME TAKE ONE TABLET BY MOUTH BEFORE BEDTIME SOLD: 08/13/2020 [facility] 300 mg 12/22/2019 12:00:00 AM EDT capsule 30 TAKE ONE TABLET BY MOUTH BEFORE BEDTIME TAKE ONE TABLET BY MOUTH BEFORE BEDTIME SOLD: 09/13/2020 [facility] 1 mg 07/05/2019 12:00:00 AM EST tablet 30 TAKE ONE TABLET BY MOUTH EVERY DAY 1 TO 3 HR BEFORE BEDTIME TAKE ONE TABLET BY MOUTH EVERY DAY 1 TO 3 HR BEFORE BEDTIME SOLD: 05/16/2020 [facility] montelukast 10 MG Oral Tablet MONTELUKAST SODIUM 05/20/2019 12:0 0:00 AM EDT tablet 30 TAKE ONE TABLET BY MOUTH EVERY E VENING TAKE ONE TABLET BY MOUTH EVERY EVENING SOLD: 05/16/2020 [facility] Insurance Providers Payer name Policy type / Coverage type Policy ID Covered green party ID Covered green party's relationship to nair Policy Nair Plan Information [employer] [place] 306/806 [id number] SP [id number] [place] 306/806 [id number] SP [id number] [facility] Part B [id number] Self [id number] [facility] Part B [id number] Self [id number] [facility] BCBS [facility] Part B [id number] Self [id number] [employer] ([place]) Workers Compensation [id number] Self [id number] [employer] ([place]) Workers Compensation [id number] Self [id number] EXCE[employer] C [id number] Self [id number] EXCELLUS H [id number] Self [id number] [employer] Med[employer] Part B [id number] Self [id number] [employer] Medigap Part B [id number] Self [id number] [employer] Med[employer]ap Part B [id number] Self [id number] [facility] Hmo Commercial [id number] Self [id number] [facility] [id number] Self 1 [id number] [employer] Community [employer] Medicaid 2465 Self [facility] COMMUNTY PLAN [id number] [facility] Communty Plan Medicaid [id number] Self [id number] [employer] Community Plan Medicaid [id number] Self [id number] [employer] COMMUNITY PLAN [id number] 18 [id number] MEDICAID [id number] SP [id number] UN[employer] COMMUNITY PLAN [facility] [id number] SP [id number] [facility] Comm Plan Medicaid F [id number] SELF [id number] [facility] Comm Plan Medicaid F [id number] SELF [id number] [facility] Community Plan Commercial [id number] Self [id number] [facility] Community Plan Commercial [id number] Self [id number] ANSI-Medicaid [id number] ANSI-Medicaid [id number] ANSI-Commercial [id number] ANSI-Medicaid [id number] ANSI-Medicaid [id number] ANSI-Commercial [id number] ANSI-Medicaid [id number] ANSI-Medicaid [id number] ANSI-Commercial [id number] ANSI-Medicaid [id number] ANSI-Medicaid [id number] ANSI-Commercial [id number] ANSI-Medicaid [id number] [facility] ([facility]) [id number] Self [id number] ANSI-Medicaid [id number] ANSI-Medicaid [id number] ANSI-Commercial [id number] [facility] ([facility]) [id number] Self [id number] ANSI-Commercial [id number] ANSI-Medicaid [id number] ANSI-Medicaid [id number] ANSI-Medicaid [id number] ANSI-Medicaid [id number] ANSI-Commercial [id number] ANSI-Commercial [id number] ANSI-Medicaid [id number] ANSI-Medicaid [id number] ANSI-Medicaid [id number] ANSI-Medicaid [id number] ANSI-Commercial [id number] ANSI-Medicaid [id number] ANSI-Commercial [id number]-[id number] ANSI-Medicaid [id number] ANSI-Medicaid [id number] ANSI-Commercial [id number] ANSI-Medicaid [id number] [facility] Maintenance [facility] (O) [id number] Self [id number] ANSI-Medicaid [id number] ANSI-Medicaid [id number] ANSI-Commercial [id number]-[id number] ANSI-Commercial [id number] [facility]-Medicaid [id number] [facility]-Medicaid [id number] ANSI-Commercial [id number] [facility]-Medicaid [id number] ANSI-Medicaid [id number] ANSI-Medicaid [id number] ANS-Medicaid [id number] ANSI-Commercial [id number] [facility] [id number] ANSI-Commercial [id number] [id number] ANSI-Medicaid [id number] ANSI-Medicaid [id number] ANSI-Medicaid [id number] ANSI-Commercial [id number]-[id number] ANSI-Commercial [id number]-oy6o-[id number]-[id number] ANSI-Medicaid [id number] ANSI-Medicaid [id number] ANSI-Commercial [id number] ANSI-Medicaid [id number] ANSI-Medicaid [id number] ANSI-Medicaid [id number] ANSI-Medicaid [id number] ANSI-Commercial [id number]-[id number]-[id number] ANSI-Medicaid [id number] ANSI-Commercial [id number]-[id number] ANSI-Medicaid [id number] ANSI-Medicaid [id number] ANSI-Commercial [id number] ANSI-Medicaid [id number] ANSI-Medicaid [id number] [facility] [id number] ANSI-Commercial [id number] [facility]-Medicaid [id number] ANSI-Commercial [id number] [facility]-Medicaid [id number] [facility] [id number] [facility] [id number] ANSI-Commercial [id number]-[id number]-[id number]-[id number] ANSI-Commercial 217iyk5z-2ahi-[id number] [id number]-5ehq-[id number] [facility]-Medicaid [id number] ANSI-Medicaid [id number] ANSI-Medicaid [id number] ANSI-Commercial [id number]-5x22-[id number]-6w96-[id number] ANSI-Medicaid [id number] ANSI-Medicaid [id number] ANSI-Commercial [id number]-[id number]-[id number] ANSI-Medicaid [id number] [facility] Medigap Part B [id number] ..1.06988 3.3.227.99.8646.6629.0 Self [id number] Medicaid ID Medigap Part B [id number] ..[id number] .6629.0 Self [id number] [facility] Health Maintenance Organization (HMO) [id number] .1.100856.3.227.99.8646.6629.0 Self [id number] [facility] Health Maintenance Organization (HMO) [id number] 2.16.840.1.073313.3.227.99.1767.93093.0 Self [id number] [facility] Health Maintenance Organization (HMO) [id number] 2.16.840.1.769193.3.227.99.1767.73079.0 Self [id number] Medicaid 2.16.840.1.778738.3.441 [id number] Medicaid 2.16.840.1.067287.3.441 BCBS 2.16.840.1.809187.3.441 [id number] Blue [employer]/Bl ue Shield 2.16.840.1.685515.3.441 BCBS 2.16.840.1.724589.3.441 [id number] Blue [employer] Shield 2.16.840.1.328032.3.441 BCBS 2.16.840.1.257895.3.441 [id number] Blue Cross/Bl ue Shield 2.16.840.1.544663.3.441 [facility] 2.16.840.1.863419.3.441 [id number] Preferred Provider Organization (PPO) 2.16.840.1.705236.3.441 Medicaid [place] Medigap Part B [id number] 2.16.840.1.913163.3.227.99.8646 .6629.0 Self [id number] MEDICAID [id number] SP [id number] [facility] Health Maintenance Organization (HMO) [id number] 2.16.840.1.645929.3.227.99.1767.30074.0 Self [id number] Medicaid [place] Medigap Part B [id number] 2.16.840.1.382272.3.227.99.8646 .6629.0 Self [id number] [facility] Health Maintenance Organization (HMO) [id number] 2.16.840.1.579340.3.227.99.1767.37018.0 Self [id number] [facility] O [id number] S [id number] [facility] Health Maintenance Organization (HMO) 2.16.840.1.077530.3.227.99.1767.74287.0 Self [employer]CELL[employer] BCBS B [id number] S VYA BCBS/[employer] Commercial [id number] Self BLUE CROSS BLUE SHIELD-CLINIC [id number] 18 [id number] BCBS [place] PPO 302/307 [id number] SP [id number] PMA MANAGEMENT [facility] UNAVAILABLE SP UNAVAILABLE PMA MANAGEMENT [facility] [id number] SP [id number] OTHER WORKERS COMPENSATION [id number] SP [id number] [facility] PLUS [id number] [id number] SELF PAY UNAVAILABLE UNAVAILA BLE [employer] [facility] INSURANCE [id number] SP [id number] ONE CALL MEDICAL P [id number] S [id number] BCBS OF [place] 306/8 P [id number] S [id number] UN COMMUNITY PLAN MCDO [id number] SP [id number] BLUE CROSS BLUE SHIELD-CLINIC [id number] 18 [id number] [facility] COMMUN[facility] [id number] SP [id number] [facility] COMMUNITY PLAN XIX [id number] 18 [id number] [facility]) O [id number] S [id number] ANSI-Medicaid [id number] ANSI-Medicaid [id number] ANSI-Commercial [id number]-[id number]-3bca-[id number] ANSI-Medicaid [id number] ANSI-Medicaid [id number] ANSI-Commercial [id number]-[id number] ANSI-Medicaid [id number] ANSI-Medicaid [id number] ANSI-Commercial 228l45it-57fg-655c-jbx6-[id number] 668j21oz-94pk-712c-zco7-[id number] [facility] Health Maintenance Organization ([facility]) [id number] Self [id number] ANSI-Medicaid [id number] ANSI-Commercial [id number]-914j-eu65-[id number] cg8x10c2-488l-044n-ij28-[id number] ANSI-Medicaid [id number] ANSI-Medicaid [id number] [facility] [id number] ANSI-Commercial g2npb7j8-9808-3r06-416o-[id number] [id number]-[id number] ANSI-Medicaid [id number] ANSI-Commercial [id number]-bu31-[id number]-lk82-[id number] [facility]-Medicaid [id number] [facility] [id number] ANSI-Commercial [id number]-[id number] [id number]-[id number] Problems, Conditions, and Diagnoses Code Display Name Description Problem Type Effective Dates Data Source(s) W19914 Encounter for gynecological examination (general) (routine) without abnormal findings Encounter for gynecological examination (general) (routine) without abnormal findings Diagnosis 11/11/2020 09:05:00 AM EDT [facility] 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, 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, left shoulder Diagnosis 09/05/2020 11:50:00 AM ES T [facility] E87.6 [id number] Hypokalemia Problem 02/27/2021 12:00:00 AM E DT eCW1 ([facility]) E87.0 [id number] Hypernatremia Problem 02/27/2021 12:00:00 AM EDT eCW1 ([facility]) E78.00 [id number] Hypercholesterolemia Problem 02/06/2021 12:0 0:00 AM EDT eCW1 ([facility]) K21.9 [id number] Gastroesophageal ref lux disease, unspecified whether esophagitis present Problem 02/06/2021 12:00:00 AM EDT eCW1 ([facility]) G43.009 527507003 Migraine without aur a and without status migrainosus, not intractable Problem 08/28/2020 12:00:00 AM EST eCW1 ([facility]) F33.1 [id number] 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 Problem 06/03/2020 12:00:00 AM EDT eCW1 ([facility]) J45.51 [id number] Severe persistent asthma with exacerbatio n Problem 05/14/2020 12:00:00 AM EDT eCW1 ([facility]) R53.82 30246090 Chronic fatigue Problem 05/14/2020 12:00:00 AM EDT eCW1 ([facility]) Surgeries/Procedures Procedure Description Date Indications Data Source(s) OFFICE OUTPATIENT NEW 45 MINUTES 03/19/2021 12:00:00 A M EDT MEDENT ([facility], ) OFFICE OUTPATIENT VISIT 15 MINUTES 03/18/2021 12:00:00 AM EDT MEDENT ([facility]) Injection Fee 02/26/2021 12:00:00 AM EDT MED[facility] ([facility], ) Injection Fee 02/26/2021 12:00:00 AM EDT MEDENT ([facility], ) Injection Fee 02/26/2021 12:00:00 AM EDT MEDENT ([facility], ) Spirometry 02/13/2021 12:00:00 AM EDT M EDENT ([facility], ) Injection Fee 02/13/2021 12:00:00 AM EDT MED[facility] ([facility], ) Injection Fee 02/13/2021 12:00:00 AM EDT MED[facility] ([facility], ) Injection Fee 02/13/2021 12:00:00 AM EDT MEDENT ([facility], ) OFFICE OUTPATIENT VISIT 25 MINUTES 02/13/2021 12:00:00 AM EDT MEDENT ([facility], ) Injection Fee 01/29/2021 12:00:00 AM EDT MEDENT ([facility], ) Injection Fee 01/29/2021 12:00:00 AM EDT MEDENT ([facility], ) Injection Fee 01/15/2021 12:00:00 AM EDT MEDENT ([facility], ) Injection Fee 01/15/2021 12:00:00 AM EDT MEDENT ([facility], ) Injection Fee 12/25/2020 12:00:00 AM EDT MED[facility] ([facility], ) Injection Fee 12/25/2020 12:00:00 AM EDT MEDENT ([facility], ) OFFICE OUTPATIENT VISIT 15 MINUTES 11/29/2020 12:00:00 AM EDT MEDENT ([facility]) Injection Fee 11/27/2020 12:00:00 AM EDT MEDENT ([facility], ) Injection Fee 11/27/2020 12:00:00 AM EDT MEDENT ([facility], ) Spirometry 11/06/2020 12:00:00 AM EDT M EDENT ([facility], ) Injection Fee 11/06/2020 12:00:00 AM EDT MEDENT ([facility], ) Injection Fee 11/06/2020 12:00:00 AM EDT MEDENT ([facility], ) OFFICE OUTPATIENT VISIT 25 MINUTES 11/06/2020 12:00:00 AM EDT MEDENT ([facility], ) Injection Fee 10/23/2020 12:00:00 AM EDT MEDENT ([facility], ) Injection Fee 10/23/2020 12:00:00 AM EDT MEDENT ([facility]) Injection Fee 10/02/2020 12:00:00 AM EST MEDENT ([facility], ) Injection Fee 10/02/2020 12:00:00 AM EST MEDENT ([facility]) Injection Fee 09/18/2020 12:00:00 AM EST MEDENT ([facility]) Injection Fee 09/18/2020 12:00:00 AM EST MED[facility] ([facility]) Injection Fee 08/21/2020 12:00:00 AM EST MEDENT ([facility]) Injection Fee 08/21/2020 12:00:00 AM EST MED[facility] ([facility]) Injection Fee 07/18/2020 12:00:00 AM EST MEDENT ([facility]) Injection Fee 07/18/2020 12:00:00 AM EST MED[facility] ([facility]) Spirometry 07/17/2020 12:00:00 AM EST M EDENT ([facility]) Injection Fee 06/12/2020 12:00:00 AM EST MED[facility] ([facility]) Injection Fee 06/12/2020 12:00:00 AM EST MED[facility] ([facility]) Injection Fee 05/29/2020 12:00:00 AM EDT MEDENT ([facility]) Injection Fee 05/29/2020 12:00:00 AM EDT MEDENT ([facility]) PRESSURIZED/NONPRESSURIZED INHALATION TREATMENT 2019 12:00:00 AM EDT MEDENT ([facility]) Therapeutic, Prophylactic Or Diagnostic Injection Subq/Im 05/19/2020 12:00:00 AM EDT [facility] ([facility]) Results ID Date Data Source [id number] 04/02/2021 08:45:00 AM EDT MED[facility] ([facility]) Name Value Range Interpretation Code Description Data Jazmine rce(s) Supporting Document(s) Theophylline [Mass/volume] in Serum or Plasma 19.2 UG/ML 10 .0-20.0 Normal (applies to non-numeric results) MEDENT ([facility]) ID Date Data Source Potassium Serum Level 03/04/2021 12:00:00 AM EDT eCW1 ([facility]) Name Value Range Interpretation Code Description Data Jazmine rce(s) Supporting Document(s) Potassium [Moles/volume] in Serum or Plasma 3.7 3.5-5.1 POTASSIUM SERUM eCW1 ([facility]) ID Date Data Source Basic Metabolic Profile (BMP) 02/27/2021 12:00:00 AM EDT eCW 1 ([facility]) Name Value Range Interpretation Code Description Data Jazmine rce(s) Supporting Document(s) 92 70-100 GLUCOSE, FASTING eCW1 ([facility]) 0.67 0.55-1.30 CREATININE FOR GFR eCW1 ([facility]) 9 7-18 BLOOD UREA NITROGEN eCW1 ([facility]) > 60.0 >51 GLOMERULAR FILTRATION RATE eCW 1 ([facility]) 144 136-145 SODIUM LEVEL eCW1 ([facility]) 30 21-32 CARBON DIOXIDE LEVEL eCW1 ([facility]) 107 98-107 CHLORIDE LEVEL eCW1 ([facility]) 3.4 3.5-5.1 POTASSIUM SERUM eCW1 ([facility]) 9.7 8.5-10.1 CALCIUM LEVEL eCW1 ([facility]) ID Date Data Source [id number] 02/21/2021 08:30:00 AM EDT MEDENT ([facility], ) Name Value Range Interpretation Code Description Data Jazmine rce(s) Supporting Document(s) Theophylline [Mass/volume] in Serum or Plasma Laboratory test re sult 10.0-20.0 Below low normal MEDENT ([facility], ) ID Date Data Source [id number] 02/13/2021 02:54:00 PM EDT MEDENT ([facility], ) Name Value Range Interpretation Code Description Data Jazmine rce(s) Supporting Document(s) PDFReport Laboratory test result MEDENT ([facility], ) FVC-Pre 2.26 L MEDENT ([facility]) FVC-Pred 3.21 L MEDENT ([facility]) FVC-%Pred-Pre 70 L MEDENT ([facility], ) Fev1-Pred 2.49 L MEDENT ([facility]) FVC-LLN 2.54 L MEDENT ([facility]) Fev1-%Pred-Pre 57 L MEDENT ([facility]) Fev1-Pre 1.44 L MEDENT ([facility]) Fev1-LLN 1.92 L MEDENT ([facility]) Fev6-Pred 3.10 L MEDENT ([facility]) Fev6-Pre 2.26 L MEDENT ([facility]) Fev6-%Pred-Pre 72 L MEDENT ([facility]) Fev6-LLN 2.44 L MEDENT ([facility]) Eyu2ouk-Dpxc 78 % MEDENT ([facility]) Zgu3eff-Yly 64 % MEDENT ([facility]) Rzi8cym-%Pred-Pre 81 % MEDENT ([facility]) Amh6kzt-NKK 68 % MEDENT ([facility]) Uvy6acc-Qtvf 97 % MEDENT ([facility]) Jly8mcn-Whq 100 % MEDENT ([facility]) Fxl0shy-%Pred-Pre 103 % MEDENT ([facility]) FEFMax-Pred 6.19 L/E/sec MEDENT ([facility]) FEFMax-Pre 4.24 L/E/sec MEDENT ([facility]) FEFMax-%Pred-Pre 68 L/E/sec MEDENT ([facility]) FEFMax-LLN 4.53 L/E/sec MEDENT ([facility]) Xrc6167-Podx 2.34 L/E/sec MEDENT ([facility]) Ftc2640-Avg 0.87 L/E/sec MEDENT ([facility]) Zmr2156-OEB 1.13 L/E/sec MEDENT ([facility]) Fuf7084-%Pred-Pre 37 L/E/sec MEDENT ([facility]) ExpTime-Pre 6.33 sec MEDENT ([facility]) Zvi4ifl6-Bnqg 81 % MEDENT ([facility]) Oxz8nde7-Jhw 64 % MEDENT ([facility]) Zuu4rna0-%Pred-Pre 78 % MEDENT ([facility]) Rzi8mri8-PNB 72 % MEDENT ([facility]) ID Date Data Source [id number] 12/20/2020 12:00:00 AM EDT [facility] Name Value Range Interpretation Code Description Data Jazmine rce(s) Supporting Document(s) SARS-CoV2 Rapid Antigen Negative [facility] This lab was reported by Yunior Gtz Angelica. ID Date Data Source [id number] 11/06/2020 03:17:00 PM EDT MEDENT ([facility]) Name Value Range Interpretation Code Description Data Jazmine rce(s) Supporting Document(s) Theophylline [Mass/volume] in Serum or Plasma 16.4 UG/ML 10 .0-20.0 Normal (applies to non-numeric results) MEDENT ([facility]) ID Date Data Source [id number] 11/06/2020 02:50:00 PM EDT MEDENT ([facility]) Name Value Range Interpretation Code Description Data Jazmine rce(s) Supporting Document(s) PDFReport Laboratory test result MEDENT ([facility]) FVC-Pred 3.21 L MEDENT ([facility]) FVC-Pre 2.39 L MEDENT ([facility]) FVC-%Pred-Pre 74 L MEDENT ([facility]) Fev1-Pred 2.49 L MEDENT ([facility]) FVC-LLN 2.54 L MEDENT ([facility]) Fev1-Pre 1.49 L MEDENT ([facility]) Fev1-LLN 1.92 L MEDENT ([facility]) Fev1-%Pred-Pre 60 L MEDENT ([facility], ) Fev6-Pred 3.10 L MEDENT ([facility]) Fev6-Pre 2.39 L MEDENT ([facility]) Fev6-LLN 2.44 L MEDENT ([facility]) Fev6-%Pred-Pre 76 L MEDENT ([facility], ) Ydc1ybz-Vokh 78 % MEDENT ([facility]) Kbg4gpd-%Pred-Pre 79 % MEDENT ([facility]) Ekg3zuu-Nhb 63 % MED[facility] ([facility]) Klp1fhs-ULW 68 % MEDENT ([facility]) Nmu3iuv-Qvka 97 % MEDENT ([facility]) FEFMax-Pred 6.19 L/E/sec MEDENT ([facility]) Xfy0ors-%Pred-Pre 103 % MED[facility] ([facility]) Slf4mnx-Zul 100 % MED[facility] ([facility]) FEFMax-%Pred-Pre 72 L/E/sec MED[facility] ([facility]) FEFMax-Pre 4.47 L/E/sec MEDENT ([facility]) Vpg2218-Tqte 2.34 L/E/sec MEDENT ([facility]) FEFMax-LLN 4.53 L/E/sec MEDENT ([facility]) Ira0414-Tri 0.87 L/E/sec MEDENT ([facility]) Jbq1655-%Pred-Pre 37 L/E/sec MEDENT ([facility]) Mib5198-BTJ 1.13 L/E/sec MEDENT ([facility]) Ysk9ses2-Sjzo 81 % MEDENT ([facility]) ExpTime-Pre 5.86 sec MEDENT ([facility], ) Wiv8oqv5-Urq 63 % MEDENT ([facility]) Iog6xxn1-%Pred-Pre 77 % MEDENT ([facility]) Fyi4fqp0-ZNF 72 % MEDENT ([facility]) ID Date Data Source [id number] 09/06/2020 10:21:00 AM [facility] [address] [place] [address] PHONE: [phone] FAX: [phone] Name .................. : HATTIE Buitrago Acct Number.................. : [id number] ROOM. ................. : Number ................... : [id number] Stay type ............. : O/P Discharge Date......... ... : 09/05/20 Admit Date ......... : 09/05/20 Admit Phys .................... : YING SANTIAGO Date of ....... : 1960 Family Phys ................... : KAREN VAZQUEZ Phone .................. : [phone] Age ................................ : 60 Film# .................. .:[id number] Sex ................................. : F Unsigned transcriptions are preliminary reports and do not represent a medical or legal document INJECTION FOR SHOULDER ARTHRO [id number] COMPLETE:09/05/20 11:53 3159 (REASON FOR PROCESS: STEROID INJECTION L SHOULDER SHOULDER 1 [place] [id number] COMPLETE:09/05/20 12:05 3162 (REASON FOR PROCESS: PAIN LEFT SHOULDER PAIN INJECTION, 09/05/20: FINDINGS: Computer Hardware Engineer film shows DJD. PROCEDURE: The benefits and risks of the examination were discussed with the patient. The patient has given informed consent for the procedure. A time out was performed confirming the left sh oulder is the proper shoulder for today's examination. The skin surface was marked using fluoroscopic guidance. The skin was prepped and dressed in normal sterile fashion. Superficial and deep Lidocaine administration was performed with a 25-gauge needle. A 22- gauge spinal needle was then placed and advanced under fluoroscopic guidance. The needle was passed into the joint space at which time iodinated contrast was administered to confirm proper placement. Approximately 5 cc of iodinated contrast was administered. Depo-Medrol 1 cc 80 mg/mL and 5 cc of 1% lidocaine were administered. The needle was then removed. The skin was cleansed and bandaged. The pre-procedure pain level was 3/10. Post-procedure pain level was 1/10. Two seconds of fluoroscopy. Three images were obtained. No complications were experienced during the procedure. Page 1 of 2 [place] [address] PHONE: [phone] FAX: [phone] Name .................. : HATTIE MARIA ESTHER Iftikhar Acct Number.................. : [id number] ROOM. ................. : MR Number ................... : [id number] Stay type ............. : O/P Discharge Date......... ... : 09/05/20 Admit Date ......... : 09/05/20 Admit Phys .................... : YING SANTIAGO Date of ....... : 1960 Family Phys ................... : KAREN VAZQUEZ Phone .................. : [phone] Age ............. ................... : 60 Film# .................. .:[id number] Sex ................................. : F Unsigned transcriptions are preliminary reports and do not represent a medical or legal document INJECTION FOR SHOULDER ARTHRO [id number] COMPLETE:09/05/20 11:53 3159 (REASON FOR PROCESS: STEROID INJECTION L SHOULDER SHOULDER [address] [place] [id number] COMPLETE:09/05/20 12:05 3162 (REASON FOR PROCESS: PAIN Examination dictated by DECLAN Hinojosa. Examination was reviewed with Derek Orosco MD, radiologist at the time of this dictation. Electronically Reviewed and Signed By Derek Orosco MD , 09/06/20 10:21, KGG Transcribe Initials: [facility], Transcribe Date: 09/05/20 14:38, Dictation Date: Copy for: YING BALL via fax Copy for: 710 MED REC P age 3 of 2 Name Value Range Interpretation Code Description Data Jazmine rce(s) Supporting Document(s) ID Date Data Source [id number] 09/06/2020 10:21:00 AM EST [facility] [address] [place] [address] PHONE: [phone] FAX: [phone] Name .................. : HATTIE Buitrago Acct Number.................. : [id number] ROOM. ................. : Number ................... : [id number] Stay type ............. : O/P Discharge Date......... ... : 09/05/20 Admit Date ......... : 09/05/20 Admit Phys .................... : YING SANTIAGO Date of ....... : 1960 Family Phys ................... : KAREN VAZQUEZ Phone .................. : [phone] Age ................................ : 60 Film# .................. .:[id number] Sex ................................. : F Unsigned transcriptions are preliminary reports and do not represent a medical or legal document INJECTION FOR SHOULDER ARTHRO [id number] COMPLETE:09/05/20 11:53 3159 (REASON FOR PROCESS: STEROID INJECTION L SHOULDER SHOULDER 1 [place] [id number] COMPLETE:09/05/20 12:05 3162 (REASON FOR PROCESS: PAIN LEFT SHOULDER PAIN INJECTION, 09/05/20: FINDINGS: Computer Hardware Engineer film shows DJD. PROCEDURE: The benefits and risks of the examination were discussed with the patient. The patient has given informed consent for the procedure. A time out was performed confirming the left sh oulder is the proper shoulder for today's examination. The skin surface was marked using fluoroscopic guidance. The skin was prepped and dressed in normal sterile fashion. Superficial and deep Lidocaine administration was performed with a 25-gauge needle. A 22- gauge spinal needle was then placed and advanced under fluoroscopic guidance. The needle was passed into the joint space at which time iodinated contrast was administered to confirm proper placement. Approximately 5 cc of iodinated contrast was administered. Depo-Medrol 1 cc 80 mg/mL and 5 cc of 1% lidocaine were administered. The needle was then removed. The skin was cleansed and bandaged. The pre-procedure pain level was 3/10. Post-procedure pain level was 1/10. Two seconds of fluoroscopy. Three images were obtained. No complications were experienced during the procedure. [address] [place] [address] PHONE: [phone] FAX: [phone] Name .................. : HATTIE MAYO Iftikhar Acct Number.................. : [id number] ROOM. ................. : Number ................... : [id number] Stay type ............. : O/P Discharge Date......... ... : 09/05/20 Admit Date ......... : 09/05/20 Admit Phys .................... : YING SANTIAGO Date of ....... : 1960 Family Phys ................... : KAREN VAZQUEZ Phone .................. : [phone] Age ............. ................... : 60 Film# .................. .:[id number] Sex ................................. : F Unsigned transcriptions are preliminary reports and do not represent a medical or legal document INJECTION FOR SHOULDER ARTHRO [id number] COMPLETE:09/05/20 11:53 3159 (REASON FOR PROCESS: STEROID INJECTION L SHOULDER SHOULDER 1 [place] [id number] COMPLETE:09/05/20 12:05 3162 (REASON FOR PROCESS: PAIN Examination dictated by DECLAN Hinojosa. Examination was reviewed with Derek Orosco MD, radiologist at the time of this dictation. Electronically Reviewed and Signed By Derek Orosco MD , 09/06/20 10:21, KGG Transcribe Initials: [facility], Transcribe Date: 09/05/20 14:38, Dictation Date: Copy for: YING BALL via fax Copy for: 710 MED REC P age 3 of 2 Name Value Range Interpretation Code Description Data Jazmine rce(s) Supporting Document(s) ID Date Data Source [id number] 07/29/2020 12:05:00 PM EST [facility] Name Value Range Interpretation Code Description Data Jazmine rce(s) Supporting Document(s) SARS coronavirus 2 RNA [facility] This lab was ordered by [facility] and reported by [facility]. ID Date Data Source [id number] 07/17/2020 08:49:00 AM EST MEDENT ([facility], ) Name Value Range Interpretation Code Description Data Jazmine rce(s) Supporting Document(s) PDFReport Laboratory test result MEDENT ([facility], ) FVC-Pred 3.24 L MEDENT ([facility]) FVC-Pre 2.47 L MEDENT ([facility]) FVC-LLN 2.56 L MEDENT ([facility]) FVC-%Pred-Pre 76 L MEDENT ([facility]) Fev1-Pred 2.52 L MEDENT ([facility]) Fev1-%Pred-Pre 67 L MEDENT ([facility], ) Fev1-Pre 1.71 L MEDENT ([facility]) Fev6-Pred 3.13 L MEDENT ([facility], ) Fev1-LLN 1.95 L MEDENT ([facility]) Fev6-Pre 2.47 L MEDENT ([facility]) Fev6-LLN 2.47 L MEDENT ([facility]) Fev6-%Pred-Pre 78 L MEDENT ([facility], ) Tue0got-Adru 78 % MEDENT ([facility]) Phh4orx-%Pred-Pre 88 % MEDENT ([facility]) Gru3rrp-Zjt 69 % MEDENT ([facility]) Xrg0dwq-Dtqs 97 % MEDENT ([facility]) Yeb4xja-Rnf 100 % MEDENT ([facility]) Yvs8snj-VJU 69 % MEDENT ([facility]) FEFMax-Pred 6.25 L/E/sec MEDENT ([facility], ) Gdw0tuh-%Pred-Pre 103 % MED[facility] ([facility]) FEFMax-LLN 4.58 L/E/sec MEDENT ([facility]) FEFMax-%Pred-Pre 91 L/E/sec MED[facility] ([facility]) FEFMax-Pre 5.69 L/E/sec MED[facility] ([facility]) Jif1830-Goxc 2.38 L/E/sec MEDENT ([facility]) Kfz8790-%Pred-Pre 44 L/E/sec MEDENT ([facility]) Ilg2375-Naz 1.05 L/E/sec MEDENT ([facility]) Dkc7610-FXD 1.18 L/E/sec MEDENT ([facility]) ExpTime-Pre 5.86 sec MEDENT ([facility]) Fql4ldh8-Sfdi 81 % MEDENT ([facility]) Zqy9fiz0-%Pred-Pre 85 % MEDENT ([facility]) Cfk8nce8-Ntx 69 % MEDENT ([facility], ) Euo3oug7-QWC 72 % MEDENT ([facility], ) Procedure Social History Code Duration Value Status Description Data Source(s ) Smoking 05/25/2021 12:00:00 AM EDT Former Smoker completed Former Smoker eCW1 ([facility]) Smoking 05/25/2021 12:00:00 AM EDT Former Smoker completed Former Smoker eCW1 ([facility]) Smoking 05/25/2021 12:00:00 AM EDT Former Smoker completed Former Smoker eCW1 ([facility]) Smoking 04/21/2021 12:00:00 AM EDT Former Smoker completed Former Smoker eCW1 ([facility]) Smoking 04/21/2021 12:00:00 AM EDT Former Smoker completed Former Smoker eCW1 ([facility]) Smoking 04/21/2021 12:00:00 AM EDT Former Smoker completed Former Smoker eCW1 ([facility]) Smoking 03/04/2021 12:00:00 AM EDT Former Smoker completed Former Smoker eCW1 ([facility]) Smoking 03/04/2021 12:00:00 AM EDT Former Smoker completed Former Smoker eCW1 ([facility]) Smoking 03/04/2021 12:00:00 AM EDT Former Smoker completed Former Smoker eCW1 ([facility]) Smoking 03/04/2021 12:00:00 AM EDT Former Smoker completed Former Smoker eCW1 ([facility]) Smoking 03/04/2021 12:00:00 AM EDT Former Smoker completed Former Smoker eCW1 ([facility]) Smoking 03/04/2021 12:00:00 AM EDT Former Smoker completed Former Smoker eCW1 ([facility]) Smoking 03/04/2021 12:00:00 AM EDT Former Smoker completed Former Smoker eCW1 ([facility]) Smoking 03/04/2021 12:00:00 AM EDT Former Smoker completed Former Smoker eCW1 ([facility]) Smoking 03/04/2021 12:00:00 AM EDT Former Smoker completed Former Smoker eCW1 ([facility]) Smoking 03/04/2021 12:00:00 AM EDT Former Smoker completed Former Smoker eCW1 ([facility]) Smoking 03/04/2021 12:00:00 AM EDT Former Smoker completed Former Smoker eCW1 ([facility]) Smoking 02/15/2021 12:00:00 AM EDT Former Smoker completed Former Smoker eCW1 ([facility]) Smoking 02/15/2021 12:00:00 AM EDT Former Smoker completed Former Smoker eCW1 ([facility]) Smoking 02/15/2021 12:00:00 AM EDT Former Smoker completed Former Smoker eCW1 ([facility]) Smoking 02/15/2021 12:00:00 AM EDT Former Smoker completed Former Smoker eCW1 ([facility]) Smoking 02/15/2021 12:00:00 AM EDT Former Smoker completed Former Smoker eCW1 ([facility]) Smoking 02/13/2021 12:00:00 AM EDT - 08/09/1987 12:00:00 AM EST Patient is a former smoker completed Patient is a former smoker LISA ([facility], ) Smoking 10/28/2020 12:00:00 AM EDT Former Smoker completed Former Smoker eCW1 ([facility]) Smoking 10/28/2020 12:00:00 AM EDT Former Smoker completed Former Smoker eCW1 ([facility]) Smoking 10/28/2020 12:00:00 AM EDT Former Smoker completed Former Smoker eCW1 ([facility]) Smoking 10/28/2020 12:00:00 AM EDT Former Smoker completed Former Smoker eCW1 ([facility]) Smoking 10/28/2020 12:00:00 AM EDT Former Smoker completed Former Smoker eCW1 ([facility]) Smoking 10/28/2020 12:00:00 AM EDT Former Smoker completed Former Smoker eCW1 ([facility]) Smoking 10/28/2020 12:00:00 AM EDT Former Smoker completed Former Smoker eCW1 ([facility]) Smoking 10/28/2020 12:00:00 AM EDT Former Smoker completed Former Smoker eCW1 ([facility]) Smoking 10/28/2020 12:00:00 AM EDT Former Smoker completed Former Smoker eCW1 ([facility]) Smoking 10/28/2020 12:00:00 AM EDT Former Smoker completed Former Smoker eCW1 ([facility]) Smoking 08/27/2020 12:00:00 AM EST Former Smoker completed Former Smoker eCW1 ([facility]) Smoking 08/27/2020 12:00:00 AM EST Former Smoker completed Former Smoker eCW1 ([facility]) Smoking 08/27/2020 12:00:00 AM EST Former Smoker completed Former Smoker eCW1 ([facility]) Smoking 08/27/2020 12:00:00 AM EST Former Smoker completed Former Smoker eCW1 ([facility]) Smoking 08/27/2020 12:00:00 AM EST Former Smoker completed Former Smoker eCW1 ([facility]) Smoking 06/10/2020 12:00:00 AM EST Former Smoker completed Former Smoker eCW1 ([facility]) Smoking 06/10/2020 12:00:00 AM EST Former Smoker completed Former Smoker eCW1 ([facility]) Smoking 06/10/2020 12:00:00 AM EST Former Smoker completed Former Smoker eCW1 ([facility]) Smoking 06/03/2020 12:00:00 AM EDT Former Smoker completed Former Smoker eCW1 ([facility]) Smoking 05/19/2020 12:00:00 AM EDT Patient has never smoked co mpleted Patient has never smoked MEDENT ([facility], [facility]) Smoking 05/14/2020 12:00:00 AM EDT Former Smoker completed Former Smoker eCW1 ([facility]) Smoking 05/14/2020 12:00:00 AM EDT Former Smoker completed Former Smoker eCW1 ([facility]) Smoking 05/14/2020 12:00:00 AM EDT Former Smoker completed Former Smoker eCW1 ([facility]) Smoking 05/14/2020 12:00:00 AM EDT Former Smoker completed Former Smoker eCW1 ([facility]) Smoking 05/14/2020 12:00:00 AM EDT Former Smoker completed Former Smoker eCW1 ([facility]) Vital Signs ID Date Data Source UNK Name Value Range Interpretation Code Description Data Source(s) Systolic blood pressure 118 mm[Hg] 118 mm[Hg] [facility] ([facility]) Diastolic blood pressure 78 mm[Hg] 78 mm[Hg] [facility] ([facility]) Heart rate 88 /min 88 /min [facility] ([facility]) Oxygen saturation in Arterial blood by Pulse oximetry 96 % 96 % [facility] ([facility]) Body height 63 [in_i] 63 [in_i] [facility] ([facility]) 5'3" Body weight 206.00 [lb_av] 206.00 [lb_av] [facility] Body mass index (BMI) [Ratio] 36.5 kg/m2 36.5 k g/m2 [facility] ([facility]) [place] body weight 115 [lb_av] 115 [lb_av] [facility] ([facility]) Body weight 93.442 kg 93.442 kg [facility] ([facility]) Body surface area Derived from formula 1.96 m2 1.96 m2 [facility] ([facility]) Systolic blood pressure 122 mm[Hg] 122 mm[Hg] [facility] ([facility]) Diastolic blood pressure 84 mm[Hg] 84 mm[Hg] [facility] ([facility]) Heart rate 93 /min 93 /min [facility] ([facility]) Oxygen saturation in Arterial blood by Pulse oximetry 97 % 97 % [facility] ([facility]) Systolic blood pressure 124 mm[Hg] 124 mm[Hg] [facility] ([facility]) Diastolic blood pressure 80 mm[Hg] 80 mm[Hg] [facility] ([facility]) Heart rate 106 /min 106 /min [facility] ([facility]) Oxygen saturation in Arterial blood by Pulse oximetry 97 % 97 % [facility] ([facility], ) Body weight 201.00 [lb_av] 201.00 [lb_av] [facility] ([facility]) Body weight 91.174 kg 91.174 [facility] Body weight 202.4 [lb_av] 202.4 [lb_av] eCW1 ([facility]) Body weight 91.81 kg 91.81 kg eCW1 ([facility]) Body height 63 [in_i] 63 [in_i] eCW1 ([facility]) Body mass index (BMI) [Ratio] 35.85 kg/m2 35.85 kg/m2 eCW1 ([facility]) Heart rate 97 /min 97 /min eCW1 ([facility]) Respiratory rate 18 /min 18 /min eCW1 ([facility]) Body temperature 97.5 [degF] 97.5 [degF] eCW1 ( [facility]) Systolic blood pressure 130 mm[Hg] 130 mm[Hg] e CW1 ([facility]) Diastolic blood pressure 86 mm[Hg] 86 mm[Hg] eCW1 ([facility]) Systolic blood pressure 122 mm[Hg] 122 mm[Hg] [facility] ([facility], ) Diastolic blood pressure 82 mm[Hg] 82 mm[Hg] [facility] ([facility]) Heart rate 81 /min 81 /min [facility] ([facility]) Oxygen saturation in Arterial blood by Pulse oximetry 97 % 97 % [facility] ([facility]) Systolic blood pressure 132 mm[Hg] 132 mm[Hg] [facility] Diastolic blood pressure 78 mm[Hg] 78 mm[Hg] [facility] ([facility]) Heart rate 83 /min 83 /min [facility] ([facility]) Oxygen saturation in Arterial blood by Pulse oximetry 97 % 97 % [facility] ([facility]) Body mass index (BMI) [Ratio] 37.4 kg/m2 37.4 k g/m2 [facility] ([facility]) [place] body weight 115 [lb_av] 115 [lb_av] [facility] ([facility]) Systolic blood pressure 128 mm[Hg] 128 mm[Hg] M [facility] ([facility]) Diastolic blood pressure 86 mm[Hg] 86 mm[Hg] [facility] ([facility]) Body height 63 [in_i] 63 [in_i] [facility] 5'3" Body weight 211.00 [lb_av] 211.00 [lb_av] [facility] ([facility]) Body weight 95.710 kg 95.710 kg [facility] ([facility]) Body surface area Derived from formula 1.98 m2 1.98 m2 [facility] ([facility]) Body weight 208 [lb_av] 208 [lb_av] eCW1 ([facility]) Body height 63 [in_i] 63 [in_i] eCW1 ([facility]) Body mass index (BMI) [Ratio] 36.84 kg/m2 36.84 kg/m2 eCW1 ([facility]) Heart rate 94 /min 94 /min eCW1 ([facility]) Respiratory rate 18 /min 18 /min eCW1 ([facility]) Body temperature 97.9 [degF] 97.9 [degF] eCW1 ( [facility]) Systolic blood pressure 126 mm[Hg] 126 mm[Hg] e CW1 ([facility]) Diastolic blood pressure 72 mm[Hg] 72 mm[Hg] eCW1 ([facility]) Body weight 210.4 [lb_av] 210.4 [lb_av] eCW1 ([facility]) Body height 63 [in_i] 63 [in_i] eCW1 ([facility]) Body mass index (BMI) [Ratio] 37.27 kg/m2 37.27 kg/m2 W1 ([facility]) Heart rate 91 /min 91 /min eCW1 ([facility]) Respiratory rate 18 /min 18 /min eCW1 ([facility]) Body temperature 97.5 [degF] 97.5 [degF] eCW1 ( [facility]) Systolic blood pressure 128 mm[Hg] 128 mm[Hg] e CW1 ([facility]) Diastolic blood pressure 80 mm[Hg] 80 mm[Hg] eCW1 ([facility]) Heart rate 87 /min 87 /min [facility] Body weight 211.00 [lb_av] 211.00 [lb_av] [facility] ([facility]) Diastolic blood pressure 84 mm[Hg] 84 mm[Hg] [facility] ([facility]) Systolic blood pressure 122 mm[Hg] 122 mm[Hg] [facility] ([facility]) Oxygen saturation in Arterial blood by Pulse oximetry 96 % 96 % [facility] ([facility]) Body height 63 [in_i] 63 [in_i] [facility] ([facility]) 5'3" Body mass index (BMI) [Ratio] 37.4 kg/m2 37.4 k g/m2 [facility] ([facility]) [place] body weight 115 [lb_av] 115 [lb_av] [facility] ([facility]) Body weight 95.710 kg 95.710 kg [facility] ([facility]) Body surface area Derived from formula 1.98 m2 1.98 m2 [facility] ([facility]) Body mass index (BMI) [Ratio] 37.2 kg/m2 37.2 k g/m2 [facility] ([facility]) [place] body weight 115 [lb_av] 115 [lb_av] [facility] ([facility]) Body weight 210.00 [lb_av] 210.00 [lb_av] [facility] ([facility]) Body weight 210.00 [lb_av] 210.00 [lb_av] [facility] ([facility]) Systolic blood pressure 108 mm[Hg] 108 mm[Hg] M [facility] ([facility]) Body mass index (BMI) [Ratio] 37.2 kg/m2 37.2 k g/m2 [facility] ([facility]) Diastolic blood pressure 70 mm[Hg] 70 mm[Hg] [facility] ([facility]) [place] body weight 115 [lb_av] 115 [lb_av] [facility] ([facility]) Heart rate 95 /min 95 /min [facility] ([facility]) Body weight 95.256 kg 95.256 kg [facility]) Oxygen saturation in Arterial blood by Pulse oximetry 98 % 98 % [facility] ([facility]) Body temperature 97.6 [degF] 97.6 [degF] [facility] ([facility]) Body surface area Derived from formula 1.97 m2 1.97 m2 [facility] ([facility]) Body height 63 [in_i] 63 [in_i] [facility] ([facility]) 5'3" Oxygen saturation in Arterial blood by Pulse oximetry 98 % 98 % [facility] ([facility]) Body temperature 97.6 [degF] 97.6 [degF] [facility] ([facility]) Body height 63 [in_i] 63 [in_i] [facility] ([facility]) 5'3" Body weight 95.256 kg 95.256 kg [facility] ([facility]) Body surface area Derived from formula 1.97 m2 1.97 m2 [facility] ([facility]) Body weight 210 [lb_av] 210 [lb_av] W1 ([facility]) Body height 63 [in_i] 63 [in_i] eCW1 ([facility]) Systolic blood pressure 118 mm[Hg] 118 mm[Hg] e CW1 ([facility]) Body mass index (BMI) [Ratio] 37.20 kg/m2 37.20 kg/m2 W1 ([facility]) Diastolic blood pressure 78 mm[Hg] 78 mm[Hg] eCW1 ([facility]) Heart rate /min W1 ([facility]) Respiratory rate 18 /min 18 /min eCW1 ([facility]) Body temperature 98.3 [degF] 98.3 [degF] eCW1 ( [facility]) Systolic blood pressure 142 mm[Hg] 142 mm[Hg] [facility] ([facility], ) Diastolic blood pressure 90 mm[Hg] 90 mm[Hg] [facility] ([facility]) Heart rate 96 /min 96 /min [facility] ([facility]) Oxygen saturation in Arterial blood by Pulse oximetry 98 % 98 % [facility] ([facility]) Systolic blood pressure 122 mm[Hg] 122 mm[Hg] [facility] ([facility]) Diastolic blood pressure 76 mm[Hg] 76 mm[Hg] [facility] ([facility]) Heart rate 85 /min 85 /min [facility] ([facility]) Oxygen saturation in Arterial blood by Pulse oximetry 99 % 99 % [facility] ([facility]) Systolic blood pressure 126 mm[Hg] 126 mm[Hg] [facility] ([facility], ) Body height 63 [in_i] 63 [in_i] [facility] ([facility], ) 5'3" Diastolic blood pressure 74 mm[Hg] 74 mm[Hg] [facility] ([facility], ) Heart rate 95 /min 95 /min [facility] ([facility], ) Oxygen saturation in Arterial blood by Pulse oximetry 95 % 95 % [facility] ([facility], ) [place] body weight 115 [lb_av] 115 [lb_av] [facility] ([facility], ) Body height 63 [in_i] 63 [in_i] [facility] ([facility], [facility]) 5'3" Systolic blood pressure 158 mm[Hg] 158 mm[Hg] [facility], [facility]) Diastolic blood pressure 93 mm[Hg] 93 mm[Hg] [facility] ([facility], [facility]) Heart rate 112 /min 112 /min [facility], [facility]) Respiratory rate 18 /min 18 /min [facility] ( [facility], [facility]) Oxygen saturation in Arterial blood by Pulse oximetry 99 % 99 % [facility] ([facility]) Body temperature 96.6 [degF] 96.6 [degF] [facility]) Body weight 210.00 [lb_av] 210.00 [lb_av] [facility] ([facility]) Body mass index (BMI) [Ratio] 37.2 kg/m2 37.2 k g/m2 [facility] ([facility]) [place] body weight 115 [lb_av] 115 [lb_av] [facility] ([facility]) Heart rate 92 /min 92 /min [facility] ([facility]) Systolic blood pressure 130 mm[Hg] 130 mm[Hg] [facility] ([facility]) Diastolic blood pressure 90 mm[Hg] 90 mm[Hg] [facility] ([facility]) Oxygen saturation in Arterial blood by Pulse oximetry 97 % 97 % [facility] ([facility]) Body height 63 [in_i] 63 [in_i] [facility] ([facility]) 5'3" Diastolic blood pressure 60 mm[Hg] 60 mm[Hg] [facility] ([facility]) Systolic blood pressure 120 mm[Hg] 120 mm[Hg] [facility] ([facility]) Heart rate 89 /min 89 /min [facility] ([facility]) Oxygen saturation in Arterial blood by Pulse oximetry 98 % 98 % [facility] ([facility]) Body temperature 96.5 [degF] 96.5 [degF] [facility] ([facility]) Body height 63 [in_i] 63 [in_i] [facility] ([facility]) 5'3" Body surface area Derived from formula 1.98 m2 1.98 m2 [facility] ([facility]) Body weight 212.00 [lb_av] 212.00 [lb_av] [facility] ([facility]) Body mass index (BMI) [Ratio] 37.6 kg/m2 37.6 k g/m2 [facility] ([facility], ) [place] body weight 115 [lb_av] 115 [lb_av] [facility] ([facility]) Body weight 96.163 kg 96.163 kg [facility] Body weight 213 [lb_av] 213 [lb_av] eCW1 ([facility]) Body height 63 [in_i] 63 [in_i] eCW1 ([facility]) Body mass index (BMI) [Ratio] 37.73 kg/m2 37.73 kg/m2 eCW1 ([facility]) Heart rate 100 /min 100 /min eCW1 ([facility]) Respiratory rate 18 /min 18 /min eCW1 ([facility]) Body temperature 98.4 [degF] 98.4 [degF] eCW1 ( [facility]) Systolic blood pressure 130 mm[Hg] 130 mm[Hg] e CW1 ([facility]) Diastolic blood pressure 72 mm[Hg] 72 mm[Hg] eCW1 ([facility]) Diastolic blood pressure 90 mm[Hg] 90 mm[Hg] [facility] ([facility], ) Heart rate 85 /min 85 /min [facility] ([facility]) Systolic blood pressure 144 mm[Hg] 144 mm[Hg] [facility], [facility] Oxygen saturation in Arterial blood by Pulse oximetry 97 % 97 % [facility] ([facility]) Body temperature 97.6 [degF] 97.6 [degF] [facility] ([facility]) Oxygen saturation in Arterial blood by Pulse oximetry 96 % 96 % [facility] ([facility], ) Body temperature 98.1 [degF] 98.1 [degF] [facility] ([facility], ) Heart rate 80 /min 80 /min [facility] ([facility]) Systolic blood pressure 112 mm[Hg] 112 mm[Hg] M EDENT ([facility], ) Diastolic blood pressure 70 mm[Hg] 70 mm[Hg] [facility] ([facility], ) Systolic blood pressure 128 mm[Hg] 128 mm[Hg] [facility], [facility] Diastolic blood pressure 74 mm[Hg] 74 mm[Hg] [facility], ) Heart rate 95 /min 95 /min [facility] ([facility], ) Oxygen saturation in Arterial blood by Pulse oximetry 97 % 97 % [facility], ) Systolic blood pressure 130 mm[Hg] 130 mm[Hg] e CW1 ([facility]) Body weight 215.2 [lb_av] 215.2 [lb_av] eCW1 ([facility]) Body height 63 [in_i] 63 [in_i] eCW1 ([facility]) Body mass index (BMI) [Ratio] 38.12 kg/m2 38.12 kg/m2 W1 ([facility]) Heart rate 104 /min 104 /min eCW1 ([facility]) Respiratory rate 18 /min 18 /min eCW1 ([facility]) Body temperature 97.8 [degF] 97.8 [degF] eCW1 ( [facility]) Diastolic blood pressure 80 mm[Hg] 80 mm[Hg] eCW1 ([facility]) Oxygen saturation in Arterial blood by Pulse oximetry 98 % 98 % [facility], ) Systolic blood pressure 118 mm[Hg] 118 mm[Hg] [facility], [facility] Diastolic blood pressure 76 mm[Hg] 76 mm[Hg] [facility], ) Heart rate 85 /min 85 /min [facility] ([facility], ) Body temperature 96.5 [degF] 96.5 [degF] [facility]) Systolic blood pressure 126 mm[Hg] 126 mm[Hg] [facility], [facility] Diastolic blood pressure 78 mm[Hg] 78 mm[Hg] [facility] ([facility], ) Heart rate 97 /min 97 /min [facility] ([facility], ) Oxygen saturation in Arterial blood by Pulse oximetry 98 % 98 % [facility], ) Body height 63 [in_i] 63 [in_i] [facility] 5'3" [place] body weight 115 [lb_av] 115 [lb_av] [facility] ([facility]) Systolic blood pressure 122 mm[Hg] 122 mm[Hg] [facility] Diastolic blood pressure 78 mm[Hg] 78 mm[Hg] [facility] ([facility]) Heart rate 87 /min 87 /min [facility] ([facility]) Oxygen saturation in Arterial blood by Pulse oximetry 94 % 94 % [facility] ([facility]) Body temperature 97.7 [degF] 97.7 [degF] [facility] ([facility]) Body height 63 [in_i] 63 [in_i] [facility] ([facility]) 5'3" Body weight 212.00 [lb_av] 212.00 [lb_av] [facility] ([facility]) Body mass index (BMI) [Ratio] 37.6 kg/m2 37.6 k g/m2 [facility] ([facility]) [place] body weight 115 [lb_av] 115 [lb_av] [facility] ([facility]) Body weight 96.163 kg 96.163 kg [facility] ([facility]) Body surface area Derived from formula 1.98 m2 1.98 m2 [facility] ([facility]) Oxygen saturation in Arterial blood by Pulse oximetry 98 % 98 % [facility] ([facility]) Body temperature 98.2 [degF] 98.2 [degF] [facility] ([facility]) Body height 63 [in_i] 63 [in_i] [facility] ([facility]) 5'3" Systolic blood pressure 120 mm[Hg] 120 mm[Hg] [facility] Diastolic blood pressure 70 mm[Hg] 70 mm[Hg] [facility] ([facility]) Heart rate 86 /min 86 /min [facility] ([facility]) [place] body weight 115 [lb_av] 115 [lb_av] [facility] ([facility], ) Body weight 211 [lb_av] 211 [lb_av] eCW1 ([facility]) Body height 63 [in_i] 63 [in_i] eCW1 ([facility]) Body mass index (BMI) [Ratio] 37.37 kg/m2 37.37 kg/m2 eCW1 ([facility]) Heart rate 96 /min 96 /min eCW1 ([facility]) Respiratory rate 18 /min 18 /min eCW1 ([facility]) Body temperature 97.3 [degF] 97.3 [degF] eCW1 ( [facility]) Systolic blood pressure 124 mm[Hg] 124 mm[Hg] e CW1 ([facility]) Diastolic blood pressure 82 mm[Hg] 82 mm[Hg] eCW1 ([facility]) Body weight 213 [lb_av] 213 [lb_av] eCW1 ([facility]) Body height 63 [in_i] 63 [in_i] eCW1 ([facility]) Body mass index (BMI) [Ratio] 37.73 kg/m2 37.73 kg/m2 eCW1 ([facility]) Heart rate /min eCW1 ([facility]) Respiratory rate 18 /min 18 /min eCW1 ([facility]) Body temperature 97.4 [degF] 97.4 [degF] eCW1 ( [facility]) Systolic blood pressure 132 mm[Hg] 132 mm[Hg] e CW1 ([facility]) Diastolic blood pressure 90 mm[Hg] 90 mm[Hg] eCW1 ([facility]) Systolic blood pressure 120 mm[Hg] 120 mm[Hg] M EDENT ([facility], ) Diastolic blood pressure 70 mm[Hg] 70 mm[Hg] [facility] ([facility], ) Heart rate 102 /min 102 /min [facility] ([facility], ) Oxygen saturation in Arterial blood by Pulse oximetry 98 % 98 % [facility] ([facility], ) Body temperature 97.7 [degF] 97.7 [degF] [facility], [facility] Respiratory rate 14 /min 14 /min [facility] ( [facility], [facility]) Oxygen saturation in Arterial blood by Pulse oximetry 95 % 95 % [facility] ([facility], [facility]) Body temperature 98.3 [degF] 98.3 [degF] [facility], [facility]) Systolic blood pressure 130 mm[Hg] 130 mm[Hg] M EDENT ([facility], [facility]) Diastolic blood pressure 90 mm[Hg] 90 mm[Hg] [facility], [facility]) Heart rate 108 /min 108 /min [facility] ([facility], [facility]) Body weight 205.00 [lb_av] 205.00 [lb_av] MED[facility] T ([facility], [facility]) Body height 63 [in_i] 63 [in_i] [facility] ([facility]) 5'3" Body mass index (BMI) [Ratio] 36.3 kg/m2 36.3 k g/m2 [facility] ([facility], [facility]) Body weight 210 [lb_av] 210 [lb_av] eCW1 ([facility]) Body height 63 [in_i] 63 [in_i] eCW1 ([facility]) Body mass index (BMI) [Ratio] 37.20 kg/m2 37.20 kg/m2 eCW1 ([facility]) Heart rate 94 /min 94 /min eCW1 ([facility]) Respiratory rate 19 /min 19 /min eCW1 ([facility]) Body temperature 97.9 [degF] 97.9 [degF] eCW1 ( [facility]) Systolic blood pressure 138 mm[Hg] 138 mm[Hg] e CW1 ([facility]) Diastolic blood pressure 86 mm[Hg] 86 mm[Hg] eCW1 ([facility]) Patient Treatment Plan of Care Planned Activity Planned Date Details Description Data Source (s) Metoclopramide 5 MG Oral Tablet 04/02/2021 12:00:00 AM EDT eCW1 ([facility]) Metoclopramide 5 MG Oral Tablet 04/02/2021 12:00:00 AM EDT eCW1 ([facility]) Metoclopramide 5 MG Oral Tablet 04/02/2021 12:00:00 AM EDT eCW1 ([facility]) Metoclopramide 5 MG Oral Tablet 04/02/2021 12:00:00 AM EDT eCW1 ([facility]) Metoclopramide 5 MG Oral Tablet 04/02/2021 12:00:00 AM EDT eCW1 ([facility]) calcium polycarbophil 625 MG Oral Tablet [Fiber Tab] 12:00:00 AM EDT eCW1 ([facility]) Lactulose 667 MG/ML Oral Solution [Constulose] 04/02/2021 12:00:00 AM EDT eCW1 ([facility]) Metoclopramide 5 MG Oral Tablet 04/02/2021 12:00:00 AM EDT eCW1 ([facility]) Metoclopramide 5 MG Oral Tablet 04/02/2021 12:00:00 AM EDT eCW1 ([facility]) calcium polycarbophil 625 MG Oral Tablet [Fiber Tab] 12:00:00 AM EDT eCW1 ([facility]) Lactulose 667 MG/ML Oral Solution [Constulose] 04/02/2021 12:00:00 AM EDT eCW1 ([facility]) Metoclopramide 5 MG Oral Tablet 04/02/2021 12:00:00 AM EDT eCW1 ([facility]) Furosemide 20 MG Oral Tablet 02/27/2021 12:00:00 AM EDT eCW1 ([facility]) Furosemide 20 MG Oral Tablet 02/27/2021 12:00:00 AM EDT eCW1 ([facility]) Furosemide 20 MG Oral Tablet 02/27/2021 12:00:00 AM EDT eCW1 ([facility]) Furosemide 20 MG Oral Tablet 02/27/2021 12:00:00 AM EDT eCW1 ([facility]) Furosemide 20 MG Oral Tablet 02/27/2021 12:00:00 AM EDT eCW1 ([facility]) Furosemide 20 MG Oral Tablet 02/27/2021 12:00:00 AM EDT eCW1 ([facility]) Furosemide 20 MG Oral Tablet 02/27/2021 12:00:00 AM EDT eCW1 ([facility]) Furosemide 20 MG Oral Tablet 02/27/2021 12:00:00 AM EDT eCW1 ([facility]) Furosemide 20 MG Oral Tablet 02/27/2021 12:00:00 AM EDT eCW1 ([facility]) Furosemide 20 MG Oral Tablet 02/27/2021 12:00:00 AM EDT eCW1 ([facility]) Furosemide 20 MG Oral Tablet 02/27/2021 12:00:00 AM EDT eCW1 ([facility]) Furosemide 20 MG Oral Tablet 02/27/2021 12:00:00 AM EDT eCW1 ([facility]) Furosemide 20 MG Oral Tablet 02/27/2021 12:00:00 AM EDT eCW1 ([facility]) Prednisone 20 MG Oral Tablet 10/31/2020 12:00:00 AM EDT eCW1 ([facility]) Prednisone 20 MG Oral Tablet 10/31/2020 12:00:00 AM EDT eCW1 ([facility]) Prednisone 20 MG Oral Tablet 10/31/2020 12:00:00 AM EDT eCW1 ([facility]) Prednisone 20 MG Oral Tablet 10/31/2020 12:00:00 AM EDT eCW1 ([facility]) Prednisone 20 MG Oral Tablet 10/31/2020 12:00:00 AM EDT eCW1 ([facility]) Prednisone 20 MG Oral Tablet 10/31/2020 12:00:00 AM EDT eCW1 ([facility]) Prednisone 20 MG Oral Tablet 10/31/2020 12:00:00 AM EDT eCW1 ([facility]) Prednisone 20 MG Oral Tablet 10/31/2020 12:00:00 AM EDT eCW1 ([facility]) Prednisone 20 MG Oral Tablet 10/31/2020 12:00:00 AM EDT eCW1 ([facility]) Prednisone 20 MG Oral Tablet 10/31/2020 12:00:00 AM EDT eCW1 ([facility]) Prednisone 20 MG Oral Tablet 06/03/2020 12:00:00 AM EDT eCW1 ([facility])
[2021-06-27] MEDS ORDERED: LIDOCAINE 2% 100MG/5ML SDV (FOR ANES.) As Ordered ONE (09:39)
[2021-06-27] MEDS ORDERED: propofoL 200 MG/20 ML VIAL As Ordered ONE ×3 (09:39→10:11)
--- NOTE | 2021-06-27 09:56 | ROOR ---
Patient Name: Martha Manzo Procedure Date: 06/27/2021 9:31 AM Date of : 1960 Age: 60 Room: [facility] Gender: Female Note Status: Finalized Procedure: Upper GI endoscopy Indications: Dyspepsia Providers: Carlos Thornton MD Referring MD: Candice ELMORE DO Requesting Provider: Medicines: Monitored Anesthesia Care Complications: No immediate complications. Procedure: Pre-Anesthesia Assessment: - The heart rate, respiratory rate, oxygen saturations, blood pressure, adequacy of pulmonary ventilation, and response to care were monitored throughout the procedure. The Endoscope was introduced through the mouth, and advanced to the second part of duodenum. The upper GI endoscopy was accomplished without difficulty. The patient tolerated the procedure well. Findings: The examined esophagus was normal. Multiple small semi-sessile polyps were found in the entire examined stomach. The polyp was removed with a cold snare. Polyp resection was incomplete. The resected tissue was retrieved. The exam of the stomach was otherwise normal. The examined duodenum was normal. Impression: - Normal esophagus. - Multiple gastric polyps. Incomplete resection. Resected tissue retrieved. - Normal examined duodenum. Recommendation: - Await pathology results. - Return to physician news production assistant at appointment to be scheduled. Procedure Code(s): --- Professional --- 70339, Esophagogastroduodenoscopy, flexible, transoral; with removal of tumor(s), polyp(s), or other lesion(s) by snare technique Diagnosis Code(s): --- Professional --- R10.13, Epigastric pain K31.7, Polyp of stomach and duodenum CPT copyright 2019 [employer]. All rights reserved. The codes documented in this report are preliminary and upon merry go round attendant review may be revised to meet current compliance requirements. Carlos Thornton MD Carlos Thornton MD 06/27/2021 9:55:30 AM Electronically signed by Carlos Thornton MD Number of Addenda: 0 Note Initiated On: 06/27/2021 9:31 AM Estimated Blood Loss: Estimated blood loss: none.
--- NOTE | 2021-06-27 10:15 | ROOR ---
Patient Name: Martha Manzo Procedure Date: 06/27/2021 9:31 AM Date of : 1960 Age: 60 Room: [facility] Gender: Female Note Status: Finalized Procedure: Colonoscopy Indications: High risk colon cancer surveillance: Personal history of colonic polyps Providers: Carlos Thornton MD Referring MD: Candice ELMORE DO Requesting Provider: Medicines: Monitored Anesthesia Care Complications: No immediate complications. Procedure: Pre-Anesthesia Assessment: - The heart rate, respiratory rate, oxygen saturations, blood pressure, adequacy of pulmonary ventilation, and response to care were monitored throughout the procedure. The Colonoscope was introduced through the anus and advanced to the terminal ileum, with identification of the appendiceal orifice and IC valve. The colonoscopy was performed without difficulty. The patient tolerated the procedure well. The quality of the bowel preparation was good. Findings: The perianal and digital rectal examinations were normal. Three sessile polyps were found in the ascending colon. The polyps were diminutive in size. These polyps were removed with a cold snare. Resection and retrieval were complete. A 5 mm polyp was found in the splenic flexure. The polyp was sessile. The polyp was removed with a cold snare. Resection and retrieval were complete. Internal hemorrhoids were found during retroflexion. The hemorrhoids were moderate. Impression: - Three diminutive polyps in the ascending colon, removed with a cold snare. Resected and retrieved. - One 5 mm polyp at the splenic flexure, removed with a cold snare. Resected and retrieved. - Internal hemorrhoids. Recommendation: - Await pathology results. - Return to physician regulatory assistant at the next available appointment. Procedure Code(s): --- Professional --- 00966, Colonoscopy, flexible; with removal of tumor(s), polyp(s), or other lesion(s) by snare technique Diagnosis Code(s): --- Professional --- K63.5, Polyp of colon Z86.010, Personal history of colonic polyps K64.8, Other hemorrhoids CPT copyright 2019 [employer]. All rights reserved. The codes documented in this report are preliminary and upon irrigation system operator review may be revised to meet current compliance requirements. Carlos Thornton MD Carlos Thornton MD 06/27/2021 10:14:57 AM Electronically signed by Carlos Thornton MD Number of Addenda: 0 Note Initiated On: 06/27/2021 9:31 AM Estimated Blood Loss: Estimated blood loss: none.
[2021-06-27 10:35] VITALS: BP 164/83
== END 2021-06-27 10:41 | disposition home or self-care (01) ==
LOC: M OPP 08:11
PROVIDERS: ATTEND Internal Medicine Gastroenterology
DX: D12.0 Benign neoplasm of cecum (principal); K31.7 Polyp of stomach and duodenum; R10.13 Epigastric pain; K64.8 Other hemorrhoids; Z86.010 Personal history of colon polyps; G47.33 Obstructive sleep apnea (adult) (pediatric); E78.5 Hyperlipidemia, unspecified; R12 Heartburn; G43.909 Migraine, unspecified, not intractable, without status migrainosus; J44.9 Chronic obstructive pulmonary disease, unspecified; F32.A Depression, unspecified; Z91.040 Latex allergy status; Z79.899 Other long term (current) drug therapy

== ENCOUNTER → 2021-10-06 | Outpatient (REF) | payer OTHER ==
[~2021-10-06] MED LIST changes: -FLUO10CA16 PO; +FLUO10CA18 PO; -MONT10TA10 PO; +MONT10TA97 PO; -NS 1,000 ML IV ONE
== END ==
LOC: M LABDRWAD 15:50
PROVIDERS: ATTEND Internal Medicine Pulmonary Disease
DX: J45.50 Severe persistent asthma, uncomplicated (principal)

== ENCOUNTER → 2021-10-06 | Outpatient (REF) | payer OTHER ==
[2021-10-06 17:32] LABS: HEMATOCRIT 37.2 % (36.0-47.0); HEMOGLOBIN 12.3 g/dl (12.0-15.5); MEAN CORPUSCULAR HEMOGLOBIN 29.7 pg (27.0-33.0); MEAN CORPUSCULAR HGB CONC 33.1 g/dl (32.0-36.5); MEAN CORPUSCULAR VOLUME 89.9 fl (80.0-96.0); PLATELET COUNT, AUTOMATED 256 10^3/uL (150-450); RED BLOOD COUNT 4.14 10^6/uL (4.00-5.40); WHITE BLOOD COUNT 7.3 10^3/uL (4.0-10.0)
[2021-10-06 17:59] LABS: ALBUMIN 3.6 GM/DL (3.2-5.2); ALT/SGPT 26 U/L (12-78); BILIRUBIN,TOTAL 0.2 MG/DL (0.2-1.0); BLOOD UREA NITROGEN 17 MG/DL (7-18); CALCIUM LEVEL 9.4 MG/DL (8.8-10.2); CARBON DIOXIDE LEVEL 28 MEQ/L (21-32); CHLORIDE LEVEL 108 MEQ/L (98-107); CHOLESTEROL LEVEL 132 MG/DL (<200); CREATININE FOR GFR 0.66 MG/DL (0.55-1.30); GLOMERULAR FILTRATION RATE > 60.0 (>45); GLUCOSE, FASTING 99 MG/DL (70-100); HDL CHOLESTEROL 53 MG/DL (>40); LDL CHOLESTEROL 51 MG/DL (<100); NON-HDL-C 79 MG/DL; SODIUM LEVEL 140 MEQ/L (136-145); TOTAL PROTEIN 6.8 GM/DL (6.4-8.2); TRIGLYCERIDES LEVEL 139 MG/DL (<150)
[2021-10-06 19:28] LABS: HEMOGLOBIN A1c 5.7 %
== END ==
LOC: M SFHCPLAZ 15:52
PROVIDERS: ATTEND Student in an Organized Health Care Education/Training Program
DX: E78.5 Hyperlipidemia, unspecified (principal)

== ENCOUNTER → 2022-02-18 | Outpatient (CLI) | payer OTHER | LOC: M CARPUL 08:18 | PROVIDERS: ATTEND Student in an Organized Health Care Education/Training Program | DX: R60.0 Localized edema (principal) ==

== ENCOUNTER → 2022-03-10 | Outpatient (CLI) | payer OTHER | LOC: M WUC 14:17 | PROVIDERS: ATTEND Physician Assistant | DX: S83.412A Sprain of medial collateral ligament of left knee, initial encounter (principal); S83.422A Sprain of lateral collateral ligament of left knee, initial encounter; M25.762 Osteophyte, left knee ==

== ENCOUNTER → 2022-04-02 | Outpatient (REF) | payer OTHER | LOC: M SFHCPLAZ 13:49 | PROVIDERS: ATTEND Family Medicine | DX: D48.5 Neoplasm of uncertain behavior of skin (principal) ==

== ENCOUNTER → 2022-04-20 | Outpatient (REF) | payer OTHER ==
[~2022-04-20] MED LIST changes: -DULE200A INH; +MOME13HF7 INH
== END ==
LOC: M LAB REF 17:20
PROVIDERS: ATTEND Internal Medicine Pulmonary Disease
DX: J45.50 Severe persistent asthma, uncomplicated (principal)

== ENCOUNTER → 2022-04-30 | Outpatient (REF) | payer OTHER | LOC: M SFHCPLAZ 13:25 | PROVIDERS: ATTEND Family Medicine | DX: L57.4 Cutis laxa senilis (principal) ==

== ENCOUNTER → 2022-05-08 | Outpatient (CLI) | payer OTHER | LOC: M EKG 08:38 | PROVIDERS: ATTEND Orthopaedic Surgery | DX: G56.01 Carpal tunnel syndrome, right upper limb (principal) ==

== ENCOUNTER → 2022-09-15 | Outpatient (REF) | payer OTHER ==
[~2022-09-15] MED LIST changes: -ASMA1AER3; +MOME13HF5
[2022-09-15 13:25] LABS: HEMATOCRIT 42.4 % (36.0-47.0); HEMOGLOBIN 13.8 g/dl (12.0-15.5); MEAN CORPUSCULAR HEMOGLOBIN 29.7 pg (27.0-33.0); MEAN CORPUSCULAR HGB CONC 32.5 g/dl (32.0-36.5); MEAN CORPUSCULAR VOLUME 91.4 fl (80.0-96.0); PLATELET COUNT, AUTOMATED 274 10^3/uL (150-450); RED BLOOD COUNT 4.64 10^6/uL (4.00-5.40); WHITE BLOOD COUNT 6.7 10^3/uL (4.0-10.0)
[2022-09-15 13:26] LABS: ALBUMIN 3.8 G/DL (3.2-5.2); ALKALINE PHOSPHATASE 147 U/L (46-116); ALT/SGPT 12 U/L (7.0-40); AST/SGOT 22 U/L (<34); BILIRUBIN,TOTAL 0.3 MG/DL (0.3-1.2); BLOOD UREA NITROGEN 13 MG/DL (9-23); CALCIUM LEVEL 9.5 MG/DL (8.3-10.6); CARBON DIOXIDE LEVEL 28 MMOL/L (20-31); CHLORIDE LEVEL 104 MMOL/L (98-107); CHOLESTEROL LEVEL 155 MG/DL (<200); CHOLESTEROL RISK RATIO 2.74 (<5); GLOMERULAR FILTRATION RATE > 60.0 (>45); GLUCOSE, FASTING 93 MG/DL (74-106); HDL CHOLESTEROL 56.4 MG/DL (>40); LDL CHOLESTEROL 69.6 MG/DL (<100); NON-HDL-C 99 MG/DL; POTASSIUM SERUM 3.8 MMOL/L (3.5-5.1); SODIUM LEVEL 143 MMOL/L (136-145); TOTAL PROTEIN 7.3 G/DL (5.7-8.2); TRIGLYCERIDES LEVEL 145 MG/DL (<150)
[2022-09-15 15:17] LABS: HEMOGLOBIN A1c 5.3 % (4.0-6.0)
== END ==
LOC: M SFHCADAM 07:43
PROVIDERS: ATTEND Student in an Organized Health Care Education/Training Program
DX: K76.0 Fatty (change of) liver, not elsewhere classified (principal); R06.01 Orthopnea; E78.5 Hyperlipidemia, unspecified; Z13.1 Encounter for screening for diabetes mellitus

== ENCOUNTER → 2022-09-28 | Outpatient (CLI) | payer OTHER | LOC: M WHC 13:27 | PROVIDERS: ATTEND Student in an Organized Health Care Education/Training Program | DX: Z12.31 Encounter for screening mammogram for malignant neoplasm of breast (principal); M81.0 Age-related osteoporosis without current pathological fracture ==

== ENCOUNTER → 2022-10-14 | Outpatient (CLI) | payer OTHER ==
[~2022-10-14] MED LIST changes: +MONT-5 PO; -SING10TA32 PO
== END ==
LOC: M CARPUL 11:07
PROVIDERS: ATTEND Student in an Organized Health Care Education/Training Program
DX: R06.01 Orthopnea (principal)

== ENCOUNTER → 2022-10-22 | Outpatient (CLI) | payer OTHER | LOC: M RAD 16:18 | PROVIDERS: ATTEND Internal Medicine Pulmonary Disease | DX: J45.50 Severe persistent asthma, uncomplicated (principal) ==

== ENCOUNTER → 2022-10-27 | Outpatient (CLI) | payer OTHER ==
[2022-10-27 09:22] LABS: BLOOD UREA NITROGEN 12 MG/DL (9-23); CREATININE FOR GFR 0.64 MG/DL (0.55-1.30); GLOMERULAR FILTRATION RATE > 60.0 (>45)
== END ==
LOC: M LAB 08:10
DX: R06.00 Dyspnea, unspecified (principal)

== ENCOUNTER → 2022-10-29 | Outpatient (CLI) | payer OTHER ==
[~2022-10-29] MED LIST changes: +ISOVUE-370 76% 100ML VIAL As Ordered ONE
== END ==
LOC: M RAD 07:16
PROVIDERS: ATTEND Internal Medicine Pulmonary Disease
DX: R07.89 Other chest pain (principal); R06.00 Dyspnea, unspecified
CPT/HCPCS: 71275; Q9967

== ENCOUNTER → 2023-01-07 | Outpatient (REF) | payer OTHER ==
[~2023-01-07] MED LIST changes: +FLUT50SP17 NARES; -FLUTISP NARES; -ISOVUE-370 76% 100ML VIAL As Ordered ONE
== END ==
LOC: M SFHCPLAZ 13:25
PROVIDERS: ATTEND Family Medicine
DX: L57.0 Actinic keratosis (principal)

== ENCOUNTER → 2023-03-08 | Outpatient (CLI) | payer OTHER ==
[~2023-03-08] MED LIST changes: -ROPI1TAB3 PO; +ROPI1TAB73 PO
== END ==
LOC: M RAD 09:15
PROVIDERS: ATTEND Internal Medicine Pulmonary Disease
DX: J45.50 Severe persistent asthma, uncomplicated (principal)

== ENCOUNTER → 2023-10-22 | Outpatient (REF) | payer OTHER ==
[~2023-10-22] MED LIST changes: -FLUT50SP17 NARES; +FLUTISP NARES; +MECL-209 PO; -MECL1TAB31 PO
[2023-10-22 14:10] LABS: BASO # 0.1 10^3/uL (0.0-0.2); BASO % 1.4 % (0.0-1.0); EOS # 0.2 10^3/uL (0.0-0.5); EOS % 3.1 % (0.0-3.0); HEMOGLOBIN 13.2 g/dl (12.0-15.5); LYMPH # 2.7 10^3/uL (1.5-5.0); LYMPH % 35.6 % (24.0-44.0); MEAN CORPUSCULAR HGB CONC 32.2 g/dl (32.0-36.5); MEAN CORPUSCULAR VOLUME 93.2 fl (80.0-96.0); MONO # 0.7 10^3/uL (0.0-0.8); MONO % 8.6 % (2.0-8.0); NEUTROPHILS # 3.9 10^3/uL (1.5-8.5); NEUTROPHILS % 50.4 % (36.0-66.0); PLATELET COUNT, AUTOMATED 297 10^3/uL (150-450); WHITE BLOOD COUNT 7.7 10^3/uL (4.0-10.0)
[2023-10-22 14:11] LABS: THEOPHYLLINE LEVEL 17.1 UG/ML (10.0-20.0)
[2023-10-22 14:16] LABS: ALBUMIN 3.7 G/DL (3.2-5.2); ALKALINE PHOSPHATASE 128 U/L (46-116); ALT/SGPT 17 U/L (7.0-40); AST/SGOT 14 U/L (<34); BILIRUBIN,TOTAL 0.2 MG/DL (0.3-1.2); BLOOD UREA NITROGEN 16 MG/DL (9-23); CALCIUM LEVEL 9.7 MG/DL (8.3-10.6); CARBON DIOXIDE LEVEL 28 MMOL/L (20-31); CHLORIDE LEVEL 109 MMOL/L (98-107); CHOLESTEROL LEVEL 131 MG/DL (<200); CHOLESTEROL RISK RATIO 2.17 (<5); CREATININE FOR GFR 0.73 MG/DL (0.55-1.30); GLOMERULAR FILTRATION RATE > 60.0 (>45); GLUCOSE, FASTING 91 MG/DL (74-106); HDL CHOLESTEROL 60.3 MG/DL (>40); LDL CHOLESTEROL 48.3 MG/DL (<100); NON-HDL-C 70.7 MG/DL; POTASSIUM SERUM 3.3 MMOL/L (3.5-5.1); SODIUM LEVEL 143 MMOL/L (136-145); TOTAL PROTEIN 6.5 G/DL (5.7-8.2); TRIGLYCERIDES LEVEL 112 MG/DL (<150)
[2023-10-22 14:28] LABS: HEMOGLOBIN A1c 5.5 % (4.0-6.0)
== END ==
LOC: M LABDRWAD 12:54
PROVIDERS: ATTEND Student in an Organized Health Care Education/Training Program
DX: I10 Essential (primary) hypertension (principal); E78.2 Mixed hyperlipidemia; R73.09 Other abnormal glucose; J45.50 Severe persistent asthma, uncomplicated

== ENCOUNTER → 2023-11-18 | Outpatient (CLI) | payer OTHER | LOC: M WHC 13:27 | PROVIDERS: ATTEND Student in an Organized Health Care Education/Training Program | DX: Z79.52 Long term (current) use of systemic steroids (principal); M85.88 Other specified disorders of bone density and structure, other site ==

== ENCOUNTER → 2023-12-07 | Outpatient (CLI) | payer OTHER ==
[2023-12-07 13:13] LABS: BASO # 0.1 10^3/uL (0.0-0.2); BASO % 0.8 % (0.0-1.0); EOS # 0.6 10^3/uL (0.0-0.5); EOS % 7.1 % (0.0-3.0); HEMOGLOBIN 13.4 g/dl (12.0-15.5); LYMPH # 1.6 10^3/uL (1.5-5.0); LYMPH % 17.1 % (24.0-44.0); MEAN CORPUSCULAR HEMOGLOBIN 30.2 pg (27.0-33.0); MEAN CORPUSCULAR HGB CONC 32.7 g/dl (32.0-36.5); MEAN CORPUSCULAR VOLUME 92.6 fl (80.0-96.0); MONO # 0.6 10^3/uL (0.0-0.8); NEUTROPHILS # 6.1 10^3/uL (1.5-8.5); NEUTROPHILS % 67.7 % (36.0-66.0); PLATELET COUNT, AUTOMATED 287 10^3/uL (150-450); RED BLOOD COUNT 4.43 10^6/uL (4.00-5.40); WHITE BLOOD COUNT 9.1 10^3/uL (4.0-10.0)
[2023-12-10 02:08] LABS: D001-IgE D pteronyssinus <0.10 kU/L (Class 0); E001-IgE Cat Epith/Dander < 0.10 kU/L (Class 0); E005-IgE Dog Dander < 0.10 kU/L (Class 0); G002-IgE Bermuda Grass < 0.10 kU/L (Class 0); M001-IgE Penicillium chrysogen < 0.10 kU/L (Class 0); M002 IgE Cladosporium herbaru < 0.10 kU/L (Class 0); M003 IgE Aspergillus fumigatu < 0.10 kU/L (Class 0); M006-IgE Alternaria alternata < 0.10 kU/L (Class 0); T001-IgE Maple/Box Elder < 0.10 kU/L (Class 0); T003-IgE Common Silver Birch < 0.10 kU/L (Class 0); T006-IgE Cedar, Mountain < 0.10 kU/L (Class 0); T007-IgE Oak, White < 0.10 kU/L (Class 0); T008-IgE Elm, American < 0.10 kU/L (Class 0); T015-IgE Ash, White < 0.10 kU/L (Class 0); T070-IgE White Mulberry < 0.10 kU/L (Class 0); W001-IgE Ragweed, Short < 0.10 kU/L (Class 0); W018-IgE Sheep Sorrel < 0.10 kU/L (Class 0)
== END ==
LOC: M LAB 11:26
PROVIDERS: ATTEND Internal Medicine Pulmonary Disease
DX: J45.51 Severe persistent asthma with (acute) exacerbation (principal)

== ENCOUNTER → 2024-01-20 | Outpatient (REF) | payer OTHER ==
[~2024-01-20] MED LIST changes: +DOXY-323 PO; -DOXY-443 PO; +FLUO-290 PO; -FLUO10CA18 PO
[2024-01-20 13:38] LABS: FREE T4 1.06 NG/DL (0.89-1.76); THYROID STIMULATING HORMONE 1.744 uIU/ML (0.55-4.78)
== END ==
LOC: M LABDRWAD 12:36
PROVIDERS: ATTEND Physician Assistant Medical
DX: K31.84 Gastroparesis (principal)

== ENCOUNTER → 2024-01-20 | Outpatient (REF) | payer OTHER ==
[2024-01-20 13:14] LABS: BLOOD UREA NITROGEN 12 MG/DL (9-23); CARBON DIOXIDE LEVEL 29 MMOL/L (20-31); CHLORIDE LEVEL 107 MMOL/L (98-107); CREATININE FOR GFR 0.79 MG/DL (0.55-1.30); GLOMERULAR FILTRATION RATE > 60.0 (>45); GLUCOSE, FASTING 102 MG/DL (74-106); POTASSIUM SERUM 3.9 MMOL/L (3.5-5.1); SODIUM LEVEL 142 MMOL/L (136-145)
== END ==
LOC: M SFHCPLAZ 07:17
PROVIDERS: ATTEND Family Medicine
DX: E87.6 Hypokalemia (principal)

== ENCOUNTER → 2024-02-18 | Outpatient (CLI) | payer OTHER | LOC: M WHC 09:00 | PROVIDERS: ATTEND Student in an Organized Health Care Education/Training Program | DX: Z12.31 Encounter for screening mammogram for malignant neoplasm of breast (principal) ==

== ENCOUNTER → 2024-03-07 | Outpatient (CLI) | payer OTHER | LOC: M WHC 10:42 | PROVIDERS: ATTEND Student in an Organized Health Care Education/Training Program | DX: Z12.31 Encounter for screening mammogram for malignant neoplasm of breast (principal) ==

== ENCOUNTER → 2024-03-28 | Outpatient (CLI) | payer OTHER | LOC: M SOG 08:01 | PROVIDERS: ATTEND Physician Assistant | DX: M25.561 Pain in right knee (principal) ==

== ENCOUNTER → 2024-04-25 | Outpatient (REF) | payer OTHER ==
[2024-04-25 13:57] LABS: BASO # 0.1 10^3/uL (0.0-0.2); BASO % 0.8 % (0.0-1.0); EOS # 0.3 10^3/uL (0.0-0.5); EOS % 3.4 % (0.0-3.0); HEMOGLOBIN 13.3 g/dl (12.0-15.5); LYMPH # 1.5 10^3/uL (1.5-5.0); LYMPH % 19.7 % (24.0-44.0); MEAN CORPUSCULAR HEMOGLOBIN 31.2 pg (27.0-33.0); MEAN CORPUSCULAR HGB CONC 32.4 g/dl (32.0-36.5); MEAN CORPUSCULAR VOLUME 96.2 fl (80.0-96.0); MONO # 0.6 10^3/uL (0.0-0.8); MONO % 7.8 % (2.0-8.0); NEUTROPHILS # 5.1 10^3/uL (1.5-8.5); NEUTROPHILS % 67.8 % (36.0-66.0); PLATELET COUNT, AUTOMATED 347 10^3/uL (150-450); RED BLOOD COUNT 4.26 10^6/uL (4.00-5.40); WHITE BLOOD COUNT 7.6 10^3/uL (4.0-10.0)
[2024-04-25 14:04] LABS: TOTAL 25(OH) VITAMIN D 33.3 NG/ML (20.0-100.0)
[2024-04-25 14:11] LABS: ALBUMIN 3.7 G/DL (3.2-5.2); ALKALINE PHOSPHATASE 153 U/L (46-116); ALT/SGPT 14 U/L (7.0-40); AST/SGOT 9 U/L (<34); BILIRUBIN,TOTAL 0.3 MG/DL (0.3-1.2); BLOOD UREA NITROGEN 11 MG/DL (9-23); CARBON DIOXIDE LEVEL 28 MMOL/L (20-31); CHLORIDE LEVEL 110 MMOL/L (98-107); CREATININE FOR GFR 0.86 MG/DL (0.55-1.30); GLOMERULAR FILTRATION RATE > 60.0 (>45); GLUCOSE, FASTING 98 MG/DL (74-106); MAGNESIUM LEVEL 2.1 MG/DL (1.8-2.4); SODIUM LEVEL 143 MMOL/L (136-145); TOTAL PROTEIN 6.8 G/DL (5.7-8.2)
== END ==
LOC: M SFHCPLAZ 09:49
DX: Z79.899 Other long term (current) drug therapy (principal); R53.82 Chronic fatigue, unspecified; R25.2 Cramp and spasm

== ENCOUNTER → 2024-07-27 | Outpatient (CLI) | payer OTHER ==
[~2024-07-27] MED LIST changes: -DOXY-323 PO; +DOXY-441 PO; +GABA-1172; -GABA-282
== END ==
LOC: M PLAIMG 07:02
PROVIDERS: ATTEND Physician Assistant
DX: M17.11 Unilateral primary osteoarthritis, right knee (principal)

== ENCOUNTER → 2024-08-22 | Outpatient (REF) | payer OTHER | LOC: M SFHCPLAZ 08:22 | DX: R06.01 Orthopnea (principal); F32.9 Major depressive disorder, single episode, unspecified; E55.9 Vitamin D deficiency, unspecified; G25.81 Restless legs syndrome ==

== ENCOUNTER → 2024-08-23 | Outpatient (CLI) | payer OTHER | LOC: M SOG 07:54 | PROVIDERS: ATTEND Orthopaedic Surgery | DX: M17.0 Bilateral primary osteoarthritis of knee (principal) ==

== ENCOUNTER → 2024-08-30 | Outpatient (REF) | payer OTHER ==
[~2024-08-30] MED LIST changes: +ALBU0.63 INH; +ALEN70TA82 PO; +ARIP1TAB4 PO; +CALC600T85 PO; +FAMO20TA PO; +FLUT12AE3 INH; +FLUT1INH INH; -FURO20TA2; +FURO20TA2 PO; +NEUR300C PO; +SPIR-10 PO; +SPIR1CAP INH; +TEZE210S SQ; +THEO400T4 PO; +VENL150C43 PO; +VITA100093 PO
[2024-08-30 12:49] LABS: INR 0.89; PROTHROMBIN TIME 12.4 SECONDS (12.5-14.5)
[2024-08-30 13:07] LABS: BASO % 0.4 % (0.0-1.0); EOS # 0.2 10^3/uL (0.0-0.5); EOS % 2.4 % (0.0-3.0); HEMATOCRIT 41.7 % (36.0-47.0); HEMOGLOBIN 13.4 g/dl (12.0-15.5); LYMPH # 1.2 10^3/uL (1.5-5.0); LYMPH % 16.3 % (24.0-44.0); MEAN CORPUSCULAR HEMOGLOBIN 30.5 pg (27.0-33.0); MEAN CORPUSCULAR HGB CONC 32.1 g/dl (32.0-36.5); MONO # 0.6 10^3/uL (0.0-0.8); MONO % 7.6 % (2.0-8.0); NEUTROPHILS # 5.2 10^3/uL (1.5-8.5); NEUTROPHILS % 71.5 % (36.0-66.0); PLATELET COUNT, AUTOMATED 293 10^3/uL (150-450); RED BLOOD COUNT 4.39 10^6/uL (4.00-5.40); WHITE BLOOD COUNT 7.2 10^3/uL (4.0-10.0)
[2024-08-30 13:16] LABS: TOTAL 25(OH) VITAMIN D 34.7 NG/ML (20.0-100.0)
[2024-08-30 13:22] LABS: ALBUMIN 3.9 G/DL (3.2-5.2); ALKALINE PHOSPHATASE 139 U/L (35-104); ALT/SGPT 14 U/L (7.0-40); AST/SGOT 15 U/L (<34); BILIRUBIN,TOTAL 0.4 MG/DL (0.3-1.2); BLOOD UREA NITROGEN 13 MG/DL (9-23); CALCIUM LEVEL 10.1 MG/DL (8.3-10.6); CARBON DIOXIDE LEVEL 30 MMOL/L (20-31); CHLORIDE LEVEL 111 MMOL/L (98-107); CREATININE FOR GFR 0.84 MG/DL (0.55-1.30); GLOMERULAR FILTRATION RATE > 60.0 (>45); GLUCOSE, FASTING 95 MG/DL (74-106); SODIUM LEVEL 145 MMOL/L (136-145); TOTAL PROTEIN 7.1 G/DL (5.7-8.2)
[2024-08-30 14:54] LABS: HEMOGLOBIN A1c 5.4 % (4.0-6.0)
== END ==
LOC: M LABDRWAD 12:29
PROVIDERS: ATTEND Orthopaedic Surgery
DX: M17.11 Unilateral primary osteoarthritis, right knee (principal)

== ENCOUNTER → 2024-08-30 | Outpatient (REF) | payer OTHER ==
[2024-08-30 13:07] LABS: BASO % 0.6 % (0.0-1.0); EOS # 0.1 10^3/uL (0.0-0.5); EOS % 1.8 % (0.0-3.0); HEMATOCRIT 41.2 % (36.0-47.0); HEMOGLOBIN 13.5 g/dl (12.0-15.5); LYMPH # 1.2 10^3/uL (1.5-5.0); MEAN CORPUSCULAR HEMOGLOBIN 30.6 pg (27.0-33.0); MEAN CORPUSCULAR HGB CONC 32.8 g/dl (32.0-36.5); MEAN CORPUSCULAR VOLUME 93.4 fl (80.0-96.0); MONO # 0.5 10^3/uL (0.0-0.8); MONO % 7.5 % (2.0-8.0); NEUTROPHILS # 5.3 10^3/uL (1.5-8.5); NEUTROPHILS % 73.8 % (36.0-66.0); PLATELET COUNT, AUTOMATED 290 10^3/uL (150-450); RED BLOOD COUNT 4.41 10^6/uL (4.00-5.40); WHITE BLOOD COUNT 7.2 10^3/uL (4.0-10.0)
[2024-08-30 13:15] LABS: ALBUMIN 3.9 G/DL (3.2-5.2); ALKALINE PHOSPHATASE 144 U/L (35-104); ALT/SGPT 15 U/L (7.0-40); AST/SGOT 15 U/L (<34); BILIRUBIN,TOTAL 0.3 MG/DL (0.3-1.2); BLOOD UREA NITROGEN 14 MG/DL (9-23); CALCIUM LEVEL 10.4 MG/DL (8.3-10.6); CARBON DIOXIDE LEVEL 29 MMOL/L (20-31); CHLORIDE LEVEL 109 MMOL/L (98-107); CREATININE FOR GFR 0.83 MG/DL (0.55-1.30); GLOMERULAR FILTRATION RATE > 60.0 (>45); GLUCOSE, FASTING 94 MG/DL (74-106); SODIUM LEVEL 147 MMOL/L (136-145); TOTAL PROTEIN 7.5 G/DL (5.7-8.2)
[2024-08-30 13:17] LABS: FREE T4 1.13 NG/DL (0.89-1.76); THYROID STIMULATING HORMONE 2.362 uIU/ML (0.55-4.78); TOTAL 25(OH) VITAMIN D 35.5 NG/ML (20.0-100.0)
== END ==
LOC: M SFHCADAM 07:47
DX: R06.01 Orthopnea (principal); F32.9 Major depressive disorder, single episode, unspecified; E55.9 Vitamin D deficiency, unspecified; G25.81 Restless legs syndrome; M17.11 Unilateral primary osteoarthritis, right knee

== ENCOUNTER → 2024-10-04 | Outpatient (REF) | payer OTHER ==
[~2024-10-04] MED LIST changes: +[UNRECOGNIZED DRUG - CODE] PO; -[UNRECOGNIZED DRUG - CODE] PO
== END ==
LOC: M LAB REF 17:08
PROVIDERS: ATTEND Internal Medicine Pulmonary Disease
DX: J45.50 Severe persistent asthma, uncomplicated (principal)

== ENCOUNTER → 2024-10-09 | Outpatient (CLI) | payer OTHER ==
[~2024-10-09] MED LIST changes: -ALBU0.63 INH; -ALEN70TA82 PO; -ARIP1TAB4 PO; -CALC600T85 PO; -FAMO20TA PO; -FLUT12AE3 INH; -FLUT1INH INH; +FURO20TA2; -FURO20TA2 PO; -NEUR300C PO; -SPIR-10 PO; -SPIR1CAP INH; -TEZE210S SQ; -THEO400T4 PO; -VENL150C43 PO; -VITA100093 PO; +[UNRECOGNIZED DRUG - CODE] PO; -[UNRECOGNIZED DRUG - CODE] PO
== END ==
LOC: M RAD 11:47
PROVIDERS: ATTEND Orthopaedic Surgery
DX: M17.11 Unilateral primary osteoarthritis, right knee (principal)

== ENCOUNTER → 2025-01-16 | Outpatient (CLI) | payer OTHER ==
[~2025-01-16] MED LIST changes: +ALBU0.63 INH; +ALEN70TA82 PO; +ARIP1TAB4 PO; +CALC600T85 PO; +FAMO20TA PO; +FLUT12AE3 INH; +FLUT1INH INH; -FURO20TA2; +FURO20TA2 PO; +LIDO1PAD SUBD; +MELO7.5T35 PO; +NEUR300C PO; +PRED5TA PO; +SPIR-10 PO; +SPIR1CAP INH; +TEZE210S SQ; +THEO400T4 PO; +TIZA2TA PO; +VENL150C43 PO; +VITA100093 PO; +[UNRECOGNIZED DRUG - CODE] PO; -[UNRECOGNIZED DRUG - CODE] PO
[2025-01-16 12:26] LABS: CREATININE FOR GFR 0.89 MG/DL (0.55-1.30); GLOMERULAR FILTRATION RATE 72.8 (>45); POTASSIUM SERUM 3.7 MMOL/L (3.5-5.1)
== END ==
LOC: M RAD 10:33
DX: M25.512 Pain in left shoulder (principal)

== ENCOUNTER → 2025-01-16 | Outpatient (CLI) | payer OTHER ==
[2025-01-16 11:23] LABS: BASO % 0.6 % (0.0-1.0); EOS # 0.2 10^3/uL (0.0-0.5); EOS % 3.1 % (0.0-3.0); HEMATOCRIT 39.7 % (36.0-47.0); HEMOGLOBIN 12.8 g/dl (12.0-15.5); LYMPH # 1.4 10^3/uL (1.5-5.0); LYMPH % 20.2 % (24.0-44.0); MEAN CORPUSCULAR HGB CONC 32.2 g/dl (32.0-36.5); MEAN CORPUSCULAR VOLUME 93.2 fl (80.0-96.0); MONO # 0.5 10^3/uL (0.0-0.8); MONO % 7.2 % (2.0-8.0); NEUTROPHILS # 4.6 10^3/uL (1.5-8.5); NEUTROPHILS % 68.6 % (36.0-66.0); PLATELET COUNT, AUTOMATED 282 10^3/uL (150-450); RED BLOOD COUNT 4.26 10^6/uL (4.00-5.40); WHITE BLOOD COUNT 6.7 10^3/uL (4.0-10.0)
[2025-01-16 11:54] LABS: ALBUMIN 3.8 G/DL (3.2-5.2); BILIRUBIN,TOTAL 0.4 MG/DL (0.3-1.2); CALCIUM LEVEL 10.2 MG/DL (8.3-10.6); CHOLESTEROL RISK RATIO 2.53 (<5); CREATININE FOR GFR 0.89 MG/DL (0.55-1.30); GLOMERULAR FILTRATION RATE 72.8 (>45); HDL CHOLESTEROL 62.4 MG/DL (>40); LDL CHOLESTEROL 70.6 MG/DL (<100); NON-HDL-C 95.6 MG/DL; POTASSIUM SERUM 3.7 MMOL/L (3.5-5.1); TOTAL PROTEIN 6.7 G/DL (5.7-8.2)
[2025-01-16 11:57] LABS: HEMOGLOBIN A1c 5.4 % (4.0-6.0)
== END ==
LOC: M LAB 10:36
PROVIDERS: ATTEND Internal Medicine Cardiovascular Disease
DX: R94.31 Abnormal electrocardiogram [ECG] [EKG] (principal)

== ENCOUNTER → 2025-03-16 | Outpatient (CLI) | payer OTHER ==
[2025-03-16 09:03] LABS: BASO # 0.0 10^3/uL (0.0-0.2); BASO % 0.4 % (0.0-1.0); EOS # 0.2 10^3/uL (0.0-0.5); EOS % 2.8 % (0.0-3.0); LYMPH # 1.2 10^3/uL (1.5-5.0); LYMPH % 16.0 % (24.0-44.0); MONO # 0.5 10^3/uL (0.0-0.8); MONO % 6.3 % (2.0-8.0); NEUTROPHILS # 5.6 10^3/uL (1.5-8.5); NEUTROPHILS % 74.1 % (36.0-66.0); PLATELET COUNT, AUTOMATED 252 10^3/uL (150-450)
[2025-03-16 09:09] LABS: ERYTHROCYTE SEDIMENTATION RATE 15 mm/hr (0-30)
[2025-03-16 09:18] LABS: INR 0.88
[2025-03-16 09:31] LABS: C REACTIVE PROTEIN QUANTITATIV < 0.50 MG/DL (<1.0)
[2025-03-16 09:32] LABS: ALT/SGPT 14 U/L (7.0-40); AST/SGOT 17 U/L (<34); CALCIUM LEVEL 10.3 MG/DL (8.3-10.6); CARBON DIOXIDE LEVEL 28 MMOL/L (20-31); CHLORIDE LEVEL 109 MMOL/L (98-107); CREATININE FOR GFR 0.89 MG/DL (0.55-1.30); GLOMERULAR FILTRATION RATE 72.8 (>45); POTASSIUM SERUM 3.8 MMOL/L (3.5-5.1); SODIUM LEVEL 146 MMOL/L (136-145)
[2025-03-16 09:54] LABS: ESTIMATED AVERAGE GLUCOSE 117.0 MG/DL (60-110)
== END ==
LOC: M LAB 08:22
PROVIDERS: ATTEND Orthopaedic Surgery
DX: M17.11 Unilateral primary osteoarthritis, right knee (principal); J45.20 Mild intermittent asthma, uncomplicated

== ENCOUNTER → 2025-03-16 | Outpatient (CLI) | payer OTHER | LOC: M LAB 08:24 | PROVIDERS: ATTEND Internal Medicine Pulmonary Disease | DX: J45.20 Mild intermittent asthma, uncomplicated (principal) ==

== ENCOUNTER → 2025-03-27 | Outpatient (CLI) | payer OTHER ==
[2025-03-27 14:36] LABS: CALCIUM LEVEL 11.4 MG/DL (8.3-10.6); CARBON DIOXIDE LEVEL 28.0 MMOL/L (20-31); CHLORIDE LEVEL 107.0 MMOL/L (98-107); CREATININE FOR GFR 0.96 MG/DL (0.55-1.30); GLOMERULAR FILTRATION RATE 66.5 (>45); MAGNESIUM LEVEL 1.8 MG/DL (1.8-2.4); PHOSPHORUS LEVEL 3.0 MG/DL (2.4-5.1); POTASSIUM SERUM 4.0 MMOL/L (3.5-5.1); PTH INTACT 61.6 PG/ML (18.5-88.0); SODIUM LEVEL 145.0 MMOL/L (136-145); TOTAL 25(OH) VITAMIN D 45.1 NG/ML (20.0-100.0)
== END ==
LOC: M PLALAB 11:06
PROVIDERS: ATTEND Nurse Practitioner Family
DX: M81.0 Age-related osteoporosis without current pathological fracture (principal)

== ENCOUNTER → 2025-03-27 | Outpatient (CLI) | payer OTHER ==
[2025-03-27 14:22] LABS: BASO # 0.1 10^3/uL (0.0-0.2); BASO % 0.7 % (0.0-1.0); EOS # 0.3 10^3/uL (0.0-0.5); EOS % 4.3 % (0.0-3.0); LYMPH # 1.5 10^3/uL (1.5-5.0); LYMPH % 20.9 % (24.0-44.0); MONO # 0.6 10^3/uL (0.0-0.8); MONO % 8.1 % (2.0-8.0); NEUTROPHILS # 4.7 10^3/uL (1.5-8.5); NEUTROPHILS % 65.4 % (36.0-66.0); PLATELET COUNT, AUTOMATED 309 10^3/uL (150-450)
[2025-03-27 14:25] LABS: CALCIUM LEVEL 10.8 MG/DL (8.3-10.6); CARBON DIOXIDE LEVEL 26.0 MMOL/L (20-31); CHLORIDE LEVEL 105.0 MMOL/L (98-107); CREATININE FOR GFR 0.97 MG/DL (0.55-1.30); GLOMERULAR FILTRATION RATE 65.7 (>45); POTASSIUM SERUM 3.9 MMOL/L (3.5-5.1); SODIUM LEVEL 145.0 MMOL/L (136-145)
== END ==
LOC: M PLALAB 11:04
PROVIDERS: ATTEND Internal Medicine Cardiovascular Disease
DX: I48.0 Paroxysmal atrial fibrillation (principal); I50.9 Heart failure, unspecified

== ENCOUNTER → 2025-04-26 | Outpatient (CLI) | payer MEDICARE, OTHER ==
[2025-04-26 15:50] LABS: BASO # 0.0 10^3/uL (0.0-0.2); BASO % 0.5 % (0.0-1.0); EOS # 0.1 10^3/uL (0.0-0.5); EOS % 1.0 % (0.0-3.0); LYMPH # 0.8 10^3/uL (1.5-5.0); LYMPH % 10.0 % (24.0-44.0); MONO # 0.4 10^3/uL (0.0-0.8); MONO % 4.7 % (2.0-8.0); NEUTROPHILS # 6.9 10^3/uL (1.5-8.5); NEUTROPHILS % 83.3 % (36.0-66.0); PLATELET COUNT, AUTOMATED 387 10^3/uL (150-450)
[2025-04-26 18:14] LABS: CALCIUM LEVEL 10.8 MG/DL (8.3-10.6); CARBON DIOXIDE LEVEL 25.0 MMOL/L (20-31); CHLORIDE LEVEL 106.0 MMOL/L (98-107); CREATININE FOR GFR 0.75 MG/DL (0.55-1.30); GLOMERULAR FILTRATION RATE 89.4 (>45); POTASSIUM SERUM 4.1 MMOL/L (3.5-5.1); SODIUM LEVEL 142.0 MMOL/L (136-145)
== END ==
LOC: M PLALAB 12:57
PROVIDERS: ATTEND Internal Medicine Cardiovascular Disease
DX: I50.9 Heart failure, unspecified (principal); I48.0 Paroxysmal atrial fibrillation

== ENCOUNTER → 2025-04-26 | Outpatient (CLI) | payer MEDICARE, OTHER ==
[2025-04-26 16:00] LABS: CALCIUM LEVEL 10.6 MG/DL (8.3-10.6); CARBON DIOXIDE LEVEL 26.0 MMOL/L (20-31); CHLORIDE LEVEL 107.0 MMOL/L (98-107); CREATININE FOR GFR 0.77 MG/DL (0.55-1.30); GLOMERULAR FILTRATION RATE 86.6 (>45); POTASSIUM SERUM 4.2 MMOL/L (3.5-5.1); SODIUM LEVEL 142.0 MMOL/L (136-145)
== END ==
LOC: M PLALAB 12:59
PROVIDERS: ATTEND Nurse Practitioner Family
DX: M81.0 Age-related osteoporosis without current pathological fracture (principal)

== ENCOUNTER → 2025-05-07 | Outpatient (CLI) | payer MEDICARE, OTHER | LOC: M PLAIMG 12:55 | PROVIDERS: ATTEND Internal Medicine Pulmonary Disease | DX: J45.50 Severe persistent asthma, uncomplicated (principal) ==

== ENCOUNTER → 2025-06-21 | Outpatient (REF) | payer MEDICARE, OTHER | LOC: M LAB REF 17:46 | PROVIDERS: ATTEND Orthopaedic Surgery | DX: Z01.818 Encounter for other preprocedural examination (principal) ==

== ENCOUNTER → 2025-07-30 | Outpatient (CLI) | payer MEDICARE, OTHER ==
[~2025-07-30] MED LIST changes: +FLUT1AER5 IH; -LIDO1PAD SUBD; +LIDO1PAD TOP
== END ==
LOC: M RAD 13:45
PROVIDERS: ATTEND Orthopaedic Surgery
DX: M17.11 Unilateral primary osteoarthritis, right knee (principal)